=== PATIENT | female | born 1965 | race Caucasian/White ===

== ENCOUNTER 2018-04-25 05:03 | Emergency (ER) | payer OTHER, SELFPAY ==
[2018-04-25 05:06] VITALS: BP 136/75; PULSE 101; RESP 24; TEMP 36.8; O2SAT 97
--- NOTE | 2018-04-25 05:13 | ED.GENADUL_ITS ---
Discharge Plan Disposition Patient Disposition: HOME Condition: Stable Discharge Details Chief Complaint: SOB Clinical Impression: URI, acute, Cough, COPD exacerbation Primary Care Provider: LEONARDO,LOCAL ED Provider: Violet Ma Home Meds and New Rx's Prescriptions: New prednisone 50 mg tablet 50 mg PO DAILY Qty: 5 RF: 0 azithromycin [Zithromax] 500 mg tablet 500 mg PO DAILY 5 Days Qty: 5 RF: 0 Continue metformin 500 mg Tablet 500 mg PO BID RF: 0 pramipexole [Mirapex] 0.5 mg Tablet 0.5 mg PO BID RF: 0 nortriptyline 25 mg Capsule 25 mg PO HS RF: 0 lithium carbonate 300 mg Tablet 1,200 mg PO HS RF: 0 ginkgo biloba leaf extract 30 mg Capsule 30 mg PO BID RF: 0 levothyroxine [Synthroid] 25 mcg Tablet 25 mcg PO DAILY RF: 0 Discharge Instructions Instructions: Upper Respiratory Infection (ED), COPD (Chronic Obstructive Pulmonary Disease) (ED), Acute Cough (ED) Additional Instructions: Take the steroids and antibiotics until finished. Use the Symbicort inhaler twice daily as directed. Use the albuterol inhaler as needed and directed for shortness of breath or wheezing. Follow-up with the primary care doctor for reevaluation once your insurance is approved. Return immediately to the emergency department with any worsening or new concerning symptoms. Discharge Data Discharge Date/Time-TO BE ENTERED AT DEPARTURE: 04/25/18 05:49 Discharge Physician: Violet Ma Medical Decision Making MDM Narrative Medical decision making narrative: 52-year-old female with a history of COPD and current tobacco smoker who presents for sore throat since yesterday and dry cough and shortness of breath since last night. Pt denies chest pain or fever. Patient states recently moved from [place] 2 months ago and did not have her inhaler that she needed for her COPD. States she thinks she was taking Symbicort twice daily. Patient initially had stated to me that she did not have any of her medication and was only taking synthroid but after nurse completed med reconciliation, she is noted to be taking metformin, Synthroid, nortriptyline, lithium, Mirapex of which she stated she is taking. She also did not admit to any medical problems other than hypothyroidism on initial evaluation. She denies recent surgery, leg pain or swelling. Vitals within normal limits. Afebrile. Oxygen saturation 97%. Respiratory rate 20. Heart rate 101 per triage but normal on my cardiac exam. She appears nontoxic and in no acute distress. Airway intact and she is speaking in full sentences. Normal ENT exam. She has very minimal scattered wheezing and diminished breath sounds but no rhonchi, rales or crackles. Patient offered neb treatment and chest x-ray but declines. She is c/o more uri/ copd symptoms and in no acute distress so doubt acs. Patient states she mainly needs refill of her COPD medications. As patient is a smoker, will also start antibiotics. We will give a dose of prednisone and Zithromax here and send home with albuterol and Symbicort inhalers. Patient is currently in the process of obtaining insurance. She states she has completed the paperwork and will plan to follow-up with the primary care doctor once complete. She declines care management referral. Patient was instructed to return immediately with any concerns or worsening of symptoms HPI - General Adult General Mode of arrival: ambulatory . Date/Time Provider Initiated Documentation: 04/25/18 05:11 . Limitations to Documentation: no limitations . Information obtained by: patient . HPI Narrative: 52-year-old female with history of COPD and tobacco abuse who presents for sore throat and rhinorrhea since yesterday and shortness of breath and cough since last night. Denies known fever or chest pain. States she recently moved here from [place] 2 months ago and did not have her inhaler since she left. States she is in the process of receiving insurance and has completed the paperwork and is awaiting to make an appointment with her primary care doctor. She states she has been drinking normally and eating slightly less than usual. States her sore throat is now resolved. Past medical history: COPD, restless leg syndrome, diabetes, hypothyroidism Surgical history: Tonsillectomy, R knee pedro cyst removal, D&C Social history: Smokes tobacco, rare EtOH, denies drugs Meds: See list Allergies: Zoloft PCP: None yet Related Data Home Medications Medication Instructions Recorded Confirmed ginkgo biloba leaf extract 30 mg PO BID 04/25/18 04/25/18 levothyroxine [Synthroid] 25 mcg PO DAILY 04/25/18 lithium carbonate 1,200 mg PO HS 04/25/18 metformin 500 mg PO BID 04/25/18 04/25/18 nortriptyline 25 mg PO HS 04/25/18 pramipexole [Mirapex] 0.5 mg PO BID 04/25/18 04/25/18 Previous Rx's Medication Instructions Recorded azithromycin [Zithromax] 500 mg PO DAILY 5 Days #5 tab 04/25/18 prednisone 50 mg PO DAILY #5 tab 04/25/18 Allergies Allergy/AdvReac Type Severity Reaction Status Date / Time sertraline [From Zoloft] AdvReac Unverified 04/25/18 05:10 General Stated Complaint: SOB REBECA: 4 Review of Systems Review of Systems All systems reviewed & are unremarkable except as noted in HPI and below Constitutional Denies chills, Denies excessive sweating, Denies fatigue, Denies fever(s), Denies weakness and Denies weight loss Eyes Patient Reports system reviewed and no additional complaints, except as docu and Denies blurry vision ENT Denies vertigo, Denies dizziness, Denies otalgia, Denies nasal congestion, Denies sore throat and Denies throat swelling Cardiovascular Denies chest pain, Denies syncope, Denies rapid heart rate and Reports dyspnea Respiratory Reports cough and Reports dyspnea Gastrointestinal Denies abdominal pain, Denies diarrhea and Denies vomiting Genitourinary Denies hematuria, Denies dysuria and Denies flank pain Musculoskeletal Denies back pain and Denies joint swelling Integumentary/Breasts Denies lesions and Denies rash Neurologic Denies behavioral changes, Denies confusion, Denies vertigo, Denies dizziness, Denies syncope and Denies weakness Psychiatric Denies behavioral changes, Denies confusion and Denies depression Endocrine Denies excessive sweating and Denies fatigue Hematologic/Lymphatic Denies easy bruising and Denies lymphadenopathy Allergic/Immunologic Denies throat swelling [facility] Social History Smoking/Tobacco Use Status: Current every day Exam Const General: cooperative and healthy appearing Orientation: alert and awake HENMT Head: normal to inspection Ears: hearing grossly normal bilaterally, external ears normal and TM's normal bilaterally General nose exam: external nose normal Face and sinus: normal facial exam Mouth: oral mucosae normal Teeth and gingiva: dentition normal Throat: posterior oropharynx normal Eyes General: appearance normal, both eyes and all related structures Eyelids: eyelids normal Pupils: PERRL EOM: EOM intact bilaterally Neck Neck: normal visual inspection Lymphatic: no lymphadenopathy noted Chest Chest: normal inspection of the chest Resp Effort & Inspection: normal respiratory effort and able to speak in complete sentences Auscultation: no crackles, no rales, no rhonchi and wheezes (Minimal scattered wheezing and minimally diminished breath sounds) Cardio Rate: regular rate Rhythm: regular rhythm GI Inspection: normal to inspection Skin General skin exam: no rashes or lesions noted Neuro General: alert and awake Cognition: normal cognition Speech: speech normal Gait: normal gait Extrem General: normal to inspection, full ROM and normal capillary refill Psych Appearance: grossly normal Mental Status: mental status grossly normal Speech and Movement: speech and movement normal Affect: normal affect Thought Process: normal Course Vital Signs Temperature 98.2 F 04/25/18 05:06 Pulse 101 H 04/25/18 05:06 Respiratory Rate 24 04/25/18 05:06 Blood Pressure 136/75 04/25/18 05:06 Pulse Oximetry 97 04/25/18 05:06 Temperature 98.2 F 04/25/18 05:06 Pulse 101 H 04/25/18 05:06 Respiratory Rate 24 04/25/18 05:06 Blood Pressure 136/75 04/25/18 05:06 Pulse Oximetry 97 04/25/18 05:06
[2018-04-25 05:15] VITALS: RESP 20
[2018-04-25] MEDS: Azithromycin 250 MG TAB 500 MG PO (05:31)
[2018-04-25] MEDS: Albuterol HFA 8 GM 60 PUFF INH IH (05:31)
[2018-04-25] MEDS: predniSONE 20 MG TAB 60 MG PO (05:31)
[2018-04-25] MEDS: Budesonide/Formoterol 160/4.5 6 GM 60 PUFF INH IH (05:48)
== END 2018-04-25 05:49 | disposition home or self-care (01) ==
LOC: ER 05:55
PROVIDERS: Emergency Provider Physician Assistant
DX: J44.1 Chronic obstructive pulmonary disease with (acute) exacerbation (principal); J06.9 Acute upper respiratory infection, unspecified; E11.9 Type 2 diabetes mellitus without complications; Z79.84 Long term (current) use of oral hypoglycemic drugs
CPT/HCPCS: 99283; J7512

== ENCOUNTER 2018-06-13 08:09 | Outpatient (REF) | payer OTHER, SELFPAY ==
[2018-06-13 12:23] LABS: HCT 44.1 % (36.0-46.0); Mean Corp. HGB Concentration 29.5 g/dL (32.0-36.0); Mean Platelet Volume 11.2 fL (8.0-11.0); Platelet Count 322 x1000/uL (130-400); RBC 4.64 m/cumm (4.00-5.20); RBC Distribution Width 15.6 % (11.7-14.6); White Blood Cell Count 7.69 k/cumm (4.4-10.8)
[2018-06-13 12:40] LABS: Lithium < 0.20 mmol/L (0.60-1.20)
[2018-06-13 12:46] LABS: ALT 16 U/L (12-78); AST 10 U/L (15-37); Albumin 3.6 g/dL (3.4-5.0); Alkaline Phosphatase 74 U/L (46-116); BUN 7 mg/dL (7-18); Bilirubin, Total 0.2 mg/dL (0.2-1.0); Calcium 9.3 mg/dL (8.5-10.1); Chloride 106 mmol/L (98-107); Estimated GFR 58.22 (mL/min/1.73m2); Glucose 111 mg/dL (70-100); Potassium 4.8 mmol/L (3.5-5.1); Sodium 141 mmol/L (136-145); Total Protein 6.8 g/dL (6.4-8.2)
[2018-06-13 13:05] LABS: FREE T4 0.39 ng/dL (0.76-1.46)
[2018-06-13 13:09] LABS: Hemoglobin A1C 5.5 % (4.5-6.2)
== END 2018-06-13 08:29 ==
LOC: NCHCN 08:09
PROVIDERS: Visit Provider Nurse Practitioner
DX: F31.9 Bipolar disorder, unspecified (principal); E78.5 Hyperlipidemia, unspecified; E03.9 Hypothyroidism, unspecified; I10 Essential (primary) hypertension; J44.9 Chronic obstructive pulmonary disease, unspecified
CPT/HCPCS: 80053; 85027; 80178; 83036; 84439; 84443

== ENCOUNTER 2018-06-26 19:24 | Outpatient (REF) | payer OTHER, SELFPAY ==
[2018-06-26 20:56] LABS: COMMENT (LAB VIEW ONLY) 21.26 mg/dL
== END 2018-06-26 19:44 ==
LOC: NCHCN 19:24
PROVIDERS: PCP Nurse Practitioner; Visit Provider Nurse Practitioner
DX: E11.9 Type 2 diabetes mellitus without complications (principal)
CPT/HCPCS: 82043; 82570

== ENCOUNTER 2018-08-20 09:16 | Outpatient (REF) | payer OTHER, SELFPAY ==
[2018-08-20 13:29] LABS: TSH (W/Ref FT4) 1.35 uIU/mL (0.358-3.74)
== END 2018-08-20 09:36 ==
LOC: NCHCN 09:16
PROVIDERS: PCP Nurse Practitioner; Visit Provider Nurse Practitioner
DX: E03.9 Hypothyroidism, unspecified (principal)
CPT/HCPCS: 84443

== ENCOUNTER 2018-09-13 08:46 | Outpatient (REF) | payer OTHER, SELFPAY ==
[2018-09-13 13:38] LABS: Lithium 0.52 mmol/L (0.60-1.20)
[2018-09-13 13:46] LABS: ALT 19 U/L (12-78); AST 18 U/L (15-37); Albumin 3.1 g/dL (3.4-5.0); Alkaline Phosphatase 78 U/L (46-116); Anion Gap 7.2 mmol/L (3-11); BUN 9 mg/dL (7-18); Bilirubin, Total 0.3 mg/dL (0.2-1.0); CO2 27.8 mmol/L (21.0-32.0); CREATININE 1.12 mg/dL (0.55-1.02); Chloride 106 mmol/L (98-107); Estimated GFR 51.09 (mL/min/1.73m2); Glucose 98 mg/dL (70-100); Potassium 4.7 mmol/L (3.5-5.1); Sodium 141 mmol/L (136-145); TSH (W/Ref FT4) 2.27 uIU/mL (0.358-3.74); Total Protein 6.5 g/dL (6.4-8.2)
== END 2018-09-13 09:06 ==
LOC: NCHCN 08:46
PROVIDERS: PCP Nurse Practitioner; Visit Provider Nurse Practitioner
DX: R60.0 Localized edema (principal); F31.9 Bipolar disorder, unspecified; Z51.81 Encounter for therapeutic drug level monitoring; Z79.899 Other long term (current) drug therapy; E03.9 Hypothyroidism, unspecified
CPT/HCPCS: 80053; 80178; 84443

== ENCOUNTER 2018-11-12 08:35 | Outpatient (REF) | payer OTHER, SELFPAY ==
[2018-11-12 13:58] LABS: Iron 27 ug/dL (50-175); Total Iron Binding Capacity 409 ug/dL (250-450); Transferrin Sat 7 % (15-50)
[2018-11-12 14:11] LABS: Cholesterol 208 mg/dL (50-200); Ferritin 37 ng/mL (8-388); HDL Cholesterol 48 mg/dL (40-60); LDL CHOLESTEROL 143 mg/dL (<100); Triglyceride 101 mg/dL (30-150)
== END 2018-11-12 08:55 ==
LOC: NCHCN 08:35
PROVIDERS: PCP Nurse Practitioner; Visit Provider Nurse Practitioner
DX: E78.5 Hyperlipidemia, unspecified (principal); M25.50 Pain in unspecified joint
CPT/HCPCS: 80061; 83721; 82728; 83540; 83550

== ENCOUNTER 2019-02-20 08:26 | Outpatient (REF) | payer OTHER, SELFPAY ==
[2019-02-20 13:23] LABS: HCT 41.7 % (36.0-46.0); HGB 12.9 g/dL (12.0-15.5); Mean Corp. HGB Concentration 30.9 g/dL (32.0-36.0); Mean Corpuscular Hemoglobin 29.3 pg (27.0-33.0); Mean Corpuscular Volume 94.8 fL (80-95); Mean Platelet Volume 11.3 fL (8.0-11.0); Platelet Count 285 x1000/uL (130-400); White Blood Cell Count 10.38 k/cumm (4.4-10.8)
[2019-02-20 14:24] LABS: ALT 17 U/L (12-78); AST 11 U/L (15-37); Albumin 3.5 g/dL (3.4-5.0); Alkaline Phosphatase 85 U/L (46-116); Anion Gap 9.2 mmol/L (3-11); BUN 10 mg/dL (7-18); Bilirubin, Total 0.3 mg/dL (0.2-1.0); CO2 26.8 mmol/L (21.0-32.0); CREATININE 0.81 mg/dL (0.55-1.02); Calcium 9.3 mg/dL (8.5-10.1); Chloride 106 mmol/L (98-107); Glucose 94 mg/dL (70-100); Potassium 4.3 mmol/L (3.5-5.1); Sodium 142 mmol/L (136-145); TSH (W/Ref FT4) 1.47 uIU/mL (0.358-3.74); Total Protein 6.5 g/dL (6.4-8.2); Vitamin B12 191 pg/mL (193-986)
[2019-02-21 07:40] LABS: Vitamin D 25 Total 19.5 ng/ml (30-100)
== END 2019-02-20 08:46 ==
LOC: NCHCN 08:26
PROVIDERS: PCP Nurse Practitioner; Visit Provider Nurse Practitioner
DX: E03.9 Hypothyroidism, unspecified (principal); D50.9 Iron deficiency anemia, unspecified
CPT/HCPCS: 80053; 82306; 85027; 82607; 84443

== ENCOUNTER 2019-04-19 01:35 | Outpatient (CLI) | payer OTHER, SELFPAY ==
--- NOTE | 2019-04-19 08:30 | DI.MRI_ITS ---
SYMPTOM/DIAGNOSIS: TENOSYNOVITIS, ACHILLES TENDINITIS, RT FOOT PAIN RIGHT ANKLE MRI: Comparison is made with plain films from Dr. Sevilla's office. T 1 and fat suppressed T 2, sagittal and coronal and T 2 axial sequences were performed. The patient was unable to lie flat for the duration of the exam and the T 1 axial and thin slices through the Achilles were not able to be performed. The Achilles tendon shows thickening in the proximal and mid portions. There is asymmetric high signal on the medial aspect of the proximal Achilles Tendon consistent with a partial tear. There is a mild amount of edema in the fat beneath the Achilles tendon. There is a small amount of fluid seen posteriorly at the posterior talocalcaneal joint. The remaining tendons appear intact. The marrow signal is normal. The plantar fascia is unremarkable. IMPRESSION: Partial tear at the medial aspect of the proximal Achilles tendon.
== END 2019-04-19 01:55 ==
PROVIDERS: PCP Nurse Practitioner; Visit Provider Podiatrist
DX: M79.671 Pain in right foot (principal); S86.011A Strain of right Achilles tendon, initial encounter
CPT/HCPCS: 73721

== ENCOUNTER 2019-05-11 09:11 | Emergency (ER) | payer OTHER, SELFPAY ==
[2019-05-11] VITALS (25 sets, daily range): BP systolic 112–134; BP diastolic 56–80; PULSE 80–102; RESP 16–27; TEMP 36.6–36.7; O2SAT 91–100
[2019-05-11] MEDS: Normal Saline 1,000 ML 1000 ML IV (09:15)
--- NOTE | 2019-05-11 09:28 | DI.CT_ITS ---
EXAM: CT CHEST PE ABD PELVIS W CLINICAL HISTORY: shortness of breath, hypoxia. TECHNIQUE: CT examination of the chest, abdomen and pelvis was carried out with intravenous administ ration of 100 cc of Omnipaque 350. COMPARISON: No exams were available for comparison FINDINGS: There is no evidence of PE. There is no evidence of an aortic aneurysm or aortic dissection. Intersti tial prominence is noted in the lungs with a question regarding edema and could relate to congestive failure. Atelectasis is demonstrated. There are no focal areas of consolidation. There is no pneumo thorax or pleural effusion. The heart is enlarged and there is a small pericardial effusion. Bulky me diastinal lymphadenopathy as well as enlarged hilar nodes is seen bilaterally and in the AP window th ere is a node measuring up to 1.6 cm in short axis. Workup is necessary. No acute bony abnormality is seen. The soft tissues are unremarkable. There is an 8 mm, low-attenuation lesion left hepatic lobe likely representing a cyst. The patient is status post cholecystectomy. Pancreas is normal. The spleen is normal. The adrenals are normal. The kidneys are normal. Mild distension of the stomach, bowel wall thickening and multiple small bowel loops adjacent to the mesenteric ascites. The findings would be consistent with enteritis which may b e infectious or inflammatory. Correlation is recommended. No acute bony abnormality is seen. The so ft tissues are unremarkable. Retroperitoneal lymph nodes and aortocaval lymph node is noted measurin g up to 1.3 cm in short axis. Follow-up is recommended. IMPRESSION: No evidence of PE. No evidence of an aortic aneurysm or dissection. There is cardiomegaly and a small pericardial effusion. Interstitial prominence is noted in the lungs which may represent edema. Possi bility of congestive failure is raised. Marked distension with wall thickening involving multiple loops of small bowel and adjacent mesenteri c ascites. The findings are compatible with enteritis and could be infectious or inflammatory. Clinic al correlation is suggested. Retroperitoneal lymph nodes and aortocaval nodes are noted measuring up to 1.3 cm in short axis. Foll ow-up is recommended.
--- NOTE | 2019-05-11 09:29 | W.ED.GENAD ---
Discharge Plan Disposition Patient Disposition: HOME Discharge Details Chief Complaint: SOB Clinical Impression: Cardiomegaly, Pericardial effusion, Elevated brain natriuretic peptide (BNP) level, Enteritis Primary Care Provider: Zoila Gerard ED Provider: Oseas Seymour Home Meds and New Rx's Prescriptions: New ondansetron HCl [Zofran] 4 mg tablet 4 mg PO Q8H PRN (Reason: nausea and vomiting) Qty: 10 RF: 0 No Action ascorbic acid (vitamin C) 1,000 mg tablet 1 gm PO DAILY RF: 0 ferrous sulfate [Feosol] 325 mg (65 mg iron) tablet 325 mg PO DAILY RF: 0 levothyroxine 150 mcg capsule 150 mcg PO DAILY RF: 0 nortriptyline 50 mg capsule 50 mg PO QHS RF: 0 (DME) oxygen-air delivery systems device See Dose Instructions .ROUTE .MEDSUPPLY Qty: 1 RF: 0 atorvastatin [Lipitor] 20 mg tablet 20 mg PO DAILY RF: 0 Symbicort 80-4.5 mcg/actuation HFA aerosol inhaler 2 puff IH BID RF: 0 albuterol sulfate [Ventolin HFA] 90 mcg/actuation HFA aerosol inhaler 2 puff IH Q6H PRNRF: 0 Prilosec OTC 20 mg tablet,delayed release (DR/EC) 20 mg PO DAILY RF: 0 ranitidine HCl 150 mg capsule 150 mg PO DAILY RF: 0 pramipexole [Mirapex] 0.5 mg tablet 0.5 mg PO BID PRNRF: 0 pramipexole [Mirapex] 0.5 mg Tablet 0.5 mg PO BID RF: 0 Prilosec OTC 20 mg Tablet,Delayed Release (Dr/Ec) 20 mg PO BID RF: 0 gabapentin 300 mg Capsule 300 mg HS RF: 0 Triamcinolone Acetinide 0.1 % See Rx Instructions .ROUTE .COMPLEX RF: 0 pramipexole [Mirapex] 0.5 mg Tablet 0.5 mg PO BID RF: 0 ginkgo biloba leaf extract 30 mg Capsule 30 mg PO BID RF: 0 prednisone 50 mg tablet 50 mg PO DAILY Qty: 5 RF: 0 metformin 500 mg tablet 1,000 mg PO BID RF: 0 lithium carbonate 300 mg tablet 900 mg PO HS RF: 0 Discharge Instructions Instructions: Enteritis (ED) Additional Instructions: CT scan today demonstrated incidental findings of small pericardial effusion, cardiomegaly, and retroperitoneal enlarged lymph nodes. Please be sure to follow-up with your primary care physician and discuss results of diagnostic testing. Follow-up testing is recommended by radiology. Please contact your primary care physician to arrange follow-up. Given elevated BNP level and cardiomegaly, it is important that you follow-up with cardiology. Call for an appointment. Return to the ER for any worsening or new concerning symptoms. Stand Alone Forms: Work Release Referrals: Zoila Gerard [Primary Care Provider] - Jalen Forman MD [ CONSULTING PHYSICIAN] - Discharge Data Discharge Date/Time-TO BE ENTERED AT DEPARTURE: 05/11/19 13:36 Medical Decision Making 10:00 --53-year-old female with history of COPD, diabetes, GERD, presents with nausea, vomiting, diarrhea since 3:30 AM. Patient does have history of COPD but is typically not short of breath that she is currently. She has recent orthopedic injury of her right lower extremity. She was diaphoretic short of breath and hypoxic when EMS arrived. Lungs are now clear to auscultation and she remains mildly short of breath. Heart rate is elevated in the upper 90s. Consider acute pulmonary embolism.. Plan to obtain CT of the chest. Patient has tenderness in her left lower quadrant. Consider diverticulitis or other acute surgical process. Plan to obtain CT of the abdomen pelvis. Consider atypical presentation of ACS. ECG was reviewed and interpreted by me: Sinus rhythm 96 bpm, left axis deviation, frequent PVCs, no STEMI. Will check troponin. --Patient reassessed multiple times and significantly improved. Patient notes feels much better after IV fluid. --Labs reviewed and BNP is elevated at 3000. Troponin is negative. CTA of the chest was reviewed and interpreted by radiology:IMPRESSION: 1. Negative for acute pulmonary embolism. 2. Negative for aortic aneurysm, limited evaluation for aortic dissection. 3. Cardiomegaly. Small pericardial effusion. 4. Interstitial prominence, concerning for edema. May relate to congestive failure, clinical correlation recommended. 5. Bulky mediastinal lymphadenopathy as well as enlarged hilar lymph nodes bilaterally. AP window lymph node measures 1.6 cm in short axis. Additional workup necessary. CTA of the abdomen and pelvis was interpreted by radiology: IMPRESSION: 1. Mild distention with marked wall thickening of multiple small bowel loops. Adjacent mesenteric ascites. Compatible with enteritis, may be infectious or inflammatory process, clinical correlation recommended. 2. Retroperitoneal lymph nodes, aortocaval lymph node measuring 1.3 cm in short axis. Followup recommended. 13:15 --patient was observed in the emergency department and had a delta troponin at 3 hours that was negative and unchanged from prior. All results were discussed with the patient. Patient again reassessed and notes significantly improved, breathing easily room air with no respiratory distress. Plan will be for patient to follow-up with her primary care physician and with cardiology given concern for cardiomyopathy. I will place her on care management list to help arrange timely follow-up. HPI General Mode of arrival: ambulatory. Date/Time Provider Initiated Documentation: 05/11/19 09:28. Limitations to Documentation: no limitations. Information obtained by: patient. HPI Narrative: 53-year-old female with history of COPD, hypertension, hyperlipidemia, diabetes, bipolar disorder, presents with chief complaint of diarrhea. Patient notes that since 330 last night she has had significant loose brown stool. She also notes associated nausea and vomiting. She is vomited 7-8 times since onset. She has some epigastric abdominal discomfort. She went to work today and symptoms worsened. She had associated shortness of breath and diaphoresis. No associated chest pain. Of note, patient has recent right lower extremity injury and is in a walking boot. She denies right calf pain or swelling. Related Data Home Medications Medication Instructions Recorded Confirmed ginkgo biloba leaf extract 30 mg PO BID 04/25/18 01/25/19 pramipexole [Mirapex] 0.5 mg PO BID 04/25/18 01/25/19 prednisone 50 mg PO DAILY #5 tab 04/25/18 01/25/19 albuterol sulfate 90 mcg/actuation 2 puff IH Q6H PRN 12/20/18 05/11/19 aerosol inhaler atorvastatin 20 mg tablet 20 mg PO DAILY 12/20/18 05/11/19 budesonide-formoterol HFA 80 2 puff IH BID 12/20/18 05/11/19 mcg-4.5 mcg/actuation aerosol inhaler omeprazole magnesium 20 mg 20 mg PO DAILY 12/20/18 05/11/19 tablet,delayed release ranitidine HCl 150 mg capsule 150 mg PO DAILY 12/20/18 05/11/19 ascorbic acid (vitamin C) 1,000 mg 1 gm PO DAILY tab 01/25/19 05/11/19 tablet ferrous sulfate 325 mg (65 mg 325 mg PO DAILY tab 01/25/19 05/11/19 iron) tablet levothyroxine 150 mcg capsule 150 mcg PO DAILY 01/25/19 05/11/19 lithium carbonate 300 mg tablet 900 mg PO HS 01/25/19 05/11/19 metformin 500 mg tablet 1,000 mg PO BID tab 01/25/19 05/11/19 nortriptyline 50 mg capsule 50 mg PO QHS 01/25/19 05/11/19 oxygen-air delivery systems #1 01/25/19 01/25/19 pramipexole 0.5 mg tablet 0.5 mg PO BID PRN tab 01/25/19 01/25/19 Triamcinolone Acetinide See Rx Instructions .ROUTE .COMPLEX 05/11/19 gabapentin 300 mg HS 05/11/19 05/11/19 omeprazole magnesium [Prilosec OTC] 20 mg PO BID 05/11/19 05/11/19 ondansetron HCl [Zofran] 4 mg PO Q8H PRN #10 tab 05/11/19 pramipexole [Mirapex] 0.5 mg PO BID 05/11/19 05/11/19 Previous Rx's Medication Instructions Recorded prednisone 50 mg PO DAILY #5 tab 04/25/18 ondansetron HCl [Zofran] 4 mg PO Q8H PRN #10 tab 05/11/19 Allergies Allergy/AdvReac Type Severity Reaction Status Date / Time sertraline [From Zoloft] AdvReac Verified 01/25/19 10:47 General Stated Complaint: SOB REBECA: 2 Review of Systems Review of Systems ROS Unobtainable: All systems reviewed & are unremarkable except as noted in HPI and below Constitutional Constitutional: Reports fatigue and Denies fever(s) Cardiovascular Cardiovascular: Denies chest pain and Reports dyspnea Respiratory Respiratory: Denies cough and Reports dyspnea Gastrointestinal Gastrointestinal: Reports abdominal pain, Reports nausea and Reports vomiting Endocrine Endocrine: Reports fatigue [facility] Medical History Anxiety (Chronic) Bilateral lower extremity edema (Acute) Bipolar 1 disorder (Chronic) COPD (chronic obstructive pulmonary disease) (Chronic) Dental caries (Chronic) Depression (Chronic) Dysuria (Acute) Fibromyalgia (Chronic) GERD (gastroesophageal reflux disease) (Chronic) Gout (Chronic) Heart murmur (Chronic) HTN (hypertension) (Chronic) Hyperlipidemia (Chronic) Hypothyroidism (Chronic) Non-insulin dependent type 2 diabetes mellitus (Chronic) Oral lesion (Acute) JADON (obstructive sleep apnea) (Chronic) Restless leg syndrome (Chronic) Right lateral epicondylitis (Acute) SOB (shortness of breath) (Acute) Social History Smoking/Tobacco Use Status: Current every day Alcohol Intake: never Drug use: Never Do you feel safe in your relationship?: Yes Exam Const General: cooperative and no acute distress HENMT Head: normocephalic Mouth: mucous membranes dry Eyes Conjunctivae: normal conjunctivae Sclera: normal sclerae Neck Neck: trachea midline and supple Resp Auscultation: clear to auscultation bilaterally, no rales, no rhonchi and no wheezes Cardio Jugular venous pressure: no JVD Rate: regular rate and not tachycardic Rhythm: regular rhythm GI Palpation: soft, not firm, no guarding, no masses, not rigid and tender in the LLQ Skin General skin exam: no rashes or lesions noted Neuro General: alert, awake, oriented x3 and tone normal Extrem General: no calf tenderness and no edema Psych Appearance: grossly normal Mental Status: mental status grossly normal Course Vital Signs Vital signs: Vital Signs Temperature 36.6 C 05/11/19 09:15 Pulse 98 H 05/11/19 09:15 Respiratory Rate 18 05/11/19 09:15 Blood Pressure 112/72 05/11/19 09:15 Pulse Oximetry 96 05/11/19 09:15 Temperature 36.6 C 05/11/19 09:15 Temperature Source Skin 05/11/19 09:15 Pulse 98 H 05/11/19 09:15 Respiratory Rate 22 05/11/19 09:23 Respiratory Effort Non-Labored 05/11/19 09:23 Respiratory Depth Normal 05/11/19 09:23 Respiratory Pattern Normal 05/11/19 09:23 Blood Pressure 112/72 05/11/19 09:15 Pulse Oximetry 96 05/11/19 09:15 Oxygen Delivery Method Nasal Cannula 05/11/19 09:15 Oxygen Flow Rate 2 05/11/19 09:15 Pain Level 0 05/11/19 09:15
--- NOTE | 2019-05-11 09:53 | NUR.NOTE ---
Nursing Note: Normal saline bolus hung via EMS, bolus to be finished per MD Seymour
[2019-05-11 10:01] LABS: Abs Immature Grans 0.03 k/cumm (0.0-0.09); Absolute Basophil Count 0.01 k/cumm (0.0-0.2); Absolute Eosinophil Count 0.05 k/cumm (0.0-0.7); Absolute Lymphocyte Count 0.68 k/cumm (1.2-3.4); Absolute Monocyte Count 0.39 k/cumm (0.11-0.7); Basophils % 0.1; Eosinophils % 0.4; HCT 45.5 % (36.0-46.0); Immature Grans % 0.3; Lymphocytes % 5.8; Mean Corp. HGB Concentration 30.8 g/dL (32.0-36.0); Mean Corpuscular Hemoglobin 29.2 pg (27.0-33.0); Monocytes % 3.3; Neutrophils % 90.1; Platelet Count 292 x1000/uL (130-400); RBC 4.79 m/cumm (4.00-5.20); RBC Distribution Width 15.2 % (11.7-14.6); White Blood Cell Count 11.77 k/cumm (4.4-10.8)
[2019-05-11 10:12] LABS: ALT 12 U/L (14-59); AST 12 U/L (15-37); Albumin 3.7 g/dL (3.4-5.0); Alkaline Phosphatase 85 U/L (46-116); Anion Gap 9.1 mmol/L (3-11); BUN 15 mg/dL (7-18); Bilirubin, Total 0.9 mg/dL (0.2-1.0); CO2 28.9 mmol/L (21.0-32.0); CREATININE 0.96 mg/dL (0.55-1.02); Calcium 8.8 mg/dL (8.5-10.1); Chloride 105 mmol/L (98-107); Glucose 128 mg/dL (70-100); Lipase 84 U/L (73-393); Magnesium 1.6 mg/dL (1.8-2.4); Potassium 4.3 mmol/L (3.5-5.1); Sodium 143 mmol/L (136-145); Total Protein 7.1 g/dL (6.4-8.2)
[2019-05-11 10:13] LABS: Troponin I < 0.05 ng/mL (0.00-0.06)
[2019-05-11] MEDS: Omnipaque 350 MG/ML 100 ML BTL IJ (11:03)
--- NOTE | 2019-05-11 11:26 | DI.VRAD_ITS ---
PROCEDURE INFORMATION: Exam: CT Angiography Chest With Contrast Exam date and time: 05/11/2019 10:53 AM Clinical history: 53 years old, female; Shortness of breath and other: Hypoxia, abdominal pain; Additional info: Image count May be incorrect, due to thins not sending TECHNIQUE: Imaging protocol: Computed tomographic angiography of the chest with intravenous contrast. 3D rendering: MIP reconstructed images were created and reviewed. COMPARISON: No relevant prior studies available. FINDINGS: Pulmonary arteries: Negative for acute pulmonary embolism. Aorta: Negative for aortic aneurysm, limited evaluation for aortic dissection. Lungs: Interstitial prominence, concerning for edema. May relate to congestive failure, clinical correlation recommended. Mild dependent atelectasis bilaterally. No focal consolidation. Pleural space: Unremarkable. No pneumothorax. No pleural effusion. Heart: Cardiomegaly. Small pericardial effusion. Lymph nodes: Bulky mediastinal lymphadenopathy as well as enlarged hilar lymph nodes bilaterally. AP window lymph node measures 1.6 cm in short axis. Additional workup necessary. Bones/joints: Unremarkable. No acute fracture. Soft tissues: Unremarkable. IMPRESSION: 1. Negative for acute pulmonary embolism. 2. Negative for aortic aneurysm, limited evaluation for aortic dissection. 3. Cardiomegaly. Small pericardial effusion. 4. Interstitial prominence, concerning for edema. May relate to congestive failure, clinical correlation recommended. 5. Bulky mediastinal lymphadenopathy as well as enlarged hilar lymph nodes bilaterally. AP window lymph node measures 1.6 cm in short axis. Additional workup necessary. PROCEDURE INFORMATION: Exam: CT Angiography Abdomen With Contrast Exam date and time: 05/11/2019 10:53 AM Clinical history: 53 years old, female; Shortness of breath and other: Hypoxia, abdominal pain; Additional info: Image count May be incorrect, due to thins not sending TECHNIQUE: Imaging protocol: Computed tomographic angiography images of the abdomen with intravenous contrast material. 3D rendering: MIP reconstructed images were created and reviewed. COMPARISON: No relevant prior studies available. FINDINGS: Mediastinum: Small hiatal hernia. VASCULATURE: Aorta: No aortic aneurysm. Limited evaluation for aortic dissection. Celiac trunk and mesenteric arteries: No occlusion or significant stenosis. Renal arteries: No occlusion or significant stenosis. ABDOMEN: Liver: 8 mm low-attenuation lesion in the left hepatic lobe, likely hepatic cyst. Gallbladder and bile ducts: Previous cholecystectomy. Pancreas: Normal. No ductal dilation. Spleen: Normal. No splenomegaly. Adrenals: Normal. No mass. Kidneys and ureters: Normal. No hydronephrosis. Stomach and bowel: Mild distention with marked wall thickening of multiple small bowel loops. Adjacent mesenteric ascites. Compatible with enteritis, may be infectious or inflammatory process, clinical correlation recommended. Intraperitoneal space: See Stomach And Bowel Finding. Bones/joints: Unremarkable. No acute fracture. No dislocation. Soft tissues: Unremarkable. Lymph nodes: Retroperitoneal lymph nodes, aortocaval lymph node measuring 1.3 cm in short axis. Followup recommended. IMPRESSION: 1. Mild distention with marked wall thickening of multiple small bowel loops. Adjacent mesenteric ascites. Compatible with enteritis, may be infectious or inflammatory process, clinical correlation recommended. 2. Retroperitoneal lymph nodes, aortocaval lymph node measuring 1.3 cm in short axis. Followup recommended. Dictated and Authenticated by: Mary Davis MD. Ordering:DALJIT Farooq MD
[2019-05-11 12:12] LABS: NT-proBNP 3204 pg/mL
[2019-05-11 12:53] LABS: Troponin I < 0.05 ng/mL (0.00-0.06)
--- NOTE | 2019-05-12 07:13 | NUR.NOTE ---
Nursing Note: Referral faxed to [facility] Cardiology for follow up. Mary Jane Esteban.
== END 2019-05-11 13:36 | disposition home or self-care (01) ==
PROVIDERS: Emergency Provider Student in an Organized Health Care Education/Training Program; PCP Nurse Practitioner
DX: I51.7 Cardiomegaly (principal); I30.9 Acute pericarditis, unspecified; R79.89 Other specified abnormal findings of blood chemistry; K52.9 Noninfective gastroenteritis and colitis, unspecified; J44.9 Chronic obstructive pulmonary disease, unspecified; I10 Essential (primary) hypertension; E11.9 Type 2 diabetes mellitus without complications; Z79.84 Long term (current) use of oral hypoglycemic drugs; F17.210 Nicotine dependence, cigarettes, uncomplicated
CPT/HCPCS: 36415; 36416; 71275; 74177; 80053; 82962; 83690; 96360; 99285; 83735; 83880; 84484; 85025; 99284; J3490

== ENCOUNTER 2019-06-07 00:37 | Outpatient (CLI) | payer OTHER, SELFPAY ==
--- NOTE | 2019-06-07 09:30 | DI.US_ITS ---
APPROVED REPORT Conclusion Left Ventricle : The left ventricle is normal size. Left ventricular systolic function is mildly dec reased. There is diastolic septal flattening that suggests RV volume overload. Otherwise, wall motio n is normal LVEF is 45-49%. Diastolic function is indeterminate. Right Ventricle : The right ventricle is normal size. The right ventricular systolic function is norm al. Atria : Left atrium is moderately dilated. Right atrium is mildly dilated. Aortic Valve : The aortic valve is normal in structure. Aortic valve is trileaflet. There is no aorti c valvular stenosis. No aortic regurgitation is present. Mitral Valve : Mitral valve leaflets have restricted excursion. Mitral valve appears rheumatic. Moder ate mitral regurgitation which is posteriorly directed. Mild mitral stenosis. Tricuspid Valve : The tricuspid valve is normal in structure. Mild tricuspid regurgitation. Pulmonic Valve : Pulmonic valve is not well visualized. Great Vessels : The IVC is normal in size and collapses <50% with inspiration. Estimated RVSP is 38- 45 mmHg Pericardium : Trace pericardial effusion. There is no prior echocardiogram available for comparison. EXAM: Comprehensive 2D, Doppler, and color-flow Echocardiogram Patient Location: Out-Patient Toe Stripper: MELISSA Moss (AE) Indications: Pericardial Effusion Left Ventricle The left ventricle is normal size. Left ventricular systolic function is mildly decreased. There is n ormal left ventricular wall thickness. The posterior wall thickness is normal. The septum is normal. There is diastolic septal flattening that suggests RV volume overload. Otherwise, wall motion is norm al Diastolic function is indeterminate. LVEF is 45-49%. Right Ventricle The right ventricle is normal size. The right ventricular systolic function is normal. Atria Left atrium is moderately dilated. Right atrium is mildly dilated. The interatrial septum is intact w ith no evidence for an atrial septal defect. Aortic Valve The aortic valve is normal in structure. Aortic valve is trileaflet. There is no aortic valvular sten osis. No aortic regurgitation is present. Mitral Valve Mitral valve leaflets have restricted excursion. Mitral valve appears rheumatic. Mild mitral stenosis . Moderate mitral regurgitation which is posteriorly directed. Tricuspid Valve The tricuspid valve is normal in structure. Mild tricuspid regurgitation. Pulmonic Valve Pulmonic valve is not well visualized. Trace pulmonic regurgitation. Great Vessels The aortic root is normal in size. The ascending aorta is normal in size. The IVC is normal in size a nd collapses <50% with inspiration. Estimated RVSP is 38-45 mmHg Pericardium Trace pericardial effusion. 2D Dimensions IVSd 0.96 cm F: 0.6-1.0 LV EDV A2C 130.13 mL PWd 0.90 cm F: 0.6 - 1.0 LV EDV A4C 107.64 mL LVDd 4.62 cm F: 3.9 - 5.3 LA Volume Index A2C 33.44 mL/m2 LVDs 3.61 cm F: 2.2 - 3.5 LA Volume Index A4C 47.41 mL/m2 Aortic Root 2.63 cm F: 2.7 - 3.3 LA Volume Index Biplane 39.96 mL/m2 Left Atrium 4.86 cm F: 2.7 - 3.8 LA Area A4C 27.13 cm2 RA Area A4C 25.98 cm2 LA Area A2C 22.71 cm2 LVOT 1.80 cm (M/F) 1.5-2.5 LA/Aortic Root Ratio 0.54 Ascending Aorta 2.74 cm F: 2.3 - 3.1 EF AP4 50.46 % LVEF (Teich) 44.27 % EF AP2 46.80 % LVEF (Helm's) 48.53 % F: 54 - 74 EF BP 48.53 % FS 21.86 % LV Diastology E Decel Time 227.00 (160-240 msec) MED E' 0.06 (>0.07 m/s) LV E/e MED 34.13 (<14) Aortic Valve LVOT Area 2.55 cm2 LVOT Peak Leighton. 1.10 m/s LVOT Mean Leighton. 0.71 m/s LVOT Peak Gr. 4.85 mmHg LVOT Mean Gr. 2.38 mmHg LVOT VTI 0.19 m AoV Peak Leighton. 1.25 (0.5-1.3 m/s) AoV Mean Leighton. 0.86 m/s AO Peak GR. 6.25 mmHg AO Mean GR. 3.32 (<5 mmHg) AO VTI 0.21 (0.18-0.25 m) DAVE (VTI) 2.36 (2.5-4.5 cm2) DAVE (VTI) Index 1.14 cm/m2 Mitral Valve MV E Max Leighton. 1.92 (0.4-1.3 m/s) MVA VTI 1.39 (4.0-6.0 cm2) MV Decel. Time 226.97 (160-240 msec) MV Peak Gr. 89.65 mmHg MV PHT 65.82 msec MVA PHT 3.34 cm2 Tricuspid Valve TR P. Velocity 3.10 m/s TV Regurg Vmax 3.10 m/s TR P. Gradient 38.35 mmHg
== END 2019-06-07 00:57 ==
PROVIDERS: PCP Nurse Practitioner; Visit Provider Nurse Practitioner
DX: I31.3 Pericardial effusion (noninflammatory) (principal); I50.1 Left ventricular failure, unspecified; I05.2 Rheumatic mitral stenosis with insufficiency; I51.7 Cardiomegaly; R06.02 Shortness of breath
CPT/HCPCS: 93306

== ENCOUNTER 2019-08-21 14:15 | Outpatient (CLI) | payer OTHER, SELFPAY ==
--- NOTE | 2019-08-22 14:26 | DI.CT_ITS ---
EXAM: CT CHEST W CLINICAL HISTORY: RESTRICTIVE LUNG DISEASE, J98.4, MEDIASTINAL, HILAR ADENOPATHY, F/U PERIPHERAL INT ERSTITIAL INFILTRATE TECHNIQUE: Post IV contrast. COMPARISON: CT CHEST PE ABD PELVIS W from 05/11/2019 FINDINGS: The heart is enlarged, with four-chamber enlargement. No pleural or pericardial effusions are seen. There has been interval decrease in size of previously noted mediastinal and hilar adenopathy. Ther e is mild paraseptal emphysema near the lung apices. There is mild interstitial prominence near the apices. The interlobular septal thickening seen on the previous exam shows marked improvement. On t he previous exam, the findings likely represented mild CHF. There is no change in a 4 millimeter cir cumscribed nodule in the right. The visualized portions of the upper abdomen are unremarkable. Ther e are no suspicious bony abnormalities. Scoliosis and mild degenerative changes are seen. IMPRESSION: Cardiomegaly. Mild paraseptal emphysema near the lung apices. Mild interstitial disease greater at the lung apices.
[2019-08-22] MEDS: Omnipaque 350 MG/ML 100 ML BTL IV (14:48)
== END 2019-08-21 14:35 ==
PROVIDERS: PCP Nurse Practitioner; Visit Provider Internal Medicine
DX: J98.4 Other disorders of lung (principal); R59.0 Localized enlarged lymph nodes; I51.7 Cardiomegaly; I50.9 Heart failure, unspecified; R91.1 Solitary pulmonary nodule; J43.9 Emphysema, unspecified

== ENCOUNTER 2019-08-22 08:48 | Outpatient (CLI) | payer OTHER, SELFPAY | END 2019-08-22 09:08 | PROVIDERS: PCP Nurse Practitioner; Visit Provider Internal Medicine Cardiovascular Disease | DX: R07.9 Chest pain, unspecified (principal); I10 Essential (primary) hypertension; E78.5 Hyperlipidemia, unspecified; R01.1 Cardiac murmur, unspecified | CPT/HCPCS: 93005; 93010 ==

== ENCOUNTER 2019-08-22 13:38 | Outpatient (CLI) | payer OTHER, SELFPAY ==
[2019-08-22 14:10] LABS: CREATININE 0.85 mg/dL (0.55-1.02)
== END 2019-08-22 13:58 ==
LOC: LBO 13:38 → DI 13:41
PROVIDERS: PCP Nurse Practitioner; Visit Provider Internal Medicine
DX: J44.9 Chronic obstructive pulmonary disease, unspecified (principal); Z13.89 Encounter for screening for other disorder
CPT/HCPCS: 71260; 82565; J3490

== ENCOUNTER 2019-09-09 14:40 | Outpatient (REF) | payer OTHER, SELFPAY ==
[2019-09-09 18:52] LABS: ALT 15 U/L (14-59); AST 10 U/L (15-37); Albumin 3.5 g/dL (3.4-5.0); Alkaline Phosphatase 116 U/L (46-116); BUN 12 mg/dL (7-18); Bilirubin, Total 0.3 mg/dL (0.2-1.0); CREATININE 0.95 mg/dL (0.55-1.02); Calcium 8.8 mg/dL (8.5-10.1); Chloride 103 mmol/L (98-107); Glucose 112 mg/dL (74-106); Potassium 4.3 mmol/L (3.5-5.1); Sodium 143 mmol/L (136-145)
[2019-09-09 18:54] LABS: Hemoglobin A1C 6.1 % (3.8-5.6)
[2019-09-09 19:07] LABS: Calculated LDL 109 mg/dL (<100); Cholesterol 183 mg/dL (<200); HDL Cholesterol 61 mg/dL (40-60); Triglyceride 67 mg/dL (<150)
== END 2019-09-09 15:00 ==
LOC: NCHCN 14:40
PROVIDERS: PCP Nurse Practitioner; Visit Provider Nurse Practitioner
DX: E11.9 Type 2 diabetes mellitus without complications (principal); I10 Essential (primary) hypertension; E03.9 Hypothyroidism, unspecified
CPT/HCPCS: 80053; 80061; 83036; 84443

== ENCOUNTER 2019-09-10 12:33 | Outpatient (REF) | payer OTHER, SELFPAY ==
[2019-09-10 14:55] LABS: COMMENT (LAB VIEW ONLY) 24.12 mg/dL; Microalb ug/mg Crea 22.4 ug/mg Cr
== END 2019-09-10 12:53 ==
LOC: NCHCN 12:33
PROVIDERS: PCP Nurse Practitioner; Visit Provider Nurse Practitioner
DX: E11.9 Type 2 diabetes mellitus without complications (principal)
CPT/HCPCS: 82043; 82570

== ENCOUNTER 2019-09-24 01:13 | Outpatient (CLI) | payer OTHER, SELFPAY ==
--- NOTE | 2019-09-24 07:15 | DI.NM_ITS ---
APPROVED REPORT Exam: Pharmacologic Patient Location: Out-Patient Room/Bed: Stress Nurse: Winifred Aldridge RN BMI: 30.41 Baseline Rhythm: First Degree Heart Block Comment: T wave inversions in leads AVR, V1, V2 Indications: Patient testing today for further risk stratification. Patient reports she had in ER vis it back in May of 2019 for which she woke up at 3 AM with vomiting then by 8 AM she was having na usea, SOB, and diaphoresis. Medical History Medical History: Depression, Severe Sleep Apnea, Hypothyroidism, Prolapsed Mitral Valve, Fibromyalgia , Restrictive Lung Disorder, Cardiomyopathy, Pulmonary Hypertension. Cardiac Medications: Atorvastatin, Aspirin. Allergies: Sertraline Cardiac Risk Factors: FHX of CAD, Hyperlipidemia, , COPD Previous Cardiac Procedures: None Pretest Chest Pain Characteristics: No chest pain Exercise History: Physically active Physical Disabilities: Legs Lung Sounds: Clear to auscultation Heart Sounds: Regular, Murmur Stress Test Details Test: Pharmacologic stress testing performed using 0.4 mg of regadenoson per 5 mL given IV over 10 s econds. Reason for pharmacologic stress test: physical limitation. Nuclear Acquisition: Rest Tc-99m/Stress Tc-99m 1 day Rest Isotope: Tc-99m Sestamibi. Dose: 10.9 Date: 09/24/2019 Injection Time: 1015 Stress Isotope: Tc-99m Sestamibi. Dose: 28.6 Date: 09/24/2019 Injection Time: 1300 HR Resting HR Supine: 72 bpm Max Heart Rate (APMHR): 167 bpm Target HR (85% APMHR): 141 bpm Max HR Achieved: 99 bpm % of APMHR: 59 BP Resting BP Supine: 118/70 mmHg Max BP: 124/70 mmHg ECG Clinical Stress Symptoms: None Stress ECG Conclusion 1. The electrocardiogram showed an incomplete right bundle branch block. The patient had not exercis ed on the treadmill. She received pharmacologic stress. There were no electrocardiographic changes. Maximal heart rate was 99 which was 59% predicted for age 2. Electrocardiographically the test was nondiagnostic due to inadequate heart rate 3. There were no symptoms elicited suggestive of angina. There were no dysrhythmias Protocol Used: Regadenoson Stress Test Summary STAGE HR BP Symptoms NOTES Supine 72 118/70 1 min post Lexiscan injection 92 122/70 3 min post Lexiscan injection 82 118/68 6 min post Lexiscan injection 82 124/70 MPI Conclusion No evidence of significant myocardial ischemia or prior infarction
[2019-09-24] MEDS: Regadenoson 0.4 MG/5 ML SYR IVP (13:27)
== END 2019-09-24 01:33 ==
PROVIDERS: PCP Nurse Practitioner; Visit Provider Internal Medicine Cardiovascular Disease
DX: R07.9 Chest pain, unspecified (principal); R06.02 Shortness of breath; E03.9 Hypothyroidism, unspecified; R94.31 Abnormal electrocardiogram [ECG] [EKG]; E11.9 Type 2 diabetes mellitus without complications; I10 Essential (primary) hypertension; I42.9 Cardiomyopathy, unspecified; E78.5 Hyperlipidemia, unspecified; Z82.49 Family history of ischemic heart disease and other diseases of the circulatory system
CPT/HCPCS: 78452; 93017; J2785

== ENCOUNTER 2019-12-16 21:51 | Outpatient (REF) | payer OTHER, SELFPAY ==
[2019-12-16 21:47] LABS: Lithium 0.79 mmol/L (0.60-1.20)
[2019-12-16 22:18] LABS: Vitamin B12 620 pg/mL (193-986)
[2019-12-16 23:19] LABS: Vitamin D 25 Total 31.6 ng/ml (30-100)
== END 2019-12-16 22:11 ==
LOC: NCHCN 21:51
PROVIDERS: PCP Nurse Practitioner; Visit Provider Nurse Practitioner Psychiatric/Mental Health
DX: D50.9 Iron deficiency anemia, unspecified (principal); E55.9 Vitamin D deficiency, unspecified; Z51.81 Encounter for therapeutic drug level monitoring
CPT/HCPCS: 82306; 80178; 82607

== ENCOUNTER 2020-01-20 07:55 | Outpatient (REF) | payer SELFPAY ==
[2020-01-21 09:18] LABS: HBs Antibody, Quant <3.1 mIU/mL (See Note); Hepatitis B Surface Ab Negative (See Note)
[2020-01-21 10:01] LABS: Measles IgG Antibody Positive (See Note); Mumps Antibody IgG Positive (See Note); Rubella IgG Ab (UVM) Positive (See Note); Varicella IgG Antibody Positive (See Note)
[2020-01-22 13:11] LABS: TB Interpretation Negative (Negative); TB1 Ag minus Nil 0.01 IU/ml; TB2 Ag minus Nil 0.01 IU/mL
== END 2020-01-20 08:15 ==
LOC: LBO 07:55
PROVIDERS: PCP Nurse Practitioner; Visit Provider Nurse Practitioner Family
DX: Z02.1 Encounter for pre-employment examination (principal); Z11.59 Encounter for screening for other viral diseases; Z01.84 Encounter for antibody response examination; Z11.1 Encounter for screening for respiratory tuberculosis
CPT/HCPCS: 36415; 86706; 86787; 86480; 86735; 86762; 86765

== ENCOUNTER 2020-04-20 15:47 | Outpatient (CLI) | payer SELFPAY ==
[2020-04-21 12:31] LABS: COVID-19 RT-PCR Result NEGATIVE (Negative)
== END 2020-04-20 16:07 ==
PROVIDERS: PCP Nurse Practitioner; Visit Provider Nurse Practitioner Family
DX: Z11.59 Encounter for screening for other viral diseases (principal)
CPT/HCPCS: U0003

== ENCOUNTER 2020-05-26 14:39 | Outpatient (CLI) | payer OTHER, SELFPAY ==
--- NOTE | 2020-05-26 14:45 | DI.RAD_ITS ---
EXAM: XR WRIST RT COMPLETE CLINICAL HISTORY: R thumb pain. TECHNIQUE: 2D digital imaging was performed. COMPARISON: No exams were available for comparison FINDINGS: BONES: No acute fracture is present. No bony destructive lesion is seen. JOINTS: The carpal bones are normally aligned. There is no significant joint space narrowing or peria rticular spurring. SOFT TISSUE: Normal. IMPRESSION: Unremarkable radiographs of the right wrist. DATA REPOSITORY: RADIATION DOSE DELIVERED:
== END 2020-05-26 14:59 ==
PROVIDERS: PCP Nurse Practitioner; Referring Provider Nurse Practitioner; Visit Provider Physician Assistant
DX: M79.644 Pain in right finger(s) (principal)
CPT/HCPCS: 73110

== ENCOUNTER 2020-11-10 10:24 | Outpatient (REF) | payer OTHER, SELFPAY ==
[2020-11-10 15:05] LABS: HCT 45.3 % (36.0-46.0); HGB 14.3 g/dL (11.2-15.7); MCH 30.2 pg (27.0-33.0); MCHC 31.6 % (32.0-36.0); MCV 95.6 fL (80-95); MPV 10.9 fL (8.0-11.0); Platelet Count 331 10^3/uL (130-400); RBC 4.74 10^6/uL (3.93-5.22); RDW 12.8 % (11.7-14.6); RDW-SD 45.6 fL; WBC 11.71 10^3/uL (4.4-10.8)
[2020-11-10 15:25] LABS: ALT 26 U/L (14-59); AST 13 U/L (15-37); Albumin 3.9 g/dL (3.4-5.0); Anion Gap 9.1 mmol/L (3-11); BUN 8 mg/dL (7-18); CO2 30.9 mmol/L (21.0-32.0); CREATININE 0.9 mg/dL (0.55-1.02); Calcium 9.6 mg/dL (8.5-10.1); Calculated LDL 112 mg/dL (<100); Chloride 104 mmol/L (98-107); Cholesterol 202 mg/dL (<200); Glucose 89 mg/dL (74-106); HDL Cholesterol 45 mg/dL (40-60); Potassium 4.7 mmol/L (3.5-5.1); Sodium 144 mmol/L (136-145); Total Protein 7.6 g/dL (6.4-8.2); Triglyceride 225 mg/dL (<150)
[2020-11-10 15:47] LABS: Alkaline Phosphatase 137 U/L (46-116); Bilirubin, Total 0.2 mg/dL (0.2-1.0); TSH (W/Ref FT4) 0.99 uIU/mL (0.36-3.74)
[2020-11-10 16:04] LABS: COMMENT (LAB VIEW ONLY) 27.89 mg/dL; Microalb ug/mg Crea 5.4 ug/mg Cr
--- NOTE | 2020-12-01 08:08 | W.ANESCON ---
General Date of Service Date of Service: 12/01/20 Reason for Consult Requesting Provider: Andi Desai How Consult Conducted:: Chart Review Reason for Consult:: History of a difficult intubation. Consult Recommendation after Review:: Elise has a history of a difficult airway requiring multiple attempts at a [place] [place] [facility] in 2012. She was seen by ENT here who did not see anything that would lead to her being a difficult airway, however the anesthesia note used mutliple adjuncts to place the airway. Her airway history is all that I see that is concerning when reviewing her chart. I think we have two options for her. One is to have her come in before her surgery and we can give her some oral local anesthetic and perform a video laryngoscopy to confirm airway grade. The other is to bring her in day of surgery and do the same process, although this may result in the cancellation of her procedure that day if her airway is observed to be difficult. Height: 5 ft 9 in Weight: 101.6 kg Body Mass Index (BMI): 33.0 Meds Allergies and Home Medications Allergies Allergy/AdvReac Type Severity Reaction Status Date / Time sertraline [From Zoloft] AdvReac Verified 12/01/20 08:17 Home Medication Medication Instructions Recorded albuterol sulfate 90 mcg/actuation 2 puff IH Q6H PRN 12/20/18 aerosol inhaler atorvastatin 20 mg tablet 20 mg PO DAILY 12/20/18 levothyroxine 150 mcg capsule 150 mcg PO DAILY 01/25/19 metformin 500 mg tablet 1,000 mg PO BID tab 01/25/19 Triamcinolone Acetinide See Rx Instructions .ROUTE .COMPLEX 05/11/19 omeprazole magnesium [Prilosec OTC] 20 mg PO BID 05/11/19 pramipexole [Mirapex] 0.5 mg PO BID 05/11/19 fluticasone fur. 100 mcg-umeclid 1 inh IH DAILY 08/14/19 62.5 mcg-vilant 25 mcg inhalat.powder zolpidem 5 mg tablet 5 mg PO QHS PRN 08/14/19 CPAP MISCELLANEOUS 10/08/19 aspirin 81 mg tablet,delayed 81 mg PO DAILY 10/08/19 release gabapentin 100 mg capsule 100 mg PO DAILY 10/08/19 albuterol sulfate 2.5 mg INHALATION Q4H PRN 11/19/20 cholecalciferol (vitamin D3) 25 25 mcg PO DAILY 11/19/20 mcg (1,000 unit) capsule lamotrigine 25 mg tablet 25 mg PO BID tab 11/19/20 triamcinolone acetonide 0.1 % 1 applic TOPICAL BID 11/19/20 topical cream PFSH Active Problems Active Problems: Problem Status Onset Code Hearing loss H91.90 Difficult intubation T88.4XXA Vitamin D deficiency E55.9 Vitamin B 12 deficiency E53.8 Iron deficiency anemia D50.9 Screening for colon cancer Z12.11 Early satiety R68.81 Bloating R14.0 Hoarseness of voice R49.0 Post-nasal drip R09.82 Environmental allergies Z91.09 Abnormal auditory perception of both ears H93.293 Difficult airway for intubation T88.4XXA Encounter for screening for other viral diseases Z11.59 Carpal tunnel syndrome, right G56.01 Ganglion cyst of volar aspect of right wrist M67.431 Ganglion cyst of volar aspect of left wrist M67.432 De Quervain's tenosynovitis, right ~12/2019 M65.4 Diabetes E11.9 Chest pain R07.9 Hyperlipidemia E78.5 HTN (hypertension) I10 Heart murmur R01.1 Medical History (Updated 12/01/20 @ 08:56 by Kusum Ramirez MD) Anxiety Bilateral lower extremity edema Bipolar 1 disorder Carpal tunnel syndrome, right COPD (chronic obstructive pulmonary disease) De Quervain's tenosynovitis, right (~12/2019) Dental caries Depression Difficult intubation Dysuria Environmental allergies Fibromyalgia Ganglion cyst of volar aspect of left wrist Ganglion cyst of volar aspect of right wrist GERD (gastroesophageal reflux disease) Gout Hearing loss Heart murmur HTN (hypertension) Hyperlipidemia Hypothyroidism Iron deficiency anemia Non-insulin dependent type 2 diabetes mellitus Oral lesion JADON (obstructive sleep apnea) Post-nasal drip Restless leg syndrome Right lateral epicondylitis SOB (shortness of breath) Vitamin B 12 deficiency Vitamin D deficiency Surgical History (Updated 12/01/20 @ 08:56 by Kusum Ramirez MD) S/P cholecystectomy Social History Smoking/Tobacco Use Status: Current every day Tobacco Type: cigarettes Years smoked: 40 Smoking risk assessment performed?: Yes Alcohol Intake: never Drug use: Never Current gender identity: female What type of physical activity do you participate in: none Do you feel safe in your relationship?: Yes Vital Signs & Lab Results Point of Care Results Nursing Point of Care Results: No Data to Display Lab Results Result Diagrams: 11/10/20 09:40 11/10/20 09:40 Blood Type / Crossmatch: No Data to Display Complete Blood Count: White Blood Count 11.71 10^3/uL (4.4-10.8) H 11/10/20 09:40 11/10/20 Red Blood Count 4.74 10^6/uL (3.93-5.22) 11/10/20 09:40 11/10/20 Hemoglobin 14.3 g/dL (11.2-15.7) 11/10/20 09:40 11/10/20 Hematocrit 45.3 % (36.0-46.0) 11/10/20 09:40 11/10/20 Platelet Count 331 10^3/uL (130-400) 11/10/20 09:40 11/10/20 Complete Metabolic Panel: Sodium Level 144 mmol/L (136-145) 11/10/20 09:40 11/10/20 Potassium Level 4.7 mmol/L (3.5-5.1) 11/10/20 09:40 11/10/20 Chloride Level 104 mmol/L (98-107) 11/10/20 09:40 11/10/20 Carbon Dioxide Level 30.9 mmol/L (21.0-32.0) 11/10/20 09:40 11/10/20 Blood Urea Nitrogen 8 mg/dL (7-18) 11/10/20 09:40 11/10/20 Creatinine 0.9 mg/dL (0.55-1.02) 11/10/20 09:40 11/10/20 Magnesium Level 1.6 mg/dL (1.8-2.4) L 05/11/19 09:51 05/11/19 Calcium Level 9.6 mg/dL (8.5-10.1) 11/10/20 09:40 11/10/20 Albumin 3.9 g/dL (3.4-5.0) 11/10/20 09:40 11/10/20 Glucose Level 89 mg/dL (74-106) 11/10/20 09:40 11/10/20 Hemoglobin A1c 6.1 % (3.8-5.6) H 09/09/19 14:20 09/09/19 Liver Function Panel: Alanine Aminotransferase (ALT/SGPT) 26 U/L (14-59) 11/10/20 09:40 11/10/20 Aspartate Amino Transf (AST/SGOT) 13 U/L (15-37) L 11/10/20 09:40 11/10/20 Coagulation Panel: No Data to Display Cardiac Panel: Troponin I < 0.05 ng/mL (0.00-0.06) 05/11/19 12:30 05/11/19 GH-Ysr-R-Type Natriuretic Peptide 3204 pg/mL (-299) H 05/11/19 09:51 05/11/19 Arterial Blood Gas: No Data to Display Venous Blood Gas: No Data to Display Pancreas Panel: Lipase 84 U/L (73-393) 05/11/19 09:51 05/11/19 Thyroid Panel: Thyroid Stimulating Hormone (TSH) 0.99 uIU/mL (0.36-3.74) 11/10/20 09:40 11/10/20 Infectious Disease: Coronavirus (COVID-19)(PCR) Not Applicable 04/20/20 09:09 04/20/20 Blood Cultures: No Data to Display Toxicology Panel: No Data to Display Panel: No Data to Display Imaging and Studies Imaging and Studies EKG Image & Interpretation: No Data to Display Stress Test Interpretation: Myocardial Perfusion Scan Nuc Med 09/24/19 07:15 09/24/19 Stress Test Summary:: 09/24/2019: Stress ECG Conclusion 1. The electrocardiogram showed an incomplete right bundle branch block. The patient had not exercised on the treadmill. She received pharmacologic stress. There were no electrocardiographic changes. Maximal heart rate was 99 which was 59% predicted for age 2. Electrocardiographically the test was nondiagnostic due to inadequate heart rate 3. There were no symptoms elicited suggestive of angina. There were no dysrhythmias Echo Interpretation: Echocardiogram Ultrasound 06/07/19 09:30 06/07/19 Echocardiogram Summary:: Date of Exam: 06/07/19 Conclusion Left Ventricle : The left ventricle is normal size. Left ventricular systolic function is mildly decreased. There is diastolic septal flattening that suggests RV volume overload. Otherwise, wall motion is normal LVEF is 45-49%. Diastolic function is indeterminate. Right Ventricle : The right ventricle is normal size. The right ventricular systolic function is normal. Atria : Left atrium is moderately dilated. Right atrium is mildly dilated. Aortic Valve : The aortic valve is normal in structure. Aortic valve is trileaflet. There is no aortic valvular stenosis. No aortic regurgitation is present. Mitral Valve : Mitral valve leaflets have restricted excursion. Mitral valve appears rheumatic. Moderate mitral regurgitation which is posteriorly directed. Mild mitral stenosis. Tricuspid Valve : The tricuspid valve is normal in structure. Mild tricuspid regurgitation. Pulmonic Valve : Pulmonic valve is not well visualized. Great Vessels : The IVC is normal in size and collapses <50% with inspiration. Estimated RVSP is 38-45 mmHg Pericardium : Trace pericardial effusion. There is no prior echocardiogram available for comparison. Carotid Artery US: No Data to Display Pulmonary Function Test Interpretation: No Data to Display Anesthesia Assessment and Plan Anesthesia History Personal History: Other ([facility], [place]: 06/14/13:Open Lap Polina, Had Bronchospasm/hypoxia in PACU, Admit to ICU) Airway Exam Known Difficult Airway: Yes Previous Airway Comments:: 06/14/13: Multiple Attempts: Glidescope, DL Mac 4, Then used fiber optic with success. Pt. saw Elicia 07/20/20 and flexible scope used Flexible Laryngoscopy Transnasal flexible laryngoscopy was performed. This revealed a normal appearing nasopharynx, with normal selena. There are no masses or lesions. The oropharynx, vallecula, epiglottis, supraglottis, glottis, subglottis, pryriform sinuses and hypopharynx are within normal limits. Left arytenoid somewhat hypokinetic compared to right. Evidence of LPR with posterior commissure edema. True vocal cord motion is bilaterally symmetric, and preserved with excellent excursion and midline approximation. Nothing to indicate a difficult airway.
[2020-12-01 08:18] VITALS: BMI 33.0
== END 2020-11-10 10:25 | disposition home or self-care (01) ==
LOC: LBN 10:24
PROVIDERS: PCP Nurse Practitioner; Visit Provider Nurse Practitioner
DX: D50.9 Iron deficiency anemia, unspecified (principal); E11.9 Type 2 diabetes mellitus without complications; E78.5 Hyperlipidemia, unspecified; E03.9 Hypothyroidism, unspecified
CPT/HCPCS: 80053; 80061; 85027; 82043; 82570; 84443

== ENCOUNTER 2020-12-10 13:26 | Day surgery (SDC) | payer OTHER, SELFPAY ==
--- NOTE | 2020-12-04 14:39 | PDOC.ANES ---
Date of service: 12/04/20 Time of Service: 14:39 Anesthesia Note Report Anesthesia Note: Request to call patient due to her concern of inappropriate blood glucose levels on day of visit 12/10/2020. Attempted to call at this time and was unable to reach the patient. Appears she is just on oral antihyperglycemics. Will try again on Monday.
[2020-12-10 13:40] VITALS: BP 141/65; PULSE 81; RESP 16; TEMP 36.5; O2SAT 97
[2020-12-10 14:19] VITALS: BP 132/69; PULSE 84; RESP 16; TEMP 36.7; O2SAT 95
--- NOTE | 2020-12-10 14:48 | ANES.CON_ITS ---
General Date of Service Date of Service: 12/10/20 Reason for Consult Requesting Provider: Kusum Ramirez How Consult Conducted:: Seen in Office Reason for Consult:: Previous history of difficult airway Consult Recommendation after Review:: Ok to proceed with anesthesia at [facility]. Height: 5 ft 9 in Weight: 100.4 kg Body Mass Index (BMI): 32.6 Meds Allergies and Home Medications Allergies Allergy/AdvReac Type Severity Reaction Status Date / Time sertraline [From Zoloft] AdvReac Verified 12/10/20 13:35 Home Medication Medication Instructions Recorded albuterol sulfate 90 mcg/actuation 2 puff IH Q6H PRN 12/20/18 aerosol inhaler atorvastatin 20 mg tablet 20 mg PO DAILY 12/20/18 levothyroxine 150 mcg capsule 150 mcg PO DAILY 01/25/19 metformin 500 mg tablet 1,000 mg PO BID tab 01/25/19 Triamcinolone Acetinide See Rx Instructions .ROUTE .COMPLEX 05/11/19 omeprazole magnesium [Prilosec OTC] 20 mg PO BID 05/11/19 pramipexole [Mirapex] 0.5 mg PO BID 05/11/19 fluticasone fur. 100 mcg-umeclid 1 inh IH DAILY 08/14/19 62.5 mcg-vilant 25 mcg inhalat.powder zolpidem 5 mg tablet 5 mg PO QHS PRN 08/14/19 CPAP MISCELLANEOUS 10/08/19 aspirin 81 mg tablet,delayed 81 mg PO DAILY 10/08/19 release gabapentin 100 mg capsule 100 mg PO DAILY 10/08/19 albuterol sulfate 2.5 mg INHALATION Q4H PRN 11/19/20 lamotrigine 25 mg tablet 25 mg PO BID tab 11/19/20 polyethylene glycol 3350 [Miralax] 12/10/20 [facility] Active Problems Active Problems: Problem Status Onset Code Chest pain R07.9 Diabetes E11.9 Encounter for screening for other viral diseases Z11.59 Difficult airway for intubation T88.4XXA Abnormal auditory perception of both ears H93.293 Hoarseness of voice R49.0 Bloating R14.0 Early satiety R68.81 Screening for colon cancer Z12.11 Guillen cyst M71.20 Difficult intubation T88.4XXA Hyperlipidemia E78.5 HTN (hypertension) I10 Heart murmur R01.1 Medical History Medical History (Updated 12/10/20 @ 13:34 by Tommy Le) Anxiety Bilateral lower extremity edema Bipolar 1 disorder Carpal tunnel syndrome, right COPD (chronic obstructive pulmonary disease) De Quervain's tenosynovitis, right (~12/2019) Dental caries Depression Difficult intubation Dysuria Environmental allergies Fibromyalgia Ganglion cyst of volar aspect of left wrist Ganglion cyst of volar aspect of right wrist GERD (gastroesophageal reflux disease) Gout Hearing loss Heart murmur HTN (hypertension) Hyperlipidemia Hypothyroidism Iron deficiency anemia Non-insulin dependent type 2 diabetes mellitus Oral lesion JADON (obstructive sleep apnea) Post-nasal drip Restless leg syndrome Right lateral epicondylitis SOB (shortness of breath) Vitamin B 12 deficiency Vitamin D deficiency Surgical History Surgical History Guillen cyst removed from behind right knee X2. Hx of tonsillectomy S/P cholecystectomy Tobacco Smoking/Tobacco Use Status: Current every day Tobacco Type: cigarettes Smoking cigarettes per day: 8 Years smoked: 40 Smoking pack-years: 16.00 Alcohol Alcohol Intake: never Substance Use Substance use: Never Substance use type: does not use Vital Signs & Lab Results Vital Signs Most Recent Vital Signs: Most Recent Vital Signs Temp Pulse Resp BP Pulse Ox 36.7 C 84 16 132/69 95 12/10/20 14:19 12/10/20 14:19 12/10/20 14:19 12/10/20 14:19 12/10/20 14:19 Point of Care Results Nursing Point of Care Results: No Data to Display Lab Results Blood Type / Crossmatch: No Data to Display Complete Blood Count: White Blood Count 11.71 10^3/uL (4.4-10.8) H 11/10/20 09:40 11/10/20 Red Blood Count 4.74 10^6/uL (3.93-5.22) 11/10/20 09:40 11/10/20 Hemoglobin 14.3 g/dL (11.2-15.7) 11/10/20 09:40 11/10/20 Hematocrit 45.3 % (36.0-46.0) 11/10/20 09:40 11/10/20 Platelet Count 331 10^3/uL (130-400) 11/10/20 09:40 11/10/20 Complete Metabolic Panel: Sodium Level 144 mmol/L (136-145) 11/10/20 09:40 11/10/20 Potassium Level 4.7 mmol/L (3.5-5.1) 11/10/20 09:40 11/10/20 Chloride Level 104 mmol/L (98-107) 11/10/20 09:40 11/10/20 Carbon Dioxide Level 30.9 mmol/L (21.0-32.0) 11/10/20 09:40 11/10/20 Blood Urea Nitrogen 8 mg/dL (7-18) 11/10/20 09:40 11/10/20 Creatinine 0.9 mg/dL (0.55-1.02) 11/10/20 09:40 11/10/20 Magnesium Level 1.6 mg/dL (1.8-2.4) L 05/11/19 09:51 05/11/19 Calcium Level 9.6 mg/dL (8.5-10.1) 11/10/20 09:40 11/10/20 Albumin 3.9 g/dL (3.4-5.0) 11/10/20 09:40 11/10/20 Glucose Level 89 mg/dL (74-106) 11/10/20 09:40 11/10/20 Hemoglobin A1c 6.1 % (3.8-5.6) H 09/09/19 14:20 09/09/19 Liver Function Panel: Alanine Aminotransferase (ALT/SGPT) 26 U/L (14-59) 11/10/20 09:40 11/10/20 Aspartate Amino Transf (AST/SGOT) 13 U/L (15-37) L 11/10/20 09:40 11/10/20 Coagulation Panel: No Data to Display Cardiac Panel: Troponin I < 0.05 ng/mL (0.00-0.06) 05/11/19 12:30 05/11/19 RS-Blr-[id number]-Type Natriuretic Peptide 3204 pg/mL (-299) H 05/11/19 09:51 05/11/19 Arterial Blood Gas: No Data to Display Venous Blood Gas: No Data to Display Pancreas Panel: Lipase 84 U/L (73-393) 05/11/19 09:51 10/05/19 Thyroid Panel: Thyroid Stimulating Hormone (TSH) 0.99 uIU/mL (0.36-3.74) 11/10/20 09:40 11/10/20 Infectious Disease: Coronavirus (COVID-19)(PCR) Not Applicable 04/20/20 09:09 04/20/20 Blood Cultures: No Data to Display Toxicology Panel: No Data to Display Panel: No Data to Display Imaging and Studies Imaging and Studies EKG Image & Interpretation: No Data to Display Stress Test Interpretation: Myocardial Perfusion Scan Nuc Med 09/24/19 07:15 09/24/19 Stress Test Summary:: 09/26: no evidence of significant ischemia of prior infarction. Echo Interpretation: Echocardiogram Ultrasound 06/07/19 09:30 06/07/19 Echocardiogram Summary:: 06/2019: LVEF 45-49%, moderate mitral regurg, mild TR, RVSP 38-45 mmHg Carotid Artery US: No Data to Display Pulmonary Function Test Interpretation: No Data to Display Anesthesia Assessment and Plan Anesthesia History Family History: No Family History of Anesthesia Complications Exercise Tolerance Exercise Tolerance: Metabolic Equivalents>4 Airway Exam Known Difficult Airway: Yes Mallampati Class: 3 Mouth Opening: Normal (> 3cm) Thyromental Distance: Less than 3 cm Neck Range of Motion: Limited ROM Neck Circumference: Thick Teeth Condition: Other (Poor dentition, multiple loose, multiple brooken teeth. ) ASA Classification ASA Score: ASA 3 Preoperative Comments:: Elsie is a 55 yo here today for evaluation of her airway to determine if she is a candidate for anesthesia here at [facility]. 06/2013 she had a lap gracie (which went open) at [facility]. The anesthesia record from [facility] is difficulty to read, but seems to say attempted intubation -> glidescope ->mac 4 -> (?) araya -> fiberoptic bronchoscope. Her sagar sat was documented at 85- 88% (she was 93% on entering the room). Once the ETT was in she did receive albuterol. It appears that she was extubated at the end of the case and bought to the ICU for recovery for both her airway, bronchospasm, and the fact that the case went open. Recently she visited with Dr. Rubi who performed a nasal video scope to evaluate her airway where he did not note anything that would indicate a difficult airway. She denies chest pain, but endorses shortness of breath with exertion - which has been stable. She does have a CPAP and states that she has severe sleep apnea. She has been having what she called significant GERD symptoms which is why we are evaluating her today. She does sleep without risers on her bed, but does note occasional acid taste in her mouth. She was meet in [facility] where we discussed her history and why she was with us today. Risks, benefits, and alternatives of airway topicalization and awake VL were discussed. She would like to proceed with the local/VL exam. Incremental dosing of 4% lidocaine was applied to her oropharynx to a total of 5 mLs. A glidescope 3 was advanced while she was in a seated position. with the blade in decent position in her valecula, her epiglottis was obstructing much of her vie w, but her cuneiform and corniculate cartilages were easily appreciated and a 5- 10% view of the glottic opening was appreciated. The procedure was tolerated well. In discussion with other members of the department it is decided that she is a reasonable candidate for us to perform anesthesia on. She would require a slow methodical airway approach, and this was discussed with her. She was also told about our discussions. She was discharged to home with instructions to drink and eat cautiously until her numbness fully resolves.
[2020-12-10 15:13] VITALS: BMI 32.6
== END 2020-12-10 15:00 | disposition home or self-care (01) ==
PROVIDERS: PCP Nurse Practitioner; Visit Provider Nurse Anesthetist, Certified Registered
DX: Z01.811 Encounter for preprocedural respiratory examination (principal)

== ENCOUNTER 2020-12-18 18:09 | Emergency (ER) | payer OTHER, SELFPAY ==
--- NOTE | 2020-12-18 18:10 | ED.GENADUL_ITS ---
Discharge Plan Disposition Patient Disposition: HOME Condition: Stable Discharge Details Clinical Impression: Bloating, Abdominal pain Primary Care Provider: Zoila Gerard ED Provider: Honey Ferreira Home Meds and New Rx's Prescriptions: New sucralfate [Carafate] 1 gram tablet 1 g PO QACHS Qty: 30 RF: 0 Continued levothyroxine 150 mcg capsule 150 mcg PO DAILY RF: 0 atorvastatin [Lipitor] 20 mg tablet 20 mg PO DAILY RF: 0 albuterol sulfate [Ventolin HFA] 90 mcg/actuation HFA aerosol inhaler 2 puff IH Q6H PRNRF: 0 aspirin 81 mg tablet,delayed release (DR/EC) 81 mg PO DAILY RF: 0 gabapentin 100 mg capsule 100 mg PO DAILY RF: 0 CPAP miscellaneous RF: 0 zolpidem [Ambien] 5 mg tablet 5 mg PO QHS PRNRF: 0 Trelegy Ellipta 100-62.5-25 mcg blister with device 1 inh IH DAILY RF: 0 lamotrigine [Lamictal] 25 mg tablet 25 mg PO BID RF: 0 albuterol sulfate 2.5 mg /3 mL (0.083 %) solution for nebulization 2.5 mg inhalation Q4H PRNRF: 0 pramipexole [Mirapex] 0.5 mg Tablet 0.5 mg PO BID RF: 0 omeprazole magnesium [Prilosec OTC] 20 mg Tablet,Delayed Release (Dr/Ec) 20 mg PO BID RF: 0 Triamcinolone Acetinide 0.1 % See Rx Instructions .ROUTE .COMPLEX RF: 0 metformin 500 mg tablet 1,000 mg PO BID RF: 0 polyethylene glycol 3350 [Miralax] 17 gram Powder In Packet RF: 0 Discharge Instructions Instructions: Sucralfate (By mouth), Abdominal Pain (ED) Additional Instructions: Your labs and imaging are reassuring here today. It is also reassuring that you had such an improvement after the IV Protonix. Please take the Carafate as we discussed, you should take the prior to eating as well prior to bed. You are sent home with enough for tonight and tomorrow morning, the rest of been sent to your pharmacy of choice. Please keep upcoming appointment with general surgery. You may call them and see if you can move up the appointment or be on a waiting list. Please also follow-up with your primary care in 1 week for ree valuation. If you develop fever/chills, increased pain, inability stay hydrated or other new/worsening symptoms please seek care urgently once again. Referrals: Kusum Ramirez MD [ [facility] STAFF PHYSICIAN] - Zoila Gerard [Primary Care Provider] - Discharge Data Discharge Date/Time-TO BE ENTERED AT DEPARTURE: 12/18/20 21:00 Medical Decision Making Patient is a pleasant 55-year-old female presenting today with chief complaint of abdominal bloating and nausea x3 months. She denies being nauseated at this time obtain baseline labs as well as. Patient has been seen by general surgery for the same thing. Is supposed to have upcoming EGD and colonoscopy. Reviewed recent notes from Dr. Ramirez. Patient reports that a procedure scheduled for February. Symptoms have not worsened. Rather, she does not feel that she can continue to function with this discomfort. Patient had initially been treated with omeprazole which gave her brief relief of symptoms On exam, patient appears nontoxic. She does appear uncomfortable. Her lungs are clear. Normal cardiac exam. Abdomen is slightly distended and she has tenderness in the epigastric and right upper quadrant. No peritoneal findings noted on exam. Patient is primarily concerned for worsening of her known hiatal hernia. She feels that she does have a bloating sensation as well as increased pain after eating and when sitting or hunched over. I do agree with this concern as well. Patient is status post cholecystectomy. Also considered worsening of her.. She has no pain over McBurney's point to suggest appendicitis. Patient does not endorse alcohol, given the length of symptoms, Pancreatitis much lower on the differential. Will give Protonix, obtain baseline labs and obtain imaging. Discussed this plan with the patient who is in agreement. Also considered ACS although I find this less likely as there is no exertional component nitroglycerin to GI mediated. EKG was reviewed by Dr. Leigh. Patient is in normal sinus rhythm with a rate of 89. Patient does have a incomplete right bundle branch block as well as prolonged CT interval. Labs are reviewed. She does have a white count elevated at 12.66. Patient has been elevated the past 2 years 111.7. CMP without significant abnormality. Troponin within normal limits. Given the length of time that patient had no symptoms, do not feel that repeat troponin is warranted. Lipase within normal limits. CT reviewed by radiologist: FINDINGS: Liver: Normal. No mass. Gallbladder and bile ducts: Prior cholecystectomy. Mild extrahepatic biliary duct dilatation, commonly seen after cholecystectomy. Pancreas: Mild fatty atrophy of the pancreas. Spleen: Normal. No splenomegaly. Adrenal glands: Normal. No mass. Kidneys and ureters: Normal. No hydronephrosis. Stomach and bowel: Unremarkable. No obstruction. No mucosal thickening. Appendix: No evidence of appendicitis. Intraperitoneal space: Unremarkable. No free air. No significant fluid collection. Vasculature: Unremarkable. No abdominal aortic aneurysm. Lymph nodes: Unremarkable. No enlarged lymph nodes. Urinary bladder: Urinary bladder is nondistended. Reproductive: Unremarkable as visualized. Bones/joints: Unremarkable. No acute fracture. Soft tissues: Unremarkable. IMPRESSION: No acute abnormality. Patient received IV Protonix. States that symptoms are much improved. We discussed findings of the labs and imaging. Patient is reassured. We did discuss the leukocytosis but advised that this is likely associated with her discomfort. Encouraged that she follow-up closely with general surgery. I did advise that she should contact them to see if appointment could be moved up or she can get on a waiting list. Patient will be sent home with p.o. Carafate. Strict return precautions were discussed. She does appear much more comfortable and is in agreement with this plan. All of her questions and concerns were addressed. HPI General Mode of arrival: ambulatory . Date/Time Provider Initiated Documentation: 12/18/20 18:10 . Limitations to Documentation: no limitations . Information obtained by: patient and RN notes reviewed . History of Present Illness 55 year old F presents to the emergency department with the chief complaint of nausea and abdominal pain, described as severe, with intensity rated at 8. Quality is described as burning, and is localized to the abdomen. Patient reports no radiation. Patient started experiencing this month(s) and it has been constant. Medication improves symptom(s), (had initially improved with Omeprazole, this is no longer effective) No exacerbating factors reported . Patient notes nausea/vomiting (nausea, no vomiting); denies chest pain, diaphoresis, fever/chills, loss of appetite, rash and shortness of breath. Patient did receive the following treatments prior t o arrival, other (omeprazole) Related Data Home Medications Medication Instructions Recorded Confirmed albuterol sulfate 90 mcg/actuation 2 puff IH Q6H PRN 12/20/18 12/18/20 aerosol inhaler atorvastatin 20 mg tablet 20 mg PO DAILY 12/20/18 12/10/20 levothyroxine 150 mcg capsule 150 mcg PO DAILY 01/25/19 12/18/20 metformin 500 mg tablet 1,000 mg PO BID tab 01/25/19 12/18/20 Triamcinolone Acetinide See Rx Instructions .ROUTE .COMPLEX 05/11/19 12/01/20 omeprazole magnesium [Prilosec OTC] 20 mg PO BID 05/11/19 12/18/20 pramipexole [Mirapex] 0.5 mg PO BID 05/11/19 12/18/20 fluticasone fur. 100 mcg-umeclid 1 inh IH DAILY 08/14/19 12/08/20 62.5 mcg-vilant 25 mcg inhalat.powder zolpidem 5 mg tablet 5 mg PO QHS PRN 08/14/19 12/18/20 CPAP MISCELLANEOUS 10/08/19 12/01/20 aspirin 81 mg tablet,delayed 81 mg PO DAILY 10/08/19 12/08/20 release gabapentin 100 mg capsule 100 mg PO DAILY 10/08/19 12/18/20 albuterol sulfate 2.5 mg INHALATION Q4H PRN 11/19/20 12/18/20 lamotrigine 25 mg tablet 25 mg PO BID tab 11/19/20 12/18/20 polyethylene glycol 3350 [Miralax] 12/10/20 sucralfate [Carafate] 1 g PO QACHS #30 tab 12/18/20 Previous Rx's Medication Instructions Recorded sucralfate [Carafate] 1 g PO QACHS #30 tab 12/18/20 Allergies Allergy/AdvReac Type Severity Reaction Status Date / Time sertraline [From Zoloft] AdvReac Verified 12/18/20 18:17 General REBECA: 2 Review of Systems Constitutional Constitutional: Reports as per HPI, Denies chills, Denies fatigue, Denies fever(s) and Denies headache(s) ENT Ears, Nose, Mouth, and Throat: Denies headache(s) Cardiovascular Cardiovascular: Reports as per HPI, Denies chest pain and Denies dyspnea Respiratory Respiratory: Reports as per HPI, Denies cough and Denies dyspnea Gastrointestinal Gastrointestinal: Reports as per HPI Musculoskeletal Musculoskeletal: Reports as per HPI and Denies back pain Integumentary/Breasts Skin/Breast: Reports as per HPI and Denies rash Neurologic Neurologic: Reports as per HPI and Denies headache(s) Endocrine Endocrine: Denies fatigue [facility] Medical History (Updated 12/18/20 @ 20:59 by SERVANDO Ta) Anxiety Bilateral lower extremity edema Bipolar 1 disorder Carpal tunnel syndrome, right COPD (chronic obstructive pulmonary disease) De Quervain's tenosynovitis, right (~12/2019) Dental caries Depression Difficult intubation Dysuria Environmental allergies Fibromyalgia Ganglion cyst of volar aspect of left wrist Ganglion cyst of volar aspect of right wrist GERD (gastroesophageal reflux disease) Gout Hearing loss Heart murmur HTN (hypertension) Hyperlipidemia Hypothyroidism Iron deficiency anemia Non-insulin dependent type 2 diabetes mellitus Oral lesion JADON (obstructive sleep apnea) Post-nasal drip Restless leg syndrome Right lateral epicondylitis SOB (shortness of breath) Vitamin B 12 deficiency Vitamin D deficiency Surgical History Guillen cyst removed from behind right knee X2. Hx of tonsillectomy S/P cholecystectomy Family History Father Heart disease Maternal Grandmother Heart disease Social History Smoking/Tobacco Use Status: Current every day Tobacco Type: cigarettes Years smoked: 40 Smoking risk assessment performed?: Yes Alcohol Intake: never Drug use: Never Substance use type: does not use Current gender identity: female What type of physical activity do you participate in: none Do you feel safe at home: Yes Do you feel safe in your relationship?: Yes Exam Const General: cooperative, healthy appearing, uncomfortable, no acute distress and well developed Nutritional Appearance: well nourished and overweight Orientation: alert and awake [facility] Head: normal to inspection Mouth: moist mucous membranes Resp Effort & Inspection: normal respiratory effort, able to speak in complete sentences and no respiratory distress Auscultation: clear to auscultation bilaterally, no rales, no rhonchi and no wheezes Cardio Rate: regular rate Rhythm: regular rhythm Heart Sounds: S1 normal and S2 normal GI Inspection: no edema, distended, no visible herniation and no visible pulsation Palpation: soft, no hepatosplenomegaly, not firm, no guarding, no hernias, no masses, no pulsatile masses, not rigid and tender in the epigastrum and in the RUQ; Morrow's sign negative and with no rebound tenderness Percussion: normal to percussion Auscultation: normal bowel sounds Back/Spine/Pelvis Back: no CVA tenderness Skin General skin exam: no rashes or lesions noted Trauma: no lacerations or abrasions Neuro General: patient alert and patient awake Cognition: normal cognition Speech: speech normal Gait: normal gait Psych Appearance: grossly normal and well kempt Mental Status: mental status grossly normal Speech and Movement: speech and movement normal
[2020-12-18 18:13] VITALS: BP 138/62; PULSE 93; RESP 18; TEMP 36.4; O2SAT 99
--- NOTE | 2020-12-18 18:15 | DI.CT_ITS ---
Exam(s) CT ABDOMEN PELVIS W EXAM: CT ABDOMEN PELVIS W CLINICAL HISTORY: increased bloating, diarhea. TECHNIQUE: Imaging Protocol: Axial computed tomography images with coronal and sagittal reformatted images were created and reviewed CONTRAST MATERIAL: Intravenous: Omnipaque 100cc Oral: None COMPARISON: CT CT CHEST PE ABD PELVIS W from 05/11/2019 FINDINGS: VISUALIZED LUNG BASES: No nodules nor pleural effusions evident. ABDOMEN: There is no ascites. LIVER: There are no focal hepatic lesions evident. Liver appears slightly hypodense implying an [place] ent of steatosis. GALLBLADDER/BILIARY: Gallbladder is again noted be surgically absent. CBD is not dilated. PANCREAS: No evidence of pancreatic mass nor dilatation of the pancreatic duct. SPLEEN: Spleen is not enlarged. No obvious intrasplenic lesions. Splenic and portal veins are paten t. ADRENALS: There are no significant adrenal masses. KIDNEYS:No cysts evident. No solid renal masses. No calculi nor hydronephrosis.. ABDOMINAL AORTA: Moderate atherosclerosis. No aneurysm evident. Also no aneurysmal dilatation of th e iliac arteries. LYMPH NODES:There is a slightly prominent 10 x 8 millimeter lymph node anterior to the mid aspect of the pre aortic left renal vein but this is unchanged from 2019. there are multiple small spot slightl y enlarged lymph nodes in the mesentery but exhibiting minimal change from 2019. ABDOMINAL WALL: No evidence of significant anterior abdominal wall hernia. GI: There is no evidence of bowel obstruction, free air, nor abscess. PELVIS: GI: No evidence of appendicitis.No evidence of sigmoid diverticulitis. LYMPH NODES: There is no intrapelvic nor inguinal adenopathy. REPRODUCTIVE: Uterus and adnexal regions appear unremarkable. URINARY BLADDER: No calculi nor obvious masses evident OSSEOUS: No significant osseous lesions. IMPRESSION: 1. Compared to the prior CT scan of May 2019 the gallbladder is again noted be surgically absent. There is no significant dilatation of the biliary tree. 2. There are multiple slightly enlarged lymph nodes in the mesentery although exhibiting minimal if a ny significant change when compared to 2019. Nevertheless, appropriate follow-up recommended here fo r this finding. 3. No ascites. No splenomegaly. 4. RADIATION DOSE DELIVERED: 1,266.09mGy.cm Total DLP DATA REPOSITORY: All CT scans at this facility are submitted to the National Radiology Data Registry (NRDR) Dose Index Registry (DIR) with the [employer] ([employer]). RADIATION OPTIMIZATION: All CT scans at this facility use at least one of these dose optimization te chniques: automated exposure control; mA and/or kV adjustment per patient size (includes targeted exa ms where dose is matched to clinical indication); or iterative reconstruction.
--- NOTE | 2020-12-18 18:15 | RT.EKG_ITS ---
APPROVED REPORT Exam: Resting ECG Reason for Exam: abdominal discomfort, SOB Patient Location: E HR:89 bpm ECG Measurements Heart Rate 89 AXIS CA 232 P 59 QRSd 118 QRS 67 QT 404 T 67 QTc 491 Conclusion Sinus rhythm...normal P axis, V-rate 60- 99 Prolonged CA interval...CA >210, V-rate 50- 90 Incomplete right bundle branch block...QRSd >112, terminal axis(90,270) I have reviewed and interpreted ECG and agree with software generated interpretation.
[2020-12-18 18:35] LABS: Abs Immature Grans 0.04 10^3/uL (0.0-0.06); Absolute Eosinophil Count 0.33 10^3/uL (0.0-0.7); Absolute Lymphocyte Count 3.25 10^3/uL (1.2-3.4); Basophils % 0.8; Eosinophils % 2.6; HCT 45.5 % (36.0-46.0); HGB 14.5 g/dL (11.2-15.7); Immature Grans % 0.3; Lymphocytes % 25.7; MCHC 31.9 % (32.0-36.0); MPV 10.2 fL (8.0-11.0); Monocytes % 5.8; Neutrophils % 64.8; Nucleated RBC 0 %; Platelet Count 352 10^3/uL (130-400); RBC 4.84 10^6/uL (3.93-5.22); RDW 12.8 % (11.7-14.6); RDW-SD 43.9 fL; WBC 12.66 10^3/uL (4.4-10.8)
[2020-12-18 18:36] LABS: Absolute Monocyte Count 0.73 10^3/uL (0.1-0.8)
[2020-12-18 18:52] LABS: ALT 26 U/L (14-59); AST 11 U/L (15-37); Albumin 3.8 g/dL (3.4-5.0); Alkaline Phosphatase 130 U/L (46-116); Anion Gap 8.1 mmol/L (3-11); BUN 11 mg/dL (7-18); Bilirubin, Total 0.3 mg/dL (0.2-1.0); CO2 31.9 mmol/L (21.0-32.0); Calcium 9.4 mg/dL (8.5-10.1); Chloride 103 mmol/L (98-107); Estimated GFR 57.78 (mL/min/1.73m2); Glucose 146 mg/dL (74-106); Lipase 97 U/L (73-393); Magnesium 1.9 mg/dL (1.8-2.4); Potassium 3.6 mmol/L (3.5-5.1); Sodium 143 mmol/L (136-145); Total Protein 8.1 g/dL (6.4-8.2); Troponin I < 0.05 ng/mL (<0.06)
[2020-12-18] MEDS: Pantoprazole 40 MG VIAL IVP (19:36)
[2020-12-18] MEDS: Omnipaque 350 MG/ML 100 ML BTL IJ (20:13)
[2020-12-18] MEDS: Normal Saline Flush 10 ML SYR IVP (20:14)
--- NOTE | 2020-12-18 20:31 | DI.VRAD_ITS ---
PROCEDURE INFORMATION: Exam: CT Abdomen And Pelvis With Contrast Exam date and time: 12/18/2020 6:26 PM Age: 55 years old Clinical indication: Pain; Other: Increased bloating diarhea TECHNIQUE: Imaging protocol: Computed tomography of the abdomen and pelvis with contrast. Radiation optimization: All CT scans at this facility use at least one of these dose optimization techniques: automated exposure control; mA and/or kV adjustment per patient size (includes targeted exams where dose is matched to clinical indication); or iterative reconstruction. Contrast material: OMNI 350; Contrast volume: 100 ml; Contrast route: INTRAVENOUS (IV); COMPARISON: CT CHEST PE ABD PELVIS W 05/11/2019 10:55 AM FINDINGS: Liver: Normal. No mass. Gallbladder and bile ducts: Prior cholecystectomy. Mild extrahepatic biliary duct dilatation, commonly seen after cholecystectomy. Pancreas: Mild fatty atrophy of the pancreas. Spleen: Normal. No splenomegaly. Adrenal glands: Normal. No mass. Kidneys and ureters: Normal. No hydronephrosis. Stomach and bowel: Unremarkable. No obstruction. No mucosal thickening. Appendix: No evidence of appendicitis. Intraperitoneal space: Unremarkable. No free air. No significant fluid collection. Vasculature: Unremarkable. No abdominal aortic aneurysm. Lymph nodes: Unremarkable. No enlarged lymph nodes. Urinary bladder: Urinary bladder is nondistended. Reproductive: Unremarkable as visualized. Bones/joints: Unremarkable. No acute fracture. Soft tissues: Unremarkable. IMPRESSION: No acute abnormality. Dictated and Authenticated by: Jalen Smith MD. Ordering:ILANA Méndez MD
[2020-12-18 20:39] VITALS: BP 132/58; PULSE 81; RESP 16; O2SAT 96
[2020-12-18] MEDS: Sucralfate 1 GM TAB 2 GM PO (20:59)
== END 2020-12-18 21:00 | disposition home or self-care (01) ==
PROVIDERS: Emergency Provider Physician Assistant; PCP Nurse Practitioner
DX: R14.0 Abdominal distension (gaseous) (principal); R10.13 Epigastric pain; R10.11 Right upper quadrant pain
CPT/HCPCS: 36415; 80053; 83690; 93005; 96374; 99285; 74177; 81003; 83735; 84484; 85025; 93010; 99284; J3490

== ENCOUNTER 2020-12-30 08:26 | Emergency (ER) | payer OTHER, SELFPAY ==
[2020-12-30] VITALS (29 sets, daily range): BP systolic 116–155; BP diastolic 52–74; PULSE 75–98; RESP 16–18; TEMP 36.6; O2SAT 94–99
--- NOTE | 2020-12-30 08:45 | DI.CT_ITS ---
Exam(s) CT ABDOMEN PELVIS W EXAM: CT ABDOMEN PELVIS W CLINICAL HISTORY: Abd bloating Worsening upper Abd pain. TECHNIQUE: Imaging Protocol: Axial computed tomography images with coronal and sagittal reformatted images were created and reviewed CONTRAST MATERIAL: Intravenous: Omnipaque 100cc Oral: None COMPARISON: CT CT ABDOMEN PELVIS W from 12/18/2020 FINDINGS: VISUALIZED LUNG BASES: No nodules nor pleural effusions evident. ABDOMEN: There is no ascites. LIVER: Mild steatosis. No discrete focal hepatic lesions. Liver size is slightly prominent GALLBLADDER/BILIARY: Gallbladder is again noted be surgically absent. No abnormal fluid collection i n the gallbladder fossa. CBD is not dilated. PANCREAS: No evidence of pancreatic mass nor dilatation of the pancreatic duct. SPLEEN: Spleen is not enlarged. No obvious intrasplenic lesions. Splenic and portal veins are paten t. ADRENALS: There are no significant adrenal masses. KIDNEYS:No cysts evident. No solid renal masses. No calculi nor hydronephrosis.. ABDOMINAL AORTA: Abdominal aorta is moderately atherosclerotic. Upper normal diameter. Also no aneu rysmal dilatation of the iliac arteries. LYMPH NODES:There is no retroperitineal nor paraaortic adenopathy. ABDOMINAL WALL: Small fat containing umbilical hernia. Does not contain bowel loops. GI: There is no evidence of bowel obstruction, free air, nor abscess. PELVIS: GI: No evidence of appendicitis.No evidence of sigmoid diverticulitis. LYMPH NODES: There is no intrapelvic nor inguinal adenopathy. REPRODUCTIVE: Uterus and adnexal regions appear unremarkable. No abnormal adnexal masses nor free fl uid. URINARY BLADDER: No calculi nor obvious masses evident OSSEOUS: Score increase density is noted on the sacral side of both sacroiliac joints. There is no a nkylosis of the SI joints. IMPRESSION: 1. Gallbladder is again noted be surgically absent. The biliary tree is not dilated. No abnormal fl uid in the gallbladder fossa. 2. Hepatic steatosis again noted. Liver size is slightly prominent. No splenomegaly. No ascites. 3. The previously described slightly prominent lymph nodes in the mesentery are again noted and exhib it no obvious change. 4. 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 There is no ankylosis of the SI joints. No lytic osseous lesions identified. RADIATION DOSE DELIVERED: 1,226.17mGy.cm Total DLP DATA REPOSITORY: All CT scans at this facility are submitted to the National Radiology Data Registry (NRDR) Dose Index Registry (DIR) with the [employer] (ACR). RADIATION OPTIMIZATION: All CT scans at this facility use at least one of these dose optimization te chniques: automated exposure control; mA and/or kV adjustment per patient size (includes targeted exa ms where dose is matched to clinical indication); or iterative reconstruction.
--- NOTE | 2020-12-30 08:47 | W.ED.GENAD ---
Discharge Plan Disposition Patient Disposition: HOME Condition: Stable Discharge Details Clinical Impression: Abdominal bloating with cramps Primary Care Provider: Zoila Gerard ED Provider: Siena Lopez Home Meds and New Rx's Prescriptions: New pantoprazole [Protonix] 20 mg tablet,delayed release (DR/EC) 20 mg PO DAILY 30 Days Qty: 30 RF: 0 ondansetron HCl [Zofran] 4 mg tablet 4 mg PO Q8H PRN (Reason: nausea and vomiting) 5 Days Qty: 15 RF: 0 No Action levothyroxine 150 mcg capsule 150 mcg PO DAILY RF: 0 atorvastatin [Lipitor] 20 mg tablet 20 mg PO DAILY RF: 0 albuterol sulfate [Ventolin HFA] 90 mcg/actuation HFA aerosol inhaler 2 puff IH Q6H PRNRF: 0 aspirin 81 mg tablet,delayed release (DR/EC) 81 mg PO DAILY RF: 0 gabapentin 100 mg capsule 100 mg PO DAILY RF: 0 CPAP miscellaneous RF: 0 zolpidem [Ambien] 5 mg tablet 5 mg PO QHS PRNRF: 0 Trelegy Ellipta 100-62.5-25 mcg blister with device 1 inh IH DAILY RF: 0 lamotrigine [Lamictal] 25 mg tablet 25 mg PO DAILY RF: 0 albuterol sulfate 2.5 mg /3 mL (0.083 %) solution for nebulization 2.5 mg inhalation Q4H PRNRF: 0 pramipexole [Mirapex] 0.5 mg Tablet 0.5 mg PO BID RF: 0 omeprazole magnesium [Prilosec OTC] 20 mg Tablet,Delayed Release (Dr/Ec) 40 mg PO HS RF: 0 Triamcinolone Acetinide 0.1 % See Rx Instructions .ROUTE .COMPLEX RF: 0 sucralfate [Carafate] 1 gram tablet 1 g PO QACHS Qty: 30 RF: 0 acetaminophen [Tylenol Extra Strength] 500 mg Capsule 1,000 mg PO DAILY RF: 0 metformin 500 mg tablet 1,000 mg PO BID RF: 0 polyethylene glycol 3350 [Miralax] 17 gram Powder In Packet 17 g PO DAILY RF: 0 Discharge Instructions Instructions: Gas and Bloating (ED), Abdominal Pain (ED) Additional Instructions: Follow up with primary care provider in 3-5 days. Return to ED sooner if any worsening or concerns. Increase oral fluids. Take the Zofran and Protonix as directed. Do not take any other antacids with the Protonix unless this improves her symptoms. Small frequent meals try crystal and lemon. You are placed on a care management list for sooner PCP referral. Discussed GI follow-up with them. Keep your previously scheduled appointment with general surgery. If still unsuccessful you may try to call [facility] for an appointment with GI. Stand Alone Forms: Work Release Referrals: Zoila Gerard [Primary Care Provider] - 1 week Discharge Data Discharge Date/Time-TO BE ENTERED AT DEPARTURE: 12/30/20 11:42 Medical Decision Making 55-year-old female with a history of hypertension, hyperlipidemia, diabetes hiatal hernia presents to the ER with chief complaint of upper left and right quadrant abdominal pain, nausea, bloating, decreased appetite and diarrhea which has gotten worse over the last couple weeks. Patient was seen here on December 18 with similar complaints and had a negative work-up at that time. Patient reports that she has been unable to get in with her primary care provider she does have a referral and an appointment on January 26 with general surgery and she reports that her ENT doctor is working on getting her referral for GI specialist. She reports nausea, early satiety, increased abdominal bloating and tenderness to the right upper quadrant left upper quadrant. She denies any fever chills no vomiting positive nausea. She also reports loose large light-colored stools. Surgical history includes cholecystectomy. She is postmenopausal. She denies any alcohol use, is a smoker. At this time work-up ordered including CBC, CMP, lipase, CT abdomen pelvis with oral and IV contrast. Patient did have a work-up 2 weeks ago with a somewhat negative CT. She did have a white blood cell count which is slightly elevated at 12,000. She reports she does have upcoming follow-up for these symptoms general surgery appointment on January 26 and referral to GI is being processed at this time. The radiology report from December 18 was reviewed and showed possible fatty liver disease and some possible extra hepatic biliary duct dilatation, and prominent lymph node anterior to the mid aspect of the preaortic left renal vein but appeared unchanged from [address] Differential diagnosis includes but not limited to chronic diverticulitis diverticulosis, small bowel obstruction, viral gastroenteritis, bacterial gastroenteritis, Liver disease Labs today show white blood cell count 11.05, absolute neutrophils 8.11, CMP is largely within normal limits glucose 118 alk phos 126, all other labs are within normal limits. Urinalysis shows trace blood 3-5 RBCs. No leukocytes no nitrites. Discussed home care prescription given for Protonix and Zofran for nausea instructed to follow-up with GI and keep follow-up appointments as previously scheduled. Patient verbalized understanding. This text was generated using [employer] system, please disregard any oddities of phrase or misspellings. Medical Records Medical records reviewed: Yes I reviewed the patient's medical records. HPI General Mode of arrival: ambulatory. Date/Time Provider Initiated Documentation: 12/30/20 08:27. Limitations to Documentation: no limitations. Information obtained by: patient. HPI Narrative: 55-year-old female with a history of hypertension, hyperlipidemia, diabetes hiatal hernia presents to the ER with chief complaint of upper left and right quadrant abdominal pain, nausea, bloating, decreased appetite and diarrhea which has gotten worse over the last couple weeks. Patient was seen here on December 18 with similar complaints and had a negative work-up at that time. Patient reports that she has been unable to get in with her primary care provider she does have a referral and an appointment on January 26 with general surgery and she reports that her ENT doctor is working on getting her referral for GI specialist. She reports nausea, early satiety, increased abdominal bloating and tenderness to the right upper quadrant left upper quadrant. She denies any fever chills no vomiting positive nausea. She also reports loose large light-colored stools. Surgical history includes cholecystectomy. She is postmenopausal. She denies any alcohol use, is a smoker. Related Data Home Medications Medication Instructions Recorded Confirmed albuterol sulfate 90 mcg/actuation 2 puff IH Q6H PRN 12/20/18 12/30/20 aerosol inhaler atorvastatin 20 mg tablet 20 mg PO DAILY 12/20/18 12/30/20 levothyroxine 150 mcg capsule 150 mcg PO DAILY 01/25/19 12/30/20 metformin 500 mg tablet 1,000 mg PO BID tab 01/25/19 12/30/20 Triamcinolone Acetinide See Rx Instructions .ROUTE .COMPLEX 05/11/19 12/30/20 omeprazole magnesium [Prilosec OTC] 40 mg PO HS 05/11/19 12/30/20 pramipexole [Mirapex] 0.5 mg PO BID 05/11/19 12/30/20 fluticasone fur. 100 mcg-umeclid 1 inh IH DAILY 08/14/19 12/30/20 62.5 mcg-vilant 25 mcg inhalat.powder zolpidem 5 mg tablet 5 mg PO QHS PRN 08/14/19 12/30/20 CPAP MISCELLANEOUS 10/08/19 12/01/20 aspirin 81 mg tablet,delayed 81 mg PO DAILY 10/08/19 12/30/20 release gabapentin 100 mg capsule 100 mg PO DAILY 10/08/19 12/30/20 albuterol sulfate 2.5 mg INHALATION Q4H PRN 11/19/20 12/30/20 lamotrigine 25 mg tablet 25 mg PO DAILY tab 11/19/20 12/30/20 polyethylene glycol 3350 [Miralax] 17 g PO DAILY 12/10/20 12/30/20 sucralfate [Carafate] 1 g PO QACHS #30 tab 12/18/20 acetaminophen [Tylenol Extra 1,000 mg PO DAILY 12/30/20 12/30/20 Strength] ondansetron HCl [Zofran] 4 mg PO Q8H PRN 5 Days #15 tab 12/30/20 pantoprazole [Protonix] 20 mg PO DAILY 30 Days #30 tab 12/30/20 Previous Rx's Medication Instructions Recorded sucralfate [Carafate] 1 g PO QACHS #30 tab 12/18/20 ondansetron HCl [Zofran] 4 mg PO Q8H PRN 5 Days #15 tab 12/30/20 pantoprazole [Protonix] 20 mg PO DAILY 30 Days #30 tab 12/30/20 Allergies Allergy/AdvReac Type Severity Reaction Status Date / Time sertraline [From Zoloft] AdvReac Verified 12/30/20 09:18 General Stated Complaint: Abd Prob REBECA: 3 Review of Systems Narrative: Constitutional: Negative for weight loss, alert and oriented, well groomed, well-nourished body habitus, appears uncomfortable. HEENT: Denies trauma, headaches, blurry vision, nasal discharge, sore throat, trouble swallowing. Chest: Denies chest pain, palpitations, irregular rhythm, hypertension. Respiratory: Denies Shortness of breath, cough, hemoptysis. GI: Denies vomiting, constipation. Positive abdominal pain, nausea, feeling full early, large amounts of loose light-colored stools. : Denies dysuria, hematuria, flank pain, rectal bleeding. Neuro: Denies dizziness, blurry vision, weakness, syncope, headache or facial numbness. Hematologic: Denies easy bruising, intolerance to heat or cold, hair loss. [facility] Medical History Anxiety Bilateral lower extremity edema Bipolar 1 disorder Carpal tunnel syndrome, right COPD (chronic obstructive pulmonary disease) De Quervain's tenosynovitis, right (~12/2019) Dental caries Depression Difficult intubation Dysuria Environmental allergies Fibromyalgia Ganglion cyst of volar aspect of left wrist Ganglion cyst of volar aspect of right wrist GERD (gastroesophageal reflux disease) Gout Hearing loss Heart murmur HTN (hypertension) Hyperlipidemia Hypothyroidism Iron deficiency anemia Non-insulin dependent type 2 diabetes mellitus Oral lesion JADON (obstructive sleep apnea) Post-nasal drip Restless leg syndrome Right lateral epicondylitis SOB (shortness of breath) Vitamin B 12 deficiency Vitamin D deficiency Surgical History Guillen cyst removed from behind right knee X2. Hx of tonsillectomy S/P cholecystectomy Family History Father Heart disease Maternal Grandmother Heart disease Social History Smoking/Tobacco Use Status: Current every day Tobacco Type: cigarettes Years smoked: 40 Smoking risk assessment performed?: Yes Alcohol Intake: never Drug use: Never Substance use type: does not use Current gender identity: female What type of physical activity do you participate in: none Do you feel safe at home: Yes Do you feel safe in your relationship?: Yes Exam Narrative Exam Narrative: Constitutional: Alert and oriented x3. Appears stated age. Well-nourished body habitus. Head: Normocephalic, no trauma. Eyes: Pupils PERRLA, Red reflex noted, EOM's intact. Eyelids symmetrical without lesions, discharge, or swelling. ENT: Bilateral TM's WNL, External ear normal to inspection, no mastoid TTP, swelling, or erythema, Nasal turbinates WNL, no nasal discharge. Normal dentition, Posterior pharynx WNL, no exudate. Chest: RRR, Normal S1, S2, distal pulses intact. Resp: Lungs clear to auscultation bilaterally, no wheezes, rales, or rhonchi. Abdomen: Larger, abdomen appears bloated, nondistended, tender to palpation right upper quadrant left upper quadrant. Hypoactive bowel sounds all 4 quadrants. Musculoskeletal: Normal gait, 5/5 strength to all four extremities. Skin: No suspicious rashes or lesions. Capillary refill less than 2 sec. Neurologic: Cranial nerves II-XII intact. Alert and oriented x 3. DTR's intact. Hematologic/Lymphatic: No ecchymosis, no lymphadenopathy. Course Vital Signs Vital signs: Vital Signs Temperature 36.6 C 12/30/20 08:32 Pulse 98 H 12/30/20 08:32 Respiratory Rate 18 12/30/20 08:32 Blood Pressure 155/74 H 12/30/20 08:32 Pulse Oximetry 98 12/30/20 08:32 Temperature 36.6 C 12/30/20 08:32 Temperature Source Skin 12/30/20 08:32 Pulse 98 H 12/30/20 08:32 Respiratory Rate 18 12/30/20 08:32 Blood Pressure 155/74 H 12/30/20 08:32 Blood Pressure Position Sitting 12/30/20 08:32 Pulse Oximetry 98 12/30/20 08:32 Oxygen Delivery Method Room Air 12/30/20 08:32 Oxygen Flow Rate 0 12/30/20 08:32
[2020-12-30] MEDS: Omnipaque 350 MG/ML 50 ML BTL IJ (09:00)
[2020-12-30 09:06] LABS: Bilirubin Negative (Negative); Blood Trace-intact (Negative); Clarity Clear (Clear); Glucose Negative (Negative); Ketones Negative (Negative); Leukocyte Esterase Negative (Negative); Nitrite Negative (Negative); Specific Gravity 1.015 (1.005-1.025); Urobilinogen 0.2 EU/dL (Up TO 0.2); pH 5.5 (5-8)
[2020-12-30] MEDS: Normal Saline 1,000 ML 125 ML IV (09:11)
[2020-12-30] MEDS: Ondansetron 4 MG/2 ML VIAL IVP (09:11)
[2020-12-30 09:23] LABS: Abs Immature Grans 0.04 10^3/uL (0.0-0.06); Absolute Lymphocyte Count 2.07 10^3/uL (1.2-3.4); Absolute Monocyte Count 0.46 10^3/uL (0.1-0.8); Basophils % 0.9; Eosinophils % 2.4; HCT 44.8 % (36.0-46.0); HGB 14.3 g/dL (11.2-15.7); Immature Grans % 0.4; Lymphocytes % 18.7; MCH 29.5 pg (27.0-33.0); MCHC 31.9 % (32.0-36.0); MCV 92.6 fL (80-95); MPV 10.3 fL (8.0-11.0); Monocytes % 4.2; Neutrophils % 73.4; Nucleated RBC 0 %; Platelet Count 312 10^3/uL (130-400); RBC 4.84 10^6/uL (3.93-5.22); RDW 13.1 % (11.7-14.6); RDW-SD 44.9 fL; WBC 11.05 10^3/uL (4.4-10.8)
[2020-12-30 09:24] LABS: Bacteria Rare HPF (Negative); C & S Indicated? No; Casts Negative LPF (Negative); Crystals Negative HPF (Negative); Epithelial Cells Few HPF (Negative); Mucus Trace (Negative); WBC 0-2 HPF (0-5)
[2020-12-30 09:25] LABS: Absolute Eosinophil Count 0.27 10^3/uL (0.0-0.7); Absolute Neutrophil Count 8.11 10^3/uL (1.2-6.7)
[2020-12-30 09:35] LABS: ALT 27 U/L (14-59); AST 15 U/L (15-37); Albumin 3.6 g/dL (3.4-5.0); Alkaline Phosphatase 126 U/L (46-116); BUN 11 mg/dL (7-18); Bilirubin, Total 0.3 mg/dL (0.2-1.0); CREATININE 0.9 mg/dL (0.55-1.02); Calcium 9.1 mg/dL (8.5-10.1); Chloride 105 mmol/L (98-107); Glucose 118 mg/dL (74-106); Lipase 95 U/L (73-393); Magnesium 1.8 mg/dL (1.8-2.4); Potassium 4.7 mmol/L (3.5-5.1); Sodium 141 mmol/L (136-145); Total Protein 7.8 g/dL (6.4-8.2)
[2020-12-30] MEDS: Omnipaque 350 MG/ML 100 ML BTL IJ (10:32)
[2020-12-30] MEDS: Normal Saline - Diluent 50 ML VIAL IV (10:33)
[2020-12-30] MEDS: Ondansetron O.D.T. 4 MG TABEF, 3 TABS/BTL PO (11:34)
--- NOTE | 2020-12-30 12:20 | NUR.NOTE ---
Nursing Note: referral to Cm for follow up with PCP
== END 2020-12-30 11:42 | disposition home or self-care (01) ==
PROVIDERS: Emergency Provider Registered Nurse Emergency; PCP Nurse Practitioner
DX: R14.0 Abdominal distension (gaseous) (principal); R10.10 Upper abdominal pain, unspecified; R19.7 Diarrhea, unspecified
CPT/HCPCS: 36415; 80053; 83690; 96361; 96374; 99285; 74177; 81003; 81015; 83735; 85025; 99284; J2405; J3490; Q9967

== ENCOUNTER 2021-01-13 01:29 | Outpatient (CLI) | payer OTHER, SELFPAY ==
--- NOTE | 2021-01-13 07:30 | DI.RAD_ITS ---
Exam(s) RF BARIUM SWALLOW EXAM: RF BARIUM SWALLOW CLINICAL HISTORY: bloating/dysphagia, hiatal hernia, K44.9 TECHNIQUE: 2D and realtime digital imaging was performed. CONTRAST MATERIAL: Oral barium contrast was administered. COMPARISON: CT CT CHEST W from 08/22/2019 FINDINGS: CHEST X-RAY: The heart and pulmonary vasculature are within normal limits. The lungs are clear. No pl eural effusion or pneumothorax is present. The bones are within normal limits fo the patient's age. ESOPHAGRAM: The esophagus is patent with no evidence for erosions, fold thickening, strictures, or ma sses. With regards to the motility, there is a normal primary stripping wave. No tertiary contraction s were noted. There is no gastroesophageal reflux during the examination. Note was made of a small h iatal hernia. There was an episode of aspiration during the examination. The patient did exhibit a cough reflex. IMPRESSION: 1. Small hiatal hernia. 2. An episode of aspiration occurred during the examination. RADIATION DOSE DELIVERED: gurwinder Tello=19.5 mGy
[2021-01-13] MEDS: Barium Sulfate 60% W/V 355 ML BTL PO (10:57)
== END 2021-01-13 01:49 ==
PROVIDERS: PCP Nurse Practitioner; Visit Provider Surgery
DX: R14.0 Abdominal distension (gaseous) (principal); R13.10 Dysphagia, unspecified; K44.9 Diaphragmatic hernia without obstruction or gangrene
CPT/HCPCS: 74221; J3490

== ENCOUNTER 2021-01-29 02:37 | Outpatient (CLI) | payer OTHER, SELFPAY ==
[2021-01-29 11:18] LABS: Source Nasal/Nares
[2021-01-29 15:14] LABS: COVID-19 PCR Negative (Negative)
== END 2021-01-29 02:38 | disposition home or self-care (01) ==
LOC: LBO 02:37
PROVIDERS: PCP Nurse Practitioner; Visit Provider Surgery
DX: Z20.822 Contact with and (suspected) exposure to COVID-19 (principal); Z01.818 Encounter for other preprocedural examination
CPT/HCPCS: 87635

== ENCOUNTER 2021-02-01 07:56 | Day surgery (SDC) | payer OTHER, SELFPAY ==
--- NOTE | 2021-02-01 06:46 | ENDO_ITS ---
Date of service: 02/01/21 Time of Service: 10:41 Endoscopy Report DATE OF PROCEDURE: 02/01/21 PRE-OP DIAGNOSIS: Colon Cancer Screening, N/V POST-OP DIAGNOSIS: other (colon polyps, gastritis and esophagitis) PROCEDURE: 1. EGD with biopsies 2. Colonoscopy with polypectomy SURGEON: Kusum Ramirez ANESTHESIA TYPE: General:No Airway (ASA 3/Kami Ya, COLIN) ESTIMATED BLOOD LOSS: 3 PATHOLOGY: other (Antrum bx, GE junstion bx, duodenum bx, transverse polyp, descending polyp) COMPLICATIONS: None DISPOSITION: same day INDICATIONS: Ms Dean is a pleasant 55-year-old female with multiple medical issues who is due for her first screening colonoscopy. She is also been having bloating after eating, nausea, feeling of fullness all the time and abdominal discomfort after eating for a while. She also complained of hoarseness and was seen by ENT who increased her omeprazole to twice daily. This helped for a little while but now her symptoms are back. Risks, benefits and complications have been reviewed. Complications include but are not limited to bleeding, pain, perforation, missed small lesion/polyp, sore throat, aspiration and adverse reaction to the medications. Questions were entertained and answered to their satisfaction and they wished to proceed. No guarantees were given or implied. PREP: Miralax/Dulcolax PROCEDURE START TIME: 09:49 PROCEDURE END TIME: 10:23 COLONOSCOPY RETRACTION TIME: 17 minutes FINDINGS: inflammation of the stomach and esophagus colorectal polyps PROCEDURE DESCRIPTION: After informed consent was obtained the patient was take to the procedure room and placed in a supine position. Monitors were applied and a time out was done. The patients name, date of , procedure type, allergies to medications and metal in their body was reviewed. A bite block was placed and the patient was sedated. Once sedated and comfortable the gastroscope was advanced through the oropharynx which was grossly normal into the esophagus. The proximal and mid- esophagus were normal. In the distal esophagus there was mild inflammation noted. The scope was advanced into the stomach and through the pylorus into the 3rd portion of the duodenum. The duodenum was noted to be normal. Biopsies were done to rule out celiac. The scope was retracted back into the stomach. There was mild inflammation noted in the antrum. Biopsies were done to rule out H. pylori. There were no ulcers. The scope was retro-flexed. The cardia and fundus were noted to be normal. There was a hiatal hernia noted. The scope was retracted back into the esophagus and biopsies were done of the GE junction to rule out Napier's. The Z line was regular. The GE junction was at 36 cm. While the patient was still sedated they were placed in a left decubitous position. A rectal exam was done. External exam was normal. Internal exam revealed a normal sphincter tone and no palpable masses. The prostate []. The scope was then introduced and retro-flexed. No internal hemorrhoids, masses or polyps were identified on retroflexion. The scope was then advanced to the cecum without difficulty. The ileocecal valve and appendiceal orifice were identified. The prep was adequate. The scope was then slowly retracted over 17 minutes back into the rectum. Polyps were removed with cold forceps in the Transverse colon and descending colon. There was no diverticulosis noted. The scope was removed and the patient was woken up and taken back to Same day surgery in stable condition. The patient tolerated the procedure well and there were no immediate complications. Follow up: 2 weeks
--- NOTE | 2021-02-01 06:48 | W.PM.DSUDISC ---
Discharge Plan Disposition Patient Disposition: HOME Condition: Good Discharge Details Reason For Visit: colonoscopy/EGD Attending Provider: Kusum Ramirez Primary Care Provider: Zoila Gerard Home Meds and New Rx's Prescriptions: New sucralfate [Carafate] 1 gram tablet 1 g PO TID 14 Days Qty: 42 RF: 0 Continued levothyroxine 150 mcg capsule 150 mcg PO DAILY RF: 0 atorvastatin [Lipitor] 20 mg tablet 20 mg PO DAILY RF: 0 pantoprazole 20 mg tablet,delayed release (DR/EC) 20 mg PO BID Qty: 60 RF: 0 gabapentin 100 mg capsule 100 mg PO DAILY RF: 0 CPAP miscellaneous RF: 0 zolpidem [Ambien] 5 mg tablet 5 mg PO QHS PRNRF: 0 Trelegy Ellipta 100-62.5-25 mcg blister with device 1 inh IH DAILY RF: 0 lamotrigine [Lamictal] 25 mg tablet 25 mg PO DAILY RF: 0 albuterol sulfate 2.5 mg /3 mL (0.083 %) solution for nebulization 2.5 mg inhalation Q4H PRNRF: 0 pramipexole [Mirapex] 0.5 mg Tablet 0.5 mg PO BID PRNRF: 0 acetaminophen 500 mg Capsule 1,000 mg PO DAILY RF: 0 metformin 500 mg tablet 1,000 mg PO BID RF: 0 polyethylene glycol 3350 [Miralax] 17 gram Powder In Packet 17 g PO DAILY RF: 0 Discharge Instructions Instructions: Gastritis (DC), Diet for Stomach Ulcers and Gastritis (ED), GERD (Gastroesophageal Reflux Disease) (DC), Colorectal Polyps (DC) Additional Instructions: Findings: inflammation of the stomach and esophagus polyps Follow up: 2 weeks in the office Please call if you develop: fevers >101.5 Nausea or Vomiting Abdominal pain that is not transient Rectal bleeding that is more then a tbsp A hard abdomen and inability to pass gas DAY SURGERY UNIT POST ENDOSCOPY INSTRUCTIONS Instructions for everyone who is given Anesthesia: For your safety, please do the following for the next 24 Hours: a. Do not drive or operate dangerous equipment b. Do not drink alcohol beverages or use any recreational drugs for the first 24 hours or while taking pain medications. The medications in your body may have a reaction that can be dangerous. c. Do not make any important decisions or sign any important papers 1. Generally there are no restrictions on your activity after a day or so has gone by, but you may feel a bit fatigued for a few days. 2. After you arrive home you may have a light meal and return to a normal diet as you can tolerate it without feeling sick to your stomach. 3. After surgery, you may feel pain or discomfort. This should be only transient, but if it persists please contact your doctor. 4. If there are any questions regarding the findings of your procedure, please feel free to contact your doctor. 6. If you are unable to contact your doctor with a problem, contact the hospital at [phone]. 7. Continue all your regular medications unless directed otherwise. I understand the above instructions and have no questions. Signature of Patient or Responsible Adult Escort Date/Time Name of Responsible Adult Escort Signature of Nurse Date/Time Activity:: Activity as Tolerated Diet:: low acid Discharge Orders Discharge Orders: Discharge Order (Routine); Ordered 02/01/21 Ordered By: Kusum Ramirez
[2021-02-01 08:15] VITALS: BP 146/78; PULSE 93; RESP 18; TEMP 36.6; O2SAT 96
[2021-02-01] MEDS: Lactated Ringers 1,000 ML 80 ML IV (08:32)
--- NOTE | 2021-02-01 08:57 | ANES.PREOP_ITS ---
General Info Date of Service Date Performed: 02/01/21 Height: 5 ft 9 in Weight: 96.5 kg Body Mass Index (BMI): 31.4 Surgical Procedure: Operation Date: 02/01/21 09:20 Proposed Procedures Side Surgeon p Colonoscopy/Gastroscopy Kusum Ramirez MD Meds Allergies and Home Medications Allergies Allergy/AdvReac Type Severity Reaction Status Date / Time sertraline [From Zoloft] AdvReac Verified 01/29/21 10:47 Home Medication Medication Instructions Recorded atorvastatin 20 mg tablet 20 mg PO DAILY 12/20/18 levothyroxine 150 mcg capsule 150 mcg PO DAILY 01/25/19 metformin 500 mg tablet 1,000 mg PO BID tab 01/25/19 pramipexole [Mirapex] 0.5 mg PO BID PRN 05/11/19 fluticasone fur. 100 mcg-umeclid 1 inh IH DAILY 08/14/19 62.5 mcg-vilant 25 mcg inhalat.powder zolpidem 5 mg tablet 5 mg PO QHS PRN 08/14/19 CPAP MISCELLANEOUS 10/08/19 gabapentin 100 mg capsule 100 mg PO DAILY 10/08/19 albuterol sulfate 2.5 mg INHALATION Q4H PRN 11/19/20 lamotrigine 25 mg tablet 25 mg PO DAILY tab 11/19/20 polyethylene glycol 3350 [Miralax] 17 g PO DAILY 12/10/20 acetaminophen [Tylenol Extra 1,000 mg PO DAILY 12/30/20 Strength] pantoprazole 20 mg tablet,delayed 20 mg PO BID #60 tab 01/05/21 release Current Visit Medications: Current Medications Generic Name Dose Route Start Last Admin Trade Name Freq PRN Reason Stop Dose Admin Hyoscyamine Sulfate 0.125 mg 02/01/21 06:48 Hyoscyamine 0.125 Mg Sl/Oral/Chew SL DIRECTED PRN Ringer's Solution 1,000 mls @ 80 mls/hr 02/01/21 06:00 02/01/21 08:32 IV 02/28/21 23:59 80 mls/hr INFUSION DAMIAN Administration IV Miscellaneous Supplies 1 each 02/01/21 06:00 Iv Access IV 02/28/21 23:59 DIRECTED DAMIAN Ondansetron HCl 4 mg 02/01/21 06:48 Ondansetron 4 Mg/2 Ml Vial IVP Q4H PRN PRN Nausea / Vomiting Sodium Chloride 0 ml 02/01/21 06:00 Normal Saline Flush 10 Ml Syr IV 02/28/21 23:59 PRN PRN Sodium Chloride 0 ml 02/01/21 06:00 Normal Saline 10 Ml Vial IJ 02/28/21 23:59 DIRECTED PRN Sterile Water 0 ml 02/01/21 06:00 Water,Injection,Sterile 10 Ml Vial IJ 02/28/21 23:59 DIRECTED PRN PFSH Active Problems Active Problems: Problem Status Onset Code GERD (gastroesophageal reflux disease) K21.9 Hiatal hernia K44.9 Chest pain R07.9 Diabetes E11.9 Encounter for screening for other viral diseases Z11.59 Difficult airway for intubation T88.4XXA Abnormal auditory perception of both ears H93.293 Hoarseness of voice R49.0 Bloating R14.0 Early satiety R68.81 Screening for colon cancer Z12.11 Abdominal pain R10.9 Abdominal bloating with cramps R14.0, R10.9 Guillen cyst M71.20 Difficult intubation T88.4XXA Hyperlipidemia E78.5 HTN (hypertension) I10 Heart murmur R01.1 Medical History Medical History Anxiety Bilateral lower extremity edema Bipolar 1 disorder Carpal tunnel syndrome, right COPD (chronic obstructive pulmonary disease) De Quervain's tenosynovitis, right (~12/2019) Dental caries Depression Difficult intubation Dysuria Environmental allergies Fibromyalgia Ganglion cyst of volar aspect of left wrist Ganglion cyst of volar aspect of right wrist GERD (gastroesophageal reflux disease) Gout Hearing loss Heart murmur HTN (hypertension) Hyperlipidemia Hypothyroidism Iron deficiency anemia Non-insulin dependent type 2 diabetes mellitus Oral lesion JADON (obstructive sleep apnea) Post-nasal drip Restless leg syndrome Right lateral epicondylitis SOB (shortness of breath) Vitamin B 12 deficiency Vitamin D deficiency Surgical History Surgical History Guillen cyst removed from behind right knee X2. Hx of tonsillectomy S/P cholecystectomy Tobacco Smoking/Tobacco Use Status: Current every day Tobacco Type: cigarettes Smoking cigarettes per day: 8 Years smoked: 40 Smoking pack-years: 16.00 Alcohol Alcohol Intake: never Substance Use Substance use: Never Substance use type: does not use Vital Signs and Lab Results Vital Signs Most Recent Vital Signs in EMR: Most Recent Vital Signs Temp Pulse Resp BP Pulse Ox 36.6 C 93 H 18 146/78 H 96 02/01/21 08:15 02/01/21 08:15 02/01/21 08:15 02/01/21 08:15 02/01/21 08:15 Point of Care Results Point of Care Results: Finger Stick Blood Glucose 135 02/01/21 08:27 Lab Results Blood Type / Crossmatch: No Data to Display Complete Blood Count: No Data to Display Complete Metabolic Panel: No Data to Display Liver Function Panel: No Data to Display Coagulation Panel: No Data to Display Cardiac Panel: No Data to Display Arterial Blood Gas: No Data to Display Venous Blood Gas: No Data to Display Pancreas Panel: No Data to Display Thyroid Panel: No Data to Display Infectious Disease: Coronavirus (COVID-19)(PCR) Negative (Negative) 01/29/21 09:54 01/29/21 Coronavirus 2019 Source Nasal/Nares 01/29/21 09:54 01/29/21 Blood Cultures: No Data to Display Toxicology Panel: 2 No Data to Display Panel: No Data to Display Anesthesia Assessment and Plan Anesthesia History Personal History: Other ([facility]: 06/14/13:Open Lap Polina, Had Bronchospasm/hypoxia in PACU, Admit to ICU) Family History: No Family History of Anesthesia Complications Exercise Tolerance Exercise Tolerance: Metabolic Equivalents<4 Pertinent Negatives Pertinent Negatives: No Major Cardiovascular Symptoms or Complaints and No Major Pulmonary Symptoms or Complaints Cardiac & Pulmonary Exam Cardiac Exam: Normal S1/S2 Heart Sounds Pulmonary Exam: Clear Bilateral Breath Sounds Airway Exam Known Difficult Airway: Yes Previous Airway Comments:: See anesthesia consult note gabrielle stein Mallampati Class: 3 Mouth Opening: Narrow (< 3cm) Thyromental Distance: Less than 3 cm Neck Range of Motion: Full ROM and Limited ROM Neck Circumference: Thick Teeth Condition: Loose or Chipped, Dental Caries, Advised tooth loss possible given current condition (indicate tooth) and Other (Poor dentition, multiple loose, multiple brooken teeth. ) Airway Comments: See consult notes. Also loose teeth. Pt understands high degree chance loosing teeth. ASA Classification ASA Score: ASA 3 Emergency Case?: No NPO Status NPO Status: NPO Clears >2 hours, Solids >8 hours Status Status: Not Per Patient Anesthesia Plan Resuscitation Status: Full Code Anesthesia Technique: General Anesthesia (Will avoid apnea ) Airway Planned: Natural Airway Monitors Used: Standard Monitors Preoperative Comments:: Discussed plans to spray oropharynx, careful airway maintenance,emergency airway devices ready.
[2021-02-01 09:26] VITALS: BMI 31.4
--- NOTE | 2021-02-01 09:50 | BOWEL_PTH ---
PATIENT: Jagruti Dean LOC: [facility] U#:[id number] AGE/SX: 55/F ROOM: RE02/01/[address]: Kusum Ramirez MD : [id number] BED: DIS: 02/01/2021 SPEC #: [id number] RECD: 02/01/21 12:58 STATUS: STEVEN RE #: [id number] TAIWO: 02/01/21 09:[address]: Kusum Ramirez DEPT: Surgical Specimen RECD BY: Lana Lucero ENTERED: 02/01/21 13:00 SP TYPE: Bowel OTHR DR: Zoila Gerard Tissues: 1 - BIOPSY BOWEL 2 - STOMACH BIOPSY 3 - ESOPHAGUS BIOPSY 4 - BIOPSY BOWEL 5 - BIOPSY BOWEL Procedures: GROSS AND MICRO LEVEL 4 Comments: [id number]
[2021-02-01 10:32] VITALS: BP 116/72; PULSE 92; RESP 16; TEMP 36.1; O2SAT 98
--- NOTE | 2021-02-01 10:47 | W.ANESPOSTOP ---
Postoperative Evaluation Date, Time and Location Date Performed: 02/01/21 Time Performed: 10:48 Patient Location: Day Surgery Unit Vital Signs Most Recent Imported Vital Signs: Most Recent Vital Signs Temp Pulse Resp BP Pulse Ox 36.1 C L 92 H 16 116/72 98 02/01/21 10:32 02/01/21 10:32 02/01/21 10:32 02/01/21 10:32 02/01/21 10:32 Pain Score Most Recent Pain Score: Most Recent Pain Score Pain Level 0 02/01/21 10:32 Assessment Mental Status: Awake (Alert & Oriented to Patient Baseline) Airway and Respiratory Function: Patent airway with normal (patient baseline) respiratory exam Cardiovascular Function: Hemodynamically Stable Hydration Status: Adequately Hydrated Nausea & Vomiting: No Nausea or Vomiting Pain: Pt. Denies Any Pain Peripheral Nerve Block: Patient did not receive a nerve block
[2021-02-01 11:02] VITALS: BP 138/77; PULSE 71; RESP 15; TEMP 36; O2SAT 100
== END 2021-02-01 11:28 | disposition home or self-care (01) ==
LOC: SUR 07:56
PROVIDERS: PCP Nurse Practitioner; Visit Provider Surgery
PROC: (CPT 45380; principal; 2021-02-01 09:15)
DX: Z12.11 Encounter for screening for malignant neoplasm of colon (principal); D12.3 Benign neoplasm of transverse colon; D12.4 Benign neoplasm of descending colon; K44.9 Diaphragmatic hernia without obstruction or gangrene; K21.9 Gastro-esophageal reflux disease without esophagitis; J44.9 Chronic obstructive pulmonary disease, unspecified; K29.70 Gastritis, unspecified, without bleeding; K20.90 Esophagitis, unspecified without bleeding
CPT/HCPCS: 45380; 43239; 88305

== ENCOUNTER 2021-02-16 07:05 | Emergency (ER) | payer OTHER, SELFPAY ==
[2021-02-16] VITALS (36 sets, daily range): BP systolic 101–163; BP diastolic 53–78; PULSE 72–90; RESP 12–23; TEMP 36.5; O2SAT 92–99
--- NOTE | 2021-02-16 07:00 | RT.EKG_ITS ---
APPROVED REPORT Exam: Resting ECG Reason for Exam: syncope/dizziness Patient Location: E HR:84 bpm ECG Measurements Heart Rate 84 AXIS NM 243 P 56 QRSd 109 QRS 78 QT 418 T 62 QTc 494 Conclusion Sinus rhythm...normal P axis, V-rate 60- 99 Prolonged NM interval...NM >210, V-rate 50- 90 ST elev, probable normal early repol pattern...ST elevation, age<55
[2021-02-16] MEDS: Ondansetron O.D.T. 4 MG TABEF (07:32)
[2021-02-16 08:13] LABS: Abs Immature Grans 0.05 10^3/uL (0.0-0.06); Absolute Basophil Count 0.08 10^3/uL (0.0-0.2); Absolute Lymphocyte Count 1.84 10^3/uL (1.2-3.4); Absolute Monocyte Count 0.54 10^3/uL (0.1-0.8); Absolute Neutrophil Count 8.42 10^3/uL (1.2-6.7); Basophils % 0.7; Eosinophils % 2.7; HGB 14.6 g/dL (11.2-15.7); Immature Grans % 0.4; Lymphocytes % 16.4; MCH 29.6 pg (27.0-33.0); MCHC 31.7 % (32.0-36.0); MCV 93.3 fL (80-95); MPV 10.7 fL (8.0-11.0); Monocytes % 4.8; Nucleated RBC 0 %; Platelet Count 316 10^3/uL (130-400); RBC 4.93 10^6/uL (3.93-5.22); RDW 13.6 % (11.7-14.6); RDW-SD 46.8 fL; WBC 11.23 10^3/uL (4.4-10.8)
[2021-02-16 08:24] LABS: Bilirubin Negative (Negative); Blood Trace-intact (Negative); Clarity Clear (Clear); Glucose Negative (Negative); Ketones Negative (Negative); Leukocyte Esterase Negative (Negative); Nitrite Negative (Negative); Specific Gravity 1.015 (1.005-1.025); Urobilinogen 0.2 EU/dL (Up TO 0.2)
[2021-02-16 08:29] LABS: ALT 28 U/L (14-59); AST 16 U/L (15-37); Albumin 3.6 g/dL (3.4-5.0); Alkaline Phosphatase 120 U/L (46-116); Anion Gap 8.4 mmol/L (3-11); BUN 9 mg/dL (7-18); Bilirubin, Total 0.3 mg/dL (0.2-1.0); CO2 27.6 mmol/L (21.0-32.0); CREATININE 0.9 mg/dL (0.55-1.02); Calcium 9.4 mg/dL (8.5-10.1); Chloride 105 mmol/L (98-107); Glucose 133 mg/dL (74-106); Magnesium 2.1 mg/dL (1.8-2.4); Potassium 4.6 mmol/L (3.5-5.1); Sodium 141 mmol/L (136-145); Total Protein 7.9 g/dL (6.4-8.2)
[2021-02-16 08:30] LABS: Troponin I < 0.05 ng/mL (<0.06)
--- NOTE | 2021-02-16 08:30 | DI.MRI_ITS ---
Exam(s) MR BRAIN WO EXAM: MR BRAIN WO CLINICAL HISTORY: new vertigo, ESCAMILLA, assess for posterior cva TECHNIQUE: Multiplanar multisequence MRI of the brain was performed. COMPARISON: No exams were available for comparison FINDINGS: VENTRICLES AND EXTRA AXIAL SPACES: Normal in size and morphology for the patient's age. MIDLINE SHIFT: None. CEREBRAL PARENCHYMA: No focus of restricted diffusion to suggest acute infarct. No space-occupying le nelia identified. There are few scattered tiny high signal lesions in the white matter both cerebral h emispheres, consistent with minimal small vessel disease. HEMORRHAGE: None. BRAINSTEM/CEREBELLUM: Normal. VISUALIZED PARANASAL SINUSES/MASTOIDS:Clear. JAMUL OF GUEVARA: Normal flow void. PITUITARY GLAND: Unremarkable. IMPRESSION: Unremarkable MRI of the brain. DATA REPOSITORY:
[2021-02-16 08:31] LABS: Bacteria Rare HPF (Negative); C & S Indicated? No; Casts Negative LPF (Negative); Crystals Negative HPF (Negative); Epithelial Cells Few HPF (Negative); Mucus Negative (Negative); Other Cells Rare Renal (Negative); RBC 0-2 HPF (0-2); WBC 0-2 HPF (0-5)
[2021-02-16] MEDS: Meclizine 25 MG TAB PO (08:49)
[2021-02-16] MEDS: Normal Saline Flush 10 ML SYR IVP (08:50)
--- NOTE | 2021-02-16 09:35 | ED.GENADUL_ITS ---
Discharge Plan Disposition Patient Disposition: HOME Condition: Stable Discharge Details Clinical Impression: Vertigo, Prolonged P-R interval Primary Care Provider: Zoila Gerard ED Provider: Oseas Seymour Home Meds and New Rx's Prescriptions: New meclizine 25 mg tablet 25 mg PO BID PRN (Reason: dizziness) Qty: 30 RF: 0 Continued levothyroxine 150 mcg capsule 150 mcg PO DAILY RF: 0 atorvastatin [Lipitor] 20 mg tablet 20 mg PO DAILY RF: 0 gabapentin 100 mg capsule 100 mg PO DAILY RF: 0 CPAP miscellaneous RF: 0 zolpidem [Ambien] 5 mg tablet 5 mg PO QHS PRNRF: 0 Trelegy Ellipta 100-62.5-25 mcg blister with device 1 inh IH DAILY RF: 0 lamotrigine [Lamictal] 25 mg tablet 25 mg PO DAILY RF: 0 albuterol sulfate 2.5 mg /3 mL (0.083 %) solution for nebulization 2.5 mg inhalation Q4H PRNRF: 0 pantoprazole 20 mg tablet,delayed release (DR/EC) 20 mg PO BID Qty: 60 RF: 5 pramipexole [Mirapex] 0.5 mg Tablet 0.5 mg PO BID PRNRF: 0 acetaminophen 500 mg Capsule 1,000 mg PO DAILY RF: 0 metformin 500 mg tablet 1,000 mg PO BID RF: 0 polyethylene glycol 3350 [Miralax] 17 gram Powder In Packet 17 g PO DAILY RF: 0 Discharge Instructions Instructions: Vertigo (ED) Additional Instructions: Please contact your primary care physician to arrange follow-up. Return to the ER for any worsening or new concerning symptoms. Stand Alone Forms: Physical Therapy Referral Referrals: Zoila Gerard [Primary Care Provider] - Discharge Data Discharge Date/Time-TO BE ENTERED AT DEPARTURE: 02/16/21 12:57 Medical Decision Making 940??55-year-old female with history of prior hypertension, hyperlipidemia, COPD, here with vertigo, associated nausea and headache that started this morning. Patient is hemodynamically stable. Considered arrhythmia. EKG was reviewed and interpreted by me: Please see report, sinus rhythm 84 bpm with prolonged SD of 243. Otherwise nondiagnostic. Labs reviewed and nondiagnostic. Plan to obtain MRI of the brain to rule out central etiology including CVA. Will also give Antivert for vertigo. 1228 --labs reviewed and nondiagnostic. Initial troponin and second delta troponin negative. MRI of the brain was reviewed and interpreted by radiology: Unremarkable MRI of the brain. Patient was reassessed and notes significant improvement in symptoms. I will prescribe Antivert and have her follow-up with EP for vestibular rehab and also with her primary care physician. Disposition decision was made weighing the risks and benefits of hospitalization versus outpatient treatment, the risk for further decompensation, and the patient's wishes. The patient was stable and requested discharge. Prior to discharge, my usual and customary return precautions were reviewed with the patient - this included follow-up instructions and reason to return to the emergency department if condition worsens, does not improve as expected, or other new concerns arise. HPI General Mode of arrival: ambulatory . Date/Time Provider Initiated Documentation: 02/16/21 07:57 . Limitations to Documentation: no limitations . Information obtained by: patient . HPI Narrative: 55-year-old female with history of GERD, diabetes, COPD, prior hypertension, hyperlipidemia, mitral prolapse, presents with chief complaint of dizziness. 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 When she got to work she notes that she felt dizzy like she is swimming. Around 630 she was seated and performing work duties and developed recurrent nausea, moderate frontal headache headache, and recurrent nausea. Headache lasted about an hour and is resolved. She continues to have dizziness which is moderate and worse with movement. She notes when she got up out of the stretcher and went to the bathroom she was very unsteady on her feet. She notes no other modifiers. She does note some recent associated sinus congestion and ear fullness bilaterally yesterday. She states her eyes were tearing earlier today. Patient has no history of headaches or dizziness. No associated visual changes. No numbness or tingling. No focal weakness. Related Data Home Medications Medication Instructions Recorded Confirmed atorvastatin 20 mg tablet 20 mg PO DAILY 12/20/18 02/16/21 levothyroxine 150 mcg capsule 150 mcg PO DAILY 01/25/19 02/16/21 metformin 500 mg tablet 1,000 mg PO BID tab 01/25/19 02/16/21 pramipexole [Mirapex] 0.5 mg PO BID PRN 05/11/19 02/16/21 fluticasone fur. 100 mcg-umeclid 1 inh IH DAILY 08/14/19 02/16/21 62.5 mcg-vilant 25 mcg inhalat.powder zolpidem 5 mg tablet 5 mg PO QHS PRN 08/14/19 02/16/21 CPAP MISCELLANEOUS 10/08/19 01/05/21 gabapentin 100 mg capsule 100 mg PO DAILY 10/08/19 02/16/21 albuterol sulfate 2.5 mg INHALATION Q4H PRN 11/19/20 02/16/21 lamotrigine 25 mg tablet 25 mg PO DAILY tab 11/19/20 02/16/21 polyethylene glycol 3350 [Miralax] 17 g PO DAILY 12/10/20 02/16/21 acetaminophen 1,000 mg PO DAILY 12/30/20 02/16/21 pantoprazole 20 mg tablet,delayed 20 mg PO BID #60 tab 02/15/21 02/16/21 release meclizine 25 mg PO BID PRN #30 tab 02/16/21 Previous Rx's Medication Instructions Recorded pantoprazole 20 mg tablet,delayed 20 mg PO BID #60 tab 02/15/21 release meclizine 25 mg PO BID PRN #30 tab 02/16/21 Allergies Allergy/AdvReac Type Severity Reaction Status Date / Time sertraline [From Zoloft] AdvReac Verified 02/16/21 07:20 General Stated Complaint: Dizzy/Sync REBECA: 2 Review of Systems All systems reviewed & are unremarkable except as noted in HPI and below Constitutional Constitutional: Denies fever(s) Cardiovascular Cardiovascular: Reports as per HPI, Denies chest pain, Denies rapid heart rate, Denies lightheadedness and Denies dyspnea Respiratory Respiratory: Denies dyspnea Genitourinary Genitourinary: Reports as per HPI Neurologic Neurologic: Reports as per HPI [facility] Medical History Anxiety Bilateral lower extremity edema Bipolar 1 disorder Carpal tunnel syndrome, right COPD (chronic obstructive pulmonary disease) De Quervain's tenosynovitis, right (~12/2019) Dental caries Depression Difficult intubation Dysuria Environmental allergies Fibromyalgia Ganglion cyst of volar aspect of left wrist Ganglion cyst of volar aspect of right wrist GERD (gastroesophageal reflux disease) Gout Hearing loss Heart murmur HTN (hypertension) Hyperlipidemia Hypothyroidism Iron deficiency anemia Non-insulin dependent type 2 diabetes mellitus Oral lesion JADON (obstructive sleep apnea) Post-nasal drip Restless leg syndrome Right lateral epicondylitis SOB (shortness of breath) Vitamin B 12 deficiency Vitamin D deficiency Surgical History Guillen cyst removed from behind right knee X2. Hx of tonsillectomy S/P cholecystectomy Family History Father Heart disease Maternal Grandmother Heart disease Social History Smoking/Tobacco Use Status: Current every day Tobacco Type: cigarettes Years smoked: 40 Smoking risk assessment performed?: Yes Alcohol Intake: never Drug use: Never Substance use type: does not use Current gender identity: female What type of physical activity do you participate in: none Do you feel safe at home: Yes Do you feel safe in your relationship?: Yes Exam Const General: cooperative and no acute distress HENMT Mouth: moist mucous membranes Eyes EOM: EOM intact bilaterally Neck Neck: trachea midline and supple Resp Auscultation: clear to auscultation bilaterally, no rales, no rhonchi and no wheezes Cardio Rate: regular rate and not tachycardic Rhythm: regular rhythm GI Palpation: soft, not firm, no guarding, no masses, not rigid and nontender Skin General skin exam: no rashes or lesions noted Neuro General: patient alert, patient awake, patient oriented x3 and tone normal Cranial Nerves: CN's II-XI intact bilaterally Cognition: normal cognition Speech: speech normal Gait: ataxic Motor: strength 5/5 throughout Sensory Exam: no sensory deficits noted Coordination: [id number] test normal and [id number] test normal Other: Hints exam nondiagnostic Extrem General: no edema Psych Appearance: grossly normal Mental Status: mental status grossly normal Speech and Movement: speech and movement normal Course Vital Signs Vital signs: Vital Signs Temperature 36.5 C 02/16/21 07:11 Pulse 90 02/16/21 07:11 Blood Pressure 163/70 H 02/16/21 07:11 Pulse Oximetry 97 02/16/21 07:11 Temperature 36.5 C 02/16/21 07:11 Temperature Source Temporal Artery Scan 02/16/21 07:11 Pulse 90 02/16/21 07:11 Respiratory Rate 14 02/16/21 07:17 Respiratory Effort Non-Labored 02/16/21 07:17 Respiratory Depth Normal 02/16/21 07:17 Respiratory Pattern Normal 02/16/21 07:17 Blood Pressure 163/70 H 02/16/21 07:11 Blood Pressure Position Sitting 02/16/21 07:11 Pulse Oximetry 97 02/16/21 07:11 Oxygen Delivery Method Room Air 02/16/21 07:11 Oxygen Flow Rate 0 02/16/21 07:11 Pain Level 7 02/16/21 07:11 Lab/Test Results Lab/Test Results: Laboratory Tests Range/Units 02/16/21 02/16/21 02/16/21 07:15 07:15 08:02 WBC (4.4-10.8) 10^3/uL 11.23 H RBC (3.93-5.22) 10^6/uL 4.93 Hgb (11.2-15.7) g/dL 14.6 Hct (36.0-46.0) % 46.0 MCV (80-95) fL 93.3 MCH (27.0-33.0) pg 29.6 MCHC (32.0-36.0) % 31.7 L RDW (11.7-14.6) % 13.6 Plt Count (130-400) 10^3/uL 316 MPV (8.0-11.0) fL 10.7 Immature Gran % 0.4 Neutrophils % 75.0 Lymphocytes % 16.4 Monocytes % 4.8 Eosinophils % 2.7 Basophils % 0.7 Nucleated RBC % % 0 Absolute Neutrophils (1.2-6.7) 10^3/uL 8.42 H Absolute Lymphocytes (1.2-3.4) 10^3/uL 1.84 Absolute Monocytes (0.1-0.8) 10^3/uL 0.54 Absolute Eosinophils (0.0-0.7) 10^3/uL 0.30 Absolute Basophils (0.0-0.2) 10^3/uL 0.08 Sodium (136-145) mmol/L 141 Potassium (3.5-5.1) mmol/L 4.6 Chloride (98-107) mmol/L 105 Carbon Dioxide (21.0-32.0) mmol/L 27.6 Anion Gap (3-11) mmol/L 8.4 BUN (7-18) mg/dL 9 Creatinine (0.55-1.02) mg/dL 0.9 Estimated GFR/1.73 m2 (mL/min/1.73m2) >= 60.00 Glucose (74-106) mg/dL 133 H Calcium (8.5-10.1) mg/dL 9.4 Magnesium (1.8-2.4) mg/dL 2.1 Total Bilirubin (0.2-1.0) mg/dL 0.3 AST (15-37) U/L 16 ALT (14-59) U/L 28 Alkaline Phosphatase (46-116) U/L 120 H Troponin I (<0.06) ng/mL < 0.05 Total Protein (6.4-8.2) g/dL 7.9 Albumin (3.4-5.0) g/dL 3.6 Urine Color (Yellow) Yellow Urine Clarity (Clear) Clear Urine pH (5-8) 6.0 Ur Specific [place] (1.005-1.025) 1.015 Urine Protein (Negative) mg/dL Negative Urine Ketones (Negative) mg/dL Negative Urine Blood (Negative) Trace-intact H Urine Nitrite (Negative) Negative Urine Bilirubin (Negative) Negative Urine Urobilinogen (Up TO 0.2) EU/dL 0.2 Ur Leukocyte Esterase (Negative) Negative Urine RBC (0-2) HPF 0-2 Urine WBC (0-5) HPF 0-2 Ur Epithelial Cells (Negative) HPF Few Urine Crystals (Negative) HPF Negative Urine Bacteria (Negative) HPF Rare Urine Casts (Negative) LPF Negative Urine Mucus (Negative) Negative Urine Other (Negative) Rare Renal Ur Culture Indicated? No Urine Glucose (Negative) mg/dL Negative
[2021-02-16 10:52] LABS: Troponin I < 0.05 ng/mL (<0.06)
== END 2021-02-16 12:57 | disposition home or self-care (01) ==
PROVIDERS: Registered Nurse Emergency; Emergency Provider Student in an Organized Health Care Education/Training Program; PCP Nurse Practitioner
DX: R42 Dizziness and giddiness (principal); R11.2 Nausea with vomiting, unspecified; R51.9 Headache, unspecified; R94.31 Abnormal electrocardiogram [ECG] [EKG]; I10 Essential (primary) hypertension
CPT/HCPCS: 36415; 36416; 80053; 82962; 93005; 99285; 70551; 81003; 81015; 83735; 84484; 85025; 93010; 99284

== ENCOUNTER 2021-04-28 07:25 | Emergency (ER) | payer OTHER, SELFPAY ==
[2021-04-28] VITALS (39 sets, daily range): BP systolic 117–135; BP diastolic 47–123; PULSE 72–96; RESP 1–45; TEMP 36.6; O2SAT 93–100
--- NOTE | 2021-04-28 07:30 | RT.EKG_ITS ---
APPROVED REPORT Exam: Resting ECG Reason for Exam: shortness of breath Patient Location: E HR:78 bpm ECG Measurements Heart Rate 78 AXIS MA 224 P 43 QRSd 109 QRS 66 QT 442 T 67 QTc 506 Conclusion Sinus rhythm...normal P axis, V-rate 60- 99 Prolonged MA interval...MA >210, V-rate 50- 90 Nonspecific T abnrm, anterolateral leads...T <-0.10mV, I aVL V2-V6 ST elev, probable normal early repol pattern...ST elevation, age<55. Sinus. No STEMI. No change from previous EKG. I have reviewed and interpreted ECG and agree with software generated interpretation.
--- NOTE | 2021-04-28 07:45 | ED.GENADUL_ITS ---
Discharge Plan Disposition Patient Disposition: HOME Condition: Improving Discharge Details Clinical Impression: Acute exacerbation of chronic obstructive pulmonary disease, Dehydration Primary Care Provider: Zoila Gerard ED Provider: Violet Ma Home Meds and New Rx's Prescriptions: New prednisone 20 mg tablet See Rx Instructions .ROUTE .COMPLEX Qty: 18 RF: 0 doxycycline hyclate 100 mg tablet 100 mg PO BID 7 Days Qty: 14 RF: 0 Continued levothyroxine 150 mcg capsule 150 mcg PO DAILY RF: 0 atorvastatin [Lipitor] 20 mg tablet 20 mg PO DAILY RF: 0 gabapentin 100 mg capsule 100 mg PO DAILY RF: 0 CPAP miscellaneous RF: 0 zolpidem [Ambien] 5 mg tablet 5 mg PO QHS PRNRF: 0 Trelegy Ellipta 100-62.5-25 mcg blister with device 1 inh IH DAILY RF: 0 lamotrigine [Lamictal] 25 mg tablet 25 mg PO DAILY RF: 0 albuterol sulfate 2.5 mg /3 mL (0.083 %) solution for nebulization 2.5 mg inhalation Q4H PRNRF: 0 pantoprazole 20 mg tablet,delayed release (DR/EC) 20 mg PO BID Qty: 60 RF: 5 fluticasone propionate 50 mcg/actuation spray,suspension See Rx Instructions intranasal DIRECTED RF: 0 pramipexole [Mirapex] 0.5 mg Tablet 0.5 mg PO BID PRNRF: 0 acetaminophen 500 mg Capsule 1,000 mg PO DAILY RF: 0 meclizine 25 mg tablet 25 mg PO BID PRN (Reason: dizziness) Qty: 30 RF: 0 metformin 500 mg tablet 1,000 mg PO BID RF: 0 polyethylene glycol 3350 [Miralax] 17 gram Powder In Packet 17 g PO DAILY RF: 0 Discharge Instructions Instructions: Dehydration (ED), COPD (Chronic Obstructive Pulmonary Disease) (ED) Additional Instructions: Your lab work noted findings consistent with dehydration which may be contributing to your fatigue. Your blood work improved after you were given IV fluids here. Your urine sample was negative for infection. Your Covid test was negative. Your chest x-ray did not note any evidence of pneumonia. Drink plenty of fluids and get plenty of rest. Prescriptions for steroids and antibiotics have been sent electronically to your pharmacy. Take the steroids as directed until finished. You do not need to start the antibiotic prescription right away. If you have no relief or worsening of symptoms in the next 2 days, you can start the antibiotics. Continue to use your inhaler and nebulizer as needed and directed. Follow-up with your primary care doctor in 1 week. Return to the emergency department with any worsening or new concerning symptoms. Stand Alone Forms: Work Release Discharge Data Discharge Physician: Violet Ma Medical Decision Making 55-year-old female with a history of COPD, anxiety, depression, fibromyalgia, hy pertension, hyperlipidemia, diabetes, hypothyroidism, sleep apnea on CPAP at night presents with fatigue since yesterday and increased cough and shortness of breath from her baseline starting today. EKG notes a rate of 78, sinus, no STEMI and nondiagnostic. Her vitals are within normal limits. She appears in no acute respiratory distress. While complaining she feels short of breath, oxygen saturation 99 to 100% on room air. She has slightly diminished breath sounds throughout but no obvious wheezing, rhonchi or crackles. Differential diagnosis includes COPD exacerbation, acute CHF, ACS, bronchitis, pneumonia, anemia, electrolyte abnormality, dehydration, COVID-19. [address] an IV, bolus IV fluids, DuoNeb, Solu-Medrol, screening labs, chest x-ray and reassess. Labs and imaging reviewed. White blood cell count normal at 10. D-dimer negative. Potassium 5.2. Creatinine 1.4, which is increased from normal baseline since 2019. Troponin negative. BNP within normal limits. Urinalysis negative. Covid negative. Chest x-ray negative for acute findings. Patient reassessed and she feels much better. Oxygen saturation 97% on room air. Improved air movement throughout. Discussed with patient that her symptoms could be due to bronchitis or an acute COPD exacerbation. Suspect her hyperkalemia and altered renal function may be due to dehydration in the setting of acute COPD exacerbation or viral illness. Will give additional IV fluids, repeat BMP and reassess. Potassium normalized and creatinine improved after IV fluids. Patient continues to feel better and demonstrates no signs of respiratory distress. She is requesting to go home. Prescriptions for steroids and antibiotics sent electronically to pharmacy. She was advised that she can hold on antibiotics unless symptoms do not improve or worsen. She has plenty of her inhaler and nebulizer solution at home. Advised to follow up with the primary care doctor for re-evaluation. Usual and customary return precautions given prior to discharge. Medical Records Medical records reviewed: Yes I reviewed the patient's medical records. Imaging Data Radiologic Study: Radiologist's impression: XR PORTABLE CHEST AP CLINICAL HISTORY: cough, sob, r/o acute disease. TECHNIQUE: 2D digital imaging was performed. COMPARISON: CR,RF RF BARIUM SWALLOW from 01/13/2021 FINDINGS: Heart size is slightly prominent The mediastinum is not widened. Lungs are clear. No infiltrates nor obvious pleural effusions. IMPRESSION: No acute pulmonary findings on this single AP portable view of the chest. Mild cardiomegaly. No pulmonary edema. Lab Data Lab results reviewed: Yes I reviewed the patient's lab results. Labs: Laboratory Tests Range/Units 04/28/21 04/28/21 04/28/21 08:30 08:30 08:30 WBC (4.4-10.8) 10^3/uL 10.30 RBC (3.93-5.22) 10^6/uL 4.85 Hgb (11.2-15.7) g/dL 14.2 Hct (36.0-46.0) % 45.5 MCV (80-95) fL 93.8 MCH (27.0-33.0) pg 29.3 MCHC (32.0-36.0) % 31.2 L RDW (11.7-14.6) % 13.5 Plt Count (130-400) 10^3/uL 303 MPV (8.0-11.0) fL 10.1 Immature Gran % 0.5 Neutrophils % 69.6 Lymphocytes % 20.4 Monocytes % 4.7 Eosinophils % 3.9 Basophils % 0.9 Nucleated RBC % % 0 Absolute Neutrophils (1.2-6.7) 10^3/uL 7.18 H Absolute Lymphocytes (1.2-3.4) 10^3/uL 2.10 Absolute Monocytes (0.1-0.8) 10^3/uL 0.48 Absolute Eosinophils (0.0-0.7) 10^3/uL 0.40 Absolute Basophils (0.0-0.2) 10^3/uL 0.09 D-Dimer (<500) ng/mlFEU 317 Sodium (136-145) mmol/L 140 Potassium (3.5-5.1) mmol/L 5.2 H Chloride (98-107) mmol/L 104 Carbon Dioxide (21.0-32.0) mmol/L 31.1 Anion Gap (3-11) mmol/L 4.9 BUN (7-18) mg/dL 12 Creatinine (0.55-1.02) mg/dL 1.3 H Estimated GFR/1.73 m2 (mL/min/1.73m2) 42.68 Glucose (74-106) mg/dL 131 H Calcium (8.5-10.1) mg/dL 9.6 Magnesium (1.8-2.4) mg/dL 2.2 Total Bilirubin (0.2-1.0) mg/dL 0.3 AST (15-37) U/L 14 L ALT (14-59) U/L 33 Alkaline Phosphatase (46-116) U/L 129 H Troponin I (<0.06) ng/mL < 0.05 NT-Pro-B Natriuret Pep (<300) pg/mL Total Protein (6.4-8.2) g/dL 7.9 Albumin (3.4-5.0) g/dL 3.5 COVID-19 Source Range/Units 04/28/21 04/28/21 08:30 08:45 WBC (4.4-10.8) 10^3/uL RBC (3.93-5.22) 10^6/uL Hgb (11.2-15.7) g/dL Hct (36.0-46.0) % MCV (80-95) fL MCH (27.0-33.0) pg MCHC (32.0-36.0) % RDW (11.7-14.6) % Plt Count (130-400) 10^3/uL MPV (8.0-11.0) fL Immature Gran % Neutrophils % Lymphocytes % Monocytes % Eosinophils % Basophils % Nucleated RBC % % Absolute Neutrophils (1.2-6.7) 10^3/uL Absolute Lymphocytes (1.2-3.4) 10^3/uL Absolute Monocytes (0.1-0.8) 10^3/uL Absolute Eosinophils (0.0-0.7) 10^3/uL Absolute Basophils (0.0-0.2) 10^3/uL D-Dimer (<500) ng/mlFEU Sodium (136-145) mmol/L Potassium (3.5-5.1) mmol/L Chloride (98-107) mmol/L Carbon Dioxide (21.0-32.0) mmol/L Anion Gap (3-11) mmol/L BUN (7-18) mg/dL Creatinine (0.55-1.02) mg/dL Estimated GFR/1.73 m2 (mL/min/1.73m2) Glucose (74-106) mg/dL Calcium (8.5-10.1) mg/dL Magnesium (1.8-2.4) mg/dL Total Bilirubin (0.2-1.0) mg/dL AST (15-37) U/L ALT (14-59) U/L Alkaline Phosphatase (46-116) U/L Troponin I (<0.06) ng/mL NT-Pro-B Natriuret Pep (<300) pg/mL 111 Total Protein (6.4-8.2) g/dL Albumin (3.4-5.0) g/dL COVID-19 Source Nasal/Nares ECG Data Attestation: I personally reviewed and interpreted this ECG (s) as follows: Interpretation: Rate of 78, sinus, no STEMI, no significant change from previous EKG. Prolonged SD 224. QTc 506. HPI General Mode of arrival: ambulatory . Date/Time Provider Initiated Documentation: 04/28/21 07:42 . Limitations to Documentation: no limitations . Information obtained by: patient . HPI Narrative: Patient is a 55-year-old female with a history of COPD, anxiety, depression, GERD, hyperlipidemia, hypertension, diabetes, fibromyalgia, sleep apnea on CPAP at night presents for fatigue since yesterday and increased cough and shortness of breath this morning. Patient states she has intermittent shortness of breath at times with exertion with her COPD but not at rest. 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 She states she does have a chronic cough with her COPD but states it has been worse than usual. She states it does feel junky in her chest but she has been unable to bring up any sputum. She does admit to significant fatigue since yesterday. She denies any known fever, headache, neck pain, chest pain, abdominal pain, vomiting, diarrhea, urinary symptoms, or leg pain or swelling. She is fully vaccinated for Covid and denies any known exposure to COVID-19. She is not on home oxygen. Related Data Home Medications Medication Instructions Recorded Confirmed atorvastatin 20 mg tablet 20 mg PO DAILY 12/20/18 04/28/21 levothyroxine 150 mcg capsule 150 mcg PO DAILY 01/25/19 04/28/21 metformin 500 mg tablet 1,000 mg PO BID tab 01/25/19 04/28/21 pramipexole [Mirapex] 0.5 mg PO BID PRN 05/11/19 04/28/21 fluticasone fur. 100 mcg-umeclid 1 inh IH DAILY 08/14/19 04/28/21 62.5 mcg-vilant 25 mcg inhalat.powder zolpidem 5 mg tablet 5 mg PO QHS PRN 08/14/19 04/28/21 CPAP MISCELLANEOUS 10/08/19 02/23/21 gabapentin 100 mg capsule 100 mg PO DAILY 10/08/19 04/28/21 albuterol sulfate 2.5 mg INHALATION Q4H PRN 11/19/20 04/28/21 lamotrigine 25 mg tablet 25 mg PO DAILY tab 11/19/20 04/28/21 polyethylene glycol 3350 [Miralax] 17 g PO DAILY 12/10/20 04/28/21 acetaminophen 1,000 mg PO DAILY 12/30/20 04/28/21 pantoprazole 20 mg tablet,delayed 20 mg PO BID #60 tab 02/15/21 04/28/21 release meclizine 25 mg PO BID PRN #30 tab 02/16/21 04/28/21 fluticasone propionate 50 See Rx Instructions INTRANASAL 03/12/21 04/28/21 mcg/actuation nasal DIRECTED g spray,suspension doxycycline hyclate 100 mg PO BID 7 Days #14 tab 04/28/21 prednisone See Rx Instructions .ROUTE 04/28/21 .COMPLEX #18 tab Previous Rx's Medication Instructions Recorded pantoprazole 20 mg tablet,delayed 20 mg PO BID #60 tab 02/15/21 release meclizine 25 mg PO BID PRN #30 tab 02/16/21 doxycycline hyclate 100 mg PO BID 7 Days #14 tab 04/28/21 prednisone See Rx Instructions .ROUTE 04/28/21 .COMPLEX #18 tab Allergies Allergy/AdvReac Type Severity Reaction Status Date / Time sertraline [From Zoloft] AdvReac Verified 04/28/21 07:39 General Stated Complaint: SOB REBECA: 3 Review of Systems All systems reviewed & are unremarkable except as noted in HPI and below Constitutional Constitutional: Reports as per HPI, Denies chills, Reports fatigue, Denies fe abbey(s) and Reports weakness Eyes Eyes: Denies blurry vision ENT Ears, Nose, Mouth, and Throat: Denies dizziness, Denies sore throat and Denies throat swelling Cardiovascular Cardiovascular: Denies chest pain and Reports dyspnea Respiratory Respiratory: Reports cough and Reports dyspnea Gastrointestinal Gastrointestinal: Denies abdominal pain, Denies diarrhea and Denies vomiting Genitourinary Genitourinary: Denies hematuria and Denies dysuria Musculoskeletal Musculoskeletal: Denies back pain and Denies numbness Integumentary/Breasts Skin/Breast: Denies lesions and Denies rash Neurologic Neurologic: Denies dizziness, Denies localized weakness, Denies numbness and Reports weakness Endocrine Endocrine: Reports fatigue Allergic/Immunologic Allergic/Immunologic: Denies throat swelling [facility] Medical History (Updated 04/28/21 @ 11:31 by Violet Ma DO) Anxiety Bilateral lower extremity edema Bipolar 1 disorder Carpal tunnel syndrome, right COPD (chronic obstructive pulmonary disease) De Quervain's tenosynovitis, right (~12/2019) Dental caries Depression Difficult intubation Dysuria Environmental allergies Fibromyalgia Ganglion cyst of volar aspect of left wrist Ganglion cyst of volar aspect of right wrist GERD (gastroesophageal reflux disease) Gout Hearing loss Heart murmur HTN (hypertension) Hyperlipidemia Hypothyroidism Iron deficiency anemia Non-insulin dependent type 2 diabetes mellitus Oral lesion JADON (obstructive sleep apnea) Post-nasal drip Restless leg syndrome Right lateral epicondylitis SOB (shortness of breath) Vitamin B 12 deficiency Vitamin D deficiency Surgical History (Updated 02/26/21 @ 15:33 by Jammie Parmar) Guillen cyst removed from behind right knee X2. History of colonoscopy (~01/2021) History of esophagogastroduodenoscopy (EGD) (~01/2021) Hx of tonsillectomy S/P cholecystectomy Family History Father Heart disease Maternal Grandmother Heart disease Social History Smoking/Tobacco Use Status: Current every day Tobacco Type: cigarettes Years smoked: 40 Smoking risk assessment performed?: Yes Alcohol Intake: never Drug use: Never Substance use type: does not use Current gender identity: female What type of physical activity do you participate in: none Do you feel safe at home: Yes Do you feel safe in your relationship?: Yes Exam Const General: cooperative and no acute distress HENMT Head: normal to inspection Face and sinus: normal facial exam Eyes General: appearance normal, both eyes and all related structures EOM: EOM intact bilaterally Neck Neck: normal visual inspection and No submandibular swelling Lymphatic: no lymphadenopathy noted Chest Chest: normal inspection of the chest and no tenderness Resp Effort & Inspection: normal respiratory effort and able to speak in complete sentences Auscultation: diminished lung sounds bilaterally throughout Cardio Rate: regular rate Rhythm: regular rhythm GI Inspection: normal to inspection Palpation: soft, not firm, not rigid and nontender Auscultation: normal bowel sounds Skin General skin exam: no rashes or lesions noted Neuro General: patient alert, patient awake and patient oriented x3 Cognition: normal cognition Speech: speech normal Motor: muscle tone normal throughout Sensory Exam: no sensory deficits noted Extrem General: normal to inspection, full ROM, capillary refill normal, no calf tenderness bilaterally and no edema Psych Appearance: grossly normal Mental Status: mental status grossly normal Speech and Movement: speech and movement normal Affect: normal affect Course Vital Signs Vital signs: Vital Signs Temperature 97.9 F 04/28/21 07:33 Pulse 84 04/28/21 07:33 Respiratory Rate 20 04/28/21 07:33 Blood Pressure 123/61 04/28/21 07:33 Pulse Oximetry 98 04/28/21 07:33 Temperature 97.9 F 04/28/21 07:33 Temperature Source Skin 04/28/21 07:33 Pulse 84 04/28/21 07:33 Respiratory Rate 20 04/28/21 07:33 Respiratory Effort 04/28/21 07:33 Blood Pressure 123/61 04/28/21 07:33 Pulse Oximetry 98 04/28/21 07:33 Oxygen Delivery Method Room Air 04/28/21 07:33 Oxygen Flow Rate 0 04/28/21 07:33 Pain Level 0 04/28/21 07:33
--- NOTE | 2021-04-28 08:15 | DI.RAD_ITS ---
Exam(s) XR PORTABLE CHEST AP EXAM: XR PORTABLE CHEST AP CLINICAL HISTORY: cough, sob, r/o acute disease. TECHNIQUE: 2D digital imaging was performed. COMPARISON: CR,RF RF BARIUM SWALLOW from 01/13/2021 FINDINGS: Heart size is slightly prominent The mediastinum is not widened. Lungs are clear. No infiltrates nor obvious pleural effusions. IMPRESSION: No acute pulmonary findings on this single AP portable view of the chest. Mild cardiomegaly. No pulmonary edema. DATA REPOSITORY: RADIATION DOSE DELIVERED: All CT scans at this facility use at least one of these dose optimization techniques: automated exposure control; mA and/or kV adjustment per patient size (includes targeted e xams where dose is matched to clinical indication); or iterative reconstruction.
[2021-04-28 08:37] LABS: Abs Immature Grans 0.05 10^3/uL (0.0-0.06); Absolute Basophil Count 0.09 10^3/uL (0.0-0.2); Absolute Monocyte Count 0.48 10^3/uL (0.1-0.8); Absolute Neutrophil Count 7.18 10^3/uL (1.2-6.7); Basophils % 0.9; Eosinophils % 3.9; HCT 45.5 % (36.0-46.0); HGB 14.2 g/dL (11.2-15.7); Immature Grans % 0.5; Lymphocytes % 20.4; MCH 29.3 pg (27.0-33.0); MCHC 31.2 % (32.0-36.0); MCV 93.8 fL (80-95); MPV 10.1 fL (8.0-11.0); Monocytes % 4.7; Neutrophils % 69.6; Nucleated RBC 0 %; Platelet Count 303 10^3/uL (130-400); RBC 4.85 10^6/uL (3.93-5.22); RDW 13.5 % (11.7-14.6); RDW-SD 46.9 fL
[2021-04-28 08:54] LABS: ALT 33 U/L (14-59); AST 14 U/L (15-37); Albumin 3.5 g/dL (3.4-5.0); Alkaline Phosphatase 129 U/L (46-116); Anion Gap 4.9 mmol/L (3-11); BUN 12 mg/dL (7-18); Bilirubin, Total 0.3 mg/dL (0.2-1.0); CO2 31.1 mmol/L (21.0-32.0); CREATININE 1.3 mg/dL (0.55-1.02); Calcium 9.6 mg/dL (8.5-10.1); Chloride 104 mmol/L (98-107); Estimated GFR 42.68 (mL/min/1.73m2); Glucose 131 mg/dL (74-106); Magnesium 2.2 mg/dL (1.8-2.4); Potassium 5.2 mmol/L (3.5-5.1); Sodium 140 mmol/L (136-145); Total Protein 7.9 g/dL (6.4-8.2)
[2021-04-28 08:57] LABS: Troponin I < 0.05 ng/mL (<0.06)
[2021-04-28] MEDS: methylPREDNISolone SUCC 125 MG VIAL IVP (08:57)
[2021-04-28 09:00] LABS: NT-proBNP 111 pg/mL (<300)
[2021-04-28 09:02] LABS: Source Nasal/Nares
[2021-04-28] MEDS: Albuterol/Ipratropium 3 ML UPD VIAL UPD (09:12)
[2021-04-28] MEDS: Normal Saline 500 ML IV ×2 (09:12→10:20)
[2021-04-28 09:30] LABS: D-Dimer 317 ng/mlFEU (<500)
[2021-04-28 09:56] LABS: COVID-19 PCR Negative (Negative)
[2021-04-28 10:51] LABS: Anion Gap 6.9 mmol/L (3-11); BUN 12 mg/dL (7-18); CO2 29.1 mmol/L (21.0-32.0); CREATININE 1.2 mg/dL (0.55-1.02); Calcium 9.2 mg/dL (8.5-10.1); Chloride 106 mmol/L (98-107); Estimated GFR 46.82 (mL/min/1.73m2); Glucose 148 mg/dL (74-106); Potassium 4.3 mmol/L (3.5-5.1); Sodium 142 mmol/L (136-145)
[2021-04-28 10:53] LABS: Bilirubin Negative (Negative); Blood Negative (Negative); Clarity Clear (Clear); Glucose Negative (Negative); Ketones Negative (Negative); Leukocyte Esterase Negative (Negative); Nitrite Negative (Negative); Urobilinogen 0.2 EU/dL (Up TO 0.2)
[2021-04-28 12:16] LABS: Troponin I < 0.05 ng/mL (<0.06)
== END 2021-04-28 12:23 | disposition home or self-care (01) ==
PROVIDERS: Emergency Provider Physician Assistant; PCP Nurse Practitioner
DX: J44.1 Chronic obstructive pulmonary disease with (acute) exacerbation (principal); E86.0 Dehydration; F17.210 Nicotine dependence, cigarettes, uncomplicated; Z20.822 Contact with and (suspected) exposure to COVID-19; Z03.818 Encounter for observation for suspected exposure to other biological agents ruled out
CPT/HCPCS: 36415; 80048; 80053; 87635; 93005; 94640; 96361; 96374; 99285; 71045; 81003; 83735; 83880; 84484; 85025; 85379; 93010; 99284; J2930; J7620

== ENCOUNTER 2021-05-10 16:49 | Outpatient (REF) | payer OTHER, SELFPAY ==
[2021-05-10 22:14] LABS: Rheumatoid Factor <8.6 IU/mL (<12.0)
[2021-05-11 10:41] LABS: dsDNA Ab, IgG <12.3 IU/mL (<30.0)
[2021-05-11 11:39] LABS: Cyclic Citrullinated Peptide <2.5 U/mL (<5.0)
[2021-05-11 14:34] LABS: ANA Interpretation Negative (Negative)
== END 2021-05-10 16:50 | disposition home or self-care (01) ==
LOC: LBN 16:49
PROVIDERS: PCP Nurse Practitioner; Visit Provider Student in an Organized Health Care Education/Training Program
DX: J98.4 Other disorders of lung (principal)
CPT/HCPCS: 86200; 86038; 86225; 86431

== ENCOUNTER 2021-05-14 01:41 | Outpatient (CLI) | payer OTHER, SELFPAY ==
[2021-05-14] MEDS: Albuterol HFA 18 GM 200 PUFF INH IH (16:00)
[2021-05-14] MEDS: Inhaler, Assist Device 1 EACH MC (16:00)
--- NOTE | 2021-05-14 16:47 | W.PFT ---
Date of service: 05/14/21 Time of Service: 14:53 Pulmonary Function Test Result Requesting Provider Duchene Indications: Restrictive lung disease Interpretation Spirometry: There is no airflow limitation. Spirometry is in a restrictive pattern. There is no significant bronchodilator effect. Muscle pressures are reduced. Lung Volumes: There is mild restriction Diffusion Capacity: The diffusion is normal Airway Pressure: Airways resistance is normal. Impression Mild restrictive lung disease with reduced muscle pressures. Clinical Correlation therefore is recommended.
== END 2021-05-14 01:42 | disposition home or self-care (01) ==
LOC: RT 01:41
PROVIDERS: PCP Nurse Practitioner; Visit Provider Student in an Organized Health Care Education/Training Program
DX: J98.4 Other disorders of lung (principal)
CPT/HCPCS: 94060; 94726; 94729

== ENCOUNTER 2021-05-20 01:49 | Outpatient (CLI) | payer OTHER, SELFPAY ==
--- NOTE | 2021-05-20 08:45 | DI.MAMMO_ITS ---
Exam(s) MAMMO SCREENING EXAM: MAMMO SCREENING CLINICAL HISTORY: SCREENING, Z12.39. TECHNIQUE: Bilateral full field digital CC and MLO mammographic images were obtained with 3D tomosyn thesis and utilizing computer aided detection (CAD). COMPARISON: Prior outside mammograms dating back to 2011, the most recent being August 2017. FINDINGS: The fibroglandular tissue pattern is again noted be moderately dense, this decreasing the sensitivity of the mammogram for finding hidden underlying lesions. No new significant radiograph findings in the right breast. Left breast a laterally located asymmetric density, approximately 7 cm lateral to the nipple. This i s somewhat less concerning on 3D imaging through this region but does appear more evident on prior ma mmograms. Recommend spot compression view. No malignant-appearing microcalcification groups is macrina on or elsewhere in either breast There is no significant architectural distortion nor skin thickening-retraction. IMPRESSION: Moderately dense fibroglandular tissue. Asymmetric density lateral left breast. Spot compression vi ew and ultrasound BI-RADS Category 0 - Assessment Incomplete: Need additional imaging evaluation Breast Density - Category C - Heterogeneously dense Breast density Category C or D implies that the patient has dense breast tissue. Dense breast tissue can make it harder to find cancer on a mammogram. Dense breast tissue is also associated with an incr eased risk of breast cancer. This information about the result of the mammogram report was provided to the patient to raise their awareness. Use this report when you speak with the patient about their risks for breast cancer, which includes their family history. At that time, you may recommend additional screening tests (Ultrasoun d or MRI) as these tests may add significant information. A negative radiographic report should not delay biopsy if a dominant or clinically suspicious mass is present. Up to ten percent of cancers are not identified on mammography. A negative report may reinforce clinical impression. Adenosis and dense breasts may obscure an underlying neoplasm. False positive reports average 6 to 10%. Patient will receive a letter notifying them of these results.
== END 2021-05-20 02:09 ==
PROVIDERS: PCP Nurse Practitioner; Visit Provider Nurse Practitioner
DX: Z12.31 Encounter for screening mammogram for malignant neoplasm of breast; R92.8 Other abnormal and inconclusive findings on diagnostic imaging of breast
CPT/HCPCS: 77063; 77067

== ENCOUNTER 2021-06-09 01:11 | Outpatient (CLI) | payer OTHER, SELFPAY ==
--- NOTE | 2021-06-09 | DI.US_ITS ---
Exam(s) MG MAMMO SCREEN CALL BACK UNI US BREAST LT COMPLETE EXAM: MG MAMMO SCREEN CALL BACK UNI-LEFT AND COMPLETE LEFT BREAST ULTRASOUND CLINICAL HISTORY: F/U MAMMO, LT BREAST ASYMMETRIC DENSITY. TECHNIQUE: Unilateral spot mammographic images obtained with 3D tomosynthesisand utilizing computer aided detection (CAD). . Complete LEFT breast Ultrasound was also performed, including all 4 quadrants, the retroareolar regio n, and the ipsilateral axilla. COMPARISON: Prior mammograms were reviewed. This additional imaging was performed due to findings described on the recent screening mammogram of . FINDINGS: Additional mammographic views performed todayrender this area somewhat less concerning. Ultrasound performed today reveals a somewhat difficult pattern with numerous Coopers ligaments causi ng shadowing. At the 4 o'clock position there are findings which upon real-time multiplanar imaging have benign tanvi earance. The 5 o'clock position there is a 4 x 4 millimeter benign microcyst. No other significant focal findings in all 4 quadrants. There is no significant ipsilateral left axillary adenopathy. IMPRESSION: 1. No obvious radiographic evidence of malignancy in left breast. 2. Benign-appearing ultrasound findings. Appropriate follow-up , as discussed by myself with the patient today, is repeat left breast mammogra m in 6 months, with earlier imaging if a self detected breast change is noted. The patient was informed of these findings and recommendations prior to leaving the department today. BI-RADS Category 3 - 6 month - Probably Benign Finding: Recommend follow-up mammography in 6 months Breast Density - Category C - Heterogeneously dense Breast density Category C or D implies that the patient has dense breast tissue. Dense breast tissue can make it harder to find cancer on a mammogram. Dense breast tissue is also associated with an incr eased risk of breast cancer. This information about the result of the mammogram report was provided to the patient to raise their awareness. Use this report when you speak with the patient about their risks for breast cancer, which includes their family history. At that time, you may recommend additional screening tests (Ultrasoun d or MRI) as these tests may add significant information. A negative radiographic report should not delay biopsy if a dominant or clinically suspicious mass is present. Up to ten percent of cancers are not identified on mammography. A negative report may reinforce clinical impression. Adenosis and dense breasts may obscure an underlying neoplasm. False positive reports average 6 to 10%. Patient will receive a letter notifying them of these results.
== END 2021-06-09 01:31 ==
PROVIDERS: PCP Nurse Practitioner; Visit Provider Nurse Practitioner
DX: R92.8 Other abnormal and inconclusive findings on diagnostic imaging of breast (principal)
CPT/HCPCS: 76642; 77063; 77067

== ENCOUNTER 2021-06-25 15:05 | Outpatient (REF) | payer OTHER, SELFPAY ==
[2021-06-25 15:38] LABS: BUN 10 mg/dL (7-18); Calcium 9.3 mg/dL (8.5-10.1); Chloride 105 mmol/L (98-107); Estimated GFR 57.56 (mL/min/1.73m2); Glucose 129 mg/dL (74-106); Potassium 4.6 mmol/L (3.5-5.1); Sodium 143 mmol/L (136-145)
[2021-06-26 12:49] LABS: COVID-19 RT-PCR UVMMC Result Negative (Negative)
== END 2021-06-25 15:06 | disposition home or self-care (01) ==
LOC: NCHCN 15:05
PROVIDERS: PCP Nurse Practitioner; Visit Provider Physician Assistant Medical
DX: R19.7 Diarrhea, unspecified (principal); Z20.822 Contact with and (suspected) exposure to COVID-19
CPT/HCPCS: 80048; U0003

== ENCOUNTER 2021-06-26 06:05 | Outpatient (REF) | payer OTHER, SELFPAY ==
[2021-06-26 07:06] LABS: C Diff PCR Negative (Negative)
[2021-06-27 22:29] LABS: Campylobacter PCR Negative (Negative); Salmonella PCR Negative (Negative); Shiga Toxin PCR Negative (Negative); Shigella/Enteroinvasive Ecoli Negative (Negative)
== END 2021-06-26 06:06 | disposition home or self-care (01) ==
LOC: LBN 06:05
PROVIDERS: PCP Nurse Practitioner; Visit Provider Physician Assistant Medical
DX: R19.7 Diarrhea, unspecified (principal)
CPT/HCPCS: 87329; 87493; 87505

== ENCOUNTER 2021-08-31 15:07 | Outpatient (REF) | payer OTHER, SELFPAY ==
[2021-08-31 20:43] LABS: Anion Gap 9.1 mmol/L (3-11); BUN 10 mg/dL (7-18); CO2 27.9 mmol/L (21.0-32.0); CREATININE 0.9 mg/dL (0.55-1.02); Calcium 9.2 mg/dL (8.5-10.1); Chloride 102 mmol/L (98-107); Glucose 218 mg/dL (74-106); Potassium 4.3 mmol/L (3.5-5.1); Sodium 139 mmol/L (136-145); TSH 0.71 uIU/mL (0.36-3.74)
== END 2021-08-31 15:08 | disposition home or self-care (01) ==
LOC: NCHCN 15:07
PROVIDERS: PCP Nurse Practitioner; Visit Provider Nurse Practitioner Family
DX: E03.9 Hypothyroidism, unspecified (principal); E11.9 Type 2 diabetes mellitus without complications
CPT/HCPCS: 80048; 84443

== ENCOUNTER 2021-10-24 04:26 | Emergency (ER) | payer OTHER, SELFPAY ==
[2021-10-24 04:29] VITALS: BP 145/74; PULSE 85; RESP 18; TEMP 35.9; O2SAT 96
--- NOTE | 2021-10-24 04:44 | ED.GENADUL_ITS ---
Discharge Plan Disposition Patient Disposition: HOME Condition: Good Discharge Details Clinical Impression: Pain, dental Primary Care Provider: Zoila Gerard ED Provider: Arcadio Leigh Home Meds and New Rx's Prescriptions: New amoxicillin-pot clavulanate 875-125 mg tablet 1 tab PO BID Qty: 14 0RF Continued levothyroxine 150 mcg capsule 150 mcg PO DAILY 0RF atorvastatin [Lipitor] 20 mg tablet 20 mg PO DAILY 0RF pantoprazole [Protonix] 40 mg tablet,delayed release (DR/EC) 40 mg PO BID Qty: 60 7RF gabapentin 100 mg capsule 100 mg PO DAILY 0RF CPAP miscellaneous 0RF Stiolto Respimat 2.5-2.5 mcg/actuation mist 2 puff inhalation DAILY Qty: 4 12RF Trelegy Ellipta 100-62.5-25 mcg blister with device 1 inh IH DAILY 0RF lamotrigine [Lamictal] 25 mg tablet 25 mg PO DAILY 0RF pramipexole [Mirapex] 0.5 mg Tablet 0.5 mg PO BID PRN0RF metformin 500 mg tablet 1,000 mg PO BID 0RF polyethylene glycol 3350 [Miralax] 17 gram Powder In Packet 17 g PO DAILY 0RF Discharge Instructions Instructions: Amoxicillin/Clavulanate Potassium (By mouth), Toothache (ED) Additional Instructions: The block we administered should help improve your pain. Please take 800 mg of ibuprofen every 6 hours and 1000 mg of Tylenol every 6 hours to help with the inflammation and pain. These are the maximum doses. Please take the antibiotic as directed to help with the infection in your tooth. Please use the dental list that we have provided to contact the dentist for prompt follow-up and evaluation for tooth removal. If you notice any worsening of your symptoms, or any new symptoms such as difficulty swallowing, difficulty breathing, vomiting, diarrhea, fever, chills, shortness of breath, chest pain, numbness, weakness, or fainting , please return immediately to the emergency department for reevaluation. Please follow up with your primary care provider as soon as possible for reassessment and reevaluation. As always, it was a pleasure participating in your medical care today. Referrals: Zoila Gerard [Primary Care Provider] - Medical Decision Making This is a pleasant 56-year-old female who presents for dental pain. Patient states that for the last day or so she has had pain in her right lower anterior teeth. She has a history of notable dental caries, and has seen a dentist but has not yet been able to get a cost estimate for having the teeth pulled. She denies fever or chills. She denies any difficulty swallowing. No other complaints at this time. She has taken Motrin which is slightly improved the pain. Pain is made worse with palpation of the teeth. No other modifying factors. Physical exam demonstrates no evidence of periapical abscess. No evidence of Ludewig's angina.Notable disease teeth throughout. Suspect dental infection. Will give antibiotics here, dental block was offered and patient consented. Dental block performed with no complications. Patient had near complete resolution of her pain. Will give dental sheet for home use. Discussed red flags for which to return. I have extensively reviewed the treatment plan and discharge instructions with the patient. I have addressed all patient concerns at this time. The patient was made aware of what symptoms to monitor for that would warrant a return to the emergency department. Discussed the plan with the patient, they demonstrate verbal understanding and agreement with our assessment and plan at this time. The documentation in this chart was dictated using [employer] dictation software. Please excuse any dictation errors. HPI General Date/Time Provider Initiated Documentation: 10/24/21 04:32 . HPI Narrative: This is a pleasant 56-year-old female who presents for dental pain. Patient states that for the last day or so she has had pain in her right lower anterior teeth. She has a history of notable dental caries, and has seen a dentist but has not yet been able to get a cost estimate for having the teeth pulled. She denies fever or chills. She denies any difficulty swallowing. No other complaints at this time. She has taken Motrin which is slightly improved the pain. Pain is made worse with palpation of the teeth. No other modifying factors. Related Data Home Medications Medication Instructions Recorded Confirmed atorvastatin 20 mg tablet (Lipitor) 20 mg PO DAILY 12/20/18 07/14/21 levothyroxine 150 mcg capsule 150 mcg PO DAILY 01/25/19 07/14/21 metformin 500 mg tablet 1,000 mg PO BID tab 01/25/19 07/14/21 pramipexole 0.5 mg tablet (Mirapex) 0.5 mg PO BID PRN 05/11/19 07/14/21 fluticasone fur. 100 mcg-umeclid 1 inh IH DAILY 08/14/19 07/14/21 62.5 mcg-vilant 25 mcg inhalat.powder (Trelegy Ellipta) CPAP MISCELLANEOUS 10/08/19 07/14/21 gabapentin 100 mg capsule 100 mg PO DAILY 10/08/19 07/14/21 lamotrigine 25 mg tablet (Lamictal) 25 mg PO DAILY tab 11/19/20 07/14/21 polyethylene glycol 3350 17 gram 17 g PO DAILY 12/10/20 07/14/21 oral powder packet (Miralax) pantoprazole 40 mg tablet,delayed 40 mg PO BID #60 tab 05/10/21 07/14/21 release (Protonix) tiotropium 2.5 mcg-olodaterol 2.5 2 puff INHALATION DAILY #4 g 07/14/21 07/14/21 mcg/actuation mist for inhalation (Stiolto Respimat) amoxicillin 875 mg-potassium 1 tab PO BID #14 tab 10/24/21 clavulanate 125 mg tablet Previous Rx's Medication Instructions Recorded pantoprazole 40 mg tablet,delayed 40 mg PO BID #60 tab 05/10/21 release (Protonix) tiotropium 2.5 mcg-olodaterol 2.5 2 puff INHALATION DAILY #4 g 07/14/21 mcg/actuation mist for inhalation (Stiolto Respimat) amoxicillin 875 mg-potassium 1 tab PO BID #14 tab 10/24/21 clavulanate 125 mg tablet Allergies Allergy/AdvReac Type Severity Reaction Status Date / Time sertraline [From Zoloft] AdvReac Verified 10/24/21 04:33 General Stated Complaint: DentalOral REBECA: 4 Review of Systems All systems reviewed & are unremarkable except as noted in HPI and below PFSH All Active Problems Pain, dental (Acute) Pulmonary nodules (Acute) Nicotine dependence, cigarettes, uncomplicated (Acute) Aspiration into airway (Acute) Restrictive lung disease (Acute) Dehydration (Acute) Colon polyp, hyperplastic (Acute ~01/2021) Tubular adenoma (Acute ~01/2021) Hx of adenomatous colonic polyps (Acute) Vertigo (Acute) Prolonged P-R interval (Acute) GERD (gastroesophageal reflux disease) (Chronic) Hiatal hernia (Chronic) Chest pain (Acute) Diabetes (Chronic) Encounter for screening for other viral diseases (Acute) Difficult airway for intubation (Acute) [place] difficult airway 7 yrs ago in [place] requiring fiberoptic intubation with difficulty. No other history available. Abnormal auditory perception of both ears (Acute) Hoarseness of voice (Acute) Bloating (Acute) Early satiety (Acute) Screening for colon cancer (Acute) Abdominal pain (Acute) Abdominal bloating with cramps (Acute) Guillen cyst (Acute) removed from behind right knee X2. Difficult intubation (Acute) Hyperlipidemia (Chronic) HTN (hypertension) (Chronic) Heart murmur (Chronic) Medical History Anxiety Bilateral lower extremity edema Bipolar 1 disorder Carpal tunnel syndrome, right COPD (chronic obstructive pulmonary disease) De Quervain's tenosynovitis, right (~12/2019) Dental caries Depression Dysuria Environmental allergies Fibromyalgia Ganglion cyst of volar aspect of left wrist Ganglion cyst of volar aspect of right wrist Gout Hearing loss Hypothyroidism Iron deficiency anemia Non-insulin dependent type 2 diabetes mellitus Oral lesion JADON (obstructive sleep apnea) Post-nasal drip Restless leg syndrome Right lateral epicondylitis SOB (shortness of breath) Vitamin B 12 deficiency Vitamin D deficiency Surgical History History of colonoscopy (~01/2021) History of esophagogastroduodenoscopy (EGD) (~01/2021) Hx of tonsillectomy S/P cholecystectomy Family History Father Heart disease Maternal Grandmother Heart disease Social History Smoking/Tobacco Use Status: Current every day Tobacco Type: cigarettes Years smoked: 40 Smoking risk assessment performed?: Yes Alcohol Intake: never Drug use: Never Substance use type: does not use Current gender identity: female What type of physical activity do you participate in: none Do you feel safe at home: Yes Do you feel safe in your relationship?: Yes Exam Narrative Exam Narrative: 1.Const: Well-nourished, Well-developed, appearing stated age 2.Eyes: PERRL, no conjunctival injection, and symmetrical lids. 3.ENT: Atraumatic external nose and ears. Moist MM. Neck: Symmetric, trachea midline, No thyromegaly. Notably poor dentition throughout. Palpation of the periapical space reveals no evidence of periapical abscess. No evidence of Ludewig's angina. 4.CVS: +S1/S2, No murmurs or gallops. Peripheral pulses 2+ and equal in all extremities. Brisk capillary refill in all extremities. 5.RESP: Unlabored respiratory effort. Clear to auscultation bilaterally. No wheezes rales or rhonchi 6.GI: Soft, Nontender/Nondistended, No hepatosplenomegaly. No guarding or rebound. 7.MSK: Normocephalic/Atraumatic, Extremities w/o deformity or ttp No cyanosis or clubbing, Normal movement of all extremities 8.Skin: Warm, Dry. No rashes or lesions. 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 Sensation grossly intact, no focal neurologic deficits. 10.Psych: (AAO) x3. Appropriate mood and affect Course Vital Signs Vital signs: Vital Signs Temperature 35.9 C L 10/24/21 04:29 Pulse 85 10/24/21 04:29 Respiratory Rate 18 10/24/21 04:29 Blood Pressure 145/74 H 10/24/21 04:29 Pulse Oximetry 96 10/24/21 04:29 Temperature 35.9 C L 10/24/21 04:29 Temperature Source Skin 10/24/21 04:29 Pulse 85 10/24/21 04:29 Respiratory Rate 18 10/24/21 04:29 Respiratory Effort 10/24/21 04:32 Blood Pressure 145/74 H 10/24/21 04:29 Blood Pressure Position Sitting 10/24/21 04:29 Pulse Oximetry 96 10/24/21 04:29 Oxygen Delivery Method Room Air 10/24/21 04:29 Oxygen Flow Rate 0 10/24/21 04:29 Pain Level 9 10/24/21 04:29 Procedures Nerve Block Nerve Block 1: Time out performed: Yes Local Anesthetic: Lidocaine 1% and Bupivicaine 0.25% Amount of anesthesia used (mL): 5 Side: right Intraoral Nerve Block: inferior alveolar Procedure Successful: Yes Patient Tolerated Procedure: well and no complications Complications: none
[2021-10-24] MEDS: Amox. 875/Clav. 125, 2 TABS/BTL 1 TAB PO (05:04)
== END 2021-10-24 04:51 | disposition home or self-care (01) ==
LOC: ER 04:53
PROVIDERS: Emergency Provider Student in an Organized Health Care Education/Training Program; PCP Nurse Practitioner
DX: K08.89 Other specified disorders of teeth and supporting structures (principal)
CPT/HCPCS: 64400

== ENCOUNTER 2021-12-07 01:03 | Outpatient (CLI) | payer OTHER, SELFPAY ==
--- NOTE | 2021-12-07 | DI.US_ITS ---
Exam(s) US BREAST LT COMPLETE MG MAMMO DIAGNOSTIC UNI EXAM: MG MAMMO DIAGNOSTIC UNI -LEFT AND COMPLETE LEFT BREAST ULTRASOUND CLINICAL HISTORY: 6-MO F/U ABNL LT MAMMO, R92.8. TECHNIQUE: Unilateral LEFT CC AND MLO views were performed as well as additional spot mammographic i mage were obtained with 3D tomosynthesis technique and utilizing computer aided detection (CAD). Also performed complete left breast ultrasound, including all 4 quadrants, the retroareolar region, a nd the left axilla. COMPARISON: Prior mammograms were reviewed, the most recent being June 2021. Ultrasound of June 2021 was also reviewed FINDINGS: On the mammogram the findings in the lateral aspect of the left breast appear unchanged. COMPLETE LEFT BREAST ULTRASOUND: Previously present 4 millimeter microcyst at the 5 o'clock position is not seen on today's study. However, there is a 2 millimeter microcyst evident at 2 o'clock positi on. Also another small microcyst at the 7 o'clock position, this measuring 2-3 millimeters. Most importantly, there are no solid lesions seen in all 4 quadrants of the left breast. Retroareola r region appears unremarkable. Scanning of the left axilla reveals normal benign-appearing lymph nodes. No significant axillary silverio nopathy IMPRESSION: Stable benign-appearing left breast findings. Appropriate follow-up, as discussed by myself with the patient today, is to keep her on a yearly mamm ogram schedule, this implying the next bilateral mammogram would be in 6 months from now. The patient was informed of the findings and follow-up recommendations prior to leaving the [facility] t today. BI-RADS Category 3 - 6 month - Probably Benign Finding: Recommend follow-up mammography in 6 months Breast Density - Category C - Heterogeneously dense Breast density Category C or D implies that the patient has dense breast tissue. Dense breast tissue can make it harder to find cancer on a mammogram. Dense breast tissue is also associated with an incr eased risk of breast cancer. This information about the result of the mammogram report was provided to the patient to raise their awareness. Use this report when you speak with the patient about their risks for breast cancer, which includes their family history. At that time, you may recommend additional screening tests (Ultrasoun d or MRI) as these tests may add significant information. A negative radiographic report should not delay biopsy if a dominant or clinically suspicious mass is present. Up to ten percent of cancers are not identified on mammography. A negative report may reinforce clinical impression. Adenosis and dense breasts may obscure an underlying neoplasm. False positive reports average 6 to 10%. Patient will receive a letter notifying them of these results.
== END 2021-12-07 01:23 ==
PROVIDERS: PCP Nurse Practitioner; Visit Provider Nurse Practitioner
DX: R92.8 Other abnormal and inconclusive findings on diagnostic imaging of breast (principal); N60.12 Diffuse cystic mastopathy of left breast
CPT/HCPCS: 76642; 77061; 77065; G0279

== ENCOUNTER 2021-12-28 18:55 | Outpatient (REF) | payer OTHER, SELFPAY ==
[2021-12-28 19:23] LABS: Iron 38 ug/dL (50-170)
[2021-12-28 19:25] LABS: HCT 44.3 % (36.0-46.0); HGB 13.6 g/dL (11.2-15.7); MCH 28.6 pg (27.0-33.0); MCHC 30.7 % (32.0-36.0); MCV 93 fL (80-95); MPV 10.8 fL (8.0-11.0); Platelet Count 345 10^3/uL (130-400); RBC 4.76 10^6/uL (3.93-5.22); RDW 13.3 % (11.7-14.6); RDW-SD 45.9 fL; WBC 10.51 10^3/uL (4.4-10.8)
[2021-12-28 19:50] LABS: ALT 23 U/L (14-59); AST 14 U/L (15-37); Albumin 3.5 g/dL (3.4-5.0); Alkaline Phosphatase 113 U/L (46-116); Anion Gap 8.8 mmol/L (3-11); BUN 11 mg/dL (7-18); Bilirubin, Total 0.2 mg/dL (0.2-1.0); CO2 29.2 mmol/L (21.0-32.0); Calcium 8.9 mg/dL (8.5-10.1); Chloride 105 mmol/L (98-107); Estimated GFR 57.56 (mL/min/1.73m2); Glucose 141 mg/dL (74-106); Potassium 4.3 mmol/L (3.5-5.1); Sodium 143 mmol/L (136-145); TSH (W/Ref FT4) 0.07 uIU/mL (0.36-3.74); Total Protein 6.8 g/dL (6.4-8.2); Vitamin B12 216 pg/mL (193-986)
[2021-12-28 20:08] LABS: FREE T4 1.36 ng/dL (0.76-1.46)
[2021-12-30 15:14] LABS: Vitamin D 25 Total 19.4 ng/mL (30-100)
== END 2021-12-28 18:56 | disposition home or self-care (01) ==
LOC: NCHCN 18:55
PROVIDERS: PCP Nurse Practitioner; Visit Provider Nurse Practitioner Family
DX: E11.9 Type 2 diabetes mellitus without complications (principal); F31.9 Bipolar disorder, unspecified; E53.8 Deficiency of other specified B group vitamins; D50.9 Iron deficiency anemia, unspecified; E55.9 Vitamin D deficiency, unspecified; E03.9 Hypothyroidism, unspecified
CPT/HCPCS: 80053; 82306; 85027; 82043; 82570; 82607; 83540; 84439; 84443

== ENCOUNTER → 2022-07-07 02:43 | Outpatient (CLI) | payer BC, SELFPAY ==
--- NOTE | 2022-07-07 13:40 | DI.MAMMO_ITS ---
Exam(s) MG MAMMO DIAGNOSTIC BI EXAM: MG MAMMO DIAGNOSTIC BI CLINICAL HISTORY: LT BREAST ABNL MAMMO, 6-MO F/U TECHNIQUE: Mammograms were interpreted according to the usual protocol including computer analysis w ith CAD system, tomosynthesis and C-view imaging. COMPARISON: FINDINGS: The breasts are heterogeneously dense. No dominant mass or clumped microcalcification is identified in either breast. Current examination is compared with multiple previous examinations including [facility] 2020 and there has been no gross interval change in appearance in comparison with the prior studi es. IMPRESSION: No specific evidence of malignancy at this time. Routine screening examinations are suggested at yea rly intervals in this age group according to the ACS ACR guidelines. BI-RADS Category 1 - Negative Breast Density - Category C - Heterogeneously dense
== END ==
PROVIDERS: PCP Nurse Practitioner Family; Visit Provider Nurse Practitioner Family
DX: R92.8 Other abnormal and inconclusive findings on diagnostic imaging of breast (principal)
CPT/HCPCS: 77062; 77066; G0279

== ENCOUNTER 2022-08-24 01:39 | Outpatient (CLI) | payer BC, SELFPAY ==
[2022-08-24 08:03] LABS: BUN 14 mg/dL (7-18); CREATININE 1.1 mg/dL (0.55-1.02); Estimated GFR 58.97 (mL/min/1.73m2)
[2022-08-24] MEDS: Normal Saline Flush 10 ML SYR IVP (08:32)
[2022-08-24] MEDS: Gadoterate meglumine 20 ML VIAL IVP (08:32)
--- NOTE | 2022-08-24 09:00 | DI.MRI_ITS ---
Exam(s) MR ORBIT FACIAL NECK WO/W EXAM: MR ORBIT FACIAL NECK WO/W INDICATION: MASS OF RT PAROTID GLAND, K11.8. COMPARISON: MR MR BRAIN WO from 02/16/2021 TECHNIQUE: Multisequence MRI scan was performed with pre and post contrast infused sequences. Contrast injected was IV Dotarem 20 mL FINDINGS: NASOPHARYNX: Unremarkable OROPHARYNX: Unremarkable. No masses evident. HYPOPHARYNX: Unremarkable. Valleculae and epiglottis and aryepiglottic folds appear normal. VOCAL CORDS: Unremarkable. No masses evident. Subglottic airway appears unremarkable. SALIVARY GLANDS: There is a well-defined nonenhanced cystic mass in the posterior aspect of the right parotid gland measuring 2 cm AP by 1.6 cm wide by 1.9 cm craniocaudal. This is partially exophytic along the posterior aspect of the right parotid gland. Above this level in the ipsilateral posterior right parotid gland there is an 11 x 9 millimeter finding which probably represents an intraglandula r lymph node. There are no focal findings in the opposite-left parotid gland nor in the submandibular glands. LYMPH NODES: There are no abnormally enlarged lymph nodes on either side of the neck. OTHER: Fluid level noted in the right maxillary sinus consistent with sinusitis. There is also some f luid in left mastoid air cells. IMPRESSION: 1. There is a 2.0 x 1.6 x 1.9 cm well-defined nonenhancing cystic lesion in the posterior aspect of the right parotid gland. Main consideration is for cystic neoplasm. 2. There is a smaller 1.1 x 0.9 cm nodule also evident in the ipsilateral parotid gland which is pro bably a lymph node. 3. No adenopathy elsewhere in the neck. 4. There is fluid in the right maxillary sinus consistent with sinusitis. There is also some fluid in the left-sided mastoid air cells. RADIATION DOSE DELIVERED: Total DLP DATA REPOSITORY: All CT scans at this facility are submitted to the National Radiology Data Registry (NRDR) Dose Index Registry (DIR) with the [employer] (ACR). RADIATION OPTIMIZATION: All CT scans at this facility use at least one of these dose optimization te chniques: automated exposure control; mA and/or kV adjustment per patient size (includes targeted exa ms where dose is matched to clinical indication); or iterative reconstruction.
--- NOTE | 2022-08-24 20:02 | DI.VRAD_ITS ---
PROCEDURE INFORMATION: Exam: MR Face Without and With Contrast Exam date and time: 08/24/2022 8:02 AM Age: 57 years old Clinical indication: Mass, lump, or swelling and other: Mass of RT parotid gland TECHNIQUE: Imaging protocol: Magnetic resonance imaging of the face including orbits without and with contrast. COMPARISON: CT SINUS WO 07/13/2022 3:00 PM FINDINGS: Paranasal sinuses: Minimal fluid levels and mucosal thickening. Orbital cavities: Orbits are normal. Globes are unremarkable. Nasopharynx: Unremarkable Pharynx: Unremarkable. Larynx: Visualized larynx is unremarkable. Salivary glands: Uniformly T2 hyperintense ovoid lesion right parotid gland measuring 2.4 x 1.8 cm axial image 20 without abnormal enhancement. Additional uniformly enhancing nodule in the posterior superficial lobe of the right parotid gland measuring up to 1 cm may represent a lymph node Lymph nodes: No lymphadenopathy. Soft tissues: Unremarkable. Bones/joints: Unremarkable. Small left mastoid fluid IMPRESSION: Cystic lesion in the superficial right parotid lobe as described without abnormal enhancement. Findings are stable since the prior neck CT. Findings are increased from the previous neck ultrasound/brain MRI. Cystic neoplasm can not be completely excluded. Consider continued MRI follow-up Uniformly enhancing 1 cm nodule in the posterior aspect of the right parotid gland presumably representing a lymph node No adenopathy detected Dictated and Authenticated by: Darius Goode MD. Ordering:KANDY Leon MD
== END 2022-08-24 01:59 ==
LOC: DI 01:39
PROVIDERS: PCP Nurse Practitioner Family; Visit Provider Otolaryngology Otolaryngology/Facial Plastic Surgery
DX: Z01.812 Encounter for preprocedural laboratory examination (principal); K11.8 Other diseases of salivary glands; J32.0 Chronic maxillary sinusitis; D37.030 Neoplasm of uncertain behavior of the parotid salivary glands
CPT/HCPCS: 84520; 70543; 82565

== ENCOUNTER 2022-09-07 16:31 | Outpatient (REF) | payer BC, SELFPAY ==
[2022-09-07 19:50] LABS: Abs Immature Grans 0.04 10^3/uL (0.0-0.06); Absolute Basophil Count 0.11 10^3/uL (0.0-0.2); Absolute Eosinophil Count 0.47 10^3/uL (0.0-0.7); Absolute Monocyte Count 0.69 10^3/uL (0.1-0.8); Basophils % 0.9; Eosinophils % 3.9; HCT 43.1 % (36.0-46.0); HGB 13.9 g/dL (11.2-15.7); Immature Grans % 0.3; Lymphocytes % 27.8; MCH 29.4 pg (27.0-33.0); MCHC 32.3 % (32.0-36.0); MCV 91 fL (80-95); MPV 10.8 fL (8.0-11.0); Monocytes % 5.8; Neutrophils % 61.3; Platelet Count 313 10^3/uL (130-400); RBC 4.72 10^6/uL (3.93-5.22); RDW 13.2 % (11.7-14.6); RDW-SD 44.8 fL; WBC 11.96 10^3/uL (4.4-10.8)
[2022-09-07 19:54] LABS: Absolute Lymphocyte Count 3.32 10^3/uL (1.2-3.4); Absolute Neutrophil Count 7.33 10^3/uL (1.2-6.7)
[2022-09-07 20:26] LABS: ALT 15 U/L (14-59); AST 17 U/L (15-37); Albumin 3.4 g/dL (3.4-5.0); Alkaline Phosphatase 124 U/L (46-116); Anion Gap 4.4 mmol/L (3-11); BUN 12 mg/dL (7-18); Bilirubin, Total 0.2 mg/dL (0.2-1.0); CO2 30.6 mmol/L (21.0-32.0); Calcium 9.6 mg/dL (8.5-10.1); Calculated LDL 125 mg/dL (<100); Chloride 104 mmol/L (98-107); Cholesterol 209 mg/dL (<200); Estimated GFR 66.12 (mL/min/1.73m2); Glucose 144 mg/dL (74-106); HDL Cholesterol 51 mg/dL (40-60); Potassium 4.4 mmol/L (3.5-5.1); Sodium 139 mmol/L (136-145); TSH (W/Ref FT4) 1.88 uIU/mL (0.36-3.74); Total Protein 7.5 g/dL (6.4-8.2); Triglyceride 167 mg/dL (<150)
== END 2022-09-07 16:32 | disposition home or self-care (01) ==
LOC: NCHCN 16:31
PROVIDERS: PCP Nurse Practitioner Family; Visit Provider Nurse Practitioner Family
DX: E11.9 Type 2 diabetes mellitus without complications (principal); E03.9 Hypothyroidism, unspecified; D50.9 Iron deficiency anemia, unspecified
CPT/HCPCS: 80053; 80061; 84443; 85025

== ENCOUNTER 2022-09-28 11:09 | Outpatient (REF) | payer BC, SELFPAY ==
--- NOTE | 2022-09-28 10:45 | PAPFT_PTH ---
PATIENT: Jagruti Dean LOC: [facility] U#:[id number] AGE/SX: 57/F ROOM: RE09/28/[address]: AUGUSTINA VALDEZ : 1965 BED: DIS: 09/28/2022 SPEC #: [id number] RECD: 09/29/22 12:57 STATUS: STEVEN REQ #: [id number] TAIWO: 09/28/22 10:[address]: Augustina Valdez DEPT: [facility] Cytology RECD BY: Lana Lucero ENTERED: 09/29/22 12:58 SP TYPE: PAPFT OTHR DR: JONNY HUNTER NP Tissues: 1 - CX/ENDOCX FOR PAP SMEARS Procedures: PAP THIN PREP/UVM Screening HPV DNA PROBE Comments: [id number]
== END 2022-09-28 11:10 | disposition home or self-care (01) ==
LOC: NCHCN 11:09
PROVIDERS: PCP Nurse Practitioner Family; Visit Provider Nurse Practitioner Family
DX: Z12.4 Encounter for screening for malignant neoplasm of cervix (principal); Z11.51 Encounter for screening for human papillomavirus (HPV); Z00.00 Encounter for general adult medical examination without abnormal findings
CPT/HCPCS: 88142; 87624

== ENCOUNTER 2023-02-19 01:05 | Emergency (ER) | payer BC, SELFPAY ==
[2023-02-19 01:09] VITALS: BP 151/71; PULSE 92; RESP 20; TEMP 36.7; O2SAT 97
--- NOTE | 2023-02-19 01:11 | W.ED.GENAD ---
Discharge Plan Disposition Patient Disposition: Home Condition: Stable Discharge Details Clinical Impression: Odontalgia Primary Care Provider: JONNY HUNTER ED Provider: Roseline Hoskins Home Meds and New Rx's Prescriptions: New penicillin V potassium 500 mg tablet 500 mg PO QID 10 Days Qty: 40 0RF Continued levothyroxine 150 mcg capsule 150 mcg PO DAILY atorvastatin [Lipitor] 20 mg tablet 20 mg PO DAILY gabapentin 100 mg capsule 100 mg PO DAILY CPAP miscellaneous Stiolto Respimat 2.5-2.5 mcg/actuation mist 2 puff inhalation DAILY Qty: 4 12RF Ozempic 1 mg/dose (2 mg/1.5 mL) pen injector 1 mg subcut QWEEK lamotrigine [Lamictal] 25 mg tablet 25 mg PO DAILY pantoprazole [Protonix] 40 mg tablet,delayed release (DR/EC) 40 mg PO BID Qty: 60 7RF pramipexole [Mirapex] 0.5 mg Tablet 0.5 mg PO BID PRN metformin 500 mg tablet 1,000 mg PO BID polyethylene glycol 3350 [Miralax] 17 gram Powder In Packet 17 g PO DAILY Discharge Instructions Instructions: Toothache (ED) Additional Instructions: Warm salt water rinses 6 times per day. Tylenol 650 mg every 4 hours and/or ibuprofen 600 mg every 6 hours as needed for pain. Take the Percocet when you get home. Do not take additional Tylenol with this. Call your dentist first thing Monday morning for follow-up appointment. Return to ED for fever or swollen face. Take the penicillin as prescribed. Medical Decision Making Patient was advised that she needs to make an appointment with a dentist. They can call her chief 1 at a time under local anesthesia she will be able to afford to do this. I did give her 2 Percocet to take home with her that she will take when she gets home. She uses BiPAP and has not been able to sleep at all. I explained to her that I could not give her more pain medication as she has not been following up with a dentist or taking proper care of herself. She will return for facial swelling or fever. Medical Records Medical records reviewed: Yes I reviewed the patient's medical records. HPI General Date/Time Provider Initiated Documentation: 02/19/23 01:11. HPI Narrative: This 57-year-old female patient presents with a chief complaint of dental pain. Patient has extensive dental caries and says this can cause her $10,000 to have all her teeth removed. She has been seen previously in the ED for dental pain. She does have dental insurance although she says its not good. Her tooth started hurting her 24 hours ago upper left side. The pain extends into her jaw and sinus although there is no edema. Tylenol and ibuprofen are not helping. She has had no fever. She is swallowing without difficulty. The pain is severe and constant. It is sharp in nature. Related Data Home Medications Medication Instructions Recorded Confirmed atorvastatin 20 mg tablet (Lipitor) 20 mg PO DAILY 12/20/18 01/07/22 levothyroxine 150 mcg capsule 150 mcg PO DAILY 01/25/19 01/07/22 metformin 500 mg tablet 1,000 mg PO BID 01/25/19 01/07/22 pramipexole 0.5 mg tablet (Mirapex) 0.5 mg PO BID PRN 05/11/19 01/07/22 CPAP miscellaneous 10/08/19 01/07/22 gabapentin 100 mg capsule 100 mg PO DAILY 10/08/19 01/07/22 lamotrigine 25 mg tablet (Lamictal) 25 mg PO DAILY 11/19/20 01/07/22 polyethylene glycol 3350 17 gram 17 g PO DAILY 12/10/20 01/07/22 oral powder packet (Miralax) tiotropium 2.5 mcg-olodaterol 2.5 2 puff inhalation DAILY #4 grams 07/14/21 01/07/22 mcg/actuation mist for inhalation (Stiolto Respimat) semaglutide 1 mg/dose (2 mg/1.5 1 mg subcut QWEEK 01/07/22 01/07/22 mL) subcutaneous pen injector (Ozempic) pantoprazole 40 mg tablet,delayed 40 mg PO BID #60 tabs 01/17/22 release (Protonix) penicillin V potassium 500 mg 500 mg PO QID 10 days #40 tabs 02/19/23 tablet Previous Rx's Medication Instructions Recorded tiotropium 2.5 mcg-olodaterol 2.5 2 puff inhalation DAILY #4 grams 07/14/21 mcg/actuation mist for inhalation (Stiolto Respimat) pantoprazole 40 mg tablet,delayed 40 mg PO BID #60 tabs 01/17/22 release (Protonix) penicillin V potassium 500 mg 500 mg PO QID 10 days #40 tabs 02/19/23 tablet Allergies Allergy/AdvReac Type Severity Reaction Status Date / Time sertraline [From Zoloft] AdvReac Verified 01/07/22 12:57 General REBECA: 4 Review of Systems Constitutional Constitutional: Denies fever(s) ENT Ears, Nose, Mouth, and Throat: Denies change in voice, Reports dental pain, Denies dysphagia, Denies otalgia, Denies neck pain, Denies sore throat and Denies throat swelling Comments: Has maxillary sinus and jaw pain on right Cardiovascular Cardiovascular: Denies dyspnea Respiratory Respiratory: Denies dyspnea Gastrointestinal Gastrointestinal: Denies dysphagia, Denies nausea and Denies vomiting Musculoskeletal Musculoskeletal: Denies neck pain Allergic/Immunologic Allergic/Immunologic: Denies throat swelling PFSH All Active Problems (Updated 02/19/23 @ 01:22 by Roseline Hoskins MD) Odontalgia (Acute) Mass of right parotid gland (Acute) Chronic maxillary sinusitis (Acute) Pulmonary nodules (Acute) Nicotine dependence, cigarettes, uncomplicated (Acute) Aspiration into airway (Acute) Restrictive lung disease (Acute) Dehydration (Acute) Colon polyp, hyperplastic (Acute ~01/2021) Tubular adenoma (Acute ~01/2021) Hx of adenomatous colonic polyps (Acute) Vertigo (Acute) Prolonged P-R interval (Acute) GERD (gastroesophageal reflux disease) (Chronic) Hiatal hernia (Chronic) Chest pain (Acute) Diabetes (Chronic) Encounter for screening for other viral diseases (Acute) Difficult airway for intubation (Acute) [place] difficult airway 7 yrs ago in [place] requiring fiberoptic intubation with difficulty. No other history available. Abnormal auditory perception of both ears (Acute) Hoarseness of voice (Acute) Bloating (Acute) Early satiety (Acute) Screening for colon cancer (Acute) Abdominal pain (Acute) Abdominal bloating with cramps (Acute) Guillen cyst (Acute) removed from behind right knee X2. Difficult intubation (Acute) Hyperlipidemia (Chronic) HTN (hypertension) (Chronic) Heart murmur (Chronic) Medical History Anxiety Bilateral lower extremity edema Bipolar 1 disorder Carpal tunnel syndrome, right COPD (chronic obstructive pulmonary disease) De Quervain's tenosynovitis, right (~12/2019) Dental caries Depression Dysuria Environmental allergies Fibromyalgia Ganglion cyst of volar aspect of left wrist Ganglion cyst of volar aspect of right wrist Gout Hearing loss Hypothyroidism Iron deficiency anemia Non-insulin dependent type 2 diabetes mellitus Oral lesion JADON (obstructive sleep apnea) Post-nasal drip Restless leg syndrome Right lateral epicondylitis SOB (shortness of breath) Vitamin B 12 deficiency Vitamin D deficiency Surgical History History of colonoscopy (~01/2021) History of esophagogastroduodenoscopy (EGD) (~01/2021) Hx of tonsillectomy S/P cholecystectomy Family History Father Heart disease Maternal Grandmother Heart disease Social History Smoking/Tobacco Use Status: Current every day Tobacco Type: cigarettes Years smoked: 40 Smoking risk assessment performed?: Yes Alcohol Intake: never Drug use: Never Substance use type: does not use Housing: house Current gender identity: female What type of physical activity do you participate in: none Do you feel safe at home: Yes Do you feel safe in your relationship?: Yes Additional Social history: Lives with sister. Exam Const General: well developed and well groomed Nutritional Appearance: well nourished Orientation: alert, awake and oriented x3 HENMT Head: normocephalic and atraumatic Ears: external ears normal Face and sinus: normal facial exam and other (No edema no maxillary sinus tender on the right) Teeth and gingiva: abnormal tooth or associated gingiva (Patient w/extensive caries & teeth rotted to gumline incl. upper R molars) Throat: posterior oropharynx normal Eyes Conjunctivae: conjunctivae normal Neck Neck: no lymphadenopathy noted (though tender on R) Resp Effort & Inspection: normal respiratory effort and able to speak in complete sentences Skin General skin exam: other ([place] warm dry, no facial erythema) Neuro General: other (Cranial nerve VII and III intact) Gait: normal gait Motor: muscle tone normal throughout Extrem General: full ROM
[2023-02-19] MEDS: Ketorolac 30 MG/ML VIAL IM (01:27)
[2023-02-19] MEDS: Penicillin V POTASSIUM 500 MG TAB PO (01:28)
[2023-02-19] MEDS: oxyCODONE 5 mg/Acetaminophen 325 mg TAB 2 TAB PO (01:28)
--- NOTE | 2023-02-19 01:34 | ED.GENADUL_ITS ---
Discharge Plan Disposition Patient Disposition: Home Condition: Stable Discharge Details Clinical Impression: Odontalgia, Dental caries Primary Care Provider: JONNY HUNTER ED Provider: Roseline Hoskins Home Meds and New Rx's Prescriptions: New penicillin V potassium 500 mg tablet 500 mg PO QID 10 Days Qty: 40 0RF Continued levothyroxine 150 mcg capsule 150 mcg PO DAILY atorvastatin [Lipitor] 20 mg tablet 20 mg PO DAILY gabapentin 100 mg capsule 100 mg PO DAILY CPAP miscellaneous Stiolto Respimat 2.5-2.5 mcg/actuation mist 2 puff inhalation DAILY Qty: 4 12RF Ozempic 1 mg/dose (2 mg/1.5 mL) pen injector 1 mg subcut QWEEK lamotrigine [Lamictal] 25 mg tablet 25 mg PO DAILY pantoprazole [Protonix] 40 mg tablet,delayed release (DR/EC) 40 mg PO BID Qty: 60 7RF pramipexole [Mirapex] 0.5 mg Tablet 0.5 mg PO BID PRN metformin 500 mg tablet 1,000 mg PO BID polyethylene glycol 3350 [Miralax] 17 gram Powder In Packet 17 g PO DAILY Discharge Instructions Instructions: Toothache (ED) Additional Instructions: Warm salt water rinses 6 times per day. Tylenol 650 mg every 4 hours and/or ibu profen 600 mg every 6 hours as needed for pain. Take the Percocet when you get home. Do not take additional Tylenol with this. Call your dentist first thing Monday morning for follow-up appointment. Return to ED for fever or swollen face. Take the penicillin as prescribed. HPI General Date/Time Provider Initiated Documentation: 02/19/23 01:11 . Related Data Home Medications Medication Instructions Recorded Confirmed atorvastatin 20 mg tablet (Lipitor) 20 mg PO DAILY 12/20/18 01/07/22 levothyroxine 150 mcg capsule 150 mcg PO DAILY 01/25/19 01/07/22 metformin 500 mg tablet 1,000 mg PO BID 01/25/19 01/07/22 pramipexole 0.5 mg tablet (Mirapex) 0.5 mg PO BID PRN 05/11/19 01/07/22 CPAP miscellaneous 10/08/19 01/07/22 gabapentin 100 mg capsule 100 mg PO DAILY 10/08/19 01/07/22 lamotrigine 25 mg tablet (Lamictal) 25 mg PO DAILY 11/19/20 01/07/22 polyethylene glycol 3350 17 gram 17 g PO DAILY 12/10/20 01/07/22 oral powder packet (Miralax) tiotropium 2.5 mcg-olodaterol 2.5 2 puff inhalation DAILY #4 grams 07/14/21 01/07/22 mcg/actuation mist for inhalation (Stiolto Respimat) semaglutide 1 mg/dose (2 mg/1.5 1 mg subcut QWEEK 01/07/22 01/07/22 mL) subcutaneous pen injector (Ozempic) pantoprazole 40 mg tablet,delayed 40 mg PO BID #60 tabs 01/17/22 release (Protonix) penicillin V potassium 500 mg 500 mg PO QID 10 days #40 tabs 02/19/23 tablet Previous Rx's Medication Instructions Recorded tiotropium 2.5 mcg-olodaterol 2.5 2 puff inhalation DAILY #4 grams 07/14/21 mcg/actuation mist for inhalation (Stiolto Respimat) pantoprazole 40 mg tablet,delayed 40 mg PO BID #60 tabs 01/17/22 release (Protonix) penicillin V potassium 500 mg 500 mg PO QID 10 days #40 tabs 02/19/23 tablet Allergies Allergy/AdvReac Type Severity Reaction Status Date / Time sertraline [From Zoloft] AdvReac Verified 01/07/22 12:57 General Stated Complaint: DentalOral REBECA: 4 PFSH All Active Problems (Updated 02/19/23 @ 01:34 by Roseline Hoskins MD) Odontalgia (Acute) Dental caries (Acute) Mass of right parotid gland (Acute) Chronic maxillary sinusitis (Acute) Pulmonary nodules (Acute) Nicotine dependence, cigarettes, uncomplicated (Acute) Aspiration into airway (Acute) Restrictive lung disease (Acute) Dehydration (Acute) Colon polyp, hyperplastic (Acute ~01/2021) Tubular adenoma (Acute ~01/2021) Hx of adenomatous colonic polyps (Acute) Vertigo (Acute) Prolonged P-R interval (Acute) GERD (gastroesophageal reflux disease) (Chronic) Hiatal hernia (Chronic) Chest pain (Acute) Diabetes (Chronic) Encounter for screening for other viral diseases (Acute) Difficult airway for intubation (Acute) [place] difficult airway 7 yrs ago in [place] requiring fiberoptic intubation with difficulty. No other history available. Abnormal auditory perception of both ears (Acute) Hoarseness of voice (Acute) Bloating (Acute) Early satiety (Acute) Screening for colon cancer (Acute) Abdominal pain (Acute) Abdominal bloating with cramps (Acute) Guillen cyst (Acute) removed from behind right knee X2. Difficult intubation (Acute) Hyperlipidemia (Chronic) HTN (hypertension) (Chronic) Heart murmur (Chronic) Medical History Anxiety Bilateral lower extremity edema Bipolar 1 disorder Carpal tunnel syndrome, right COPD (chronic obstructive pulmonary disease) De Quervain's tenosynovitis, right (~12/2019) Dental caries Depression Dysuria Environmental allergies Fibromyalgia Ganglion cyst of volar aspect of left wrist Ganglion cyst of volar aspect of right wrist Gout Hearing loss Hypothyroidism Iron deficiency anemia Non-insulin dependent type 2 diabetes mellitus Oral lesion JADON (obstructive sleep apnea) Post-nasal drip Restless leg syndrome Right lateral epicondylitis SOB (shortness of breath) Vitamin B 12 deficiency Vitamin D deficiency Surgical History History of colonoscopy (~01/2021) History of esophagogastroduodenoscopy (EGD) (~01/2021) Hx of tonsillectomy S/P cholecystectomy Family History Father Heart disease Maternal Grandmother Heart disease Social History Smoking/Tobacco Use Status: Current every day Tobacco Type: cigarettes Years smoked: 40 Smoking risk assessment performed?: Yes Alcohol Intake: never Drug use: Never Substance use type: does not use Housing: house Current gender identity: female What type of physical activity do you participate in: none Do you feel safe at home: Yes Do you feel safe in your relationship?: Yes Additional Social history: Lives with sister. Course Vital Signs Vital signs: Vital Signs Temperature 36.7 C 02/19/23 01:09 Pulse 92 H 02/19/23 01:09 Respiratory Rate 20 02/19/23 01:09 Blood Pressure 151/71 H 02/19/23 01:09 Pulse Oximetry 97 07/16/23 01:09 Temperature 36.7 C 02/19/23 01:09 Temperature Source Temporal Artery Scan 02/19/23 01:09 Pulse 92 H 02/19/23 01:09 Respiratory Rate 20 02/19/23 01:09 Respiratory Effort Normal, Non-Labored 02/19/23 01:12 Blood Pressure 151/71 H 02/19/23 01:09 Blood Pressure Position Sitting 02/19/23 01:09 Pulse Oximetry 97 02/19/23 01:09 Oxygen Delivery Method Room Air 02/19/23 01:09 Oxygen Flow Rate 0 02/19/23 01:09 Pain Level 10 02/19/23 01:27
== END 2023-02-19 01:39 | disposition home or self-care (01) ==
PROVIDERS: Emergency Provider Emergency Medicine; PCP Nurse Practitioner Family
DX: K08.89 Other specified disorders of teeth and supporting structures (principal)
CPT/HCPCS: 96372; 99284; J1885

== ENCOUNTER 2023-03-21 15:44 | Outpatient (REF) | payer BC, SELFPAY ==
[2023-03-21 17:58] LABS: TSH (W/Ref FT4) 1.12 uIU/mL (0.36-3.74)
== END 2023-03-21 15:45 | disposition home or self-care (01) ==
LOC: NCHCN 15:44
PROVIDERS: PCP Nurse Practitioner Family; Visit Provider Nurse Practitioner Family
DX: E03.9 Hypothyroidism, unspecified (principal); F41.8 Other specified anxiety disorders; F31.89 Other bipolar disorder
CPT/HCPCS: 84443

== ENCOUNTER 2023-09-25 09:37 | Emergency (ER) | payer BC, SELFPAY ==
[2023-09-25 09:55] VITALS: BP 170/109; PULSE 102; RESP 16; TEMP 36.6; O2SAT 100
--- OUTSIDE RECORDS SUMMARY | 2023-09-25 10:05 | XMS_ITS | Continuity of Care Document ---
Author Name Unknown Organization [facility] Address [address] [place] [id number] Care Team Providers Care Map Compiler Name Role Phone JONNY HUNTER Primary Care Physician [phone] Encounter LTTL_ID FIN [id number] Date(s): 10/27/22 - 10/27/[address] [id number] Discharge Disposition: Home or Self Care Attending Physician: SERVANDO Atr Admitting Physician: SERVANDO Art Referring Physician: SERVANDO Art Assessment and Plan Diagnostic Tests Pending * Cytology Request 10/27/22 Patient Care team information Care Team Personnel Name: JONNY HUNTER Position: No Access Member Role: Primary Care Physician Address: Address: [address] [place] [address] [place], [place] [address] Care Team Related Persons Name: SATISH NAIR
--- NOTE | 2023-09-25 10:06 | W.ED.GENAD ---
HPI General Date/Time Provider Initiated Documentation: 09/25/23 10:06. HPI Narrative: MDM This is a mildly tachycardic and hypertensive but normothermic myopic 58-year-old diabetic female with bedside ultrasound concerning for possibility retinal detachment for which patient will be seen emergently by ophthalmology in clinic at [facility]. I spoke with Dr. Jules Contreras at [facility] who advised patient be driven to the ophthalmology clinic: [address] [facility] [address] come to main entrance floor 4B I met with the patient and explained her abnormal exam. I asked that she call a friend to be driven. Her tachycardia resolved in the emergency department. She had no focal neurological deficits to suggest CVA. No pain or proportion to suggest necrotizing soft tissue infection. No eye pain to suggest acute closed angle glaucoma. No trauma to the eye so I did not complete a slit-lamp exam as my suspicion was exceedingly low for globe rupture and corneal abrasion. Patient understood that she was going to drive directly to [facility]. Chronic conditions affecting the care of the patient: Diabetes History obtained from an outside historian: N/A External record review: N/A Medications: N/A Social determinants of health affecting disposition: N/A Management discussed with: Ophthalmology at [facility] Treatment/interventions considered: N/A Response to therapies provided: N/A HPI This is a 58-year-old myopic female who wears corrective lenses arriving to the emergency department in the setting of a black spot in her right eye for the past 3 days. Patient reports that she noticed a black spot 3 days ago that moves with her eye movements. She also sees it when her eyes are closed. She has a history of diabetes. She denies any trauma to her eye. She has not had any surgeries to her eye. She has had no headache. She has had no dysuria nor frequency. Exam General: Well-appearing in no acute distress speaking in complete sentences. Head: Normocephalic, atraumatic. Eye:[Pupils equal, round reactive to light.] Extraocular eye movements intact. No conjunctival injection. No scleral icterus. Ear, nose, mouth, throat: Grossly normal inspection. Normal voice, handling secretions normally. Neck: Trachea midline. Cardiovascular: Well-perfused distal extremities. Respiratory: Nonlabored respiration. Gastrointestinal: Nondistended abdomen. Musculoskeletal: No edema. Moving all 4 extremities spontaneously. Skin: Normal for age and race, grossly normal temperature and turgor. No acute rash. Neurologic: Alert and appropriate, no apparent acute deficits. Psychiatric: Mood and manner are appropriate. Grooming and personal hygiene are appropriate. Related Data Home Medications Medication Instructions Recorded Confirmed levothyroxine 150 mcg capsule 150 mcg PO DAILY 01/25/19 09/25/23 metformin 500 mg tablet 1,000 mg PO BID 01/25/19 09/25/23 pramipexole 0.5 mg tablet (Mirapex) 0.5 mg PO BID PRN 05/11/19 09/25/23 CPAP miscellaneous 10/08/19 01/07/22 lamotrigine 25 mg tablet (Lamictal) 25 mg PO DAILY 11/19/20 09/25/23 polyethylene glycol 3350 17 gram 17 g PO DAILY 12/10/20 09/25/23 oral powder packet (Miralax) tiotropium 2.5 mcg-olodaterol 2.5 2 puff inhalation DAILY #4 grams 07/14/21 09/25/23 mcg/actuation mist for inhalation (Stiolto Respimat) pantoprazole 40 mg tablet,delayed 40 mg PO BID #60 tabs 01/17/22 09/25/23 release (Protonix) dulaglutide 3 mg/0.5 mL 3 mg subcut QWEEK 09/25/23 09/25/23 subcutaneous pen injector ([facility]) Previous Rx's Medication Instructions Recorded tiotropium 2.5 mcg-olodaterol 2.5 2 puff inhalation DAILY #4 grams 07/14/21 mcg/actuation mist for inhalation (Stiolto Respimat) pantoprazole 40 mg tablet,delayed 40 mg PO BID #60 tabs 01/17/22 release (Protonix) Allergies Allergy/AdvReac Type Severity Reaction Status Date / Time sertraline [From Zoloft] AdvReac Psychosis Verified 09/25/23 09:51 General Stated Complaint: EyeProblem REBECA: 3 Course Vital Signs Vital signs: Vital Signs Temperature 36.6 C 09/25/23 09:55 Pulse 102 H 09/25/23 09:55 Respiratory Rate 16 09/25/23 09:55 Blood Pressure 170/109 H 09/25/23 09:55 Pulse Oximetry 100 09/25/23 09:55 Temperature 36.6 C 09/25/23 09:55 Temperature Source Temporal Artery Scan 09/25/23 09:55 Pulse 102 H 09/25/23 09:55 Respiratory Rate 16 09/25/23 09:55 Respiratory Effort Normal, Non-Labored 09/25/23 09:57 Blood Pressure 170/109 H 09/25/23 09:55 Blood Pressure Position Sitting 09/25/23 09:55 Pulse Oximetry 100 09/25/23 09:55 Oxygen Delivery Method Room Air 09/25/23 09:55 Oxygen Flow Rate 0 09/25/23 09:55 Pain Level 0 09/25/23 10:04 Medical Decision Making Quality:SDOH Health Related Social Needs: No Data to Display PFSH All Active Problems (Updated 09/25/23 @ 20:04 by Michael Hill MD) Posterior vitreous detachment of right eye (Acute) Photopsia of right eye (Acute) Mass of right parotid gland (Acute) Chronic maxillary sinusitis (Acute) Pulmonary nodules (Acute) Nicotine dependence, cigarettes, uncomplicated (Acute) Aspiration into airway (Acute) Restrictive lung disease (Acute) Dehydration (Acute) Colon polyp, hyperplastic (Acute ~01/2021) Tubular adenoma (Acute ~01/2021) Hx of adenomatous colonic polyps (Acute) Vertigo (Acute) Prolonged P-R interval (Acute) GERD (gastroesophageal reflux disease) (Chronic) Hiatal hernia (Chronic) Chest pain (Acute) Diabetes (Chronic) Encounter for screening for other viral diseases (Acute) Difficult airway for intubation (Acute) [place] difficult airway [address] [place] requiring fiberoptic intubation with difficulty. No other history available. Abnormal auditory perception of both ears (Acute) Hoarseness of voice (Acute) Bloating (Acute) Early satiety (Acute) Screening for colon cancer (Acute) Abdominal pain (Acute) Abdominal bloating with cramps (Acute) Guillen cyst (Acute) removed from behind right knee X2. Difficult intubation (Acute) Hyperlipidemia (Chronic) HTN (hypertension) (Chronic) Heart murmur (Chronic) Medical History Anxiety Bilateral lower extremity edema Bipolar 1 disorder Carpal tunnel syndrome, right COPD (chronic obstructive pulmonary disease) De Quervain's tenosynovitis, right (~12/2019) Dental caries Depression Dysuria Environmental allergies Fibromyalgia Ganglion cyst of volar aspect of left wrist Ganglion cyst of volar aspect of right wrist Gout Hearing loss Hypothyroidism Iron deficiency anemia Non-insulin dependent type 2 diabetes mellitus Oral lesion JADON (obstructive sleep apnea) Post-nasal drip Restless leg syndrome Right lateral epicondylitis SOB (shortness of breath) Vitamin B 12 deficiency Vitamin D deficiency Surgical History History of colonoscopy (~01/2021) History of esophagogastroduodenoscopy (EGD) (~01/2021) Hx of tonsillectomy S/P cholecystectomy Family History Father Heart disease Maternal Grandmother Heart disease Social History Smoking/Tobacco Use Status: Current every day Tobacco Type: cigarettes Years smoked: 40 Smoking risk assessment performed?: Yes Alcohol Intake: never Drug use: Never Substance use type: does not use Housing: house Current gender identity: female What type of physical activity do you participate in: none Do you feel safe at home: Yes Do you feel safe in your relationship?: Yes Additional Social history: Lives with sister. Discharge Plan Disposition Patient Disposition: Home Discharge Details Clinical Impression: Photopsia of right eye, Posterior vitreous detachment of right eye Primary Care Provider: JONNY HUNTER ED Provider: Michael Hill [place] Meds and New Rx's Prescriptions: Continued levothyroxine 150 mcg capsule 150 mcg PO DAILY CPAP miscellaneous Stiolto Respimat 2.5-2.5 mcg/actuation mist 2 puff inhalation DAILY Qty: 4 12RF lamotrigine [Lamictal] 25 mg tablet 25 mg PO DAILY pantoprazole [Protonix] 40 mg tablet,delayed release (DR/EC) 40 mg PO BID Qty: 60 7RF pramipexole [Mirapex] 0.5 mg Tablet 0.5 mg PO BID PRN Trulicity 3 mg/0.5 mL pen injector 3 mg subcut QWEEK metformin 500 mg tablet 1,000 mg PO BID Hold Instructions: Changed by Provider polyethylene glycol 3350 [Miralax] 17 gram Powder In Packet 17 g PO DAILY Discharge Instructions Additional Instructions: You are seen in the emergency department. You are found to have a right retinal detachment. As we discussed please have someone drive you down to [facility] at the following address: [address] [facility], [address] Please go to the main entrance. From there go up to floor 4B. You will see the mixer operator raw salt. Discharge Data Discharge Date/Time-TO BE ENTERED AT DEPARTURE: 09/25/23 10:57 POCUS Exam (ED) Limited Ocular Exam DATE OF EXAM: 09/25/23 TIME OF EXAM: 10:00 PROVIDER THAT PERFORMED THE STUDY: Michael Hill IS THIS A REPEAT EXAM DURING THIS ENCOUNTER: No OCULAR EXAM: Right eye INDICATION FOR RIGHT EYE EXAM: Vision loss VISUALIZED STRUCTURES: Right optic nerve, Right lens and Other structure: vitreous . PERTINENT FINDINGS/IMPRESSION OF THE RIGHT EYE: Abnormal vitreous: DIFFERENTIAL DIAGNOSES: Hyperechoic linear structure floating in the vitreous chamber which appears anchored to the optic disc. Exam complete
[2023-09-25 10:56] VITALS: PULSE 82; RESP 18; O2SAT 98
== END 2023-09-25 10:57 | disposition home or self-care (01) ==
PROVIDERS: Emergency Provider Emergency Medicine; PCP Nurse Practitioner Family
DX: H53.19 Other subjective visual disturbances (principal); H43.811 Vitreous degeneration, right eye; E11.9 Type 2 diabetes mellitus without complications; I10 Essential (primary) hypertension; E78.5 Hyperlipidemia, unspecified; J44.9 Chronic obstructive pulmonary disease, unspecified; F17.210 Nicotine dependence, cigarettes, uncomplicated; Z87.891 Personal history of nicotine dependence
CPT/HCPCS: 76512; 99284

== ENCOUNTER 2023-12-04 08:09 | Outpatient (CLI) | payer BC, SELFPAY ==
--- NOTE | 2023-12-05 12:34 | W.NOCTURNAL ---
Date of service: 12/04/23 Time of Service: 19:32 Nocturnal Oximetry Note: Overnight Oximetry Amount of time analyzed: 5 hours 30 minutes CPAP at 8 Number of minutes under 88%: 88.2 LO: 4.9 Appearance of oxygen saturation pattern: Gradual increases and decreases that may indicate cardiopulmonary disease. Recommendation: Consider adding supplemental O2 at night Lynn Lim MD Pulmonary & Critical Care Medicine
== END 2023-12-04 08:10 | disposition home or self-care (01) ==
LOC: RT 08:09
PROVIDERS: PCP Nurse Practitioner Family; Visit Provider Student in an Organized Health Care Education/Training Program
DX: G47.33 Obstructive sleep apnea (adult) (pediatric) (principal)
CPT/HCPCS: 94762

== ENCOUNTER 2023-12-04 16:05 | Outpatient (REF) | payer BC, SELFPAY ==
[2023-12-04 15:42] LABS: HCT 44.6 % (36.0-46.0); HGB 14.2 g/dL (11.2-15.7); MCH 29.8 pg (27.0-33.0); MCHC 31.8 % (32.0-36.0); MCV 94 fL (80-95); MPV 10.9 fL (8.0-11.0); Platelet Count 320 10^3/uL (130-400); RBC 4.77 10^6/uL (3.93-5.22); RDW 13.8 % (11.7-14.6); RDW-SD 47.7 fL; WBC 10.82 10^3/uL (4.4-10.8)
[2023-12-04 16:31] LABS: Iron 49 ug/dL (50-170); Total Iron Binding Capacity 278 ug/dL (250-450); Transferrin Sat 18 % (15-50)
[2023-12-04 16:46] LABS: ALT 21 U/L (14-59); AST 9 U/L (15-37); Albumin 3.7 g/dL (3.4-5.0); Alkaline Phosphatase 116 U/L (46-116); Anion Gap 7.2 mmol/L (3-11); BUN 9 mg/dL (7-18); Bilirubin, Total 0.2 mg/dL (0.2-1.0); CO2 28.8 mmol/L (21.0-32.0); Calcium 9.3 mg/dL (8.5-10.1); Chloride 103 mmol/L (98-107); Estimated GFR 65.71 (mL/min/1.73m2); Ferritin 95 ng/mL (8-252); Glucose 131 mg/dL (74-106); Potassium 4.2 mmol/L (3.5-5.1); Sodium 139 mmol/L (136-145); TSH (W/Ref FT4) 0.69 uIU/mL (0.36-3.74); Total Protein 7.2 g/dL (6.4-8.2); Vitamin B12 398 pg/mL (193-986)
[2023-12-04 17:17] LABS: Hemoglobin A1C 6.4 % (<5.7)
[2023-12-04 17:47] LABS: Vitamin D 25 Total 29.5 ng/mL (30-100)
== END 2023-12-04 16:06 | disposition home or self-care (01) ==
LOC: NCHCN 16:05
PROVIDERS: PCP Nurse Practitioner Family; Visit Provider Family Medicine
DX: E11.9 Type 2 diabetes mellitus without complications (principal); E03.9 Hypothyroidism, unspecified; D50.9 Iron deficiency anemia, unspecified
CPT/HCPCS: 80053; 82306; 85027; 82607; 82728; 83036; 83540; 83550; 84443

== ENCOUNTER 2024-04-18 09:45 | Emergency (ER) | payer BC, SELFPAY ==
[2024-04-18] VITALS (17 sets, daily range): BP systolic 118–157; BP diastolic 62–82; PULSE 48–97; RESP 14–21; TEMP 36.5; O2SAT 93–99
--- NOTE | 2024-04-18 09:45 | RT.EKG_ITS ---
APPROVED REPORT Exam: Resting ECG Reason for Exam: palpitations Patient Location: E HR:87 bpm ECG Measurements Heart Rate 87 AXIS NC 226 P 58 QRSd 114 QRS 75 QT 416 T 62 QTc 500 Conclusion Sinus rhythm 87 normal axis no stemi
[2024-04-18] MEDS: Aspirin 325 MG TAB PO (10:52)
[2024-04-18 11:00] LABS: Abs Immature Grans 0.05 10^3/uL (0.0-0.06); Absolute Basophil Count 0.11 10^3/uL (0.0-0.2); Absolute Neutrophil Count 7.67 10^3/uL (1.2-6.7); Eosinophils % 3.5 %; HCT 46.5 % (36.0-46.0); HGB 14.8 g/dL (11.2-15.7); Immature Grans % 0.4 %; Lymphocytes % 21.2 %; MCH 29.5 pg (27.0-33.0); MCHC 31.8 % (32.0-36.0); MCV 93 fL (80-95); MPV 10.8 fL (8.0-11.0); Monocytes % 6.2 %; Neutrophils % 67.7 %; Platelet Count 302 10^3/uL (130-400); RBC 5.01 10^6/uL (3.93-5.22); RDW 13.6 % (11.7-14.6); RDW-SD 46.2 fL; WBC 11.33 10^3/uL (4.4-10.8)
--- NOTE | 2024-04-18 11:11 | ED.GENADUL_ITS ---
Discharge Plan Disposition Patient Disposition: Home Discharge Details Clinical Impression: Asymptomatic PVCs Primary Care Provider: JONNY HUNTER ED Provider: Harman Harris Home Meds and New Rx's Prescriptions: No Action levothyroxine 150 mcg capsule 150 mcg PO DAILY CPAP 1 device miscellaneous HS Stiolto Respimat 2.5-2.5 mcg/actuation mist 2 puff inhalation DAILY Qty: 4 12RF pantoprazole [Protonix] 40 mg tablet,delayed release (DR/EC) 40 mg PO BID Qty: 60 7RF pramipexole [Mirapex] 0.5 mg Tablet 0.5 mg PO BID PRN polyethylene glycol 3350 [Miralax] 17 gram Powder In Packet 17 g PO DAILY lurasidone 40 mg tablet 40 mg PO DAILY Ozempic 1 mg/dose (4 mg/3 mL) pen injector 1 mg SUBCUT .weekly Discharge Instructions Instructions: Ventricular premature beats Additional Instructions: Lab work looks great today. Electrolytes, thyroid function and blood counts are normal. You are having occasional PVCs. This is typically not abnormal but you may benefit from medication if are feeling symptomatic from this. You can follow back up with your primary care provider to discuss this. HPI General Date/Time Provider Initiated Documentation: 04/18/24 10:38 . Limitations to Documentation: no limitations . Information obtained by: patient . HPI Narrative: 58-year-old female with past medical history of RLD, diabetes, hypertension presents for evaluation of palpitations. She reports that she had a doctor's appointment last week and that briefly her pulse was noted to be in the 50s, but almost immediately came back up to the 90s. She did not have any symptoms at that time, but she did report that she has been checking her pulse on her wrist and noted that she feels like it is irregular. She has not been measuring her heart rate, just feeling the beats. She denies any shortness of breath or feeling of palpitations. She states that this morning she had some very mild nonradiating substernal chest pain that was brief and resolved spontaneously. Related Data Home Medications ?Medication ?Instructions ?Recorded ?Confirmed levothyroxine 150 mcg capsule 150 mcg PO DAILY 01/25/19 04/18/24 pramipexole 0.5 mg tablet (Mirapex) 0.5 mg PO BID PRN 05/11/19 04/18/24 CPAP 1 device miscellaneous HS 10/08/19 04/18/24 polyethylene glycol 3350 17 gram 17 g PO DAILY 12/10/20 04/18/24 oral powder packet (Miralax) tiotropium 2.5 mcg-olodaterol 2.5 2 puff inhalation DAILY #4 grams 07/14/21 04/18/24 mcg/actuation mist for inhalation (Stiolto Respimat) pantoprazole 40 mg tablet,delayed 40 mg PO BID #60 tabs 01/17/22 04/18/24 release (Protonix) lurasidone 40 mg tablet 40 mg PO DAILY 04/18/24 04/18/24 semaglutide 1 mg/dose (4 mg/3 mL) 1 mg subcut .weekly 04/18/24 04/18/24 subcutaneous pen injector (Ozempic) Previous Rx's ?Medication ?Instructions ?Recorded tiotropium 2.5 mcg-olodaterol 2.5 2 puff inhalation DAILY #4 grams 07/14/21 mcg/actuation mist for inhalation (Stiolto Respimat) pantoprazole 40 mg tablet,delayed 40 mg PO BID #60 tabs 01/17/22 release (Protonix) Allergies Allergy/AdvReac Type Severity Reaction Status Date / Time propranolol Allergy Mild Topical Verified 04/18/24 10:00 Irritation sertraline (From Zoloft) AdvReac Psychosis Verified 04/18/24 10:00 General Stated Complaint: Palpitatns REBECA: 3 Exam Narrative Exam Narrative: Review of Systems: All systems reviewed & are unremarkable except as noted in HPI and below Well-developed, no acute distress NCAT No thyromegaly RRR, PVC noted on monitor Unlabored respiratory effort, clear bilaterally Nondistended abdomen soft nontender Extremities w/o edema Course Vital Signs Vital signs: Vital Signs Temperature 36.5 C 04/18/24 09:55 Pulse 87 04/18/24 09:55 Respiratory Rate 18 04/18/24 09:55 Blood Pressure 157/72 H 04/18/24 09:55 Pulse Oximetry 99 04/18/24 09:55 Temperature 36.5 C 04/18/24 09:55 Temperature Source Oral 04/18/24 09:55 Pulse 48 L 04/18/24 10:31 Pulse 97 H 04/18/24 10:31 Respiratory Rate 21 09/12/24 10:31 Respiratory Effort Short of Breath 04/18/24 10:11 Blood Pressure 138/76 04/18/24 10:31 Blood Pressure Mean 99 04/18/24 10:31 Blood Pressure Position Sitting 04/18/24 09:55 Pulse Oximetry 93 04/18/24 10:31 Oxygen Delivery Method Room Air 04/18/24 09:55 Oxygen Flow Rate 0 04/18/24 09:55 Pain Level 0 04/18/24 09:55 Lab/Test Results Lab/Test Results: Laboratory Tests Range/Units 04/18/24 10:06 WBC (4.4-10.8) 10^3/uL 11.33 H RBC (3.93-5.22) 10^6/uL 5.01 Hgb (11.2-15.7) g/dL 14.8 Hct (36.0-46.0) % 46.5 H MCV (80-95) fL 93 MCH (27.0-33.0) pg 29.5 MCHC (32.0-36.0) % 31.8 L RDW (11.7-14.6) % 13.6 Plt Count (130-400) 10^3/uL 302 MPV (8.0-11.0) fL 10.8 Immature Gran % % 0.4 Neutrophils % % 67.7 Lymphocytes % % 21.2 Monocytes % % 6.2 Eosinophils % % 3.5 Basophils % % 1.0 Nucleated RBC % (0.0-0.3) % 0.0 Absolute Neutrophils (1.2-6.7) 10^3/uL 7.67 H Absolute Lymphocytes (1.2-3.4) 10^3/uL 2.40 Absolute Monocytes (0.1-0.8) 10^3/uL 0.70 Absolute Eosinophils (0.0-0.7) 10^3/uL 0.40 Absolute Basophils (0.0-0.2) 10^3/uL 0.11 Medical Decision Making Emergent evaluation of palpitations. Patient is hemodynamically stable and in sinus rhythm. Her EKG was reviewed and independently interpreted by me, sinus 87, mild first-degree block at 226. No STEMI. On the teletypesetter monitor, she is noted to have frequent PVCs without any acute dysrhythmia. She will be monitored for changes in rhythm. Will check for electrolyte derangement, thyroid dysfunction or anemia that might be leading to her palpitations. Unlikely to be ACS. 1120 Lab work reviewed. Insignificant leukocytosis at 11. No anemia noted. Troponin negative given the symptoms have been greater than 3 hours, remaining troponins have been canceled. Creatinine at baseline, otherwise no electrolyte derangement. TSH within normal limits. At this time the patient was advised that she does have PVCs and that if she remains symptomatic from these, she can follow-up with her PCP for reevaluation and possible medical management. Quality:SDOH Health Related Social Needs: No Data to Display PFSH All Active Problems (Updated 04/18/24 @ 11:40 by Harman Harris MD) Asymptomatic PVCs (Acute) Mass of right parotid gland (Acute) Chronic maxillary sinusitis (Acute) Pulmonary nodules (Acute) Nicotine dependence, cigarettes, uncomplicated (Acute) Aspiration into airway (Acute) Restrictive lung disease (Acute) Dehydration (Acute) Colon polyp, hyperplastic (Acute ~01/2021) Tubular adenoma (Acute ~01/2021) Hx of adenomatous colonic polyps (Acute) Vertigo (Acute) Prolonged P-R interval (Acute) GERD (gastroesophageal reflux disease) (Chronic) Hiatal hernia (Chronic) Chest pain (Acute) Diabetes (Chronic) Encounter for screening for other viral diseases (Acute) Difficult airway for intubation (Acute) [place] difficult airway 7 yrs ago in [place] requiring fiberoptic intubation with difficulty. No other history available. Abnormal auditory perception of both ears (Acute) Hoarseness of voice (Acute) Bloating (Acute) Early satiety (Acute) Screening for colon cancer (Acute) Abdominal pain (Acute) Abdominal bloating with cramps (Acute) Guillen cyst (Acute) removed from behind right knee X2. Difficult intubation (Acute) Hyperlipidemia (Chronic) HTN (hypertension) (Chronic) Heart murmur (Chronic) Medical History Hearing loss Vitamin D deficiency Vitamin B 12 deficiency Iron deficiency anemia Post-nasal drip Environmental allergies Carpal tunnel syndrome, right Ganglion cyst of volar aspect of right wrist Ganglion cyst of volar aspect of left wrist De Quervain's tenosynovitis, right (~12/2019) Restless leg syndrome Gout Hypothyroidism Non-insulin dependent type 2 diabetes mellitus Depression Anxiety Bipolar 1 disorder COPD (chronic obstructive pulmonary disease) Dysuria Fibromyalgia SOB (shortness of breath) Bilateral lower extremity edema JADON (obstructive sleep apnea) Oral lesion Dental caries Right lateral epicondylitis Surgical History History of esophagogastroduodenoscopy (EGD) (~01/2021) History of colonoscopy (~01/2021) Hx of tonsillectomy S/P cholecystectomy Family History Father Heart disease Maternal Grandmother Heart disease Social History Smoking/Tobacco Use Status: Current every day Tobacco Type: cigarettes Years smoked: 40 Smoking risk assessment performed?: Yes Alcohol Intake: never Drug use: Never Substance use type: does not use Housing: house Current gender identity: female What type of physical activity do you participate in: none Do you feel safe at home: Yes Do you feel safe in your relationship?: Yes Additional Social history: Lives with sister. PAWSS Have you Been Recently Intoxicated or Drunk Within the Last 30 days?: No Have you Ever Experienced Previous Episodes of Alcohol Withdrawal?: No Have you ever Experienced Withdrawal Seizures?: No Have you ever Experienced Delirium Tremens(DT)s?: No Have you ever undergone Alcohol Rehabilitation Treatment (i.e, inpt ot outpatient treatment programs)?: No Have you ever Experienced Blackouts?: No Have you ever Combined Alcohol with other Downers within the last 90 days?: No Have you ever Combined Alcohol with any other Substance of Abuse during the last 90 days?: No Positive Blood Alcohol level on Presentation? [PCS.BAL]: No Evidence of Increased Autonomic Activity (i.e. HR>120, tremor, sweating, agitation, nausea)?: No Result: 0
[2024-04-18 11:20] LABS: ALT 17 U/L (14-59); AST 11 U/L (15-37); Albumin 3.5 g/dL (3.4-5.0); Alkaline Phosphatase 120 U/L (46-116); BUN 11 mg/dL (7-18); Bilirubin, Total 0.27 mg/dL (0.2-1.0); CREATININE 1.1 mg/dL (0.55-1.02); Calcium 9.9 mg/dL (8.5-10.1); Chloride 101 mmol/L (98-107); Estimated GFR 58.61 (mL/min/1.73m2); Glucose 175 mg/dL (74-106); Potassium 3.9 mmol/L (3.5-5.1); Sodium 137 mmol/L (136-145); TSH (W/Ref FT4) 0.75 uIU/mL (0.36-3.74); Total Protein 8.2 g/dL (6.4-8.2); Troponin I 4 ng/L (<or=51)
--- OUTSIDE RECORDS SUMMARY | 2024-04-18 11:21 | XMS_ITS | Encounter Summary ---
Author Organization [facility] Address [address] [place] [address] Care Team Providers Care Kiln Stoker Name Role Phone UzielrajatZoila spring BLANCA Primary Care Provider [phone] Encounter Details Date Type Department Care Team (Late st Contact Info) Description 01/21/2020 Lab Requisition [facility] Pathology & Laboratory Medicine - [address] [address] Outr Resulting Lab, Provider Social History Tobacco Use Types Packs/Day Years Used Date Smoking Tobacco: Never Assessed Sex and Gender Information Value Date Recorded Sex Assigned at Not on file Gender Identity Not on file Sexual Orientation Not on file documented as of this encounter Plan of Treatment Not on file documented as of this encounter Procedures Procedure Name Priority Date/Time Associated Diagnosis Comments QUANTIFERON TB GOLD PLUS Routine 01/20/2020 9:46 EDT documented in this encounter Results * QUANTIFERON TB GOLD PLUS (01/20/2020 9:46 EDT) Quantiferon Interpretation Negative Negative 01/22/2020 13:02 EDT [facility] Comment: No interferon-gamma response to M. tuberculosis antigens was detected. ??Infection with M. tuberculosis is unlikely. A single negative result does not exclude infection with M. tuberculosis. ??In patients at high risk for M. tuberculosis infection, a second test should be considered in accordance with the 2017 ATS/IDSA/CDC Clinical Practice Guidelines for Diagnosis of Tuberculosis in Adults and Children. [Andre RENDON et. al. Clin. Infect. Dis. 2017:64 (2) ??: 111-115]. Results were obtained with the Qiagen QuantiFERON TB Gold Plus KENNETH. TB1 Ag minus Nil 0.01 IU/ml 01/22/20 13:02 EDT [facility] TB2 Ag minus Nil 0.01 IU/mL 01/22/20 13:02 EDT [facility] Blood VENOUS BLOOD / Unknown 01/20/2020 9:46 EDT 01/21/2020 17:47 EDT Narrative [facility] - 01/22/2020 13:02 EDT Results were obtained with the Qiagen QuantiFERON-TB Gold Plus KENNETH. Provider Outr Resulting Lab CHEMISTRY & BLOOD GAS ORDERABLES [facility] [address] [place] [address] documented in this encounter Visit Diagnoses Not on filedocumented in this encounter Care Teams Kiln Stoker Relationship Specialty Start Date End Date Zoila Gerard [place] [address] PCP - General 01/05/21 documented as of this encounter
--- OUTSIDE RECORDS SUMMARY | 2024-04-18 11:21 | XMS_ITS | Encounter Summary ---
Author Organization [facility] Address [address] [place] [address] Care Team Providers Care Observation Nurse Name Role Phone Zoila Gerard NP Primary Care Provider [phone] Encounter Details Date Type Department Care Team (Latest Contact Info) Description 09/30/2022 Lab Requisition [facility] Pathology & Laboratory Medicine - [facility] [address] [place] [address] Augustina Valdez FNP [address] [facility] [address] [place] [address] Encounter for general adult medical examination without abnormal findings; Encounter for screening for malignant neoplasm of cervix; Encounter for screening for human papillomavirus (HPV) Social History Tobacco Use Types Packs/Day Years Used Date Smoking Tobacco: Never Assessed Interpersonal Safety Answer Date Record ed Physically Hurt Never 06/30/2020 Verbally Threaten Not on file 06/30/2020 Sex and Gender Information Value Date Recorded Sex Assigned at Not on file Gender Identity Not on file Sexual Orientation Not on file documented as of this encounter Plan of Treatment Not on file documented as of this encounter Procedures Procedure Name Priority Date/Time Associated Diagnosis Comments PAP TEST Today 09/28/2022 10:45 EST Encounter for general adult medical examination without abnormal findings Encounter for screening for malignant neoplasm of cervix Encounter for screening for human papillomavirus (HPV) HPV DNA DETECTION WITH GENOTYPING, PCR Today 09/28/2022 10:45 EST Encounter for general adult medical examination without abnormal findings Encounter for screening for malignant neoplasm of cervix Encounter for screening for human papillomavirus (HPV) documented in this encounter Results * HUMAN PAPILLOMAVIRUS (HPV) DETECTION-HIGH RISK TYPES (09/28/2022 10:45 EST) HPV other High Risk types, PCR Negative Negative 10/14/2022 13:33 [facility] Comment:No E6 or E7 mRNA is detected from HPV types 16,18,31,33,35,39,45,51,52,56,58,59,66, and 68 by superintendent service mediated amplification. Papanicolaou smear specimen (specimen) CERVIX UTERI STRUCTURE / Unknown 09/28/2022 10:45 EST 10/12/2022 14:08 EST Augustina Valdez CHILD NEUROLOGIST MICROBIOLOGY - GENER AL ORDERABLES [facility] [address] [place] [address] * PAP TEST (09/28/2022 10:45 EST) Specimens A. Cervix and/or Endocervix , ThinPrep Imaging System with Manual Evaluation 10/14/2022 13:33 [facility] Specimen Adequacy Satisfactory for Evaluation - transformation zone component absent 10/14/2022 13:33 [facility] General Categorization Negative for intraepithelial lesion or malignancy 10/14/2022 13:33 [facility] Attestation . 10/14/2022 13:33 [facility] at 1333 Clinical History SEE BELOW 10/15/19 23 13:33 [facility] HPV The result for the Human Papillomavirus (HPV) Detection-High Risk Types is Negative. No E6 or E7 mRNA is detected from HPV types 16,18,31,33,35,39 ,45,51,52,56,58,5 9,66, and 68 by superintendent service mediated amplification.Luz ting was performed on specimen [id number] and was resulted on 10/14/2022 1333 EST by DEBBIE, LAB INSTRUMENT RESULTS IN 10/14/2022 13:33 [facility] Performing Lab [facility] 10/14/2022 13:33 [facility] Scanned Images 10/14/2022 13:33 EST [facility] Papanicolaou smear specimen (specimen) CERVIX UTERI STRUCTURE / Unknown 09/28/2022 10:45 EST 09/30/2022 13:32 EST Augustina Valdez CHILD NEUROLOGIST PATHOLOGY ORDERABLES [facility] [address] [place] [address] documented in this encounter Visit Diagnoses Diagnosis Encounter for general adult medical examination without abnormal findings Unspecified general medical examination Encounter for screening for malignant neoplasm of cervix Screening for malignant neoplasm of the cervix Encounter for screening for human papillomavirus (HPV) Special screening examination for human papillomavirus (HPV) documented in this encounter Care Teams Observation Nurse Relationship Specialty Start Date End Date Zoila Gerard NP [address] [place] [place] [address] PCP - General 01/05/21 documented as of this encounter
--- OUTSIDE RECORDS SUMMARY | 2024-04-18 11:21 | XMS_ITS | Encounter Summary ---
Author Organization [facility] [place] [address] Care Team Providers Care Frog Shaker Name Role Phone Zoila Gerard APRN Primary Care Provider Encounter Details Date Type Department Care Team (Latest Contact Info) Description 09/25/2023 Travel Social History Tobacco Use Types Packs/Day Years Used Date Smoking Tobacco: Every Day Cigarettes Smokeless Tobacco: Never Alcohol Use Standard Drinks/Week Comments Never 0 (1 standard drink = 0.6 oz pur e alcohol) Sex and Gender Information Value Date Recorded Sex Assigned at Not on file Gender Identity Not on file Sexual Orientation Not on file documented as of this encounter Plan of Treatment Not on file documented as of this encounter Visit Diagnoses Not on filedocumented in this encounter Care Teams Frog Shaker Relationship Specialty Start Date End Date Zoila Gerard APRN [address] [place] [address] PCP - General Family Medicine 12/05/18 documented as of this encounter
--- OUTSIDE RECORDS SUMMARY | 2024-04-18 11:21 | XMS_ITS | Encounter Summary ---
Author Organization [facility] Address [address] [place] [address] Care Team Providers Care Health Education Aide Name Role Phone UzielrajatZoila spring BLANCA Primary Care Provider [phone] Encounter Details Date Type Department Care Team (Late st Contact Info) Description 08/16/2021 Lab Requisition [facility] Pathology & Laboratory Medicine - [address] [address] Outr Resulting Lab, Provider Social History Tobacco [...] Procedure Name Priority Date/Time Associated Diagnosis Comments ZZCOVID-19 TEST UVC LAB PCR Today 08/16/2021 9:13 EST COVID-19 TESTING Routine 08/16/2021 9:13 EST documented in this encounter Results * COVID-19 TEST UVC LAB PCR (08/16/2021 9:13 EST) Swab 08/16/2021 9:13 EST 08/16/2021 17:30 EST Provider Outr Resulting Lab MICROBIOLOGY - GENERAL ORDERABLES [facility] [address] [place] [address] * COVID-19 TESTING (08/16/2021 9:13 EST) COVID-19 rt-PCR Result Negative Negative 08/16/2021 20:42 EST [facility] Comment: This test has not been FDA cleared or approved. This test has been authorized by FDA under an EUA for use by authorized laboratories. This test has been authorized only for detection of nucleic acid from 2019-nCoV, not for any other viruses or pathogens. This test is only authorized for the duration of the declaration that circumstances exist justifying the authorization of emergency use of in vitro diagnostic tests for detection and/or diagnosis of 2019-nCoV under section 564(b)(1) of Act, 21 U.S.C ?? 360bbb-3(b) (1), unless the authorization is terminated or revoked sooner. Negative results do not preclude 2019-nCoV infection and should not be used as the sole basis for treatment or other patient management decisions. Negative results must be combined with clinical observations, patient history, and epidemiological information. Performed on the Mimubher Fusion instrument Performing Lab [place] [facility] 08/16/2021 20:42 EST [facility] Swab 08/16/2021 9:13 EST 08/16/2021 17:30 EST Provider Outr Resulting Lab MICROBIOLOGY - GENERAL ORDERABLES [facility] [address] [place] [address] documented in this encounter Visit Diagnoses Not on filedocumented in this encounter Care Teams Health Education Aide Relationship Specialty Start Date End Date Zoila Gerard [place] [address] [address] [place] [address] PCP - General 01/05/21 documented as of this encounter
--- OUTSIDE RECORDS SUMMARY | 2024-04-18 11:21 | XMS_ITS | Encounter Summary ---
Author Organization [facility] Address [address] [place] [address] Care Team Providers Care Specialty Trimmer Name Role Phone TaylorZoila spring BLANCA Primary Care Provider [phone] Encounter Details Date Type Department Care Team (Late st Contact Info) Description 01/20/2020 Lab Requisition [facility] Pathology & Laboratory Medicine - [facility] [address] [place] [address] Outr Resulting Lab, Provider Social History Tobacco [...] Procedure Name Priority Date/Time Associated Diagnosis Comments MEASLES IGG AB Routine 01/20/2020 9:46 EDT RUBELLA IGG ANTIBODY Routine 01/20/2020 9:46 EDT HEPATITIS B SURFACE ANTIBODY Routine 01/20/2020 9:46 EDT VARICELLA IGG ANTIBODY Routine 01/20/2020 9:46 EDT MUMPS ANTIBODY IGG Routine 01/20/2020 9:46 EDT documented in this encounter Results * HEPATITIS B SURFACE ANTIBODY (01/20/2020 9:46 EDT) Hep B Surface Ab, Quantitative <3.1 See Note mIU/mL 01/21/2020 9:13 EDT [facility] Comment: Reference Range for Hep B Surface Ab, Quant: Positive: >= 10.0 mIU/mL Negative: ??< 10.0 mIU/mL Patient is presumed to not be immune to infection with Hepatitis B Virus. Hep B Surface Ab, Qualitative Negative See Note 01/21/2020 9:13 EDT [facility] Comment: Reference Range for Hep B Surface Ab, Qual: Unvaccinated: ??Negative Vaccinated: ??Positive Blood VENOUS BLOOD / Unknown 01/20/2020 9:46 EDT 01/20/2020 16:28 EDT Provider Outr Resulting Lab CHEMISTRY & BLOOD GAS ORDERABLES Performing Organization Address City/[facility] Co de Phone Number [facility] [address] [place] [address] * MEASLES IGG AB (01/20/2020 9:46 EDT) Measles IgG Ab Positive See Note 01/21/2020 9:56 EDT [facility] Comment:Presence of detectab le measles virus IgG antibodies. Blood VENOUS BLOOD / Unknown 01/20/2020 9:46 EDT 01/20/2020 16:28 EDT Provider Outr Resulting Lab IMMUNOLOGY A ND SEROLOGY ORDERABLES Performing Organization Address City/[facility] Co de Phone Number [facility] [address] [place] [address] * VARICELLA IGG ANTIBODY (01/20/2020 9:46 EDT) Varicella IgG Ab Positive See Note 01/21/2020 9:55 EDT [facility] Comment:Presence of detectab le Varicella Zoster virus IgG antibodies. Blood VENOUS BLOOD / Unknown 01/20/2020 9:46 EDT 01/20/2020 16:28 EDT Provider Outr Resulting Lab IMMUNOLOGY A ND SEROLOGY ORDERABLES Performing Organization Address City/[facility] Co de Phone Number [facility] [address] [place] [address] * MUMPS ANTIBODY IGG (01/20/2020 9:46 EDT) Mumps Antibody IgG Positive See Note 01/21/2020 9:56 EDT [facility] Comment:Presence of detectab le mumps virus IgG antibodies. Blood VENOUS BLOOD / Unknown 01/20/2020 9:46 EDT 01/20/2020 16:28 EDT Provider Outr Resulting Lab IMMUNOLOGY A ND SEROLOGY ORDERABLES Performing Organization Address [facility] Co de Phone Number [facility] [address] [place] [address] * RUBELLA IGG ANTIBODY (01/20/2020 9:46 EDT) Rubella IgG Ab Positive See Note 01/21/2020 9:55 EDT [facility] Comment:Positive for IgG ant ibodies to Rubella virus. Blood VENOUS BLOOD / Unknown 01/20/2020 9:46 EDT 01/20/2020 16:28 EDT Provider Outr Resulting Lab CHEMISTRY & BLOOD GAS ORDERABLES Performing Organization Address [facility] Phone Number [facility] [address] [place] [address] documented in this encounter Visit Diagnoses Not on filedocumented in this encounter Care Teams Specialty Trimmer Relationship Specialty Start Date End Date Zoila Gerard NP [address] [place] [address] PCP - General 01/05/21 documented as of this encounter
--- OUTSIDE RECORDS SUMMARY | 2024-04-18 11:21 | XMS_ITS | Encounter Summary ---
Author Organization [facility] Address [facility] [place] [address] Care Team Providers Care Buffing Wheel Operator Name Role Phone Zoila Gerard APRN Primary Care Provider [phone] Reason for Visit * Reason Comments Blurred Vision Encounter Details Date Type Department Care Team (Late st Contact Info) Description 09/25/2023 11:30 AM EST Office [place] [address] Pranav Baires MD [facility] [place] [address] Posterior vitreous detachment of right eye Social History Tobacco Use Types Packs/Day Years Used Date Smoking Tobacco: Every Day Cigarettes Smokeless Tobacco: Never Tobacco Cessation:Ready to Q uit: Not Asked; Counseling Given: Not Answered Alcohol Use Standard Drinks/Week Comments Never 0 (1 standard drink = 0.6 oz pur e alcohol) Sex and Gender Information Value Date Recorded Sex Assigned at Not on file Gender Identity Not on file Sexual Orientation Not on file documented as of this encounter Progress Notes * Jules Tejeda MD - 09/25/2023 11:30 AM EST Ophthalmology Exam Assessment Jagruti Dean is a 58 y.o. female presenting for a same day visit with: Posterior Vitreous Separation Right Eye Neg Nelsy Mod myopia No Fhx of RD Today: pt presenting with +floater. + flashes. Vision showed 20/25 to pinhole consistent with previous. Exam showed new PVD without heme, no tears and no detachment. It was explained that the contralateral eye has a higher risk of posterior separation. The etiology, complications and managements of the conditions above were discussed with patient andthey expressed understanding. Problem List 1. Posterior vitreous detachment of right eye Plan: - No acute intervention - Literature provided Return to Clinic: 4-6 weeks with wgs/retina for DFE Return Precautions: worsening vision (blurriness or loss or double), worsening pain, concerning appearance to the eye (swelling or redness), high ocular discharge, many flashes or floaters or curtainover vision -- Melodie Tejeda PGY-2, Ophthalmology Resident #[id number] 09/28/2023 12:55 PM I saw the patient with the following level of supervision from the attending: Direct from Dr. Baires. * Pranav Baires MD - 09/25/2023 11:30 AM EST I have seen the patient in person and reviewed the history and I agree with the details as written.The assessment and plan were formulated in discussion with me and I agree with them as documented. Pranav Baires MD documented in this encounter Miscellaneous Notes * Addendum Note - Pranav Baires MD - 09/25/2023 11:30 AM ESTAddended by: PRANAV BAIRES on: 09/28/2023 12:55 PM Modules accepted: Orders documented in this encounter Plan of Treatment Not on file documented as of this encounter Procedures Procedure Name Priority Date/Time Associated Diagnosis Comments OCT RETINA - OU - BOTH EYES Routine 09/28/2023 12:54 PM EST Posterior vitreous detachment of right eye documented in this encounter Results * OCT Retina - OU - Both Eyes (09/28/2023 12:54 PM EST) Anatomical Region Laterality Modality Other Narrative 09/28/2023 12:54 PM EST Right Eye Quality was good. Scan locations included subfoveal. Findings include normal foveal contour. Left Eye Quality was good. Scan locations included subfoveal. Findings include normal foveal contour. Pranav Baires MD OPHTHALMOLOGY SERV ICES ORDERABLES documented in this encounter Visit Diagnoses Diagnosis Posterior vitreous detachment of right eye Vitreous degeneration documented in this encounter Care Teams Buffing Wheel Operator Relationship Specialty Start Date End Date Zoila Gerard, SENIOR INSIGHT MANAGER [address] [place] [address] PCP - General Family Medicine 12/05/18 documented as of this encounter
--- OUTSIDE RECORDS SUMMARY | 2024-04-18 11:21 | XMS_ITS | Encounter Summary ---
Author Organization [facility] Address [address] [place] [address] Care Team Providers Care Sanipractic Physician Name Role Phone Zoila Gerard NP Primary Care Provider [phone] Encounter Details Date Type Department Care Team (Late st Contact Info) Description 10/28/2022 Lab Requisition [facility] - [address] [place] [address] Len Escobedo [address] [place] [address] Other diseases of salivary glands Social History Tobacco Use Types Packs/Day Years [...] Procedure Name Priority Date/Time Associated Diagnosis Comments NON COOKIE MIXER HELPER/FNA CYTOLOGY Today 10/27/2022 9:40 EDT Other diseases of salivary glands documented in this encounter Results * NON COOKIE MIXER HELPER/FNA CYTOLOGY (10/27/2022 9:40 EDT) Note to Patient The following pathology results have been interpreted by your pathologist and may be available to you before your health provider has had the opportunity to review them. Please allow time for your provider to receive these results and explore management options, if applicable. 10/28/2022 14:26 EDT [facility] Final Diagnosis A. PAROTID MASS (CYST), RIGHT, ULTRASOUND-GUIDED FINE NEEDLE ASPIRATION: - Features suggestive of lymphoepithelial cyst. See comment. 10/28/2022 14:26 [facility] Diagnosis Comment The aspirate is overall hypocellular, predominantly consisting of watery cyst contents with relatively few cells. Polymorphous appearing lymphocytes are found on the smear slides. The ThinPrep slide further demonstrates a scant component of benign mature squamous cells and anucleate squames. 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 No malignant features observed. Correlation with clinical and radiologic impressions is recommended. 10/28/2022 14:26 [facility] Attestation By the signature below, the attending physician certifies that they have personally conducted a gross and/or microscopic examination of the described specimens and rendered or confirmed the above diagnosis. 10/28/2022 14:26 [facility] at 1426 Rapid Diagnosis PAROTID MASS (CYST), RIGHT, ULTRASOUND-GUIDED FINE NEEDLE ASPIRATION: Evaluation episode #1: Passes 1-4: Pass 1: 4-cc clear watery fluid; essentially acellular. Passes 2-4: Scant specimen; lymphocytes present in a degenerative background of proteinaceous debris. The rapid on-site evaluation was performed by Dr. Jeimy Restrepo at [facility] assisting SERVANDO Art, on 10/27/22 at 9:40 AM. 10/28/2022 14:26 [facility] Clinical History Right Parotid Mass 10/28/2022 14:26 [facility] Gross Description A. 1 fixed prepared slide, 4 air dried prepared slides, and 1 tube of CytoLyt were received and processed by selective cellular enhancement technique. 10/28/2022 14:26 [facility] Performing Lab [facility] 14:26 [facility] Scanned Images 10/28/2022 14:26 [facility] Fine Needle Aspirate ENTIRE PAROTID GLAND / Unknown 10/27/2022 9:40 EDT 10/28/2022 10:24 EDT [place] PATHOLOGY ORDERABL ES [facility] [address] [place] [address] documented in this encounter Visit Diagnoses Diagnosis Other diseases of salivary glands documented in this encounter Care Teams Sanipractic Physician Relationship Specialty Start Date End Date Zoila Gerard NP [address] [place] [address] PCP - General 01/05/21 documented as of this encounter
--- OUTSIDE RECORDS SUMMARY | 2024-04-18 11:21 | XMS_ITS | Encounter Summary ---
Author Organization [facility] Address [address] [place] [address] Care Team Providers Care Seat Maker Name Role Phone Zoila Gerard NP Primary Care Provider [phone] Encounter Details Date Type Department Care Team (Late st Contact Info) Description 05/10/2021 Lab Requisition [facility] Pathology & Laboratory Medicine - [facility] [address] [place] [address] Outr Resulting Lab, Provider Social History Tobacco [...] Procedure Name Priority Date/Time Associated Diagnosis Comments HOLD SST Today 05/10/2021 13:53 EDT HOLD SST Today 05/10/2021 13:53 EDT CCP ANTIBODIES Today 05/10/2021 13:53 EDT DOUBLE STRANDED DNA ANTIBODY, IGG Today 05/10/2021 13:53 EDT RHEUMATOID FACTOR Today 05/10/2021 13: 53 EDT ANTI NUCLEAR AB (RD), IFA Today 05/10/2021 13:53 EDT documented in this encounter Results * HOLD SST (05/10/2021 13:53 EDT) Hold Hold 05/10/2021 22:46 EDT [facility] Blood VENOUS BLOOD / Unknown 05/10/2021 13:53 EDT 05/10/2021 21:40 EDT Provider Outr Resulting Lab LAB INFO SER VICE AND SUPPORT & PHONE RESULT Performing Organization Address [facility] Co de Phone Number [facility] [address] [place] [address] * HOLD SST (05/10/2021 13:53 EDT) Hold Hold 05/10/2021 22:46 EDT [facility] Blood VENOUS BLOOD / Unknown 05/10/2021 13:53 EDT 05/10/2021 21:40 EDT Provider Outr Resulting Lab LAB INFO SER VICE AND SUPPORT & PHONE RESULT Performing Organization Address [facility] Co de Phone Number [facility] [address] [place] [address] * RHEUMATOID FACTOR (05/10/2021 13:53 EDT) [facility] Rheumatoid Factor <8.6 <12.0 IU/mL 05/10/2021 22:10 EDT [facility] Blood VENOUS BLOOD / Unknown 05/10/2021 13:53 EDT 05/10/2021 21:25 EDT Provider Outr Resulting Lab CHEMISTRY & BLOOD GAS ORDERABLES Performing Organization Address [facility] Co de Phone Number [facility] [address] [place] [address] * ANTI DNA (DOUBLE STRANDED) (05/10/2021 13:53 EDT) [facility] Anti-DNA (Double Stranded) <12.3 <30.0 IU/mL 05/11/2021 10:36 EDT [facility] Comment: ? Negative: ??<30.0 IU/mL ? Borderline Positive: ??30.0 - 75.0 IU/mL ? Positive: ??>75.0 IU/mL Results were obtained with the INOVA QUANTA Lite dsDNA SC KENNETH assay on the [employer] DSX. Blood VENOUS BLOOD / Unknown 05/10/2021 13:53 EDT 05/10/2021 21:25 EDT Provider Outr Resulting Lab IMMUNOLOGY A ND SEROLOGY ORDERABLES Performing Organization Address [facility] de Phone Number [facility] [address] [place] [address] * ANTI NUCLEAR AB (RD), IFA (05/10/2021 13:53 EDT) RD Interpretation Negative Negative 2020 14:28 EDT [facility] Comment:No titer performed, RD Screen is negative. Blood VENOUS BLOOD / Unknown 05/10/2021 13:53 EDT 05/10/2021 21:25 EDT Narrative [facility] - 05/11/2021 14:28 EDT Results were obtained with the INOVA NOVA Lite HEp-2 RD Kit by indirect immunofluorescence. Provider Outr Resulting Lab IMMUNOLOGY A ND SEROLOGY ORDERABLES Performing Organization Address [facility] de Phone Number [facility] [address] [place] [address] * CCP ANTIBODIES (05/10/2021 13:53 EDT) CCP Antibodies <2.5 <5.0 U/mL 05/11/2021 11:35 EDT [facility] Blood VENOUS BLOOD / Unknown 05/10/2021 13:53 EDT 05/10/2021 21:25 EDT Provider Outr Resulting Lab IMMUNOLOGY A ND SEROLOGY ORDERABLES Performing Organization Address [facility] de Phone Number [facility] [address] [place] [address] documented in this encounter Visit Diagnoses Not on filedocumented in this encounter Care Teams Seat Maker Relationship Specialty Start Date End Date Zoila Gerard NP [address] [place] [address] PCP - General 01/05/21 documented as of this encounter
--- OUTSIDE RECORDS SUMMARY | 2024-04-18 11:21 | XMS_ITS | Encounter Summary ---
Author Organization [facility] Address [facility] [place] [address] Care Team Providers Care Speech Therapy Assistant Name Role Phone Moustapha Zoila PAUL Primary Care Provider Encounter Details Date Type Department Care Team (Late st Contact Info) Description 09/25/2023 [place] [address] Jules Tejeda MD [facility] [place] [address] Social History Tobacco Use Types Packs/Day Years Used Date Smoking Tobacco: Every Day Cigarettes Smokeless Tobacco: Never Alcohol Use Standard Drinks/Week Comments Never 0 (1 standard drink = 0.6 oz pur e alcohol) Sex and Gender Information Value Date Recorded Sex Assigned at Not on file Gender Identity Not on file Sexual Orientation Not on file documented as of this encounter Miscellaneous Notes * Telephone Encounter - Jules Tejeda MD - 09/25/2023 10:30 AM EST Outside ED c/f RD Myopia, DM Right Eye, [facility] documented in this encounter Plan of Treatment Not on file documented as of this encounter Visit Diagnoses Not on filedocumented in this encounter Care Teams Speech Therapy Assistant Relationship Specialty Start Date End Date Zoila Gerard APRN [address] [place] [address] PCP - General Family Medicine 12/05/18 documented as of this encounter
--- OUTSIDE RECORDS SUMMARY | 2024-04-18 11:21 | XMS_ITS | Referral Summary ---
Author Organization [facility] Address [address] [place] [address] Care Team Providers Care Paramedic Instructor Name Role Phone Zoila Gerard NP Primary Care Provider [phone] Social History Tobacco Use Types Packs/Day Years Used Date Smoking Tobacco: Never Assessed Interpersonal Safety Answer Date Record ed Physically Hurt Never 06/30/2020 Verbally Threaten Not on file 06/30/2020 Sex and Gender Information Value Date Recorded Sex Assigned at Not on file Gender Identity Not on file Sexual Orientation Not on file Plan of Treatment Not on file Care Teams Paramedic Instructor Relationship Specialty Start Date End Date Zoila [place] [place] [address] PCP - General 01/05/21
--- OUTSIDE RECORDS SUMMARY | 2024-04-18 11:21 | XMS_ITS | Encounter Summary ---
Author Organization Health system Address [address] [place] [address] Care Team Providers Care Dynamometer Tester Name Role Phone Zoila Gerard NP Primary Care Provider [phone] Encounter Details Date Type Department Care Team (Late st Contact Info) Description 02/01/2021 Lab Requisition [facility] Pathology & Laboratory Medicine - [facility] [address] [place] [address] Leanne Ramirez MD [address] [place] [address] Encounter for screening for malignant neoplasm of colon Social History Tobacco Use Types Packs/Day Years [...] Procedure Name Priority Date/Time Associated Diagnosis Comments SURGICAL PATHOLOGY Today 02/01/2021 9:50 EDT Encounter for screening for malignant neoplasm of colon documented in this encounter Results * SURGICAL PATHOLOGY (02/01/2021 9:50 EDT) Final Diagnosis A. DUODENUM, BIOPSY: - Small intestinal mucosa with no significant diagnostic abnormalities. B. STOMACH, ANTRUM, BIOPSY: - Antral and fundic mucosa with reactive (chemical) gastropathy. - Negative for Helicobacter pylori on H&E stained sections. C. GASTROESOPHAGEAL JUNCTION, BIOPSY: - Mild chronic inflammation and mild reactive changes of squamocolumnar mucosa. - Negative for intestinal metaplasia and dysplasia. D. COLON, TRANSVERSE, POLYP, BIOPSY: - Tubular adenoma. E. COLON, DESCENDING, POLYPS X3, BIOPSY: - Tubular adenoma. - Suggestive of hyperplastic polyps. - Deeper sections x3 examined. 02/03/2021 8:15 [facility] Attestation By the signature below, the attending physician certifies that they have 1) personally conducted a gross and/or microscopic examination of the described specimen(s), and/or personally interpreted the results of laboratory testing of the described specimen(s), and 2) personally rendered or confirmed the above diagnosis. 02/03/2021 8:15 [facility] at 0815 Clinical History GERD & hiatal hernia, screening colonoscopy 02/03/2021 8:15 [facility] Gross Description A. Received in formalin labelled with proper patient identification (initials M, P) and 1. Duodenum Bx's are 3 moulton-brown tissues (0.2 x 0.1 x 0.1 cm to 0.5 x 0.4 x 0.2 cm). Entirely submitted in A1. B. Received in formalin labelled with proper patient identification (initials M, P) and 2. Antrum Bx's are 3 moulton-pink tissues (0.3 x 0.2 x 0.1 cm to 0.5 x 0.3 x 0.2 cm). Entirely submitted in B1. C. Received in formalin labelled with proper patient identification (initials M, P) and 3. GE junction Bx's are 3 moulton-white tissues (0.4 x 0.2 x 0.1 cm to 0.7 x 0.3 x 0.2 cm). Entirely submitted in C1. D. Received in formalin labelled with proper patient identification (initials M, P) and 4. Transverse colon polyp is an aggregate of moulton-brown tissue fragments (0.7 x 0.6 x 0.1 cm). Entirely submitted in D1. E. Received in formalin labelled with proper patient identification (initials M, P) and 5. Descending colon polyps x3 are 4 moulton-brown tissue fragments (0.3 x 0.2 x 0.1 cm to 0.6 x 0.3 x 0.1 cm). Entirely submitted in E1. MUMTAZ DENZER, PA(ASCP) 02/01/2021 17:14 02/03/2021 8:15 EDT [facility] Performing Lab [facility] 8:15 EDT [facility] Scanned Images 02/03/2021 8:15 EDT [facility] Tissue DESCENDING COLON STRUCTURE / Unknown 02/01/2021 9:50 EDT 02/01/2021 16:56 EDT Tissue specimen (specimen) STOMACH STRUCTURE / Unknown 02/01/2021 9:50 EDT 02/01/2021 16:56 EDT Tissue specimen (specimen) ESOPHAGEAL STRUCTURE / Unknown 02/01/2021 9:50 EDT 02/01/2021 16:56 EDT Tissue specimen (specimen) TRANSVERSE COLON STRUCTURE / Unknown 02/01/2021 9:50 EDT 02/01/2021 16:56 EDT Tissue specimen (specimen) DESCENDING COLON STRUCTURE / Unknown 02/01/2021 9:50 EDT 02/01/2021 16:56 EDT Leanne Ramirez MD PATHOLOGY ORDERA BLES [facility] [address] [place] [address] documented in this encounter Visit Diagnoses Diagnosis Encounter for screening for malignant neoplasm of colon Special screening for malignant neoplasms, colon documented in this encounter Care Teams Dynamometer Tester Relationship Specialty Start Date End Date Zoila Gerard [place] [address] [place] [address] PCP - General 01/05/21 documented as of this encounter
--- OUTSIDE RECORDS SUMMARY | 2024-04-18 11:21 | XMS_ITS | Encounter Summary ---
Author Organization [facility] Address [address] [place] [address] Care Team Providers Care Weapons System Instrument Mechanic Name Role Phone UzielrajatZoila spring BLANCA Primary Care Provider [phone] Encounter Details Date Type Department Care Team (Late st Contact Info) Description 06/25/2021 Lab Requisition [facility] Pathology & [place] [address] Outr Resulting Lab, Provider Social History Tobacco [...] Priority Date/Time Associated Diagnosis Comments ZZCOVID-19 TEST [facility] PCR Today 06/25/2021 9:30 EST COVID-19 TESTING Routine 06/25/2021 9:30 EST documented in this encounter Results * COVID-19 TEST [facility] PCR (06/25/2021 9:30 EST) Swab 06/25/2021 9:30 EST 06/25/2021 21:12 EST Provider Outr Resulting Lab MICROBIOLOGY - GENERAL ORDERABLES [facility] [address] [place] [address] * COVID-19 TESTING (06/25/2021 9:30 EST) COVID-19 rt-PCR Result Negative Negative 06/26/2021 12:43 EST [facility] Comment: This test has not [...] clinical observations, patient history, and epidemiological information. Testing was performed using the cecilia SARS-CoV-2 assay ([employer] on the Cecilia 6800 System Performing Lab Cecilia [address] [facility] 06/26/2021 12:43 EST [facility] Swab 06/25/2021 9:30 EST 06/25/2021 21:12 EST Provider Outr Resulting Lab MICROBIOLOGY - GENERAL ORDERABLES [facility] [address] [place] [address] documented in this encounter Visit Diagnoses Not on filedocumented in this encounter Care Teams Weapons System Instrument Mechanic Relationship Specialty Start Date End Date Zoila Gerard NP [address] [place] [address] PCP - General 01/05/21 documented as of this encounter
--- OUTSIDE RECORDS SUMMARY | 2024-04-18 11:21 | XMS_ITS | Encounter Summary ---
Author Organization [facility] Address [address] [place] [address] Care Team Providers Care Insole Lip Turner Name Role Phone Zoila Gerard NP Primary Care Provider [phone] Encounter Details Date Type Department Care Team (Late st Contact Info) Description 06/26/2021 Lab Requisition [facility] Pathology & Laboratory Medicine - [address] [address] Outr Resulting Lab, Provider Social History Tobacco [...] Procedure Name Priority Date/Time Associated Diagnosis Comments FECAL BACTERIAL PATHOGENS BY PCR Routine 06/26/2021 5:30 EST documented in this encounter Results * FECAL BACTERIAL PATHOGENS BY PCR (06/26/2021 5:30 EST) Salmonella PCR Negative Negative 06/27/2021 22:24 EST [facility] Shigella/Enteroin vasive E. coli Negative Negative 06/27/2021 22:24 EST [facility] HN LAB CAMPYLOBACTER PCR Negative Negative 06/27/2021 22:24 EST [facility] Shiga Toxin PCR Negative Negative 22:24 EST [facility] Feces SPECIMEN FROM RECTUM / Unknown Stool Collect / Unknown 06/26/2021 5:30 EST 06/27/2021 16:44 EST Provider Outr Resulting Lab MICROBIOLOGY - GENERAL ORDERABLES [facility] [address] [place] [address] documented in this encounter Visit Diagnoses Not on filedocumented in this encounter Care Teams Insole Lip Turner Relationship Specialty Start Date End Date Zoila Gerard NP [address] [place], [place] [id number] PCP - General 01/05/21 documented as of this encounter
--- OUTSIDE RECORDS SUMMARY | 2024-04-18 11:21 | XMS_ITS | Encounter Summary ---
Author Organization [facility] Address [address] [place] [address] Care Team Providers Care Hog Driver Name Role Phone Zoila Gerard NP Primary Care Provider [phone] Encounter Details Date Type Department Care Team (Late st Contact Info) Description 06/26/2021 Lab Requisition [facility] Pathology & Laboratory Medicine - [address] [address] Outr Resulting Lab, Provider Social [...] Procedure Name Priority Date/Time Associated Diagnosis Comments GIARDIA AND CRYPTOSPORIDIUM ANTIGENS Routine 06/26/2021 5:30 EST documented in this encounter Results * GIARDIA AND CRYPTOSPORIDIUM ANTIGENS (06/26/2021 5:30 EST) Giardia and Cryptosporidium Cryptosporidium Antigen Neg and Giardia Antigen Neg Cryptosporidium Antigen Neg and Giardia Antigen Neg 12:08 EST [facility] Feces SPECIMEN FROM RECTUM / Unknown Stool Collect / Unknown 06/26/2021 5:30 EST 06/27/2021 16:44 EST Provider Outr Resulting Lab MICROBIOLOGY - GENERAL ORDERABLES [facility] [address] [place] [address] documented in this encounter Visit Diagnoses Not on filedocumented in this encounter Care Teams Hog Driver Relationship Specialty Start Date End Date Zoila Gerard NP [address] [place] [address] PCP - General 01/05/21 documented as of this encounter
--- OUTSIDE RECORDS SUMMARY | 2024-04-18 11:21 | XMS_ITS | Clinical Summary ---
Author Organization [facility] Address [address] [place] [address] Care Team Providers Care Business Management Manager Name Role Phone Zoila Gerard NP Primary Care Provider Social History Tobacco Use Types Packs/Day Years Used Date Smoking Tobacco: Never Assessed Interpersonal Safety Answer Date Record ed Physically Hurt Never 06/30/2020 Verbally Threaten Not on file 06/30/2020 Sex and Gender Information Value Date Recorded Sex Assigned at Not on file Gender Identity Not on file Sexual Orientation Not on file Plan of Treatment Health Maintenance Due Date Last Done Comments Hepatitis C Screen 1965 Hepatitis B Vaccine (1 of 3 - 19+ 3-dose series) 05/27 COVID-19 Vaccine ( season) 2024 Care Teams Business Management Manager Relationship Specialty Start Date End Date Zoila Gerard NP [address] [place] [address] PCP - General 01/05/21
--- OUTSIDE RECORDS SUMMARY | 2024-04-18 11:21 | XMS_ITS | Encounter Summary ---
Author Organization [facility] Address [address] [place] [address] Care Team Providers Care Sign Maker Name Role Phone UzielrajatZoila spring BLANCA Primary Care Provider Encounter Details Date Type Department Care Team (Late st Contact Info) Description 04/20/2020 Lab Requisition [facility] Pathology & Laboratory Medicine - [facility] [address] [place] [address] Outr Resulting Lab, Provider Social History Tobacco [...] Procedure Name Priority Date/Time Associated Diagnosis Comments DO NOT ORDER STANDALONE - BROAD COVID TEST Today 04/20/2020 9:09 EDT COVID-19 TESTING Routine 04/20/2020 9:09 EDT documented in this encounter Results * DO NOT ORDER STANDALONE - BROAD COVID TEST (04/20/2020 9:09 EDT) COVID-19 rt-PCR Result NEGATIVE Negative 04/21/2020 11:27 EDT [facility] Comment: 2019-novel Coronavirus (2019-nCoV) not detected by the qRT-PCR assay. Consider testing for other respiratory viruses or re-collecting for 2019-nCoV testing. Note: Optimum timing for peak viral levels during infections caused by 2019-nCoV have not been determined. Collection of multiple specimens from the same patient may be necessary to detect the virus. Limitations Positive results are indicative of active infection with SARS-CoV-2 but do not rule out bacterial infection or co-infection with other viruses. The agent detected may not be the definite cause of disease. In addition, detection of viral RNA may not indicate the presence of infectious virus or that SARS-CoV-2 is the causative agent for clinical symptoms. Negative results do not preclude SARS-CoV-2 infection and should not be used as the sole basis for patient management decisions. Negative results must be combined with clinical observations, patient history, and epidemiological information. False negative results may also occur if amplification inhibitors are present in the specimen or if inadequate numbers of organisms are present in the specimen. Optimum specimen types and timing for peak viral levels during infections caused by SARS-CoV-2 have not been fully determined. Collection of multiple specimens (types and time points) from the same patient may be necessary to detect the virus. The test was validated for use with upper respiratory specimens obtained via nasopharyngeal or oropharyngeal swabs in VTM, UTM, M4, M5, M6, saline, and MTM media. The performance of this test has not been established for other specimens. Specimens collected using other FDA recommended Specimen Collection Materials listed in the FDA COVID-19 Diagnostic Technologies communication (October 31, 2019) are processed with the caveat that they were not all validated for use with this test and the result must be interpreted in this context. Furthermore, a false negative results may occur if a specimen is improperly collected, transported or handled. If the virus mutates in the RT-PCR target region, SARS-CoV-2 may not be detected or may be detected less predictably. Inhibitors or other types of interference may produce a false negative result. An interference study evaluating the effect of common cold medications was not performed. This test is not FDA-cleared but its performance characteristics were established by our CLIA-certified, CAP-accredited, high complexity laboratory in accordance with CLIA regulations, [employer] of [place] [employer] (CAP) guidelines (Oct 24, 2019), and FDA guidance (Oct 05, 2019). This test is only for use under the Food and Drug Administration's Emergency Use Authorization. Swab ENTIRE NASOPHARYNX / Unknown 04/20/2020 9:09 EDT 04/20/2020 15:25 EDT Provider Outr Resulting Lab MICROBIOLOGY - GENERAL ORDERABLES MARY ALICE, MA * COVID-19 TESTING (04/20/2020 9:09 EDT) COVID-19 rt-PCR Result NEGATIVE Negative 04/21/2020 12:19 EDT [facility] Comment: 2019-novel Coronavirus (2019-nCoV) not detected by the qRT-PCR assay. Consider testing for other respiratory viruses or re-collecting for 2019-nCoV testing. Note: Optimum timing for peak viral levels during infections caused by 2019-nCoV have not been determined. Collection of multiple specimens from the same patient may be necessary to detect the virus. Limitations Positive results are indicative of active infection with SARS-CoV-2 but do not rule out bacterial infection or co-infection with other viruses. The agent detected may not be the definite cause of disease. In addition, detection of viral RNA may not indicate the presence of infectious virus or that SARS-CoV-2 is the causative agent for clinical symptoms. Negative results do not preclude SARS-CoV-2 infection and should not be used as the sole basis for patient management decisions. Negative results must be combined with clinical observations, patient history, and epidemiological information. False negative results may also occur if amplification inhibitors are present in the specimen or if inadequate numbers of organisms are present in the specimen. Optimum specimen types and timing for peak viral levels during infections caused by SARS-CoV-2 have not been fully determined. Collection of multiple specimens (types and time points) from the same patient may be necessary to detect the virus. The test was validated for use with upper respiratory specimens obtained via nasopharyngeal or oropharyngeal swabs in VTM, UTM, M4, M5, M6, saline, and MTM media. The performance of this test has not been established for other specimens. Specimens collected using other FDA recommended Specimen Collection Materials listed in the FDA COVID-19 [employer] communication (October 31, 2019) are processed with the caveat that they were not all validated for use with this test and the result must be interpreted in this context. Furthermore, a false negative results may occur if a specimen is improperly collected, transported or handled. If the virus mutates in the RT-PCR target region, SARS-CoV-2 may not be detected or may be detected less predictably. Inhibitors or other types of interference may produce a false negative result. An interference study evaluating the effect of common cold medications was not performed. This test is not FDA-cleared but its performance characteristics were established by our CLIA-certified, CAP-accredited, high complexity laboratory in accordance with CLIA regulations, College of [place] [employer] (CAP) guidelines (Oct 24, 2019), and FDA guidance (Oct 05, 2019). This test is only for use under the Food and Drug Administration's Emergency Use Authorization. Performing Lab [facility] 04/21/2020 12:19 EDT [facility] Swab 04/20/2020 9:09 EDT 04/20/2020 15:25 EDT Provider Outr Resulting Lab MICROBIOLOGY - GENERAL ORDERABLES [facility] [address] [place] [address] [facility] [place], [place] documented in this encounter Visit Diagnoses Not on filedocumented in this encounter Care Teams Sign Maker Relationship Specialty Start Date End Date Zoila Gerard [place] [place] [address] PCP - General 01/05/21 documented as of this encounter
--- OUTSIDE RECORDS SUMMARY | 2024-04-18 11:21 | XMS_ITS | Clinical Summary ---
Author Organization [facility] [place] [address] [place] [address] Care Team Providers Care Philosophy And Religion Instructor Name Role Phone Zoila Gerard APRN Primary Care Provider Allergies Active Allergy Reactions Criticality Noted Date Comments Sertraline 09/25/2023 depressed Medications Medication Sig Dispensed Refills Start Date End Date Status Trulicity 3 mg/0.5 mL Pen Injector 09/13/2023 Active FLUoxetine (PROzac) 10 mg capsule 04/17/2023 Active levothyroxine (Synthroid) 137 mcg tablet 07/24/2023 Active montelukast (Singulair) 10 mg tablet 06/22/2023 Active pramipexole (Mirapex) 0.5 mg tablet 07/03/2023 Active Family History Medical History Relation Comments Cataracts Maternal Grandmother Glaucoma Maternal Grandmother Macular Degeneration Maternal Grandmother Cataracts Mother Retinal Detachment Neg Hx Relation Status Comments Maternal Grandmother Mother Social History Tobacco Use Types Packs/Day Years [...] Health Maintenance Due Date Last Done Comments CT Colonography 1966 Colonoscopy 1966 Colorectal Cancer Screening 1966 FIT DNA 1966 FIT 1966 Sigmoidoscopy (10 year) with FIT yearly 1966 Sigmoidoscopy 1966 Pneumococcal Vaccine: At-Risk 5-64yrs (1 of 2 - PCV) 1 HIV screen 1984 Hepatitis C Screening 1984 Lipid Screening 1984 Hepatitis B vaccine (0-59 yrs) (1) 1985 Tdap adult 1985 Tetanus vaccine 1985 HPV test 1996 PAP Smear 1996 Breast Cancer Share Decision Needed 2006 Breast Cancer screening 2006 Zoster vaccine (1 of 2) 2016 Advance Directive 2021 Covid-19 Vaccine (1 - 2022- season) 2024 Influenza (Flu) vaccine (1 o f 1 - Influenza standard series) 04/07/2024 Care Teams Philosophy And Religion Instructor Relationship Specialty Start Date End Date Zoila Gerard APRN [address] [place], [place] [id number] PCP - General Family Medicine 12/05/18
[2024-04-18 12:03] LABS: Troponin I 4 ng/L (<or=51)
== END 2024-04-18 11:49 | disposition home or self-care (01) ==
PROVIDERS: Emergency Provider Emergency Medicine; PCP Nurse Practitioner Family
DX: R00.2 Palpitations (principal); I49.3 Ventricular premature depolarization; Z86.79 Personal history of other diseases of the circulatory system; Z86.39 Personal history of other endocrine, nutritional and metabolic disease
CPT/HCPCS: 36415; 80053; 93005; 99283; 83735; 84443; 84484; 85025; 93010

== ENCOUNTER 2024-06-03 10:13 | Emergency (ER) | payer BC, SELFPAY ==
[2024-06-03] VITALS (27 sets, daily range): BP systolic 128–164; BP diastolic 57–79; PULSE 66–91; RESP 22–26; TEMP 36.5; O2SAT 93–100
--- NOTE | 2024-06-03 10:15 | RT.EKG_ITS ---
APPROVED REPORT Exam: Resting ECG Reason for Exam: Tachacardia Patient Location: E HR:88 bpm ECG Measurements Heart Rate 88 AXIS VT 237 P 72 QRSd 107 QRS 87 QT 418 T 72 QTc 507 Conclusion Sinus rhythm...normal P axis, V-rate 60- 99 Prolonged VT interval...VT >210, V-rate 50- 90 Anteroseptal infarct, age indeterminate...Q >35mS, T neg, V1-V2
--- OUTSIDE RECORDS SUMMARY | 2024-06-03 10:28 | XMS_ITS | Encounter Summary ---
Author Organization [facility] Address [address] [place] [address] Care Team Providers Care Java Manager Name Role Phone UzielrajatZoila spring BLANCA Primary Care Provider Encounter Details Date Type Department Care Team (Late st Contact Info) Description 06/25/2021 Lab Requisition [facility] Pathology & [place] [address] Outr Resulting Lab, Provider Social History Tobacco [...] Outr Resulting Lab MICROBIOLOGY - GENERAL ORDERABLES [facility] [address] [place] [address] * COVID-19 TESTING (06/25/2021 9:30 EST) COVID-19 rt-PCR Result Negative Negative 06/26/2021 12:43 EST [facility] Comment: This test [...] was performed using the cecilia SARS-CoV-2 assay ([employer] on the Cecilia 6800 System Performing Lab Cecilia [address] [facility] 06/26/2021 12:43 EST [facility] Swab 06/25/2021 9:30 EST 06/25/2021 21:12 EST Provider Outr Resulting Lab MICROBIOLOGY - GENERAL ORDERABLES [facility] [address] [place] [address] documented in this encounter Visit Diagnoses Not on filedocumented in this encounter Care Teams Java Manager Relationship Specialty Start Date End Date Zoila Gerard NP [address] [place] [address] PCP - General 01/05/21 documented as of this encounter
--- OUTSIDE RECORDS SUMMARY | 2024-06-03 10:28 | XMS_ITS | Encounter Summary ---
Author Organization [facility] Address [address] [place] [address] Care Team Providers Care Manufacturing Software Engineer Name Role Phone Zoila Gerard NP Primary Care Provider [phone] Encounter Details Date Type Department Care Team (Latest Contact Info) Description 09/30/2022 Lab Requisition [facility] Pathology & Laboratory Medicine - [facility] [address] [place] [address] Augustina Vladez FNP [address] [place] [address] Encounter for general adult medical [...] Risk types, PCR Negative Negative 10/14/2022 13:33 [facility] Comment:No E6 or E7 mRNA is detected from HPV types 16,18,31,33,35,39,45,51,52,56,58,59,66, and 68 by diesel engine engineer mediated amplification. Papanicolaou smear specimen (specimen) CERVIX UTERI STRUCTURE / Unknown 09/28/2022 10:45 EST 10/12/2022 14:08 EST Augustina Valdez CESSATION SYSTEMS OUTREACH SPECIALIST MICROBIOLOGY - GENER AL ORDERABLES [facility] [address] [place] [address] * PAP TEST (09/28/2022 10:45 EST) Specimens A. Cervix and/or Endocervix , ThinPrep Imaging System with Manual Evaluation 10/14/2022 13:33 [facility] Specimen Adequacy Satisfactory for Evaluation - transformation zone component absent 10/14/2022 13:33 [facility] General Categorization Negative for intraepithelial lesion or malignancy 10/14/2022 13:33 [facility] Attestation . 10/14/2022 13:33 [facility] at 1333 Clinical History SEE BELOW 10/15/19 23 13:33 [facility] HPV The result for the Human Papillomavirus (HPV) Detection-High Risk Types is Negative. No E6 or E7 mRNA is detected from HPV types 16,18,31,33,35,39 ,45,51,52,56,58,5 9,66, and 68 by diesel engine engineer mediated amplification.Luz ting was performed on specimen [id number] and was resulted on 10/14/2022 1333 EST by DEBBIE, LAB INSTRUMENT RESULTS IN 10/14/2022 13:33 [facility] Performing Lab [facility] 10/14/2022 13:33 [facility] Scanned Images 10/14/2022 13:33 EST [facility] Papanicolaou smear specimen (specimen) CERVIX UTERI STRUCTURE / Unknown 09/28/2022 10:45 EST 09/30/2022 13:32 EST Augustina Valdez CESSATION SYSTEMS OUTREACH SPECIALIST PATHOLOGY ORDERABLES [facility] [address] [place] [address] documented in this encounter Visit Diagnoses Diagnosis Encounter for general adult medical examination without abnormal findings Unspecified general medical examination Encounter for screening for malignant neoplasm of cervix Screening for malignant neoplasm of the cervix Encounter for screening for human papillomavirus (HPV) Special screening examination for human papillomavirus (HPV) documented in this encounter Care Teams Manufacturing Software Engineer Relationship Specialty Start Date End Date Zoila Gerard NP [address] [place] [address] PCP - General 01/05/21 documented as of this encounter
--- OUTSIDE RECORDS SUMMARY | 2024-06-03 10:28 | XMS_ITS | Encounter Summary ---
Author Organization [facility] Address [facility] [place] [address] Care Team Providers Care Circulation Representative Name Role Phone Moustapha Zoila PAUL Primary Care Provider Encounter Details Date Type Department Care Team (Late st Contact Info) Description 09/25/2023 Telephone [place] [address] Jules Tejeda MD [facility] [place] [address] Social History Tobacco Use Types Packs/Day Years [...] DM Right Eye, [facility] documented in this encounter Plan of Treatment Not on file documented as of this encounter Visit Diagnoses Not on filedocumented in this encounter Care Teams Circulation Representative Relationship Specialty Start Date End Date Zoila Gerard APRN [address] [place] [address] PCP - General Family Medicine 12/05/18 documented as of this encounter
--- OUTSIDE RECORDS SUMMARY | 2024-06-03 10:28 | XMS_ITS | Encounter Summary ---
Author Organization [facility] Address [facility] [place] [address] Care Team Providers Care Stave Planer Tender Name Role Phone Zoila Gerard APRN Primary Care Provider [phone] Reason for Visit * Reason Comments Blurred Vision Encounter Details Date Type Department Care Team (Late st Contact Info) Description 09/25/2023 11:30 AM EST Office [place] [address] Pranav Baires MD [facility] [place] [address] Posterior vitreous detachment of right eye Social [...] with: Posterior Vitreous Separation Right Eye Neg Ingalls Mod myopia No Fhx of RD Today: [...] degeneration documented in this encounter Care Teams Stave Planer Tender Relationship Specialty Start Date End Date Zoila Gerard, APPLICATION DEVELOPMENT SPECIALIST [address] [place] [address] PCP - General Family Medicine 12/05/18 documented as of this encounter
--- OUTSIDE RECORDS SUMMARY | 2024-06-03 10:28 | XMS_ITS | Encounter Summary ---
Author Organization [facility] Address [address] [place] [address] Care Team Providers Care Production Analyst Name Role Phone Zoila Gerard NP Primary Care Provider [phone] Encounter Details Date Type Department Care Team (Late st Contact Info) Description 05/10/2021 Lab Requisition [facility] Pathology & Laboratory Medicine - [facility] [address] [place] [address] Outr Resulting Lab, Provider Social History Tobacco [...] 13:53 EDT) Hold Hold 05/10/2021 22:46 EDT [facility] Blood VENOUS BLOOD / Unknown 05/10/2021 13:53 EDT 05/10/2021 21:40 EDT Provider Outr Resulting Lab LAB INFO SER VICE AND SUPPORT & PHONE RESULT Performing Organization Address [facility] Co de Phone Number [facility] [address] [place] [address] * HOLD SST (05/10/2021 13:53 EDT) Hold Hold 05/10/2021 22:46 EDT [facility] Blood VENOUS BLOOD / Unknown 05/10/2021 13:53 EDT 05/10/2021 21:40 EDT Provider Outr Resulting Lab LAB INFO SER VICE AND SUPPORT & PHONE RESULT Performing Organization Address [facility] Co de Phone Number [facility] [address] [place] [address] * RHEUMATOID FACTOR (05/10/2021 13:53 EDT) [facility] Rheumatoid Factor <8.6 <12.0 IU/mL 05/10/2021 22:10 EDT [facility] Blood VENOUS BLOOD / Unknown 05/10/2021 13:53 EDT 05/10/2021 21:25 EDT Provider Outr Resulting Lab CHEMISTRY & BLOOD GAS ORDERABLES Performing Organization Address [facility] Co de Phone Number [facility] [address] [place] [address] * ANTI DNA (DOUBLE STRANDED) (05/10/2021 13:53 EDT) [facility] Anti-DNA (Double Stranded) <12.3 <30.0 IU/mL 05/11/2021 10:36 EDT [facility] Comment: ? Negative: ??<30.0 IU/mL ? Borderline Positive: ??30.0 - 75.0 IU/mL ? Positive: ??>75.0 IU/mL Results were obtained with the INOVA QUANTA Lite dsDNA SC KENNETH assay on the Dobango DSX. Blood VENOUS BLOOD / Unknown 05/10/2021 13:53 EDT 05/10/2021 21:25 EDT Provider Outr Resulting Lab IMMUNOLOGY A ND SEROLOGY ORDERABLES Performing Organization Address [facility] de Phone Number [facility] [address] [place] [address] * ANTI NUCLEAR AB (RD), IFA (05/10/2021 13:53 EDT) RD Interpretation Negative Negative 2020 14:28 EDT [facility] Comment:No titer performed, RD Screen is negative. Blood VENOUS BLOOD / Unknown 05/10/2021 13:53 EDT 05/10/2021 21:25 EDT Narrative [facility] - 05/11/2021 14:28 EDT Results were obtained with the INOVA NOVA Lite HEp-2 RD Kit by indirect immunofluorescence. Provider Outr Resulting Lab IMMUNOLOGY A ND SEROLOGY ORDERABLES Performing Organization Address [facility] de Phone Number [facility] [address] [place] [address] * CCP ANTIBODIES (05/10/2021 13:53 EDT) CCP Antibodies <2.5 <5.0 U/mL 05/11/2021 11:35 EDT [facility] Blood VENOUS BLOOD / Unknown 05/10/2021 13:53 EDT 05/10/2021 21:25 EDT Provider Outr Resulting Lab IMMUNOLOGY A ND SEROLOGY ORDERABLES Performing Organization Address [facility] de Phone Number [facility] [address] [place] [address] documented in this encounter Visit Diagnoses Not on filedocumented in this encounter Care Teams Production Analyst Relationship Specialty Start Date End Date Zoila Gerard NP [address] [place] [address] PCP - General 01/05/21 documented as of this encounter
--- OUTSIDE RECORDS SUMMARY | 2024-06-03 10:28 | XMS_ITS | Referral Summary ---
Author Organization [facility] Address [address] [place] [address] Care Team Providers Care Abattoir Supervisor Name Role Phone Zoila Gerard NP Primary Care Provider [phone] Social History Tobacco Use Types Packs/Day Years Used Date Smoking Tobacco: Never Assessed Interpersonal Safety Answer Date Record ed Physically Hurt Never 06/30/2020 Verbally Threaten Not on file 06/30/2020 Sex and Gender Information Value Date Recorded Sex Assigned at Not on file Gender Identity Not on file Sexual Orientation Not on file Plan of Treatment Not on file Care Teams Abattoir Supervisor Relationship Specialty Start Date End Date Zoila Gerard NP [address] [address] PCP - General 01/05/21
--- OUTSIDE RECORDS SUMMARY | 2024-06-03 10:28 | XMS_ITS | Encounter Summary ---
Author Organization [facility] Address [address] [place] [address] Care Team Providers Care Reel Blade Bender Furnace Tender Name Role Phone UzielrajatZoila spring BLANCA Primary Care Provider [phone] Encounter Details Date Type Department Care Team (Late st Contact Info) Description 08/16/2021 Lab Requisition [facility] Pathology & Laboratory Medicine - [address] [address] Outr Resulting Lab, Provider Social History Tobacco [...] Outr Resulting Lab MICROBIOLOGY - GENERAL ORDERABLES [facility] [address] [place] [address] * COVID-19 TESTING (08/16/2021 9:13 EST) COVID-19 rt-PCR Result Negative Negative 08/16/2021 20:42 EST [facility] Comment: This test has not [...] history, and epidemiological information. Performed on the [employer]Prote[employer] Fusion instrument Performing Lab [facility] 08/16/2021 20:42 EST [facility] Swab 08/16/2021 9:13 EST 08/16/2021 17:30 EST Provider Outr Resulting Lab MICROBIOLOGY - GENERAL ORDERABLES [facility] [address] [place] [address] documented in this encounter Visit Diagnoses Not on filedocumented in this encounter Care Teams Reel Blade Bender Furnace Tender Relationship Specialty Start Date End Date Zoila Gerard NP [address] [place] [address] PCP - General 01/05/21 documented as of this encounter
--- OUTSIDE RECORDS SUMMARY | 2024-06-03 10:28 | XMS_ITS | Encounter Summary ---
Author Organization [facility] Address [address] [place] [address] Care Team Providers Care Ppa Teacher Name Role Phone Zoila Gerard NP Primary Care Provider [phone] Encounter Details Date Type Department Care Team (Late st Contact Info) Description 06/26/2021 Lab Requisition [facility] Pathology & Laboratory Medicine - [address] [address] Outr Resulting Lab, Provider Social [...] Neg and Giardia Antigen Neg 12:08 EST [facility] Feces SPECIMEN FROM RECTUM / Unknown Stool Collect / Unknown 06/26/2021 5:30 EST 06/27/2021 16:44 EST Provider Outr Resulting Lab MICROBIOLOGY - GENERAL ORDERABLES [facility] [address] [place] [address] documented in this encounter Visit Diagnoses Not on filedocumented in this encounter Care Teams Ppa Teacher Relationship Specialty Start Date End Date Zoila Gerard NP [address] [place] [address] PCP - General 01/05/21 documented as of this encounter
--- OUTSIDE RECORDS SUMMARY | 2024-06-03 10:28 | XMS_ITS | Encounter Summary ---
Author Organization [facility] Address [address] [place] [address] Care Team Providers Care Manager Pet Name Role Phone Zoila Gerard NP Primary Care Provider [phone] Encounter Details Date Type Department Care Team (Late st Contact Info) Description 10/28/2022 Lab Requisition [facility] - Main [place] [address] [place] [address] Len Escobedo [address] [place] [address] Other diseases of salivary glands [...] Name Priority Date/Time Associated Diagnosis Comments NON INSURANCE SERVICE REPRESENTATIVE/FNA CYTOLOGY Today 10/27/2022 9:40 EDT Other diseases of salivary glands documented in this encounter Results * NON INSURANCE SERVICE REPRESENTATIVE/FNA CYTOLOGY (10/27/2022 9:40 EDT) Note to Patient The following pathology results have been interpreted by your pathologist and may be available to you before your health provider has had the opportunity to review them. Please allow time for your provider to receive these results and explore management options, if applicable. 10/28/2022 14:[address] [facility] Final Diagnosis A. PAROTID MASS (CYST), RIGHT, ULTRASOUND-GUIDED FINE NEEDLE ASPIRATION: - Features suggestive of lymphoepithelial cyst. See comment. 10/28/2022 14:26 [facility] Diagnosis Comment The aspirate is [...] and radiologic impressions is recommended. 10/28/2022 14:26 [facility] Attestation By the signature below, the attending physician certifies that they have personally conducted a gross and/or microscopic examination of the described specimens and rendered or confirmed the above diagnosis. 10/28/2022 14:26 [facility] at 1426 Rapid Diagnosis PAROTID MASS (CYST), RIGHT, ULTRASOUND-GUIDED FINE NEEDLE ASPIRATION: Evaluation episode #1: Passes 1-4: Pass 1: 4-cc clear watery fluid; essentially acellular. Passes 2-4: Scant specimen; lymphocytes present in a degenerative background of proteinaceous debris. The rapid on-site evaluation was performed by Dr. Jeimy Restrepo at [facility] assisting SERVANDO Art, on 10/27/22 at 9:40 AM. 10/28/2022 14:26 [facility] Clinical History Right Parotid Mass 10/28/2022 14:26 [facility] Gross Description A. 1 fixed prepared slide, 4 air dried prepared slides, and 1 tube of CytoLyt were received and processed by selective cellular enhancement technique. 10/28/2022 14:26 [facility] Performing Lab [facility] 14:26 [facility] Scanned Images 10/28/2022 14:26 [facility] Fine Needle Aspirate ENTIRE PAROTID GLAND / Unknown 10/27/2022 9:40 EDT 10/28/2022 10:24 EDT Len AL PATHOLOGY ORDERABL ES [facility] [address] [place] [address] documented in this encounter Visit Diagnoses Diagnosis Other diseases of salivary glands documented in this encounter Care Teams Manager Pet Relationship Specialty Start Date End Date Zoila Gerard NP [address] [place] [address] PCP - General 01/05/21 documented as of this encounter
--- OUTSIDE RECORDS SUMMARY | 2024-06-03 10:28 | XMS_ITS | Clinical Summary ---
Author Organization [facility] [place] [address] Care Team Providers Care Beauty Counselor Name Role Phone Zoila Gerard APRN Primary [...] Hepatitis B vaccine (0-59 yrs) (1) 1985 Tetanus/Diphtheria/Pertussis Vaccines (1 - Tdap) 05/27 HPV test 1996 PAP Smear 1996 Breast Cancer Share Decision Needed 2006 Breast Cancer screening 2006 Zoster vaccine (1 of 2) 2016 Advance Directive 2021 Covid-19 Vaccine (1 - 2022- season) 2024 Influenza (Flu) vaccine (1 o f 1 - Influenza standard series) 04/07/2024 Care Teams Beauty Counselor Relationship Specialty Start Date End Date Zoila Gerard APRN [address] [place], [place] [id number] PCP - General Family Medicine 12/05/18
--- OUTSIDE RECORDS SUMMARY | 2024-06-03 10:28 | XMS_ITS | Clinical Summary ---
Author Organization [facility] Address [address] [place] [address] Care Team Providers Care Mud Car Worker Name Role Phone Zoila Gerard NP Primary [...] COVID-19 Vaccine ( season) 2024 Care Teams Mud Car Worker Relationship Specialty Start Date End Date Zoila Gerard NP [address] [place] [address] PCP - General 01/05/21
--- OUTSIDE RECORDS SUMMARY | 2024-06-03 10:28 | XMS_ITS | Encounter Summary ---
Author Organization [facility] [place] [address] Care Team Providers Care Cone Chocolate Dipper Name Role Phone Zolia Gerard APRN Primary Care Provider Encounter Details [...] on filedocumented in this encounter Care Teams Cone Chocolate Dipper Relationship Specialty Start Date End Date Zoila Gerard APRN [address] [place] [address] PCP - General Family Medicine 12/05/18 documented as of this encounter
--- OUTSIDE RECORDS SUMMARY | 2024-06-03 10:28 | XMS_ITS | Encounter Summary ---
Author Organization [facility] Address [address] [place] [address] Care Team Providers Care Product Tester Name Role Phone Zoila Gerard NP Primary Care Provider [phone] Encounter Details Date Type Department Care Team (Late st Contact Info) Description 06/26/2021 Lab Requisition [facility] Pathology & Laboratory Medicine - [address] [address] Outr Resulting Lab, Provider Social [...] Salmonella PCR Negative Negative 06/27/2021 22:24 EST [facility] Shigella/Enteroin vasive E. coli Negative Negative 06/27/2021 22:24 EST [facility] HN LAB CAMPYLOBACTER PCR Negative Negative 06/27/2021 22:24 EST [facility] Shiga Toxin PCR Negative Negative 22:24 EST [facility] Feces SPECIMEN FROM RECTUM / Unknown Stool Collect / Unknown 06/26/2021 5:30 EST 06/27/2021 16:44 EST Provider Outr Resulting Lab MICROBIOLOGY - GENERAL ORDERABLES [facility] [address] [place] [address] documented in this encounter Visit Diagnoses Not on filedocumented in this encounter Care Teams Product Tester Relationship Specialty Start Date End Date Zoila Gerard NP [address] [place], [place] [id number] PCP - General 01/05/21 documented as of this encounter
--- OUTSIDE RECORDS SUMMARY | 2024-06-03 10:29 | XMS_ITS | Encounter Summary ---
Author Organization [facility] Address [address] [place] [address] Care Team Providers Care Bottling Line Operator Name Role Phone UzielrajatZoila spring BLANCA Primary Care Provider [phone] Encounter Details Date Type Department Care Team (Late st Contact Info) Description 04/20/2020 Lab Requisition [facility] Pathology & Laboratory Medicine - [facility] [address] [place] [address] Outr Resulting Lab, Provider Social History Tobacco [...] in accordance with CLIA regulations, [employer] (CAP) guidelines (Oct 24, 2019), and FDA guidance (Oct 05, 2019). This test is only for use under the Food and Drug Administration's Emergency Use Authorization. Swab ENTIRE NASOPHARYNX / Unknown 04/20/2020 9:09 EDT 04/20/2020 15:25 EDT Provider Outr Resulting Lab MICROBIOLOGY - GENERAL ORDERABLES [place] * COVID-19 TESTING (04/20/2020 9:09 EDT) COVID-19 rt-PCR Result NEGATIVE Negative 04/21/2020 12:[address] [facility] Comment: 2019-novel Coronavirus (2019-nCoV) not [...] in accordance with CLIA regulations, [employer] (CAP) guidelines (Oct 24, 2019), and FDA guidance (Oct 05, 2019). This test is only for use under the Food and Drug Administration's Emergency Use Authorization. Performing Lab [facility] 04/21/2020 12:19 EDT [facility] Swab 04/20/2020 9:09 EDT 04/20/2020 15:25 EDT Provider Outr Resulting Lab MICROBIOLOGY - GENERAL ORDERABLES [facility] [address] [place] [address] [facility] [place] documented in this encounter Visit Diagnoses Not on filedocumented in this encounter Care Teams Bottling Line Operator Relationship Specialty Start Date End Date Zoila Gerard [place] [address] [place] [address] PCP - General 01/05/21 documented as of this encounter
--- OUTSIDE RECORDS SUMMARY | 2024-06-03 10:29 | XMS_ITS | Encounter Summary ---
Author Organization [facility] Address [address] [place] [address] Care Team Providers Care Adoption Coordinator Name Role Phone UzielrajatZoila spring BLANCA Primary Care Provider [phone] Encounter Details Date Type Department Care Team (Late st Contact Info) Description 01/21/2020 Lab Requisition [facility] Pathology & Laboratory Medicine - [address] [address] Outr Resulting Lab, Provider Social History Tobacco [...] Quantiferon Interpretation Negative Negative 01/22/2020 13:[address] [facility] Comment: No interferon-gamma response to [...] minus Nil 0.01 IU/ml 01/22/20 13:[address] [facility] TB2 Ag minus Nil 0.01 IU/mL 01/22/20 13:[address] [facility] Blood VENOUS BLOOD / Unknown 01/20/2020 9:46 EDT 01/21/2020 17:47 EDT Narrative [facility] - 01/22/2020 13:02 EDT Results were obtained with the Qiagen QuantiFERON-TB Gold Plus KENNETH. Provider Outr Resulting Lab CHEMISTRY & BLOOD GAS ORDERABLES [facility] [address] [place] [address] documented in this encounter Visit Diagnoses Not on filedocumented in this encounter Care Teams Adoption Coordinator Relationship Specialty Start Date End Date Zoila Gearrd [place] [address] PCP - General 01/05/21 documented as of this encounter
--- OUTSIDE RECORDS SUMMARY | 2024-06-03 10:29 | XMS_ITS | Encounter Summary ---
Author Organization [facility] Address [address] [place] [address] Care Team Providers Care Marketing Agent Name Role Phone Zoila Gerard NP Primary Care Provider [phone] Encounter Details Date Type Department Care Team (Late st Contact Info) Description 02/01/2021 Lab Requisition [facility] Pathology & Laboratory Medicine - [facility] [address] [place] [address] Leanne Ramirez MD [address] [place] [address] Encounter for screening for malignant neoplasm [...] - Deeper sections x3 examined. 02/03/2021 8:15 [facility] Attestation By the signature below, the attending physician certifies that they have 1) personally conducted a gross and/or microscopic examination of the described specimen(s), and/or personally interpreted the results of laboratory testing of the described specimen(s), and 2) personally rendered or confirmed the above diagnosis. 02/03/2021 8:15 [facility] at 0815 Clinical History GERD & hiatal hernia, screening colonoscopy 02/03/2021 8:15 [facility] Gross Description A. Received in [...] DENZER, PA(ASCP) 02/01/2021 17:14 02/03/2021 8:[address] [facility] Performing Lab [facility] 8:[address] [facility] Scanned Images 02/03/2021 8:[address] [facility] Tissue DESCENDING COLON STRUCTURE [...] EDT Leanne Ramirez MD PATHOLOGY ORDERA BLES [facility] [address] [place] [address] documented in this encounter Visit Diagnoses Diagnosis Encounter for screening for malignant neoplasm of colon Special screening for malignant neoplasms, colon documented in this encounter Care Teams Marketing Agent Relationship Specialty Start Date End Date Zoila Gerard NP [address] [address] PCP - General 01/05/21 documented as of this encounter
--- OUTSIDE RECORDS SUMMARY | 2024-06-03 10:29 | XMS_ITS | Encounter Summary ---
Author Organization [facility] Address [address] [place] [address] Care Team Providers Care Combat Engineer Name Role Phone TaylorZoila spring BLANCA Primary Care Provider [phone] Encounter Details Date Type Department Care Team (Late st Contact Info) Description 01/20/2020 Lab Requisition [facility] Pathology & Laboratory Medicine - [facility] [address] [place] [address] Outr Resulting Lab, Provider Social History Tobacco [...] <3.1 See Note mIU/mL 01/21/2020 9:[address] [facility] Comment: Reference Range for Hep B Surface Ab, Quant: Positive: >= 10.0 mIU/mL Negative: ??< 10.0 mIU/mL Patient is presumed to not be immune to infection with Hepatitis B Virus. Hep B Surface Ab, Qualitative Negative See Note 01/21/2020 9:[address] [facility] Comment: Reference Range for Hep B Surface Ab, Qual: Unvaccinated: ??Negative Vaccinated: ??Positive Blood VENOUS BLOOD / Unknown 01/20/2020 9:46 EDT 01/20/2020 16:28 EDT Provider Outr Resulting Lab CHEMISTRY & BLOOD GAS ORDERABLES Performing Organization Address [facility] Co de Phone Number [facility] [address] [place] [address] * MEASLES IGG AB (01/20/2020 9:46 EDT) Measles IgG Ab Positive See Note 01/21/2020 9:[address] [facility] Comment:Presence of detectab le measles virus IgG antibodies. Blood VENOUS BLOOD / Unknown 01/20/2020 9:46 EDT 01/20/2020 16:28 EDT Provider Outr Resulting Lab IMMUNOLOGY A ND SEROLOGY ORDERABLES Performing Organization Address [facility] Co de Phone Number [facility] [address] [place] [address] * VARICELLA IGG ANTIBODY (01/20/2020 9:46 EDT) Varicella IgG Ab Positive See Note 01/21/2020 9:[address] [facility] Comment:Presence of detectab le Varicella Zoster virus IgG antibodies. Blood VENOUS BLOOD / Unknown 01/20/2020 9:46 EDT 01/20/2020 16:28 EDT Provider Outr Resulting Lab IMMUNOLOGY A ND SEROLOGY ORDERABLES Performing Organization Address [facility] Co de Phone Number [facility] [address] [place] [address] * MUMPS ANTIBODY IGG (01/20/2020 9:46 EDT) Mumps Antibody IgG Positive See Note 01/21/2020 9:[address] [facility] Comment:Presence of detectab le mumps virus IgG antibodies. Blood VENOUS BLOOD / Unknown 01/20/2020 9:46 EDT 01/20/2020 16:28 EDT Provider Outr Resulting Lab IMMUNOLOGY A ND SEROLOGY ORDERABLES Performing Organization Address [facility] Co de Phone Number [facility] [address] [place] [address] * RUBELLA IGG ANTIBODY (01/20/2020 9:46 EDT) Rubella IgG Ab Positive See Note 01/21/2020 9:[address] [facility] Comment:Positive for IgG ant ibodies to Rubella virus. Blood VENOUS BLOOD / Unknown 01/20/2020 9:46 EDT 01/20/2020 16:28 EDT Provider Outr Resulting Lab CHEMISTRY & BLOOD GAS ORDERABLES Performing Organization Address [facility] de Phone Number [facility] [address] [place] [address] documented in this encounter Visit Diagnoses Not on filedocumented in this encounter Care Teams Combat Engineer Relationship Specialty Start Date End Date Zoila Gerard NP [address] [place] [address] PCP - General 01/05/21 documented as of this encounter
--- NOTE | 2024-06-03 10:45 | DI.RAD_ITS ---
Exam(s) XR CHEST 2V PA LATERAL EXAM: XR CHEST 2V PA LATERAL CLINICAL HISTORY: cough, sob TECHNIQUE: 2D digital imaging was performed. Two views. COMPARISON: CT CT CHEST HIGH RESOLUTION from 05/26/2021 FINDINGS: HEART: Normal size. Aorta: Not dilated. PULMONARY VASCULATURE: Normal. MEDIASTINUM: Unremarkable. LUNGS: Clear. PLEURAL SPACE: No pleural effusion or pneumothorax. Mild biapical pleural thickening. BONE:Unremarkable for age. SOFT TISSUES: Unremarkable. IMPRESSION: No acute abnormality. DATA REPOSITORY: RADIATION DOSE DELIVERED:
[2024-06-03] MEDS: Albuterol/Ipratropium 3 ML UPD VIAL UPD (11:12)
[2024-06-03] MEDS: methylPREDNISolone SUCC 125 MG VIAL 60 MG IVP (11:12)
--- NOTE | 2024-06-03 11:12 | W.ED.GENAD ---
Discharge Plan Disposition Patient Disposition: Home Condition: Stable Discharge Details Clinical Impression: COPD (chronic obstructive pulmonary disease) with acute bronchitis Primary Care Provider: JONNY HUNTER ED Provider: Oseas Seymour Home Meds and New Rx's Prescriptions: New amoxicillin-pot clavulanate 875-125 mg tablet 1 tab PO BID Qty: 10 0RF prednisone 20 mg tablet 40 mg PO BID Qty: 8 0RF Continued levothyroxine 150 mcg capsule 150 mcg PO DAILY buspirone 5 mg tablet 5 mg PO BID CPAP 1 device miscellaneous HS Stiolto Respimat 2.5-2.5 mcg/actuation mist 2 puff inhalation DAILY Qty: 4 12RF pantoprazole [Protonix] 40 mg tablet,delayed release (DR/EC) 40 mg PO BID Qty: 60 7RF pramipexole [Mirapex] 0.5 mg Tablet 0.5 mg PO BID PRN polyethylene glycol 3350 [Miralax] 17 gram Powder In Packet 17 g PO DAILY Ozempic 1 mg/dose (4 mg/3 mL) pen injector 1 mg SUBCUT .weekly Discharge Instructions Instructions: COPD Exacerbation, Adult ED Additional Instructions: You were given steroid dose here in the Emergency Department. Your next dose is tomorrow. You are given a dose of antibiotic here in the Emergency Department. Your next dose is tonight. Please be sure to take the full course of antibiotic as prescribed. Please use your albuterol nebulizer as prescribed. Please contact your primary care physician to arrange follow-up. Return to the ER immediately for any worsening or new concerning symptoms. Stand Alone Forms: Work Release Referrals: JONNY HUNTER, [employer] [Primary Care Provider] - Discharge Data Discharge Date/Time-TO BE ENTERED AT DEPARTURE: 06/03/24 14:25 HPI General Mode of arrival: ambulatory. Date/Time Provider Initiated Documentation: 06/03/24 10:27. Limitations to Documentation: no limitations. Information obtained by: patient. HPI Narrative: 59-year-old female with history of COPD presents with chief complaint of shortness of breath. Patient notes worsening shortness of breath over the past 6 days. She was seen by PCP on , diagnosed with influenza and prescribed neb treatments. She has been using neb treatments and continues to have symptoms. Symptoms are severe. Shortness of breath worse with any exertion. No associated swelling. No fever. She does have associated cough that is nonproductive. She also notes excessive fatigue. She has some pleuritic chest discomfort with coughing. Otherwise no chest pain. Related Data Home Medications ?Medication ?Instructions ?Recorded ?Confirmed levothyroxine 150 mcg capsule 150 mcg PO DAILY 01/25/19 06/03/24 pramipexole 0.5 mg tablet (Mirapex) 0.5 mg PO BID PRN 05/11/19 06/03/24 CPAP 1 device miscellaneous HS 10/08/19 06/03/24 polyethylene glycol 3350 17 gram 17 g PO DAILY 12/10/20 06/03/24 oral powder packet (Miralax) tiotropium 2.5 mcg-olodaterol 2.5 2 puff inhalation DAILY #4 grams 07/14/21 06/03/24 mcg/actuation mist for inhalation (Stiolto Respimat) pantoprazole 40 mg tablet,delayed 40 mg PO BID #60 tabs 01/17/22 06/03/24 release (Protonix) semaglutide 1 mg/dose (4 mg/3 mL) 1 mg subcut .weekly 04/18/24 06/03/24 subcutaneous pen injector (Ozempic) buspirone 5 mg tablet 5 mg PO BID 05/30/24 06/03/24 amoxicillin 875 mg-potassium 1 tab PO BID #10 tabs 06/03/24 clavulanate 125 mg tablet prednisone 20 mg tablet 40 mg (2 x 20 mg) PO BID #8 tabs 06/03/24 Previous Rx's ?Medication ?Instructions ?Recorded tiotropium 2.5 mcg-olodaterol 2.5 2 puff inhalation DAILY #4 grams 07/14/21 mcg/actuation mist for inhalation (Stiolto Respimat) pantoprazole 40 mg tablet,delayed 40 mg PO BID #60 tabs 01/17/22 release (Protonix) amoxicillin 875 mg-potassium 1 tab PO BID #10 tabs 06/03/24 clavulanate 125 mg tablet prednisone 20 mg tablet 40 mg (2 x 20 mg) PO BID #8 tabs 06/03/24 Allergies Allergy/AdvReac Type Severity Reaction Status Date / Time propranolol Allergy Mild Topical Verified 06/03/24 10:27 Irritation lurasidone (From Latuda) AdvReac Agitation Verified 06/03/24 10:27 sertraline (From Zoloft) AdvReac Psychosis Verified 06/03/24 10:27 General Stated Complaint: SOB REBECA: 3 Review of Systems All systems reviewed & are unremarkable except as noted in HPI and below Constitutional Constitutional: Denies fever(s) Respiratory Respiratory: Reports as per HPI Exam Const General: cooperative and no acute distress HENMT Mouth: moist mucous membranes Eyes Conjunctivae: normal conjunctivae Sclera: normal sclerae Neck Neck: trachea midline and supple Resp Effort & Inspection: able to speak in complete sentences, tachypneic and no use of accessory muscles Auscultation: rales bilaterally and wheezes expiratory wheezes Cardio Rate: regular rate and not tachycardic Rhythm: regular rhythm Heart Sounds: no gallops, no murmurs and no rubs GI Palpation: soft, not firm, no guarding, no masses, not rigid and nontender Skin General skin exam: no rashes or lesions noted Neuro General: patient alert, patient awake, patient oriented x3 and tone normal Extrem General: no calf tenderness and no edema Course Vital Signs Vital signs: Vital Signs Temperature 36.5 C 06/03/24 10:18 Pulse 86 06/03/24 10:18 Respiratory Rate 26 H 06/03/24 10:18 Blood Pressure 149/67 H 06/03/24 10:18 Pulse Oximetry 99 06/03/24 10:18 Temperature 36.5 C 06/03/24 10:25 Temperature Source Oral 06/03/24 10:25 Pulse 80 06/03/24 10:47 Respiratory Rate 22 06/03/24 10:38 Respiratory Effort Short of Breath, Incrsd Work of Breathing 06/03/24 10:38 Respiratory Depth Shallow 06/03/24 10:38 Respiratory Pattern Tachypnea 06/03/24 10:38 Blood Pressure 131/70 06/03/24 10:47 Blood Pressure Mean 88 06/03/24 10:47 Blood Pressure Position Sitting 06/03/24 10:25 Pulse Oximetry 100 06/03/24 11:10 Oxygen Delivery Method Room Air 06/03/24 10:25 Oxygen Flow Rate 0 06/03/24 10:25 Pain Level 0 06/03/24 10:25 Medical Decision Making 1119 --59-year-old female smoker with history of COPD, here with shortness of breath, nonproductive cough, fatigue over the past 6 days. Patient was diagnosed with influenza 4 days ago and started on nebulized albuterol. Patient continues to have progressive and worsening symptoms. She is saturating well on room air, tachypneic, hemodynamically stable and afebrile. Screening EKG was reviewed and interpreted by me: Please report, sinus rhythm 88 bpm, first-degree AV block with [place] interval of 237. Patient has wheezing bilaterally with rales. No concern for acute COPD exacerbation with viral pneumonia. Consider bacterial pneumonia. Plan to obtain chest x-ray. I will give DuoNeb treatment and Solu-Medrol IV. 1412 -- Chest x-ray was reviewed and interpreted by radiology: No acute abnormality. Patient reassessed and feeling much better after neb treatment and steroids. COVID, influenza and RSV negative. Concern for potential superimposed bacterial infection. Plan to treat with Augmentin. Plan to continue steroid burst. Plan for close outpatient follow-up with PCP for reassessment. Disposition decision was made weighing the risks and benefits of hospitalization versus outpatient treatment, the risk for further decompensation, and the patient's wishes. The patient was stable and requested discharge. Prior to discharge, my usual and customary return precautions were reviewed with the patient - this included follow-up instructions and reason to return to the emergency department if condition worsens, does not improve as expected, or other new concerns arise. Lab Data Lab results reviewed: Yes I reviewed the patient's lab results. Labs: Laboratory Tests Range/Units 06/03/24 06/03/24 10:48 11:06 WBC (4.4-10.8) 10^3/uL 10.72 RBC (3.93-5.22) 10^6/uL 4.99 Hgb (11.2-15.7) g/dL 14.8 Hct (36.0-46.0) % 46.1 H MCV (80-95) fL 92 MCH (27.0-33.0) pg 29.7 MCHC (32.0-36.0) % 32.1 RDW (11.7-14.6) % 14.1 Plt Count (130-400) 10^3/uL 302 MPV (8.0-11.0) fL 10.3 Immature Gran % % 0.4 Neutrophils % % 64.2 Lymphocytes % % 28.1 Monocytes % % 3.1 Eosinophils % % 3.5 Basophils % % 0.7 Nucleated RBC % (0.0-0.3) % 0.0 Absolute Neutrophils (1.2-6.7) 10^3/uL 6.90 H Absolute Lymphocytes (1.2-3.4) 10^3/uL 3.01 Absolute Monocytes (0.1-0.8) 10^3/uL 0.33 Absolute Eosinophils (0.0-0.7) 10^3/uL 0.37 Absolute Basophils (0.0-0.2) 10^3/uL 0.07 Sodium (136-145) mmol/L 142 Potassium (3.5-5.1) mmol/L 4.0 Chloride (98-107) mmol/L 106 Carbon Dioxide (21.0-32.0) mmol/L 27.5 Anion Gap (3-11) mmol/L 8.5 BUN (7-18) mg/dL 7 Creatinine (0.55-1.02) mg/dL 1.0 Est GFR (CKD-EPI 2020) (mL/min/1.73m2) 65.30 Glucose (74-106) mg/dL 150 H Calcium (8.5-10.1) mg/dL 9.7 Magnesium (1.8-2.4) mg/dL 2.1 Total Bilirubin (0.2-1.0) mg/dL 0.34 AST (15-37) U/L 16 ALT (14-59) U/L 22 Alkaline Phosphatase (46-116) U/L 104 Troponin I (<or=51) ng/L 4 Total Protein (6.4-8.2) g/dL 8.6 H Albumin (3.4-5.0) g/dL 3.8 TSH (0.36-3.74) uIU/mL 2.56 COVID-19 Source Nasopharynx SARS-CoV-2 (PCR) (Negative) Negative Influenza Type A (PCR) (Negative) Negative Influenza Type B (PCR) (Negative) Negative RSV (PCR) (Negative) Negative Quality:SDOH Health Related Social Needs: No Data to Display PFSH All Active Problems (Updated 06/03/24 @ 14:14 by Oseas Seymour MD) COPD (chronic obstructive pulmonary disease) with acute bronchitis (Acute) Ganglion cyst of volar aspect of right wrist (Acute) Mass of right parotid gland (Acute) Chronic maxillary sinusitis (Acute) Pulmonary nodules (Acute) Nicotine dependence, cigarettes, uncomplicated (Acute) Aspiration into airway (Acute) Restrictive lung disease (Acute) Dehydration (Acute) Colon polyp, hyperplastic (Acute ~01/2021) Tubular adenoma (Acute ~01/2021) Hx of adenomatous colonic polyps (Acute) Vertigo (Acute) Prolonged P-R interval (Acute) GERD (gastroesophageal reflux disease) (Chronic) Hiatal hernia (Chronic) Chest pain (Acute) Diabetes (Chronic) Encounter for screening for other viral diseases (Acute) Difficult airway for intubation (Acute) [place] difficult airway 7 yrs ago in [place] requiring fiberoptic intubation with difficulty. No other history available. Abnormal auditory perception of both ears (Acute) Hoarseness of voice (Acute) Bloating (Acute) Early satiety (Acute) Screening for colon cancer (Acute) Abdominal pain (Acute) Abdominal bloating with cramps (Acute) Guillen cyst (Acute) removed from behind right knee X2. Difficult intubation (Acute) Hyperlipidemia (Chronic) HTN (hypertension) (Chronic) Heart murmur (Chronic) Medical History Hearing loss Vitamin D deficiency Vitamin B 12 deficiency Iron deficiency anemia Post-nasal drip Environmental allergies Carpal tunnel syndrome, right Ganglion cyst of volar aspect of left wrist De Quervain's tenosynovitis, right (~12/2019) Restless leg syndrome Gout Hypothyroidism Non-insulin dependent type 2 diabetes mellitus Depression Anxiety Bipolar 1 disorder COPD (chronic obstructive pulmonary disease) Dysuria Fibromyalgia SOB (shortness of breath) Bilateral lower extremity edema JADON (obstructive sleep apnea) Oral lesion Dental caries Right lateral epicondylitis Surgical History History of esophagogastroduodenoscopy (EGD) (~01/2021) History of colonoscopy (~01/2021) Hx of tonsillectomy S/P cholecystectomy Family History Father Heart disease Maternal Grandmother Heart disease Social History Smoking/Tobacco Use Status: Current every day Tobacco Type: cigarettes Years smoked: 40 Smoking risk assessment performed?: Yes Alcohol Intake: never Drug use: Never Substance use type: does not use Housing: house Current gender identity: female What type of physical activity do you participate in: none Do you feel safe at home: Yes Do you feel safe in your relationship?: Yes Additional Social history: Lives with sister.
[2024-06-03 11:13] LABS: Abs Immature Grans 0.04 10^3/uL (0.0-0.06); Absolute Basophil Count 0.07 10^3/uL (0.0-0.2); Absolute Eosinophil Count 0.37 10^3/uL (0.0-0.7); Absolute Lymphocyte Count 3.01 10^3/uL (1.2-3.4); Absolute Monocyte Count 0.33 10^3/uL (0.1-0.8); Basophils % 0.7 %; Eosinophils % 3.5 %; HCT 46.1 % (36.0-46.0); HGB 14.8 g/dL (11.2-15.7); Immature Grans % 0.4 %; Lymphocytes % 28.1 %; MCH 29.7 pg (27.0-33.0); MCHC 32.1 % (32.0-36.0); MCV 92 fL (80-95); MPV 10.3 fL (8.0-11.0); Monocytes % 3.1 %; Neutrophils % 64.2 %; Platelet Count 302 10^3/uL (130-400); RBC 4.99 10^6/uL (3.93-5.22); RDW 14.1 % (11.7-14.6); RDW-SD 47.8 fL; WBC 10.72 10^3/uL (4.4-10.8)
[2024-06-03 11:36] LABS: ALT 22 U/L (14-59); AST 16 U/L (15-37); Albumin 3.8 g/dL (3.4-5.0); Alkaline Phosphatase 104 U/L (46-116); Anion Gap 8.5 mmol/L (3-11); BUN 7 mg/dL (7-18); Bilirubin, Total 0.34 mg/dL (0.2-1.0); CO2 27.5 mmol/L (21.0-32.0); Calcium 9.7 mg/dL (8.5-10.1); Chloride 106 mmol/L (98-107); Glucose 150 mg/dL (74-106); Magnesium 2.1 mg/dL (1.8-2.4); Sodium 142 mmol/L (136-145); Total Protein 8.6 g/dL (6.4-8.2); Troponin I 4 ng/L (<or=51)
[2024-06-03 11:42] LABS: COVID-19 PCR Negative (Negative); Influenza A PCR Negative (Negative); Influenza B PCR Negative (Negative); RSV PCR Negative (Negative)
[2024-06-03 11:43] LABS: Source Nasopharynx
[2024-06-03 11:45] LABS: TSH (W/Ref FT4) 2.56 uIU/mL (0.36-3.74)
[2024-06-03] MEDS: Amoxicillin 875/Clav. 125 TAB PO (14:17)
== END 2024-06-03 14:25 | disposition home or self-care (01) ==
PROVIDERS: Emergency Provider Student in an Organized Health Care Education/Training Program; PCP Nurse Practitioner Family
DX: J44.0 Chronic obstructive pulmonary disease with (acute) lower respiratory infection (principal); J20.9 Acute bronchitis, unspecified; E11.9 Type 2 diabetes mellitus without complications; I10 Essential (primary) hypertension; E78.5 Hyperlipidemia, unspecified; F17.210 Nicotine dependence, cigarettes, uncomplicated; Z79.85 Long-term (current) use of injectable non-insulin antidiabetic drugs
CPT/HCPCS: 80053; 87637; 93005; 94640; 96374; 99285; 71046; 83735; 84443; 84484; 85025; 93010; J2919; J7620

== ENCOUNTER 2024-07-16 01:16 | Outpatient (CLI) | payer BC, SELFPAY ==
--- NOTE | 2024-07-16 | DI.CT_ITS ---
Exam(s) CT ABDOMEN PELVIS W EXAM: CT ABDOMEN PELVIS W CLINICAL HISTORY: INDIGESTION, EPIGASTRIC PAIN, R10.13. TECHNIQUE: Imaging Protocol: Axial computed tomography images with coronal and sagittal reformatted images were created and reviewed CONTRAST MATERIAL: Intravenous: Omnipaque 350 Contrast volume:100 ml Oral: yes 900 mL Readi-Cat COMPARISON: CT CT ABDOMEN PELVIS W from 12/30/2020 FINDINGS: ABDOMEN and PELVIS: Lung Bases: No acute findings. Liver: Mildly enlarged. Mild hepatic steatosis. No suspicious mass. Gallbladder and biliary tract: Status post cholecystectomy. No biliary dilation. Pancreas: Normal density. No abnormal calcifications or inflammatory process. No evidence of mass. Spleen: Normal. Kidneys: Normal size, contour and axis. No radiodense stones. No obstructive uropathy. No suspicious masses seen. Adrenal glands: No masses seen. Vasculature: Abdominal aorta non-dilated. Mild atherosclerotic changes. Soft tissues: Unremarkable. Bladder: No gross wall thickening. No calculi.No focal mass. Bowel: No obstruction. No bowel wall thickening. Appendix not visualized. No pericecal inflammator y changes. Moderate to increased quantity of stool. Peritoneal cavity: No ascites. No focal collection. No mesenteric inflammatory response. No free air . Bones: Unremarkable for age. Reproductive organs: Unremarkable. Lymph nodes: No pathologically enlarged lymph nodes. IMPRESSION:: No acute abnormality in the abdomen or pelvis. RADIATION DOSE DELIVERED: Total DLP DATA REPOSITORY: All CT scans at this facility are submitted to the National Radiology Data Registry (NRDR) Dose Index Registry (DIR) with the [employer] (ACR). RADIATION OPTIMIZATION: All CT scans at this facility use at least one of these dose optimization te chniques: automated exposure control; mA and/or kV adjustment per patient size (includes targeted exa ms where dose is matched to clinical indication); or iterative reconstruction.
[2024-07-16] MEDS: Barium Sulfate 2% W/V-Berry Smoothie 450 ML BTL PO (12:19)
[2024-07-16] MEDS: Barium Sulfate 2% W/V-Creamy Vanilla Smoothie 450 ML BTL PO (12:19)
[2024-07-16 12:27] LABS: BUN 8 mg/dL (7-18); CREATININE 1.1 mg/dL (0.55-1.02); Estimated GFR 58.24 (mL/min/1.73m2)
[2024-07-16] MEDS: Omnipaque 350 MG/ML 100 ML BTL IJ (14:18)
[2024-07-16] MEDS: Normal Saline - Diluent 50 ML VIAL IJ (14:19)
== END 2024-07-16 01:36 ==
LOC: DI 01:16
PROVIDERS: PCP Nurse Practitioner Family; Visit Provider Nurse Practitioner Family
DX: R10.13 Epigastric pain (principal)
CPT/HCPCS: 84520; 74177; 82565; J3490

== ENCOUNTER 2024-07-18 15:29 | Outpatient (CLI) | payer BC, SELFPAY ==
[2024-07-18 15:33] LABS: Abs Immature Grans 0.05 10^3/uL (0.0-0.06); Absolute Basophil Count 0.11 10^3/uL (0.0-0.2); Absolute Eosinophil Count 0.49 10^3/uL (0.0-0.7); Absolute Lymphocyte Count 3.04 10^3/uL (1.2-3.4); Absolute Monocyte Count 0.56 10^3/uL (0.1-0.8); Absolute Neutrophil Count 7.52 10^3/uL (1.2-6.7); Basophils % 0.9 %; Eosinophils % 4.2 %; HCT 44.4 % (36.0-46.0); HGB 14.2 g/dL (11.2-15.7); Immature Grans % 0.4 %; Lymphocytes % 25.8 %; MCH 29.4 pg (27.0-33.0); MCV 92 fL (80-95); Monocytes % 4.8 %; Neutrophils % 63.9 %; Platelet Count 290 10^3/uL (130-400); RBC 4.83 10^6/uL (3.93-5.22); RDW 13.2 % (11.7-14.6); RDW-SD 45.1 fL; WBC 11.77 10^3/uL (4.4-10.8)
--- OUTSIDE RECORDS SUMMARY | 2024-07-18 15:33 | XMS_ITS | Encounter Summary ---
Author Organization [facility] [place] [address] Care Team Providers Care Quality Facilitator Name Role Phone Zoila Gerard APRN Primary Care Provider [phone] Encounter Details Date Type Department Care Team [...] on filedocumented in this encounter Care Teams Quality Facilitator Relationship Specialty Start Date End Date Zoila Gerard APRN [address] [place] [address] PCP - General Family Medicine 12/05/18 documented as of this encounter
--- OUTSIDE RECORDS SUMMARY | 2024-07-18 15:33 | XMS_ITS | Encounter Summary ---
Author Organization [facility] Address [address] [place] [address] Care Team Providers Care Ostomy Rn Name Role Phone UzielrajatZoila spring BLANCA Primary Care Provider [phone] Encounter Details Date Type Department Care Team (Late st Contact Info) Description 08/16/2021 Lab Requisition [facility] Pathology & Laboratory Medicine - [address] [id number] Outr Resulting Lab, Provider Social History Tobacco Use Types Packs/Day Years Used Date Smoking Tobacco: Never Assessed Interpersonal Safety Answer Date Record ed Physically Hurt Never 06/30/2020 Verbally Threaten Not on file 06/30/2020 Comments Unknown Sex and Gender Information Value Date Recorded Sex Assigned at Not on file Legal Sex Female 12:02 EDT Gender Identity Not on file Sexual Orientation Not on file documented as of this encounter Plan of Treatment Not on file documented as of this encounter Procedures Procedure Name Priority Date/Time Associated Diagnosis Comments ZZCOVID-19 TEST [facility] PCR Today 08/16/2021 9:13 EST COVID-19 TESTING Routine 08/16/2021 9:13 EST documented in this encounter Results * COVID-19 TEST [facility] PCR (08/16/2021 9:13 EST) Swab 08/16/2021 9:13 EST 08/16/2021 17:30 EST us Provider Outr Resulting Lab MICROBIOLOGY - GENER AL ORDERABLES Final Result [facility] [address] [place] [address] * COVID-19 TESTING (08/16/2021 9:13 EST) COVID-19 rt-PCR Result Negative Negative 08/16/2021 20:42 EST [facility] Comment: This test has [...] history, and epidemiological information. Performed on the [facility] instrument Performing Lab [place] [facility] 08/16/2021 20:42 EST [facility] Swab 08/16/2021 9:13 EST 08/16/2021 17:30 EST us Provider Outr Resulting Lab MICROBIOLOGY - GENER AL ORDERABLES Final Result Performing Organization Address City/State/[facility] Co de Phone Number [facility] [address] [place] [address] documented in this encounter Visit Diagnoses Not on filedocumented in this encounter Care Teams Ostomy Rn Relationship Specialty Start Date End Date Zoila [place] [address] PCP - General 01/05/21 documented as of this encounter
--- OUTSIDE RECORDS SUMMARY | 2024-07-18 15:33 | XMS_ITS | Encounter Summary ---
Author Organization [facility] Address [address] [place] [address] Care Team Providers Care Flag Signalman Name Role Phone Zoila Gerard NP Primary Care Provider [phone] Encounter Details Date Type Department Care Team (Late st Contact Info) Description 10/28/2022 Lab Requisition [facility] - Main [place] [address] [place], [place] [id number] Len Escobedo, [address] [place] [address] Other diseases of salivary glands [...] Name Priority Date/Time Associated Diagnosis Comments NON HYBRID TESTER/FNA CYTOLOGY Today 10/27/2022 9:40 EDT Other diseases of salivary glands documented in this encounter Results * NON HYBRID TESTER/FNA CYTOLOGY (10/27/2022 9:40 EDT) Note to Patient The following pathology results have been interpreted by your pathologist and may be available to you before your health provider has had the opportunity to review them. Please allow time for your provider to receive these results and explore management options, if applicable. 10/28/2022 14:26 EDT [facility] Final Diagnosis A. PAROTID MASS (CYST), RIGHT, ULTRASOUND-GUIDED FINE NEEDLE ASPIRATION: - Features suggestive of lymphoepithelial cyst. See comment. 10/28/2022 14:26 [facility] Diagnosis Comment The aspirate is [...] and radiologic impressions is recommended. 10/28/2022 14:26 [facility] Attestation By the signature below, the attending physician certifies that they have personally conducted a gross and/or microscopic examination of the described specimens and rendered or confirmed the above diagnosis. 10/28/2022 14:26 [facility] at 1426 Rapid Diagnosis PAROTID MASS (CYST), RIGHT, ULTRASOUND-GUIDED FINE NEEDLE ASPIRATION: Evaluation episode #1: Passes 1-4: Pass 1: 4-cc clear watery fluid; essentially acellular. Passes 2-4: Scant specimen; lymphocytes present in a degenerative background of proteinaceous debris. The rapid on-site evaluation was performed by Dr. Jeimy Restrepo at [facility] assisting SERVANDO Art, on 10/27/22 at 9:40 AM. 10/28/2022 14:26 [facility] Clinical History Right Parotid Mass 10/28/2022 14:26 [facility] Gross Description A. 1 fixed prepared slide, 4 air dried prepared slides, and 1 tube of CytoLyt were received and processed by selective cellular enhancement technique. 10/28/2022 14:26 [facility] Performing Lab [facility] 14:26 [facility] Scanned Images 10/28/2022 14:26 [facility] Fine Needle Aspirate ENTIRE PAROTID GLAND / Unknown 10/27/2022 9:40 EDT 10/28/2022 10:24 EDT us Len AL PATHOLOGY ORDERABLES Final Result Performing Organization Address City/State/[facility] Co de Phone Number [facility] [address] [place] [address] documented in this encounter Visit Diagnoses Diagnosis Other diseases of salivary glands documented in this encounter Care Teams Flag Signalman Relationship Specialty Start Date End Date Zoila Gerard NP [facility] [place] [address] PCP - General 01/05/21 documented as of this encounter
--- OUTSIDE RECORDS SUMMARY | 2024-07-18 15:33 | XMS_ITS | Encounter Summary ---
Author Organization [facility] Address [address] [place] [address] Care Team Providers Care Industrial Energy Engineer Name Role Phone Zoila Gerard NP Primary Care Provider [phone] Encounter Details Date Type Department Care Team (Late st Contact Info) Description 05/10/2021 Lab Requisition [facility] Pathology & Laboratory Medicine - [facility] [address] [place] [address] Outr Resulting Lab, Provider Social History Tobacco [...] 13:53 EDT) Hold Hold 05/10/2021 22:46 EDT [facility] Blood VENOUS BLOOD / Unknown 05/10/2021 13:53 EDT 05/10/2021 21:40 EDT us Provider Outr Resulting Lab LAB INFO SERVICE AND SUPPORT & PHONE RESULT Final Result [facility] [address] [place] [address] * HOLD SST (05/10/2021 13:53 EDT) Hold Hold 05/10/2021 22:46 EDT [facility] Blood VENOUS BLOOD / Unknown 05/10/2021 13:53 EDT 05/10/2021 21:40 EDT us Provider Outr Resulting Lab LAB INFO SERVICE AND SUPPORT & PHONE RESULT Final Result [facility] [address] [place] [address] * RHEUMATOID FACTOR (05/10/2021 13:53 EDT) [facility] Rheumatoid Factor <8.6 <12.0 IU/mL 05/10/2021 22:10 EDT [facility] Blood VENOUS BLOOD / Unknown 05/10/2021 13:53 EDT 05/10/2021 21:25 EDT us Provider Outr Resulting Lab CHEMISTRY & BLOOD GA S ORDERABLES Final Result [facility] [address] [place] [address] * ANTI DNA (DOUBLE STRANDED) (05/10/2021 13:53 EDT) Pathologist [facility] Anti-DNA (Double Stranded) <12.3 <30.0 IU/mL 05/11/2021 10:36 EDT [facility] Comment: ? Negative: ??<30.0 IU/mL ? Borderline Positive: ??30.0 - 75.0 IU/mL ? Positive: ??>75.0 IU/mL Results were obtained with the INOVA QUANTA Lite dsDNA SC KENNETH assay on the [employer]. Blood VENOUS BLOOD / Unknown 05/10/2021 13:53 EDT 05/10/2021 21:25 EDT Provider Outr Resulting Lab IMMUNOLOGY AND SEROL OGY ORDERABLES Final Result Performing Organization Address [facility] de Phone Number [facility] [address] [place] [address] * ANTI NUCLEAR AB (RD), IFA (05/10/2021 13:53 EDT) Pathologist [facility] RD Interpretation Negative Negative 2020 14:28 EDT [facility] Comment:No titer performed, RD Screen is negative. Blood VENOUS BLOOD / Unknown 05/10/2021 13:53 EDT 05/10/2021 21:25 EDT Narrative [facility] - 05/11/2021 14:28 EDT Results were obtained with the INOVA NOVA Lite HEp-2 RD Kit by indirect immunofluorescence. us Provider Outr Resulting Lab IMMUNOLOGY AND SEROL OGY ORDERABLES Final Result Performing Organization Address [facility] de Phone Number [facility] [address] [place] [address] * CCP ANTIBODIES (05/10/2021 13:53 EDT) Pathologist [facility] CCP Antibodies <2.5 <5.0 U/mL 05/11/2021 11:35 EDT [facility] Blood VENOUS BLOOD / Unknown 05/10/2021 13:53 EDT 05/10/2021 21:25 EDT us Provider Outr Resulting Lab IMMUNOLOGY AND SEROL OGY ORDERABLES Final Result [facility] [address] [place] [address] documented in this encounter Visit Diagnoses Not on filedocumented in this encounter Care Teams Industrial Energy Engineer Relationship Specialty Start Date End Date Zoila Gerard [place] [address] [place] [address] PCP - General 01/05/21 documented as of this encounter
--- OUTSIDE RECORDS SUMMARY | 2024-07-18 15:33 | XMS_ITS | Encounter Summary ---
Author Organization [facility] Address [address] [place] [address] Care Team Providers Care Security Operations Manager Name Role Phone TaylortamaraZoila sanchez NP Primary Care Provider [phone] Encounter Details Date Type Department Care Team (Late st Contact Info) Description 01/21/2020 Lab Requisition [facility] Pathology & Laboratory Medicine - [facility] [address] [place] [address] Outr Resulting Lab, Provider Social History Tobacco Use Types Packs/Day Years Used Date Smoking Tobacco: Never Assessed Comments Unknown Sex and Gender Information Value [...] Quantiferon Interpretation Negative Negative 01/22/2020 13:02 EDT [facility] Comment: No interferon-gamma response to [...] minus Nil 0.01 IU/ml 01/22/20 13:02 EDT [facility] TB2 Ag minus Nil 0.01 IU/mL 01/22/20 13:02 EDT [facility] Blood VENOUS BLOOD / Unknown 01/20/2020 9:46 EDT 01/21/2020 17:47 EDT Narrative [facility] - 01/22/2020 13:02 EDT Results were obtained with the Qiagen QuantiFERON-TB Gold Plus KENNETH. us Provider Outr Resulting Lab CHEMISTRY & BLOOD GA S ORDERABLES Final Result Performing Organization Address City/State/[facility] Co de Phone Number [facility] [address] [place] [address] documented in this encounter Visit Diagnoses Not on filedocumented in this encounter Care Teams Security Operations Manager Relationship Specialty Start Date End Date Zoila Gerard NP [address] [place] [address] PCP - General 01/05/21 documented as of this encounter
--- OUTSIDE RECORDS SUMMARY | 2024-07-18 15:33 | XMS_ITS | Encounter Summary ---
Author Organization [facility] Address [address] [place] [address] Care Team Providers Care Auto Club Safety Program Coordinator Name Role Phone Zoila Gerard NP Primary Care Provider [phone] Encounter Details Date Type Department Care Team (Late st Contact Info) Description 02/01/2021 Lab Requisition [facility] Pathology & Laboratory Medicine - [facility] [address] [place] [address] Leanne Ramirez MD [address] [place] [id number] Encounter for screening for malignant neoplasm [...] - Deeper sections x3 examined. 02/03/2021 8:15 [facility] Attestation By the signature below, the attending physician certifies that they have 1) personally conducted a gross and/or microscopic examination of the described specimen(s), and/or personally interpreted the results of laboratory testing of the described specimen(s), and 2) personally rendered or confirmed the above diagnosis. 02/03/2021 8:15 [facility] at 0815 Clinical History GERD & hiatal hernia, screening colonoscopy 02/03/2021 8:15 [facility] Gross Description A. Received in [...] x 0.1 cm). Entirely submitted in E1. SERVANDO MCPHERSON(ASCP) 02/01/2021 17:14 02/03/2021 8:15 EDT [facility] Performing Lab [facility] 8:15 EDT [facility] Scanned Images 02/03/2021 8:15 EDT [facility] Tissue DESCENDING COLON STRUCTURE [...] Unknown 02/01/2021 9:50 EDT 02/01/2021 16:56 EDT us Leanne Ramirez MD PATHOLOGY ORDERABLES Fin al Result [facility] [address] [place] [address] documented in this encounter Visit Diagnoses Diagnosis Encounter for screening for malignant neoplasm of colon Special screening for malignant neoplasms, colon documented in this encounter Care Teams Auto Club Safety Program Coordinator Relationship Specialty Start Date End Date Zoila Gerard [place] [place] [address] PCP - General 01/05/21 documented as of this encounter
--- OUTSIDE RECORDS SUMMARY | 2024-07-18 15:33 | XMS_ITS | Encounter Summary ---
Author Organization [facility] Address [facility] [place] [address] Care Team Providers Care Cephalometric Tracer Name Role Phone Moustapha Zoila PAUL Primary Care Provider [phone] Encounter Details Date Type Department Care Team (Late st Contact Info) Description 09/25/2023 [place] [address] Jules Tejeda MD [facility] [place] [address] Social History Tobacco Use Types Packs/Day Years [...] DM Right Eye, [facility] documented in this encounter Plan of Treatment Not on file documented as of this encounter Visit Diagnoses Not on filedocumented in this encounter Care Teams Cephalometric Tracer Relationship Specialty Start Date End Date Zoila Gerard APRN [address] [place] [address] PCP - General Family Medicine 12/05/18 documented as of this encounter
--- OUTSIDE RECORDS SUMMARY | 2024-07-18 15:33 | XMS_ITS | Encounter Summary ---
Author Organization [facility] Address [address] [place] [address] Care Team Providers Care Procurement Cost Coordinator Name Role Phone TaylortamaraZoila sanchez NP Primary Care Provider [phone] Encounter Details Date Type Department Care Team (Late st Contact Info) Description 01/20/2020 Lab Requisition [facility] Pathology & Laboratory Medicine - [facility] [address] [place] [address] Outr Resulting Lab, Provider Social History Tobacco [...] <3.1 See Note mIU/mL 01/21/2020 9:13 EDT [facility] Comment: Reference Range for Hep B Surface Ab, Quant: Positive: >= 10.0 mIU/mL Negative: ??< 10.0 mIU/mL Patient is presumed to not be immune to infection with Hepatitis B Virus. Hep B Surface Ab, Qualitative Negative See Note 01/21/2020 9:13 EDT [facility] Comment: Reference Range for Hep B Surface Ab, Qual: Unvaccinated: ??Negative Vaccinated: ??Positive Blood VENOUS BLOOD / Unknown 01/20/2020 9:46 EDT 01/20/2020 16:28 EDT us Provider Outr Resulting Lab CHEMISTRY & BLOOD GA S ORDERABLES Final Result Performing Organization Address [facility] Co de Phone Number [facility] [address] [place] [address] * MEASLES IGG AB (01/20/2020 9:46 EDT) Measles IgG Ab Positive See Note 01/21/2020 9:56 EDT [facility] Comment:Presence of detectab le measles virus IgG antibodies. Blood VENOUS BLOOD / Unknown 01/20/2020 9:46 EDT 01/20/2020 16:28 EDT us Provider Outr Resulting Lab IMMUNOLOGY AND SEROL OGY ORDERABLES Final Result Performing Organization Address [facility] Co de Phone Number [facility] [address] [place] [address] * VARICELLA IGG ANTIBODY (01/20/2020 9:46 EDT) Varicella IgG Ab Positive See Note 01/21/2020 9:55 EDT [facility] Comment:Presence of detectab le Varicella Zoster virus IgG antibodies. Blood VENOUS BLOOD / Unknown 01/20/2020 9:46 EDT 01/20/2020 16:28 EDT us Provider Outr Resulting Lab IMMUNOLOGY AND SEROL OGY ORDERABLES Final Result Performing Organization Address [facility] Co de Phone Number [facility] [address] [place] [address] * MUMPS ANTIBODY IGG (01/20/2020 9:46 EDT) Mumps Antibody IgG Positive See Note 01/21/2020 9:56 EDT [facility] Comment:Presence of detectab le mumps virus IgG antibodies. Blood VENOUS BLOOD / Unknown 01/20/2020 9:46 EDT 01/20/2020 16:28 EDT us Provider Outr Resulting Lab IMMUNOLOGY AND SEROL OGY ORDERABLES Final Result Performing Organization Address [facility]/ZIP Co de Phone Number [facility] [address] [place] [address] * RUBELLA IGG ANTIBODY (01/20/2020 9:46 EDT) Rubella IgG Ab Positive See Note 01/21/2020 9:55 EDT [facility] Comment:Positive for IgG ant ibodies to Rubella virus. Blood VENOUS BLOOD / Unknown 01/20/2020 9:46 EDT 01/20/2020 16:28 EDT us Provider Outr Resulting Lab CHEMISTRY & BLOOD GA S ORDERABLES Final Result Performing Organization Address [facility] Co de Phone Number [facility] [address] [place] [address] documented in this encounter Visit Diagnoses Not on filedocumented in this encounter Care Teams Procurement Cost Coordinator Relationship Specialty Start Date End Date Zoila [place] [address] PCP - General 01/05/21 documented as of this encounter
--- OUTSIDE RECORDS SUMMARY | 2024-07-18 15:33 | XMS_ITS | Encounter Summary ---
Author Organization [facility] Address [address] [place] [address] Care Team Providers Care Special Delivery Worker Name Role Phone Zoila Gerard NP Primary Care Provider [phone] Encounter Details Date Type Department Care Team (Latest Contact Info) Description 09/30/2022 Lab Requisition [facility] Pathology & Laboratory Medicine - [facility] [address] [place] [address] Augustina Valdez FNP [facility] [address] [facility] [address] [place] [address] Encounter for general adult medical [...] Risk types, PCR Negative Negative 10/14/2022 13:33 [facility] Comment:No E6 or E7 mRNA is detected from HPV types 16,18,31,33,35,39,45,51,52,56,58,59,66, and 68 by engine designer mediated amplification. Papanicolaou smear specimen (specimen) CERVIX UTERI STRUCTURE / Unknown 09/28/2022 10:45 EST 10/12/2022 14:08 EST Augustina Valdez SAS PROGRAMMER REMOTE MICROBIOLOGY - GENERAL ORDERA BLERadha Final Result [facility] [address] [place] [address] * PAP TEST (09/28/2022 10:45 EST) Specimens A. Cervix and/or Endocervix , ThinPrep Imaging System with Manual Evaluation 10/14/2022 13:33 [facility] Specimen Adequacy Satisfactory for Evaluation - transformation zone component absent 10/14/2022 13:33 [facility] General Categorization Negative for intraepithelial lesion or malignancy 10/14/2022 13:33 [facility] Attestation . 10/14/2022 13:33 [facility] at 1333 Clinical History SEE BELOW 10/15/19 23 13:33 [facility] HPV The result for the Human Papillomavirus (HPV) Detection-High Risk Types is Negative. No E6 or E7 mRNA is detected from HPV types 16,18,31,33,35,39 ,45,51,52,56,58,5 9,66, and 68 by engine designer mediated amplification.Luz ting was performed on specimen [id number] and was resulted on 10/14/2022 1333 EST by DEBBIE, LAB INSTRUMENT RESULTS IN 10/14/2022 13:33 [facility] Performing Lab [facility] 10/14/2022 13:33 EST [facility] Scanned Images 10/14/2022 13:33 EST [facility] Papanicolaou smear specimen (specimen) CERVIX UTERI STRUCTURE / Unknown 09/28/2022 10:45 EST 09/30/2022 13:32 EST Augustina Valdez SAS PROGRAMMER REMOTE PATHOLOGY ORDERABLES Final Re sult [facility] [address] [place] [address] documented in this encounter Visit Diagnoses Diagnosis Encounter for general adult medical examination without abnormal findings Unspecified general medical examination Encounter for screening for malignant neoplasm of cervix Screening for malignant neoplasm of the cervix Encounter for screening for human papillomavirus (HPV) Special screening examination for human papillomavirus (HPV) documented in this encounter Care Teams Special Delivery Worker Relationship Specialty Start Date End Date Zoila Gerard NP [place] [address] PCP - General 01/05/21 documented as of this encounter
--- OUTSIDE RECORDS SUMMARY | 2024-07-18 15:33 | XMS_ITS | Encounter Summary ---
Author Organization [facility] Address [address] [place] [address] Care Team Providers Care Gaming Director Name Role Phone TaylortamaraZoila sanchez NP Primary Care Provider [phone] Encounter Details Date Type Department Care Team (Late st Contact Info) Description 06/26/2021 Lab Requisition [facility] Pathology & Laboratory Medicine - [address] [address] Outr Resulting Lab, Provider Social [...] Salmonella PCR Negative Negative 06/27/2021 22:24 EST [facility] Shigella/Enteroin vasive E. coli Negative Negative 06/27/2021 22:24 EST [facility] HN LAB CAMPYLOBACTER PCR Negative Negative 06/27/2021 22:24 EST [facility] Shiga Toxin PCR Negative Negative 22:24 EST [facility] Feces SPECIMEN FROM RECTUM / Unknown Stool Collect / Unknown 06/26/2021 5:30 EST 06/27/2021 16:44 EST us Provider Outr Resulting Lab MICROBIOLOGY - GENER AL ORDERABLES Final Result Performing Organization Address City/State/[facility] Co de Phone Number [facility] [address] [place] [address] documented in this encounter Visit Diagnoses Not on filedocumented in this encounter Care Teams Gaming Director Relationship Specialty Start Date End Date Zoila Gerard NP [address] [place] [address] PCP - General 01/05/21 documented as of this encounter
--- OUTSIDE RECORDS SUMMARY | 2024-07-18 15:33 | XMS_ITS | Referral Summary ---
Author Organization [facility] Address [address] [place] [address] Care Team Providers Care Museum Technician Name Role Phone Zoila Gerard NP Primary Care Provider [phone] Social History Tobacco Use Types Packs/Day Years [...] of Treatment Not on file Care Teams Museum Technician Relationship Specialty Start Date End Date Zoila Gerard NP [address] [address] PCP - General 01/05/21
--- OUTSIDE RECORDS SUMMARY | 2024-07-18 15:33 | XMS_ITS | Encounter Summary ---
Author Organization [facility] Address [facility] [place] [address] Care Team Providers Care Turpentine Distiller Name Role Phone Zoila Gerard APRN Primary Care Provider [phone] Reason for Visit * Reason Comments Blurred Vision Encounter Details Date Type Department Care Team (Late st Contact Info) Description 09/25/2023 11:30 AM EST Office [place] [address] Pranav Baires MD [facility] [place] [address] Posterior vitreous detachment of right eye Social [...] degeneration documented in this encounter Care Teams Turpentine Distiller Relationship Specialty Start Date End Date Zoila Gerard, PRECISION FARMING COORDINATOR [address] [place] [address] PCP - General Family Medicine 12/05/18 documented as of this encounter
--- OUTSIDE RECORDS SUMMARY | 2024-07-18 15:33 | XMS_ITS | Clinical Summary ---
Author Organization [facility] [place] [address] [place] [address] Care Team Providers Care Slip Operator Name Role Phone Zoila Gerard APRN [...] Advance Directive 2021 Covid-19 Vaccine (1 - 2023- season) 2024 Influenza (Flu) vaccine (1 o f 1 - Influenza standard series) 04/07/2024 Care Teams Slip Operator Relationship Specialty Start Date End Date Zoila Gerard APRN [address] [place], [place] [id number] PCP - General Family Medicine 12/05/18
--- OUTSIDE RECORDS SUMMARY | 2024-07-18 15:33 | XMS_ITS | Clinical Summary ---
Author Organization [facility] Address [address] [place] [address] Care Team Providers Care Coater Associate Name Role Phone Zoila Gerard NP Primary [...] COVID-19 Vaccine ( season) 2024 Care Teams Coater Associate Relationship Specialty Start Date End Date Zoila Gerard NP [address] [place] [address] PCP - General 01/05/21
--- OUTSIDE RECORDS SUMMARY | 2024-07-18 15:33 | XMS_ITS | Encounter Summary ---
Author Organization [facility] Address [address] [place] [address] Care Team Providers Care Coating Mixer Supervisor Name Role Phone TaylorZoila spring BLANCA Primary Care Provider Encounter Details Date Type Department Care Team (Late st Contact Info) Description 04/20/2020 Lab Requisition [facility] Pathology & Laboratory Medicine - [facility] [address] [place] [address] Outr Resulting Lab, Provider Social History Tobacco [...] rt-PCR Result NEGATIVE Negative 04/21/2020 11:27 EDT [facility] Comment: 2019-novel Coronavirus (2019-nCoV) not [...] in accordance with CLIA regulations, College [employer] (CAP) guidelines (Oct 24, 2019), and FDA guidance (Oct 05, 2019). This test is only for use under the Food and Drug Administration's Emergency Use Authorization. Swab ENTIRE NASOPHARYNX / Unknown 04/20/2020 9:09 EDT 04/20/2020 15:25 EDT us Provider Outr Resulting Lab MICROBIOLOGY - GENER AL ORDERABLES Final Result [facility] [place] * COVID-19 TESTING (04/20/2020 9:09 EDT) COVID-19 rt-PCR Result NEGATIVE Negative 04/21/2020 12:19 EDT [facility] Comment: 2019-novel Coronavirus (2019-nCoV) not detected [...] in accordance with CLIA regulations, [employer] (CAP) guidelines (Oct 24, 2019), and FDA guidance (Oct 05, 2019). This test is only for use under the Food and Drug Administration's Emergency Use Authorization. Performing Lab [facility] 04/21/2020 12:19 EDT [facility] Swab 04/20/2020 9:09 EDT 04/20/2020 15:25 EDT us Provider Outr Resulting Lab MICROBIOLOGY - GENER AL ORDERABLES Final Result [facility] [address] [place] [address] [facility] [place] documented in this encounter Visit Diagnoses Not on filedocumented in this encounter Care Teams Coating Mixer Supervisor Relationship Specialty Start Date End Date Zoila Gerard NP [address] [place] [address] PCP - General 01/05/21 documented as of this encounter
--- OUTSIDE RECORDS SUMMARY | 2024-07-18 15:33 | XMS_ITS | Encounter Summary ---
Author Organization [facility] Address [address] [place] [address] Care Team Providers Care Flasher Adjuster Name Role Phone UzielrajatZoila spring BLANCA Primary Care Provider [phone] Encounter Details Date Type Department Care Team (Late st Contact Info) Description 06/25/2021 Lab Requisition [facility] Pathology & Laboratory Medicine - [address] [address] Outr Resulting Lab, Provider Social History Tobacco [...] Swab 06/25/2021 9:30 EST 06/25/2021 21:12 EST us Provider Outr Resulting Lab MICROBIOLOGY - GENER AL ORDERABLES Final Result [facility] [address] [place] [address] * COVID-19 TESTING (06/25/2021 9:30 EST) COVID-19 rt-PCR Result Negative Negative 06/26/2021 12:43 EST [facility] Comment: This test [...] was performed using the cecilia SARS-CoV-2 assay ([employer] on the Cecilia 6800 System Performing Lab Cecilia [address] [facility] 06/26/2021 12:43 EST [facility] Swab 06/25/2021 9:30 EST 06/25/2021 21:12 EST us Provider Outr Resulting Lab MICROBIOLOGY - GENER AL ORDERABLES Final Result Performing Organization Address City/State/[facility] Co de Phone Number [facility] [address] [place] [address] documented in this encounter Visit Diagnoses Not on filedocumented in this encounter Care Teams Flasher Adjuster Relationship Specialty Start Date End Date Zoila Gerard [place] [place] [address] PCP - General 01/05/21 documented as of this encounter
--- OUTSIDE RECORDS SUMMARY | 2024-07-18 15:33 | XMS_ITS | Encounter Summary ---
Author Organization [facility] Address [address] [place] [address] Care Team Providers Care Switcher Name Role Phone Taylorclementine Zoila RIOS Primary Care Provider [phone] Encounter Details Date Type Department Care Team (Late st Contact Info) Description 06/26/2021 Lab Requisition [facility] Pathology & Laboratory Medicine - [facility] [address] [place] [address] Outr Resulting Lab, Provider Social History [...] Neg and Giardia Antigen Neg 12:08 EST [facility] Feces SPECIMEN FROM RECTUM / Unknown Stool Collect / Unknown 06/26/2021 5:30 EST 06/27/2021 16:44 EST us Provider Outr Resulting Lab MICROBIOLOGY - GENER AL ORDERABLES Final Result [facility] [address] [place] [address] documented in this encounter Visit Diagnoses Not on filedocumented in this encounter Care Teams Switcher Relationship Specialty Start Date End Date Zoila Gerard NP [address] [place] [address] PCP - General 01/05/21 documented as of this encounter
[2024-07-18 16:25] LABS: Ferritin 107 ng/mL (8-252)
== END 2024-07-18 15:30 | disposition home or self-care (01) ==
LOC: LBO 15:29
PROVIDERS: PCP Nurse Practitioner Family; Visit Provider Surgery
DX: K92.0 Hematemesis (principal); K21.9 Gastro-esophageal reflux disease without esophagitis; K44.9 Diaphragmatic hernia without obstruction or gangrene
CPT/HCPCS: 36415; 82728; 85025

== ENCOUNTER 2024-08-07 08:54 | Emergency (ER) | payer BC, SELFPAY ==
--- NOTE | 2024-08-07 08:45 | DI.CT_ITS ---
Exam(s) CT ABDOMEN PELVIS W EXAM: CT ABDOMEN PELVIS W CLINICAL HISTORY: chronic constipation, eval for tumor or mass. TECHNIQUE: Imaging Protocol: Axial computed tomography images with coronal and sagittal reformatted images were created and reviewed CONTRAST MATERIAL: Intravenous: Omnipaque-350 100cc Oral: None COMPARISON: CT CT ABDOMEN PELVIS W from 07/16/2024 FINDINGS: VISUALIZED LUNG BASES: No nodules nor pleural effusions evident. Small hiatal hernia noted. ABDOMEN: There is no ascites. GI: There is some mural hyperdensity or enhancement in the the mid aspect of the stomach posterior wa ll. There is a possibility that this is related to ingested material or remnant oral contrast from p rior CT scan of 07/16/2024. However, there is no other remnant oral contrast in the entire alimentar y tract. There is interposition of right-sided large bowel between the right hepatic lobe and the ab dominal wall again noted, but without evidence of obstruction at this level. There is a moderate ana unt of fecal material in the colon. No gross distention. No fecal impaction in the rectum. Mild di verticulosis in the sigmoid. No evidence of acute diverticulitis. Appendix is difficult to identify but there is no evidence of acute appendicitis. LIVER: Liver is mildly hypodense implying steatosis. There no discrete focal hepatic lesions evident . There are no dilated intrahepatic ducts. GALLBLADDER/BILIARY: Is surgically absent. There is no significant dilatation of the biliary tree, b oth intra and extrahepatic. PANCREAS: No evidence of pancreatic mass nor dilatation of the pancreatic duct. SPLEEN: Spleen is not enlarged. No obvious intrasplenic lesions. Splenic and portal veins are paten t. ADRENALS: There are no significant adrenal masses. KIDNEYS:No cysts evident. No solid renal masses. No calculi nor hydronephrosis.. ABDOMINAL AORTA: Abdominal aorta is moderately atherosclerotic but not enlarged. The common iliac ar teries also exhibit calcified mural plaque but no aneurysms. LYMPH NODES:There is no retroperitoneal nor paraaortic adenopathy. ABDOMINAL WALL: No evidence of significant anterior abdominal wall nor inguinal hernia. GI: There is no evidence of bowel obstruction, free air, nor abscess. PELVIS: LYMPH NODES: There is no intrapelvic nor inguinal adenopathy. REPRODUCTIVE: Uterus size normal. There are no abnormal adnexal masses. Ovaries appear unremarkable . No extraovarian adnexal masses and no free fluid in the pelvis. URINARY BLADDER: No calculi nor obvious masses evident OSSEOUS: No fractures and no significant osseous lesions. IMPRESSION: 1. No acute findings in the abdomen and pelvis. 2. Some hyperdense material is noted along the greater curvature of the stomach which is possibly rel ated to ingested medication or less likely remnant oral contrast from the enteric contrast administer ed for CT scan of 07/16/2024. Another possibility is that this may represent abnormal mural enhancem ent at this level. There is no mass evident at this level on the CT scan of 07/16/2024. Small hiata l hernia is again noted. 3. Gallbladder is again noted to be surgically absent. The biliary tree is not dilated. 4. Moderate amount of fecal material noted throughout the colon. Also again noted is interposition o f the hepatic flexure of the colon and part of the ascending colon between the right hepatic lobe and the right abdominal wall, similar to the previous study. This is variant of normal and there is no evidence of obstruction at this level. Report called by myself to ER physician 08/07/2024 at 11:10 a.m. RADIATION DOSE DELIVERED: 976.54mGy.cm Total DLP DATA REPOSITORY: All CT scans at this facility are submitted to the National Radiology Data Registry (NRDR) Dose Index Registry (DIR) with the [employer] (ACR). RADIATION OPTIMIZATION: All CT scans at this facility use at least one of these dose optimization te chniques: automated exposure control; mA and/or kV adjustment per patient size (includes targeted exa ms where dose is matched to clinical indication); or iterative reconstruction.
[2024-08-07 08:56] VITALS: BP 151/59; PULSE 94; RESP 20; TEMP 36.6; O2SAT 99
--- OUTSIDE RECORDS SUMMARY | 2024-08-07 09:02 | XMS_ITS | Encounter Summary ---
Author Organization [facility] Address [address] [place] [address] Care Team Providers Care Grain Blender Name Role Phone Zoila Gerard NP Primary Care Provider [phone] Encounter Details Date Type Department Care Team (Late st Contact Info) Description 02/01/2021 Lab Requisition [facility] Pathology & Laboratory Medicine - [facility] [address] [place] [address] Leanne Ramirez MD [address] [place] [id number] Encounter for screening for malignant neoplasm [...] - Deeper sections x3 examined. 02/03/2021 8:15 [facility] Attestation By the signature below, the attending physician certifies that they have 1) personally conducted a gross and/or microscopic examination of the described specimen(s), and/or personally interpreted the results of laboratory testing of the described specimen(s), and 2) personally rendered or confirmed the above diagnosis. 02/03/2021 8:15 [facility] at 0815 Clinical History GERD & hiatal hernia, screening colonoscopy 02/03/2021 8:15 [facility] Gross Description A. [...] SERVANDO MCPHERSON(ASCP) 02/01/2021 17:14 02/03/2021 8:15 EDT [facility] Performing Lab [facility] 8:15 EDT [facility] Scanned Images 02/03/2021 8:15 EDT [facility] Tissue DESCENDING COLON STRUCTURE [...] Ramirez MD PATHOLOGY ORDERABLES Fin al Result [facility] [address] [place] [address] documented in this encounter Visit Diagnoses Diagnosis Encounter for screening for malignant neoplasm of colon Special screening for malignant neoplasms, colon documented in this encounter Care Teams Grain Blender Relationship Specialty Start Date End Date Zoila Gerard NP [address] [place] [address] PCP - General 01/05/21 documented as of this encounter
--- OUTSIDE RECORDS SUMMARY | 2024-08-07 09:02 | XMS_ITS | Encounter Summary ---
Author Organization [facility] Address [address] [place] [address] Care Team Providers Care Research Investigator Name Role Phone Zoila Gerard NP Primary Care Provider [phone] Encounter Details Date Type Department Care Team (Late st Contact Info) Description 05/10/2021 Lab Requisition [facility] Pathology & Laboratory Medicine - [facility] [address] [place] [address] Outr Resulting Lab, Provider Social History Tobacco [...] 13:53 EDT) Hold Hold 05/10/2021 22:46 EDT [facility] Blood VENOUS BLOOD / Unknown 05/10/2021 13:53 EDT 05/10/2021 21:40 EDT us Provider Outr Resulting Lab LAB INFO SERVICE AND SUPPORT & PHONE RESULT Final Result [facility] [address] [place] [address] * HOLD SST (05/10/2021 13:53 EDT) Hold Hold 05/10/2021 22:46 EDT [facility] Blood VENOUS BLOOD / Unknown 05/10/2021 13:53 EDT 05/10/2021 21:40 EDT us Provider Outr Resulting Lab LAB INFO SERVICE AND SUPPORT & PHONE RESULT Final Result [facility] [address] [place] [address] * RHEUMATOID FACTOR (05/10/2021 13:53 EDT) [facility] Rheumatoid Factor <8.6 <12.0 IU/mL 05/10/2021 22:10 EDT [facility] Blood VENOUS BLOOD / Unknown 05/10/2021 13:53 EDT 05/10/2021 21:25 EDT us Provider Outr Resulting Lab CHEMISTRY & BLOOD GA S ORDERABLES Final Result [facility] [address] [place] [address] * ANTI DNA (DOUBLE STRANDED) (05/10/2021 13:53 EDT) Pathologist [facility] Anti-DNA (Double Stranded) <12.3 <30.0 IU/mL 05/11/2021 10:36 EDT [facility] Comment: ? Negative: ??<30.0 IU/mL ? Borderline Positive: ??30.0 - 75.0 IU/mL ? Positive: ??>75.0 IU/mL Results were obtained with the INOVA QUANTA Lite dsDNA SC KENNETH assay on the [employer]. Blood VENOUS BLOOD / Unknown 05/10/2021 13:53 EDT 05/10/2021 21:25 EDT Provider Outr Resulting Lab IMMUNOLOGY AND SEROL OGY ORDERABLES Final Result Performing Organization Address [facility] de Phone Number [facility] [address] [place] [address] * ANTI NUCLEAR AB (RD), IFA (05/10/2021 13:53 EDT) Pathologist [facility] RD Interpretation Negative Negative 2020 14:28 EDT [facility] Comment:No titer performed, RD Screen is negative. Blood VENOUS BLOOD / Unknown 05/10/2021 13:53 EDT 05/10/2021 21:25 EDT Narrative [facility] - 05/11/2021 14:28 EDT Results were obtained with the INOVA NOVA Lite HEp-2 RD Kit by indirect immunofluorescence. us Provider Outr Resulting Lab IMMUNOLOGY AND SEROL OGY ORDERABLES Final Result Performing Organization Address [facility] de Phone Number [facility] [address] [place] [address] * CCP ANTIBODIES (05/10/2021 13:53 EDT) Pathologist [facility] CCP Antibodies <2.5 <5.0 U/mL 05/11/2021 11:35 EDT [facility] Blood VENOUS BLOOD / Unknown 05/10/2021 13:53 EDT 05/10/2021 21:25 EDT us Provider Outr Resulting Lab IMMUNOLOGY AND SEROL OGY ORDERABLES Final Result [facility] [address] [place] [address] documented in this encounter Visit Diagnoses Not on filedocumented in this encounter Care Teams Research Investigator Relationship Specialty Start Date End Date Zoila Gerard NP [place] [place] [address] PCP - General 01/05/21 documented as of this encounter
--- OUTSIDE RECORDS SUMMARY | 2024-08-07 09:02 | XMS_ITS | Encounter Summary ---
Author Organization [facility] Address [facility] [place] [address] Care Team Providers Care Labeling Strategist Name Role Phone Moustapha Zoila PAUL Primary Care Provider [phone] Encounter Details Date Type Department Care Team (Late st Contact Info) Description 09/25/2023 Telephone [place] [address] Jules Tejeda MD [facility] [place] [address] Social History Tobacco Use Types Packs/Day Years [...] DM Right Eye, intermittent photopsia [facility] documented in this encounter Plan of Treatment Not on file documented as of this encounter Visit Diagnoses Not on filedocumented in this encounter Care Teams Labeling Strategist Relationship Specialty Start Date End Date Zoila Gerard APRN [address] [place] [address] PCP - General Family Medicine 12/05/18 documented as of this encounter
--- OUTSIDE RECORDS SUMMARY | 2024-08-07 09:02 | XMS_ITS | Clinical Summary ---
Author Organization [facility] Address [address] [place] [address] Care Team Providers Care Transportation Security Officer Name Role Phone Zoila Gerard NP Primary Care Provider [phone] Social History Tobacco Use Types Packs/Day Years [...] COVID-19 Vaccine ( season) 2024 Care Teams Transportation Security Officer Relationship Specialty Start Date End Date Zoila Gerard NP [address] [place] [address] PCP - General 01/05/21
--- OUTSIDE RECORDS SUMMARY | 2024-08-07 09:02 | XMS_ITS | Encounter Summary ---
Author Organization [facility] Address [facility] [place] [address] Care Team Providers Care Fur Clipper Name Role Phone Zoila Gerard APRN Primary Care Provider [phone] Reason for Visit * Reason Comments Blurred Vision Encounter Details Date Type Department Care Team (Late st Contact Info) Description 09/25/2023 11:30 AM EST Office [place] [address] Pranav Baires MD [facility] [address] Posterior vitreous detachment of right eye Social [...] with: Posterior Vitreous Separation Right Eye Neg [place] Mod myopia No Fhx of RD Today: [...] degeneration documented in this encounter Care Teams Fur Clipper Relationship Specialty Start Date End Date Zoila Gerard, THEATRE DIRECTOR [address] [place] [address] PCP - General Family Medicine 12/05/18 documented as of this encounter
--- OUTSIDE RECORDS SUMMARY | 2024-08-07 09:02 | XMS_ITS | Encounter Summary ---
Author Organization [facility] Address [address] [place] [address] Care Team Providers Care Field Advisor Name Role Phone UzielrajatZoila spring BLANCA Primary Care Provider [phone] Encounter Details Date Type Department Care Team (Late st Contact Info) Description 06/25/2021 Lab Requisition [facility] Pathology & Laboratory Medicine - [address] [address] Outr Resulting Lab, Provider Social History Tobacco [...] - GENER AL ORDERABLES Final Result [facility] [address] [place] [address] * COVID-19 TESTING (06/25/2021 9:30 EST) COVID-19 rt-PCR Result Negative Negative 06/26/2021 12:43 EST [facility] Comment: This test has [...] was performed using the cecilia SARS-CoV-2 assay ([employer] on the Cecilia 6800 System Performing Lab Cecilia [address] [facility] 06/26/2021 12:43 EST [facility] Swab 06/25/2021 9:30 EST 06/25/2021 21:12 EST us Provider Outr Resulting Lab MICROBIOLOGY - GENER AL ORDERABLES Final Result Performing Organization Address City/State/[facility] Co de Phone Number [facility] [address] [place] [address] documented in this encounter Visit Diagnoses Not on filedocumented in this encounter Care Teams Field Advisor Relationship Specialty Start Date End Date Zoila Gerard NP [place] [address] PCP - General 01/05/21 documented as of this encounter
--- OUTSIDE RECORDS SUMMARY | 2024-08-07 09:02 | XMS_ITS | Encounter Summary ---
Author Organization [facility] Address [address] [place] [address] Care Team Providers Care Audiovisual Tech Name Role Phone TaylortamaraZoila sanchez NP Primary Care Provider [phone] Encounter Details Date Type Department Care Team (Late st Contact Info) Description 01/21/2020 Lab Requisition [facility] Pathology & Laboratory Medicine - [facility] [address] [place] [address] Outr Resulting Lab, Provider Social History Tobacco [...] Quantiferon Interpretation Negative Negative 01/22/2020 13:[address] [facility] Comment: No interferon-gamma response [...] minus Nil 0.01 IU/ml 01/22/20 13:[address] [facility] TB2 Ag minus Nil 0.01 IU/mL 01/22/20 13:[address] [facility] Blood VENOUS BLOOD / Unknown 01/20/2020 9:46 EDT 01/21/2020 17:[address] [facility] - 01/22/2020 13:02 EDT Results were obtained with the [employer] QuantiFERON-TB Gold Plus KENNETH. us Provider Outr Resulting Lab CHEMISTRY & BLOOD GA S ORDERABLES Final Result Performing Organization Address City/State/[facility] Co de Phone Number [facility] [address] [place] [address] documented in this encounter Visit Diagnoses Not on filedocumented in this encounter Care Teams Audiovisual Tech Relationship Specialty Start Date End Date Zoila Gerard NP [address] [place] [address] PCP - General 01/05/21 documented as of this encounter
--- OUTSIDE RECORDS SUMMARY | 2024-08-07 09:02 | XMS_ITS | Encounter Summary ---
Author Organization [facility] Address [address] [place] [address] Care Team Providers Care Osteology Teacher Name Role Phone TaylortamaraZoila sanchez NP Primary Care Provider [phone] Encounter Details Date Type Department Care Team (Late st Contact Info) Description 06/26/2021 Lab Requisition [facility] Pathology & Laboratory Medicine - [address] [address] Outr Resulting Lab, Provider Social [...] Salmonella PCR Negative Negative 06/27/2021 22:24 EST [facility] Shigella/Enteroin vasive E. coli Negative Negative 06/27/2021 22:24 EST [facility] HN LAB CAMPYLOBACTER PCR Negative Negative 06/27/2021 22:24 EST [facility] Shiga Toxin PCR Negative Negative 22:24 EST [facility] Feces SPECIMEN FROM RECTUM / Unknown Stool Collect / Unknown 06/26/2021 5:30 EST 06/27/2021 16:44 EST us Provider Outr Resulting Lab MICROBIOLOGY - GENER AL ORDERABLES Final Result Performing Organization Address City/State/[facility] Co de Phone Number [facility] [address] [place] [address] documented in this encounter Visit Diagnoses Not on filedocumented in this encounter Care Teams Osteology Teacher Relationship Specialty Start Date End Date Zoila Gerard NP [address] [place] [address] PCP - General 01/05/21 documented as of this encounter
--- OUTSIDE RECORDS SUMMARY | 2024-08-07 09:02 | XMS_ITS | Referral Summary ---
Author Organization [facility] Address [address] [place] [address] Care Team Providers Care Coverstitch Machine Operator Name Role Phone Zoila Gerard NP Primary Care Provider [phone] Social History Tobacco Use Types Packs/Day Years [...] of Treatment Not on file Care Teams Coverstitch Machine Operator Relationship Specialty Start Date End Date Zoila Gerard [place] [address] [place] [address] PCP - General 01/05/21
--- OUTSIDE RECORDS SUMMARY | 2024-08-07 09:02 | XMS_ITS | Encounter Summary ---
Author Organization [facility] Address [address] [place] [address] Care Team Providers Care Motel Clerk Name Role Phone Zoila Gerard NP Primary Care Provider [phone] Encounter Details Date Type Department Care Team (Latest Contact Info) Description 09/30/2022 Lab Requisition [facility] Pathology & Laboratory Medicine - [facility] [address] [place] [address] Augustina Valdez FNP [facility] [facility] [address] [place] [address] Encounter for general adult medical [...] Risk types, PCR Negative Negative 10/14/2022 13:33 [facility] Comment:No E6 or E7 mRNA is detected from HPV types 16,18,31,33,35,39,45,51,52,56,58,59,66, and 68 by commissary worker mediated amplification. Papanicolaou smear specimen (specimen) CERVIX UTERI STRUCTURE / Unknown 09/28/2022 10:45 EST 10/12/2022 14:08 EST Augustina Valdez VICE PRESIDENT TALENT MANAGEMENT MICROBIOLOGY - GENERAL ORDERA BLERadha Final Result [facility] [address] [place] [address] * PAP TEST (09/28/2022 10:45 EST) Specimens A. Cervix and/or Endocervix , ThinPrep Imaging System with Manual Evaluation 10/14/2022 13:33 [facility] Specimen Adequacy Satisfactory for Evaluation - transformation zone component absent 10/14/2022 13:33 [facility] General Categorization Negative for intraepithelial lesion or malignancy 10/14/2022 13:33 [facility] Attestation . 10/14/2022 13:33 [facility] at 1333 Clinical History SEE BELOW 10/15/19 23 13:33 [facility] HPV The result for the Human Papillomavirus (HPV) Detection-High Risk Types is Negative. No E6 or E7 mRNA is detected from HPV types 16,18,31,33,35,39 ,45,51,52,56,58,5 9,66, and 68 by commissary worker mediated amplification.Luz ting was performed on specimen [id number] and was resulted on 10/14/2022 1333 EST by DEBBIE, LAB INSTRUMENT RESULTS IN 10/14/2022 13:33 [facility] Performing Lab [facility] 10/14/2022 13:33 EST [facility] Scanned Images 10/14/2022 13:33 EST [facility] Papanicolaou smear specimen (specimen) CERVIX UTERI STRUCTURE / Unknown 09/28/2022 10:45 EST 09/30/2022 13:32 EST Augustina Valdez VICE PRESIDENT TALENT MANAGEMENT PATHOLOGY ORDERABLES Final Re sult [facility] [address] [place] [address] documented in this encounter Visit Diagnoses Diagnosis Encounter for general adult medical examination without abnormal findings Unspecified general medical examination Encounter for screening for malignant neoplasm of cervix Screening for malignant neoplasm of the cervix Encounter for screening for human papillomavirus (HPV) Special screening examination for human papillomavirus (HPV) documented in this encounter Care Teams Motel Clerk Relationship Specialty Start Date End Date Zoila Gerard [place] [address] [place] [address] PCP - General 01/05/21 documented as of this encounter
--- OUTSIDE RECORDS SUMMARY | 2024-08-07 09:02 | XMS_ITS | Encounter Summary ---
Author Organization [facility] Address [address] [place] [address] Care Team Providers Care Activities Attendant Name Role Phone Zoila Gerard NP Primary Care Provider [phone] Encounter Details Date Type Department Care Team (Late st Contact Info) Description 10/28/2022 Lab Requisition [facility] - [address] [place] [address] [place], [place] [id number] Len Escobedo, [address] [place] [address] Other diseases of salivary glands [...] Name Priority Date/Time Associated Diagnosis Comments NON ACUTE DIALYSIS NURSE/FNA CYTOLOGY Today 10/27/2022 9:40 EDT Other diseases of salivary glands documented in this encounter Results * NON ACUTE DIALYSIS NURSE/FNA CYTOLOGY (10/27/2022 9:40 EDT) Note to Patient The following pathology results have been interpreted by your pathologist and may be available to you before your health provider has had the opportunity to review them. Please allow time for your provider to receive these results and explore management options, if applicable. 10/28/2022 14:26 EDT [facility] Final Diagnosis A. PAROTID MASS (CYST), RIGHT, ULTRASOUND-GUIDED FINE NEEDLE ASPIRATION: - Features suggestive of lymphoepithelial cyst. See comment. 10/28/2022 14:26 [facility] Diagnosis Comment The aspirate is [...] and radiologic impressions is recommended. 10/28/2022 14:26 [facility] Attestation By the signature below, the attending physician certifies that they have personally conducted a gross and/or microscopic examination of the described specimens and rendered or confirmed the above diagnosis. 10/28/2022 14:26 [facility] at 1426 Rapid Diagnosis PAROTID MASS (CYST), RIGHT, ULTRASOUND-GUIDED FINE NEEDLE ASPIRATION: Evaluation episode #1: Passes 1-4: Pass 1: 4-cc clear watery fluid; essentially acellular. Passes 2-4: Scant specimen; lymphocytes present in a degenerative background of proteinaceous debris. The rapid on-site evaluation was performed by Dr. Jeimy Restrepo at [facility] assisting SERVANDO Art, on 10/27/22 at 9:40 AM. 10/28/2022 14:26 [facility] Clinical History Right Parotid Mass 10/28/2022 14:26 [facility] Gross Description A. 1 fixed prepared slide, 4 air dried prepared slides, and 1 tube of CytoLyt were received and processed by selective cellular enhancement technique. 10/28/2022 14:26 [facility] Performing Lab [facility] 14:26 [facility] Scanned Images 10/28/2022 14:26 [facility] Fine Needle Aspirate ENTIRE PAROTID GLAND / Unknown 10/27/2022 9:40 EDT 10/28/2022 10:24 EDT us Len AL PATHOLOGY ORDERABLES Final Result Performing Organization Address City/State/[facility] Co de Phone Number [facility] [address] [place] [address] documented in this encounter Visit Diagnoses Diagnosis Other diseases of salivary glands documented in this encounter Care Teams Activities Attendant Relationship Specialty Start Date End Date Zoila Gerard NP [facility] [place] [address] PCP - General 01/05/21 documented as of this encounter
--- OUTSIDE RECORDS SUMMARY | 2024-08-07 09:02 | XMS_ITS | Encounter Summary ---
Author Organization [facility] Address [address] [place] [address] Care Team Providers Care Grease Packer Name Role Phone TaylortamaraZoila sanchez NP Primary Care Provider [phone] Encounter Details Date Type Department Care Team (Late st Contact Info) Description 01/20/2020 Lab Requisition [facility] Pathology & Laboratory Medicine - [facility] [address] [place] [address] Outr Resulting Lab, Provider Social History Tobacco [...] <3.1 See Note mIU/mL 01/21/2020 9:13 EDT [facility] Comment: Reference Range for Hep B Surface Ab, Quant: Positive: >= 10.0 mIU/mL Negative: ??< 10.0 mIU/mL Patient is presumed to not be immune to infection with Hepatitis B Virus. Hep B Surface Ab, Qualitative Negative See Note 01/21/2020 9:13 EDT [facility] Comment: Reference Range for Hep B Surface Ab, Qual: Unvaccinated: ??Negative Vaccinated: ??Positive Blood VENOUS BLOOD / Unknown 01/20/2020 9:46 EDT 01/20/2020 16:28 EDT us Provider Outr Resulting Lab CHEMISTRY & BLOOD GA S ORDERABLES Final Result Performing Organization Address [facility] Co de Phone Number [facility] [address] [place] [address] * MEASLES IGG AB (01/20/2020 9:46 EDT) Measles IgG Ab Positive See Note 01/21/2020 9:56 EDT [facility] Comment:Presence of detectab le measles virus IgG antibodies. Blood VENOUS BLOOD / Unknown 01/20/2020 9:46 EDT 01/20/2020 16:28 EDT us Provider Outr Resulting Lab IMMUNOLOGY AND SEROL OGY ORDERABLES Final Result Performing Organization Address [facility] Co de Phone Number [facility] [address] [place] [id number] * VARICELLA IGG ANTIBODY (01/20/2020 9:46 EDT) Varicella IgG Ab Positive See Note 01/21/2020 9:55 EDT [facility] Comment:Presence of detectab le Varicella Zoster virus IgG antibodies. Blood VENOUS BLOOD / Unknown 01/20/2020 9:46 EDT 01/20/2020 16:28 EDT us Provider Outr Resulting Lab IMMUNOLOGY AND SEROL OGY ORDERABLES Final Result Performing Organization Address [facility] Co de Phone Number [facility] [address] [place] [address] * MUMPS ANTIBODY IGG (01/20/2020 9:46 EDT) Mumps Antibody IgG Positive See Note 01/21/2020 9:56 EDT [facility] Comment:Presence of detectab le mumps virus IgG antibodies. Blood VENOUS BLOOD / Unknown 01/20/2020 9:46 EDT 01/20/2020 16:28 EDT us Provider Outr Resulting Lab IMMUNOLOGY AND SEROL OGY ORDERABLES Final Result Performing Organization Address [facility]/ZIP Co de Phone Number [facility] [address] [place] [address] * RUBELLA IGG ANTIBODY (01/20/2020 9:46 EDT) Rubella IgG Ab Positive See Note 01/21/2020 9:55 EDT [facility] Comment:Positive for IgG ant ibodies to Rubella virus. Blood VENOUS BLOOD / Unknown 01/20/2020 9:46 EDT 01/20/2020 16:28 EDT us Provider Outr Resulting Lab CHEMISTRY & BLOOD GA S ORDERABLES Final Result Performing Organization Address [facility] Co de Phone Number [facility] [address] [place] [address] documented in this encounter Visit Diagnoses Not on filedocumented in this encounter Care Teams Grease Packer Relationship Specialty Start Date End Date Zoila Gerard [place] [address] PCP - General 01/05/21 documented as of this encounter
--- OUTSIDE RECORDS SUMMARY | 2024-08-07 09:02 | XMS_ITS | Encounter Summary ---
Author Organization [facility] Address [address] [place] [address] Care Team Providers Care Turbo Electric Operator Name Role Phone UzielrajatZoila spring BLANCA Primary Care Provider [phone] Encounter Details Date Type Department Care Team (Late st Contact Info) Description 08/16/2021 Lab Requisition [facility] Pathology & Laboratory Medicine - [address] [id number] Outr Resulting Lab, Provider Social History Tobacco [...] MICROBIOLOGY - GENER AL ORDERABLES Final Result [facility] [address] [place] [address] * COVID-19 TESTING (08/16/2021 9:13 EST) COVID-19 rt-PCR Result Negative Negative 08/16/2021 20:42 EST [facility] Comment: This test [...] history, and epidemiological information. Performed on the CorMatrix instrument Performing Lab [place] [facility] 08/16/2021 20:42 EST [facility] Swab 08/16/2021 9:13 EST 08/16/2021 17:30 EST us Provider Outr Resulting Lab MICROBIOLOGY - GENER AL ORDERABLES Final Result Performing Organization Address City/State/[facility] Co de Phone Number [facility] [address] [place] [address] documented in this encounter Visit Diagnoses Not on filedocumented in this encounter Care Teams Turbo Electric Operator Relationship Specialty Start Date End Date Zoila [place] [address] PCP - General 01/05/21 documented as of this encounter
--- OUTSIDE RECORDS SUMMARY | 2024-08-07 09:02 | XMS_ITS | Encounter Summary ---
Author Organization [facility] [place] [address] Care Team Providers Care Senior Sales Operations Manager Name Role Phone Zoila Gerard APRN Primary Care Provider [phone] Encounter Details Date Type Department Care Team [...] on filedocumented in this encounter Care Teams Senior Sales Operations Manager Relationship Specialty Start Date End Date Zoila Gerard APRN [address] [place] [address] PCP - General Family Medicine 12/05/18 documented as of this encounter
--- OUTSIDE RECORDS SUMMARY | 2024-08-07 09:02 | XMS_ITS | Continuity of Care Document ---
Author Organization [facility] Address [address] [place] [address] Care Team Providers Care Innovation Manager Name Role Phone Nikia Vincent Primary Care Physician [facility] Date[facility] 12/07/23 - 12/07/23 [facility] [address] [place] [address] Discharge Disposition: Home Allergies, Adverse Reactions, Alerts Substance Reaction Severity Status sertraline Unknown Active Assessment and Plan Future Appointments Medications FLUoxetine 40 mg oral capsule 40 mg = 1 cap, Oral, Daily, # 30 cap, 0 Refill(s) Start Date: 11/30/23 Status: Ordered levothyroxine 137 mcg (0.137 mg) oral capsule 137 mcg = 1 cap, Oral, Daily, # 30 cap, 0 Refill(s) Start Date: 11/30/23 Status: Ordered loratadine 10 mg oral capsule 10 mg = 1 cap, Oral, Daily, # 10 cap, 0 Refill(s) Start Date: 11/30/23 Status: Ordered melatonin 5 mg oral tablet 5 mg = 1 tab, Oral, every night at bedtime, PRN as needed for insomnia, # 60 tab, 0 Refill(s) Start Date: 11/30/23 Status: Ordered metFORMIN 500 mg oral tablet 500 mg = 1 tab, Oral, Daily, with meals, # 30 tab, 0 Refill(s) Start Date: 11/30/23 Status: Ordered montelukast 10 mg oral tablet 10 mg = 1 tab, Oral, Daily, 0 Refill(s) Start Date: 11/30/23 Status: Ordered pantoprazole 40 mg oral delayed release tablet 40 mg = 1 tab, Oral, Daily, # 30 tab, 0 Refill(s) Start Date: 11/30/23 Status: Ordered pramipexole 0.5 mg oral tablet 0.5 mg = 1 tab, Oral, TID, # 90 tab, 0 Refill(s) Start Date: 11/30/23 Status: Ordered Problem List Condition Confirmation Course Effective Dates Status H ealth Status Informant Bipolar I disorder, current or most recent episode depressed, in partial remission with catatonia Confirmed Active Chronic obstructive lung disease Confirmed Active Dental abscess Confirmed Active Dental caries Confirmed Active Dyspnea Confirmed Active Dysuria Confirmed Active Edema of lower extremity Confirmed Active Fibromyalgia Confirmed Active GERD (gastroesophageal reflux disease) Confirmed Active Gout Confirmed Active Heart murmur Confirmed Active HLD (hyperlipidemia) Confirmed Active Hypertensive disorder Confirmed Active Hypothyroidism Confirmed Active Insomnia Confirmed Active Joint pain Confirmed Active Medial epicondylitis Confirmed Active Mixed anxiety and depressive disorder Confirmed Active JADON (obstructive sleep apnea) Confirmed Active Oral lesion Confirmed Active Restless legs Confirmed Active 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 1 Sex Female 11ppd Patient Care team information Care Team Personnel Name: iNkia Vincent NP Position: No Access Member Role: Primary Care Physician Address: Address: [address] Care Team Related Persons Name: SATISH NAIR
--- OUTSIDE RECORDS SUMMARY | 2024-08-07 09:02 | XMS_ITS | Clinical Summary ---
Author Organization [facility] [place] [address] Care Team Providers Care Composing Room Machinist Name Role Phone Zoila Gerard APRN Primary [...] year) with FIT yearly 1966 Sigmoidoscopy 1966 HIV screen 1984 Hepatitis C Screening 1984 Lipid Screening 1984 Hepatitis B vaccine (0-59 yrs) (1) 1985 Pneumococcal Vaccine: At-Risk 5-64yrs (1 of 2 - PCV) 1 Tetanus/Diphtheria/Pertussis Vaccines (1 - Tdap) 05/27 HPV test 1996 PAP Smear 1996 Breast Cancer Share Decision Needed 2006 Breast Cancer screening 2006 Zoster vaccine (1 of 2) 2016 Advance Directive 2021 Covid-19 Vaccine (1 - 2023- season) 2024 Influenza (Flu) vaccine (1 o f 1 - Influenza standard series) 04/07/2024 Care Teams Composing Room Machinist Relationship Specialty Start Date End Date Zoila Gerard APRN [address] [place], [place] [id number] PCP - General Family Medicine 12/05/18
--- OUTSIDE RECORDS SUMMARY | 2024-08-07 09:02 | XMS_ITS | Encounter Summary ---
Author Organization [facility] Address [address] [place] [address] Care Team Providers Care Mold Polisher Name Role Phone TaylorZoila spring BLANCA Primary Care Provider [phone] Encounter Details Date Type Department Care Team (Late st Contact Info) Description 04/20/2020 Lab Requisition [facility] Pathology & Laboratory Medicine - [facility] [address] [place] [address] Outr Resulting Lab, Provider Social History Tobacco [...] rt-PCR Result NEGATIVE Negative 04/21/2020 11:27 EDT [facility] Comment: 2019-novel Coronavirus (2019-nCoV) [...] in accordance with CLIA regulations, [employer] (CAP) guidelines (Oct 24, 2019), and FDA guidance (Oct 05, 2019). This test is only for use under the Food and Drug Administration's Emergency Use Authorization. Swab ENTIRE NASOPHARYNX / Unknown 04/20/2020 9:09 EDT 04/20/2020 15:25 EDT us Provider Outr Resulting Lab MICROBIOLOGY - GENER AL ORDERABLES Final Result [facility] [place], [place] * COVID-19 TESTING (04/20/2020 9:09 EDT) COVID-19 rt-PCR Result NEGATIVE Negative 04/21/2020 12:19 EDT [facility] Comment: 2019-novel Coronavirus (2019-nCoV) not detected [...] in accordance with CLIA regulations, [employer] (CAP) guidelines (Oct 24, 2019), and FDA guidance (Oct 05, 2019). This test is only for use under the Food and Drug Administration's Emergency Use Authorization. Performing Lab [facility] 04/21/2020 12:19 EDT [facility] Swab 04/20/2020 9:09 EDT 04/20/2020 15:25 EDT us Provider Outr Resulting Lab MICROBIOLOGY - GENER AL ORDERABLES Final Result [facility] [address] [place] [address] [facility] [place], [place] documented in this encounter Visit Diagnoses Not on filedocumented in this encounter Care Teams Mold Polisher Relationship Specialty Start Date End Date Zoila Gerard NP [address] [place] [address] PCP - General 01/05/21 documented as of this encounter
--- OUTSIDE RECORDS SUMMARY | 2024-08-07 09:02 | XMS_ITS | Encounter Summary ---
Author Organization [facility] Address [address] [place] [address] Care Team Providers Care Activities Director Scouting Name Role Phone Taylorclementine Zoila RIOS Primary Care Provider [phone] Encounter Details Date Type Department Care Team (Late st Contact Info) Description 06/26/2021 Lab Requisition [facility] Pathology & Laboratory Medicine - [facility] [address] [place] [address] Outr Resulting Lab, Provider Social [...] Neg and Giardia Antigen Neg 12:[address] [facility] Feces SPECIMEN FROM RECTUM / Unknown Stool Collect / Unknown 06/26/2021 5:30 EST 06/27/2021 16:44 EST us Provider Outr Resulting Lab MICROBIOLOGY - GENER AL ORDERABLES Final Result [facility] [address] [place] [address] documented in this encounter Visit Diagnoses Not on filedocumented in this encounter Care Teams Activities Director Scouting Relationship Specialty Start Date End Date Zoila Gerard NP [address] [place] [address] PCP - General 01/05/21 documented as of this encounter
[2024-08-07 09:15] LABS: Abs Immature Grans 0.05 10^3/uL (0.0-0.06); Absolute Basophil Count 0.12 10^3/uL (0.0-0.2); Absolute Eosinophil Count 0.36 10^3/uL (0.0-0.7); Absolute Lymphocyte Count 2.94 10^3/uL (1.2-3.4); Absolute Monocyte Count 0.56 10^3/uL (0.1-0.8); Basophils % 1.1 %; Eosinophils % 3.2 %; HCT 44.6 % (36.0-46.0); HGB 14.5 g/dL (11.2-15.7); Immature Grans % 0.4 %; Lymphocytes % 26.4 %; MCH 29.7 pg (27.0-33.0); MCHC 32.5 % (32.0-36.0); MCV 91 fL (80-95); MPV 10.2 fL (8.0-11.0); Neutrophils % 63.9 %; Platelet Count 302 10^3/uL (130-400); RBC 4.89 10^6/uL (3.93-5.22); RDW 13.2 % (11.7-14.6); RDW-SD 44.1 fL; WBC 11.13 10^3/uL (4.4-10.8)
[2024-08-07 09:16] LABS: Absolute Neutrophil Count 7.11 10^3/uL (1.2-6.7)
--- NOTE | 2024-08-07 09:20 | ED.GENADUL_ITS ---
Discharge Plan Disposition Patient Disposition: Home Condition: Good Discharge Details Clinical Impression: Constipation Primary Care Provider: JONNY HUNTER ED Provider: Arcadio Leigh Home Meds and New Rx's Prescriptions: No Action buspirone 5 mg tablet 5 mg PO BID CPAP 1 device miscellaneous HS Stiolto Respimat 2.5-2.5 mcg/actuation mist 2 puff inhalation DAILY Qty: 4 12RF sennosides [Natural Senna Laxative] 8.6 mg tablet 8.6 mg PO DAILY Qty: 30 12RF pantoprazole [Protonix] 40 mg tablet,delayed release (DR/EC) 40 mg PO BID Qty: 60 7RF Ozempic 2 mg/dose (8 mg/3 mL) pen injector 2 mg subcut QWEEK Patient Comments: states she takes 0.5mg weekly now albuterol sulfate 2.5 mg /3 mL (0.083 %) solution for nebulization 2.5 mg inhalation Q6H PRN atorvastatin 40 mg tablet 40 mg PO QHS dapagliflozin propanediol [Farxiga] 10 mg tablet 10 mg PO DAILY levothyroxine 137 mcg capsule 137 mcg PO DAILY PRN pramipexole [Mirapex] 0.5 mg Tablet 0.5 mg PO BID PRN polyethylene glycol 3350 [Miralax] 17 gram Powder In Packet 17 g PO DAILY Probiotic 10 billion cell capsule 100 mmu cells PO DAILY Discharge Instructions Instructions: Polyethylene Glycol-Electrolyte Solution, Constipation, Adult ED Additional Instructions: At this time your CT imaging results and your laboratory workup does not show any evidence of significant abnormality. Please take the GoLytely as directed. There will be significant cramping with these bowel movements. Drink plenty of fluids and stay well-hydrated. Please take electrolyte solutions to maintain your normal electrolyte status. Please follow-up closely with your surgeon for reassessment and further discussion of EGD and colonoscopy. At home please continue a high-fiber diet with your stool softener regiment and plenty of daily fluid. If you notice any worsening of your symptoms, or any new symptoms such as vomiting, diarrhea, fever, chills, shortness of breath, chest pain, numbness, weakness, or fainting , please return immediately to the emergency department for reevaluation. Please follow up with your primary care provider as soon as possible for reassessment and reevaluation. As always, it was a pleasure participating in your medical care today. Referrals: JONNY HUNTER NP [Primary Care Provider] - Kelli Matt DO [OSTEOPATHIC DOCTOR] - [facility] General Date/Time Provider Initiated Documentation: 08/07/24 08:56 . HPI Narrative: 59-year-old female with a past medical history of GERD, cholecystectomy, hypertension, fibromyalgia high cholesterol, reactive airway disease, gout, restless leg syndrome, obstructive sleep apnea, presents today for evaluation of constipation. Patient states that she is chronically constipated and this has been an issue her whole life. She regularly takes MiraLAX to help keep her stools soft. However she states that about 2 months ago she got a notable illness with some vomiting and borderline pneumonia. Since then she has been significantly more constipated than normal. Over the last week or 2 this is significantly progressed and she has about 1 bowel movement per week at best. She states that usually starts out as a few hard small circular bony poop like bowel movements, and then will be soft stool after that plug is able to be defecated. However over the last 2 days she has developed moderate pelvic and left-sided abdominal pain and discomfort which is atypical. She denies fever or chills. She denies vomiting. She denies any blood per rectum or poor oral. She does admit to bloating in the abdomen. For the past week she has been taking MiraLAX and Senokot multiple times per day to help motivate a bowel movement. She has also been performing enemas without any significant results. She presents today for further evaluation. She denies any history of colon cancer. She denies any recent weight loss. Related Data Home Medications ?Medication ?Instructions ?Recorded ?Confirmed pramipexole 0.5 mg tablet (Mirapex) 0.5 mg PO BID PRN 05/11/19 08/07/24 CPAP 1 device miscellaneous HS 10/08/19 08/07/24 polyethylene glycol 3350 17 gram 17 g PO DAILY 12/10/20 08/07/24 oral powder packet (Miralax) tiotropium 2.5 mcg-olodaterol 2.5 2 puff inhalation DAILY #4 grams 07/14/21 08/07/24 mcg/actuation mist for inhalation (Stiolto Respimat) pantoprazole 40 mg tablet,delayed 40 mg PO BID #60 tabs 01/17/22 08/07/24 release (Protonix) buspirone 5 mg tablet 5 mg PO BID 05/30/24 08/07/24 albuterol sulfate 2.5 mg/3 mL 2.5 mg inhalation Q6H PRN 07/01/24 08/07/24 (0.083 %) solution for nebulization atorvastatin 40 mg tablet 40 mg PO QHS 07/01/24 08/07/24 dapagliflozin propanediol 10 mg 10 mg PO DAILY 07/01/24 08/07/24 tablet (Farxiga) levothyroxine 137 mcg capsule 137 mcg PO DAILY PRN 07/01/24 08/07/24 semaglutide 2 mg/dose (8 mg/3 mL) 2 mg subcut QWEEK 07/01/24 08/07/24 subcutaneous pen injector (Ozempic) sennosides 8.6 mg tablet (Natural 8.6 mg PO DAILY #30 tabs 07/18/24 08/07/24 Senna Laxative) Lactobacillus acidophilus 10 100 mmu cells PO DAILY 08/07/24 08/07/24 billion cell capsule (Probiotic) Previous Rx's ?Medication ?Instructions ?Recorded tiotropium 2.5 mcg-olodaterol 2.5 2 puff inhalation DAILY #4 grams 07/14/21 mcg/actuation mist for inhalation (Stiolto Respimat) pantoprazole 40 mg tablet,delayed 40 mg PO BID #60 tabs 01/17/22 release (Protonix) sennosides 8.6 mg tablet (Natural 8.6 mg PO DAILY #30 tabs 07/18/24 Senna Laxative) Allergies Allergy/AdvReac Type Severity Reaction Status Date / Time propranolol Allergy Mild Topical Verified 08/07/24 08:58 Irritation lurasidone (From Latuda) AdvReac Agitation Verified 08/07/24 08:58 sertraline (From Zoloft) AdvReac Psychosis Verified 08/07/24 08:58 General Stated Complaint: Abd Prob REBECA: 3 Exam Narrative Exam Narrative: 1.Const: Well-nourished, Well-developed, appearing stated age 2.Eyes: PERRL, no conjunctival injection, and symmetrical lids. 3.ENT: Atraumatic external nose and ears. Moist MM. Neck: Symmetric, trachea midline, No thyromegaly. 4.CVS: +S1/S2, Peripheral pulses 2+ and equal in all extremities. Brisk capillary refill in all extremities. 5.RESP: Unlabored respiratory effort. Clear to auscultation bilaterally. No wheezes rales or rhonchi 6.GI: Soft, mildly distended, mild tenderness in the pelvic region and left lower abdominal quadrant. Rectal exam was performed with female nurse Anaya at bedside, no significant stool is noted in the rectal vault. No mass. 7.MSK: Normocephalic/Atraumatic, Extremities w/o deformity or ttp No cyanosis or clubbing, Normal movement of all extremities 8.Skin: Warm, Dry. No rashes or lesions. 9.Neuro: die lay out worker II-XII grossly intact. Sensation grossly intact, no focal neurologic deficits. 10.Psych: (AAO) x3. Appropriate mood and affect Course Vital Signs Vital signs: Vital Signs Temperature 36.6 C 08/07/24 08:56 Pulse 94 H 08/07/24 08:56 Respiratory Rate 20 08/07/24 08:56 Blood Pressure 151/59 H 08/07/24 08:56 Pulse Oximetry 99 08/07/24 08:56 Temperature 36.6 C 08/07/24 08:56 Temperature Source Temporal Artery Scan 08/07/24 08:56 Pulse 94 H 08/07/24 08:56 Respiratory Rate 20 08/07/24 08:56 Blood Pressure 151/59 H 08/07/24 08:56 Blood Pressure Position Sitting 08/07/24 08:56 Pulse Oximetry 99 08/07/24 08:56 Oxygen Delivery Method Room Air 08/07/24 08:56 Oxygen Flow Rate 0 08/07/24 08:56 Pain Level 7 08/07/24 08:56 Lab/Test Results Lab/Test Results: Laboratory Tests Range/Units 08/07/24 09:07 WBC (4.4-10.8) 10^3/uL 11.13 H RBC (3.93-5.22) 10^6/uL 4.89 Hgb (11.2-15.7) g/dL 14.5 Hct (36.0-46.0) % 44.6 MCV (80-95) fL 91 MCH (27.0-33.0) pg 29.7 MCHC (32.0-36.0) % 32.5 RDW (11.7-14.6) % 13.2 Plt Count (130-400) 10^3/uL 302 MPV (8.0-11.0) fL 10.2 Immature Gran % % 0.4 Neutrophils % % 63.9 Lymphocytes % % 26.4 Monocytes % % 5.0 Eosinophils % % 3.2 Basophils % % 1.1 Nucleated RBC % (0.0-0.3) % 0.0 Absolute Neutrophils (1.2-6.7) 10^3/uL 7.11 H Absolute Lymphocytes (1.2-3.4) 10^3/uL 2.94 Absolute Monocytes (0.1-0.8) 10^3/uL 0.56 Absolute Eosinophils (0.0-0.7) 10^3/uL 0.36 Absolute Basophils (0.0-0.2) 10^3/uL 0.12 Medical Decision Making 59-year-old female with a past medical history of GERD, cholecystectomy, hypertension, fibromyalgia high cholesterol, reactive airway disease, gout, restless leg syndrome, obstructive sleep apnea, presents today for evaluation of constipation. Patient states that she is chronically constipated and this has been an issue her whole life. She regularly takes MiraLAX to help keep her stools soft. However she states that about 2 months ago she got a notable illness with some vomiting and borderline pneumonia. Since then she has been significantly more constipated than normal. Over the last week or 2 this is significantly progressed and she has about 1 bowel movement per week at best. She states that usually starts out as a few hard small circular bony poop like bowel movements, and then will be soft stool after that plug is able to be defecated. However over the last 2 days she has developed moderate pelvic and left-sided abdominal pain and discomfort which is atypical. She denies fever or chills. She denies vomiting. She denies any blood per rectum or poor oral. She does admit to bloating in the abdomen. For the past week she has been taking MiraLAX and Senokot multiple times per day to help motivate a bowel movement. She has also been performing enemas without any significant results. She presents today for further evaluation. She denies any history of colon cancer. She denies any recent weight loss. Additionally the patient drinks around 10 to 12 cups of water per day. She is also taking a probiotic. Physical exam demonstrates mild abdominal distention, mild lower abdominal left lower quadrant abdominal pain. No significant stool in the rectal vault. Concern for more proximal constipation. However differential also includes mass, less likely obstruction. Diverticulitis on the differential but less likely. Will get basic screening labs, perform CT scan for further evaluation. If this is unremarkable she would be a good candidate for mag citrate or GoLytely. 11:[address] scan results have returned, no evidence of acute process, diverticulitis, obstruction or other life-threatening etiology. There is a fair amount of stool. Patient's pain is controlled. As she is not responsive to her current medical regiment which is certainly reasonable, I do feel that the neck step is a notable colon cleansing with GoLytely. Will give her this for home use. Recommend continued significant fluids, continued stool softeners and high-fiber diet. Will place surgical referral for outpatient scheduling of colonoscopy and EGD. Long-term may require motility studies but no emergent indication for this at this time. Patient understands plan. Discussed red flags which return. I have extensively reviewed the treatment plan and discharge instructions with the patient. I have addressed all patient concerns at this time. The patient was made aware of what symptoms to monitor for that would warrant a return to the emergency department. Discussed the plan with the patient, they demonstrate verbal understanding and agreement with our assessment and plan at this time. The documentation in this chart was dictated using [employer] dictation software. Please excuse any dictation errors. FINDINGS: VISUALIZED LUNG BASES: No nodules nor pleural effusions evident. Small hiatal hernia noted. ABDOMEN: There is no ascites. GI: There is some mural hyperdensity or enhancement in the the mid aspect of the stomach posterior wall. There is a possibility that this is related to ingested material or remnant oral contrast from prior CT scan of 07/16/2024. However, there is no other remnant oral contrast in the entire alimentary tract. There is interposition of right-sided large bowel between the right hepatic lobe and the abdominal wall again noted, but without evidence of obstruction at this level. There is a moderate amount of fecal material in the colon. No gross distention. No fecal impaction in the rectum. Mild diverticulosis in the sigmoid. No evidence of acute diverticulitis. Appendix is difficult to identify but there is no evidence of acute appendicitis. LIVER: Liver is mildly hypodense implying steatosis. There no discrete focal hepatic lesions evident. There are no dilated intrahepatic ducts. GALLBLADDER/BILIARY: Is surgically absent. There is no significant dilatation of the biliary tree, both intra and extrahepatic. PANCREAS: No evidence of pancreatic mass nor dilatation of the pancreatic duct. SPLEEN: Spleen is not enlarged. No obvious intrasplenic lesions. Splenic and portal veins are patent. ADRENALS: There are no significant adrenal masses. KIDNEYS:No cysts evident. No solid renal masses. No calculi nor hydronephrosis.. ABDOMINAL AORTA: Abdominal aorta is moderately atherosclerotic but not enlarged. The common iliac arteries also exhibit calcified mural plaque but no aneurysms. LYMPH NODES:There is no retroperitoneal nor paraaortic adenopathy. ABDOMINAL WALL: No evidence of significant anterior abdominal wall nor inguinal hernia. GI: There is no evidence of bowel obstruction, free air, nor abscess. PELVIS: LYMPH NODES: There is no intrapelvic nor inguinal adenopathy. REPRODUCTIVE: Uterus size normal. There are no abnormal adnexal masses. Ovaries appear unremarkable. No extraovarian adnexal masses and no free fluid in the pelvis. URINARY BLADDER: No calculi nor obvious masses evident OSSEOUS: No fractures and no significant osseous lesions. IMPRESSION: 1. No acute findings in the abdomen and pelvis. 2. Some hyperdense material is noted along the greater curvature of the stomach which is possibly related to ingested medication or less likely remnant oral contrast from the enteric contrast administered for CT scan of 07/16/2024. Another possibility is that this may represent abnormal mural enhancement at this level. There is no mass evident at this level on the CT scan of 07/16/2024. Small hiatal hernia is again noted. 3. Gallbladder is again noted to be surgically absent. The biliary tree is not dilated. 4. Moderate amount of fecal material noted throughout the colon. Also again noted is interposition of the hepatic flexure of the colon and part of the ascending colon between the right hepatic lobe and the right abdominal wall, similar to the previous study. This is variant of normal and there is no evidence of obstruction at this level. Report called by myself to ER physician 08/07/2024 at 11:10 a.m. Quality:SDOH Health Related Social Needs: No Data to Display PFSH All Active Problems (Updated 08/07/24 @ 11:19 by Arcadio Leigh DO) Constipation (Acute) Hematemesis (Acute) Chronic GERD (Acute) Indigestion (Acute) Epigastric pain (Acute) Ganglion cyst of volar aspect of right wrist (Acute) Mass of right parotid gland (Acute) Chronic maxillary sinusitis (Acute) Pulmonary nodules (Acute) Nicotine dependence, cigarettes, uncomplicated (Acute) Aspiration into airway (Acute) Restrictive lung disease (Acute) Dehydration (Acute) Colon polyp, hyperplastic (Acute ~01/2021) Tubular adenoma (Acute ~01/2021) Repeat colonoscopy in 2027 Hx of adenomatous colonic polyps (Acute) Vertigo (Acute) Prolonged P-R interval (Acute) GERD (gastroesophageal reflux disease) (Chronic) Hiatal hernia (Chronic) Chest pain (Acute) Diabetes (Chronic) Encounter for screening for other viral diseases (Acute) Difficult airway for intubation (Acute) [place] difficult airway 7 yrs ago in [place] requiring fiberoptic intubation with difficulty. No other history available. Abnormal auditory perception of both ears (Acute) Hoarseness of voice (Acute) Bloating (Acute) Early satiety (Acute) Screening for colon cancer (Acute) Abdominal pain (Acute) Abdominal bloating with cramps (Acute) Guillen cyst (Acute) removed from behind right knee X2. Difficult intubation (Acute) Hyperlipidemia (Chronic) HTN (hypertension) (Chronic) Heart murmur (Chronic) Medical History Hearing loss Vitamin D deficiency Vitamin B 12 deficiency Iron deficiency anemia Post-nasal drip Environmental allergies Carpal tunnel syndrome, right Ganglion cyst of volar aspect of left wrist De Quervain's tenosynovitis, right (~12/2019) Restless leg syndrome Gout Hypothyroidism Non-insulin dependent type 2 diabetes mellitus Depression Anxiety Bipolar 1 disorder COPD (chronic obstructive pulmonary disease) Dysuria Fibromyalgia SOB (shortness of breath) Bilateral lower extremity edema JADON (obstructive sleep apnea) Oral lesion Dental caries Right lateral epicondylitis Surgical History History of esophagogastroduodenoscopy (EGD) (~01/2021) History of colonoscopy (~01/2021) Hx of tonsillectomy S/P cholecystectomy Family History Father Heart disease Maternal Grandmother Heart disease Social History Smoking/Tobacco Use Status: Current every day Tobacco Type: cigarettes Years smoked: 40 Smoking risk assessment performed?: Yes Alcohol Intake: current Alcohol Intake frequency: a few times a month Alcohol type: beer Drug use: Never Substance use type: does not use Housing: house Current gender identity: female What type of physical activity do you participate in: none Do you feel safe at home: Yes Do you feel safe in your relationship?: Yes Additional Social history: Lives with sister.
[2024-08-07] MEDS: Omnipaque 350 MG/ML 100 ML BTL IJ (09:23)
[2024-08-07] MEDS: Normal Saline - Diluent 50 ML VIAL IV (09:24)
[2024-08-07 09:31] LABS: ALT 17 U/L (14-59); AST 8 U/L (15-37); Albumin 3.5 g/dL (3.4-5.0); Alkaline Phosphatase 104 U/L (46-116); Anion Gap 8.2 mmol/L (3-11); BUN 9 mg/dL (7-18); CO2 26.8 mmol/L (21.0-32.0); CREATININE 1.1 mg/dL (0.55-1.02); Chloride 106 mmol/L (98-107); Estimated GFR 58.24 (mL/min/1.73m2); Glucose 167 mg/dL (74-106); Potassium 3.9 mmol/L (3.5-5.1); Sodium 141 mmol/L (136-145); Total Protein 7.6 g/dL (6.4-8.2)
[2024-08-07 09:40] VITALS: BP 125/56; PULSE 95; RESP 14; O2SAT 97
[2024-08-07 10:44] VITALS: BP 135/74; PULSE 91; RESP 16; O2SAT 100
[2024-08-07 11:27] VITALS: BP 125/59; PULSE 88; RESP 16; O2SAT 100
--- NOTE | 2024-08-07 12:26 | DI.VRAD_ITS ---
PROCEDURE INFORMATION: Exam: CT Abdomen And Pelvis With Contrast Exam date and time: 08/07/2024 9:22 AM Age: 59 years old Clinical indication: Constipation; Prior surgery; Surgery date: 6+ months; Surgery type: Cholecystectomy TECHNIQUE: Imaging protocol: Computed tomography of the abdomen and pelvis with contrast. Contrast material: OMNIPAQUE 350; Contrast volume: 100 ml; Contrast route: INTRAVENOUS (IV); COMPARISON: CT ABDOMEN PELVIS W 07/16/2024 2:10 PM (images only, no report) FINDINGS: Lungs: Linear atelectasis and/or scarring within the lung bases. Heart: Small pericardial effusion, similar to prior. Diaphragm: Small hiatal hernia. Liver: There is a diffuse decrease in hepatic parenchymal density, suggestive of fatty infiltration. Gallbladder and biliary ducts: The gallbladder is surgically absent. Pancreas: Fatty atrophy of the pancreas. Spleen: Normal. No splenomegaly. Adrenal glands: Normal. No mass. Kidneys and ureters: Normal. No hydronephrosis. Stomach and bowel: The stomach is underdistended. Normal caliber small bowel. [id number] colonic stool burden. Colonic diverticulosis without findings of acute diverticulitis. Appendix: No evidence of appendicitis. Intraperitoneal space: No free air. No significant fluid collection. Vasculature: Moderate atherosclerotic disease of the abdominal aorta. Lymph nodes: Mild central mesenteric fat stranding with associated prominent mesenteric nodes, similar to prior. Urinary bladder: Unremarkable as visualized. Reproductive: Unremarkable as visualized. Bones/joints: Mild degenerative changes of the spine. Chronic angular deformity of the distal sacrum. Soft tissues: Small fat containing umbilical hernia. IMPRESSION: 1. No acute findings. 2. Mild to moderate stool burden. Dictated and Authenticated by: Joni Escalante MD. Ordering:BRITTANY Ervin MD
== END 2024-08-07 11:36 | disposition home or self-care (01) ==
PROVIDERS: Emergency Provider Student in an Organized Health Care Education/Training Program; PCP Nurse Practitioner Family
DX: K59.00 Constipation, unspecified (principal)
CPT/HCPCS: 36415; 80053; 99285; 74177; 85025; 99284; J3490

== ENCOUNTER 2024-08-15 13:17 | Day surgery (SDC) | payer BC, SELFPAY ==
--- NOTE | 2024-08-15 10:57 | ANES.PREOP_ITS ---
General Info Date of Service Date Performed: 08/15/24 Height: 5 ft 9 in Weight: 100.698 kg Body Mass Index (BMI): 32.8 Surgical Procedure: Operation Date: 08/15/24 15:10 Proposed Procedure Side Surgeon p Wrist Cyst Excision Right Dell Kimball MD Meds Allergies and Home Medications Allergies Allergy/AdvReac Type Severity Reaction Status Date / Time propranolol Allergy Mild Topical Verified 08/15/24 13:45 Irritation lurasidone (From Latuda) AdvReac Agitation Verified 08/15/24 13:45 sertraline (From Zoloft) AdvReac Psychosis Verified 08/15/24 13:45 Home Medication ?Medication ?Instructions ?Recorded pramipexole 0.5 mg tablet (Mirapex) 0.5 mg PO BID PRN 05/11/19 CPAP 1 device miscellaneous HS 10/08/19 polyethylene glycol 3350 17 gram 17 g PO DAILY 12/10/20 oral powder packet (Miralax) pantoprazole 40 mg tablet,delayed 40 mg PO BID #60 tabs 01/17/22 release (Protonix) buspirone 5 mg tablet 5 mg PO BID 05/30/24 albuterol sulfate 2.5 mg/3 mL 2.5 mg inhalation Q6H PRN 07/01/24 (0.083 %) solution for nebulization atorvastatin 40 mg tablet 40 mg PO QHS 07/01/24 dapagliflozin propanediol 10 mg 10 mg PO DAILY 07/01/24 tablet (Farxiga) levothyroxine 137 mcg capsule 137 mcg PO DAILY PRN 07/01/24 semaglutide 2 mg/dose (8 mg/3 mL) 0.5 mg subcut QWEEK 07/01/24 subcutaneous pen injector (Ozempic) sennosides 8.6 mg tablet (Natural 8.6 mg PO DAILY #30 tabs 07/18/24 Senna Laxative) Lactobacillus acidophilus 10 100 mmu cells PO DAILY 08/07/24 billion cell capsule (Probiotic) loratadine 10 mg tablet (Allergy 10 mg PO DAILY 08/15/24 Relief (loratadine)) Current Visit Medications: Current Medications Generic Name Dose Route Start Last Admin Trade Name Freq PRN Reason Stop Dose Admin Acetaminophen 1,000 mg 08/15/24 06:00 Acetaminophen 500 Mg Tab PO 08/15/24 23:59 PREOP DAMIAN Celecoxib 400 mg 08/15/24 06:00 Celecoxib 200 Mg Cap PO 08/15/24 23:59 PREOP DAMIAN Ringer's Solution 1,000 mls @ 80 mls/hr 08/15/24 06:00 IV 08/15/24 23:59 INFUSION DAMIAN Cefazolin Sodium/Dextrose 2 gm in 50 mls @ 100 mls/hr 08/15/24 06:00 Ancef Duplex IVPB 08/15/24 23:59 PREOP DAMIAN IV Miscellaneous Supplies 1 each 08/15/24 06:00 Iv Access IV 08/15/24 23:59 DIRECTED DAMIAN Sodium Chloride 0 ml 08/15/24 06:00 Normal Saline Flush 10 Ml Syr IV 08/15/24 23:59 PRN PRN Sodium Chloride 0 ml 08/15/24 06:00 Normal Saline 10 Ml Vial IJ 08/15/24 23:59 DIRECTED PRN Sterile Water 0 ml 08/15/24 06:00 Water,Injection,Sterile 10 Ml Vial IJ 08/15/24 23:59 DIRECTED PRN PFSH Active Problems Active Problems: Problem Status Onset Code Constipation Acute K59.00 Hematemesis Acute K92.0 Chronic GERD Acute K21.9 Indigestion Acute K30 Epigastric pain Acute R10.13 Ganglion cyst of volar aspect of right wrist Acute M67.431 Mass of right parotid gland Acute K11.8 Chronic maxillary sinusitis Acute J32.0 Pulmonary nodules Acute R91.8 Nicotine dependence, cigarettes, uncomplicated Acute F17.210 Aspiration into airway Acute T17.908A Restrictive lung disease Acute J98.4 Dehydration Acute E86.0 Colon polyp, hyperplastic Acute ~01/2021 K63.5 Tubular adenoma Acute ~01/2021 D36.9 Hx of adenomatous colonic polyps Acute Z86.010 Vertigo Acute R42 Prolonged P-R interval Acute I44.0 GERD (gastroesophageal reflux disease) Chronic K21.9 Hiatal hernia Chronic K44.9 Chest pain Acute R07.9 Diabetes Chronic E11.9 Encounter for screening for other viral diseases Acute Z11.59 Difficult airway for intubation Acute T88.4XXA Abnormal auditory perception of both ears Acute H93.293 Hoarseness of voice Acute R49.0 Bloating Acute R14.0 Early satiety Acute R68.81 Screening for colon cancer Acute Z12.11 Abdominal pain Acute R10.9 Abdominal bloating with cramps Acute R14.0, R10.9 Guillen cyst Acute M71.20 Difficult intubation Acute T88.4XXA Hyperlipidemia Chronic E78.5 HTN (hypertension) Chronic I10 Heart murmur Chronic R01.1 Medical History Medical History Hearing loss Vitamin D deficiency Vitamin B 12 deficiency Iron deficiency anemia Post-nasal drip Environmental allergies Carpal tunnel syndrome, right Ganglion cyst of volar aspect of left wrist De Quervain's tenosynovitis, right (~12/2019) Restless leg syndrome Gout Hypothyroidism Non-insulin dependent type 2 diabetes mellitus Depression Anxiety Bipolar 1 disorder COPD (chronic obstructive pulmonary disease) Dysuria Fibromyalgia SOB (shortness of breath) Bilateral lower extremity edema JADON (obstructive sleep apnea) Oral lesion Dental caries Right lateral epicondylitis Surgical History Surgical History (Updated 08/15/24 @ 13:48 by Andreina Marcus) Hx of removal of cyst back of L knee x 2 History of esophagogastroduodenoscopy (EGD) (~01/2021) History of colonoscopy (~01/2021) Hx of tonsillectomy S/P cholecystectomy Tobacco Smoking/Tobacco Use Status: Current every day Tobacco Type: cigarettes Smoking cigarettes per day: 8 Years smoked: 40 Smoking pack-years: 16.00 Alcohol Alcohol Intake: current Alcohol intake frequency: a few times a month Alcohol type: beer Substance Use Substance use: Never Substance use type: does not use Vital Signs and Lab Results Lab Results Blood Type / Crossmatch: No Data to Display Complete Blood Count: White Blood Count 11.13 10^3/uL (4.4-10.8) H 08/07/24 09:07 Red Blood Count 4.89 10^6/uL (3.93-5.22) 08/07/24 09:07 Hemoglobin 14.5 g/dL (11.2-15.7) 08/07/24 09:07 Hematocrit 44.6 % (36.0-46.0) 08/07/24 09:07 Platelet Count 302 10^3/uL (130-400) 08/07/24 09:07 Complete Metabolic Panel: Sodium 141 mmol/L (136-145) 08/07/24 09:07 Potassium 3.9 mmol/L (3.5-5.1) 08/07/24 09:07 Chloride 106 mmol/L (98-107) 08/07/24 09:07 Carbon Dioxide 26.8 mmol/L (21.0-32.0) 08/07/24 09:07 BUN 9 mg/dL (7-18) 08/07/24 09:07 Creatinine 1.1 mg/dL (0.55-1.02) H 08/07/24 09:07 Est GFR (CKD-EPI 2020) 58.24 (mL/min/1.73m2) 08/07/24 09:07 Calcium 9.0 mg/dL (8.5-10.1) 08/07/24 09:07 Albumin 3.5 g/dL (3.4-5.0) 08/07/24 09:07 Glucose 167 mg/dL (74-106) H 08/07/24 09:07 Liver Function Panel: Alanine Aminotransferase (ALT/SGPT) 17 U/L (14-59) 08/07/24 09: 07 Aspartate Amino Transf (AST/SGOT) 8 U/L (15-37) L 08/07/24 09:0 7 Coagulation Panel: No Data to Display Cardiac Panel: No Data to Display Arterial Blood Gas: No Data to Display Venous Blood Gas: No Data to Display Pancreas Panel: No Data to Display Thyroid Panel: No Data to Display Infectious Disease: No Data to Display Blood Cultures: No Data to Display Toxicology Panel: No Data to Display Anesthesia Assessment and Plan Anesthesia History Personal History: Other Family History: No Family History of Anesthesia Complications Exercise Tolerance Exercise Tolerance: Metabolic Equivalents<4 Cardiac & Pulmonary Exam Cardiac Exam: Normal S1/S2 Heart Sounds Pulmonary Exam: Clear Bilateral Breath Sounds Implantable Cardiac Device Does patient have a Pacemaker or an ICD?: No Airway Exam Known Difficult Airway: Yes Mallampati Class: 3 Mouth Opening: Narrow (< 3cm) Thyromental Distance: Less than 3 cm Neck Range of Motion: Limited ROM Neck Circumference: Thick Teeth Condition: Edentulous ASA Classification ASA Score: ASA 3 Emergency Case?: No NPO Status NPO Status: NPO Clears >2 hours, Solids >8 hours Anesthesia Plan Resuscitation Status: Full Code Anesthesia Technique: MAC Anesthesia Airway Planned: Natural Airway Monitors Used: Standard Monitors Preoperative Comments:: 59 yo female for wrist excision. Sig PMHx: HTN, JADON (CPAP. recent sleep study and her setting increased, able to sleep flat now), COPD (albuterol, breathing feels good today), RLD, GERD (pantoprazole. feels that she is much better controlled than previously), smoker, RLS, hypothyroid (levothyroxine), DM2 (semaglutide) EKG: sinus long NE. ECHO (2019): LVEF 45-49%, moderate MR, mild TR. - knows she needs to have a new echo for any larger procedure with us. Stress: iRBBB, no ECG changes. no evidence of sig ischemia or infarction. PFTs: mild restrictive lung dz. Previous Anes: - EGD/colo, prop/lido topical, no issues. - Airway eval in [facility], 4% lidocaine, glide 3, 5-10% of glottic opening seen - wi th out sedation minimal pressure. - [facility] gallbladder, attempted intubation -> glidescope ->mac 4 -> (?) araya -> fiberoptic bronchoscope
[2024-08-15 13:52] VITALS: BP 142/78; PULSE 92; RESP 20; TEMP 36.3; O2SAT 97
[2024-08-15] MEDS: Celecoxib 200 MG CAP 400 MG PO (14:04)
[2024-08-15] MEDS: Acetaminophen 500 MG TAB 1000 MG PO (14:04)
[2024-08-15 14:05] VITALS: BMI 32.8
[2024-08-15] MEDS: Lactated Ringers 1,000 ML 80 ML IV (14:10)
--- NOTE | 2024-08-15 14:36 | HPE_ITS ---
Assessment and Plan Assessment and plan (1) Ganglion cyst of volar aspect of right wrist: Status: Acute Assessment and plan: Elise is a 59-year-old female who has a cyst about the volar aspect of her right wrist. She like to have it removed. She has no changes to her medical history. I reviewed the technical details of the surgery. I reviewed the risk to include bleeding, infection, pain, stiffness, damage nerves and vessels including the radial artery, recurrence. Despite these risk, she elects to proceed. History of Present Illness Narrative: Elise is a 59-year-old female who I saw previously in the office for a volar wrist cyst on the right side. Please see the previous office note for complete detailed history. She has continued pain from the cyst. She would like to have it removed. She does have diabetes, GERD, obstructive sleep apnea. No significant change in her medical history at this point. No chest pain or shortness of breath. She also does have a history of a difficult airway from some years ago. Review of Systems All systems reviewed & are unremarkable except as noted in HPI and below PFSH All Active Problems Constipation (Acute) Hematemesis (Acute) Chronic GERD (Acute) Indigestion (Acute) Epigastric pain (Acute) Ganglion cyst of volar aspect of right wrist (Acute) Mass of right parotid gland (Acute) Chronic maxillary sinusitis (Acute) Pulmonary nodules (Acute) Nicotine dependence, cigarettes, uncomplicated (Acute) Aspiration into airway (Acute) Restrictive lung disease (Acute) Dehydration (Acute) Colon polyp, hyperplastic (Acute ~01/2021) Tubular adenoma (Acute ~01/2021) Repeat colonoscopy in 2027 Hx of adenomatous colonic polyps (Acute) Vertigo (Acute) Prolonged P-R interval (Acute) GERD (gastroesophageal reflux disease) (Chronic) Hiatal hernia (Chronic) Chest pain (Acute) Diabetes (Chronic) Encounter for screening for other viral diseases (Acute) Difficult airway for intubation (Acute) [place] difficult airway 7 yrs ago in [place] requiring fiberoptic intubation with difficulty. No other history available. Abnormal auditory perception of both ears (Acute) Hoarseness of voice (Acute) Bloating (Acute) Early satiety (Acute) Screening for colon cancer (Acute) Abdominal pain (Acute) Abdominal bloating with cramps (Acute) Guillen cyst (Acute) removed from behind right knee X2. Difficult intubation (Acute) Hyperlipidemia (Chronic) HTN (hypertension) (Chronic) Heart murmur (Chronic) Medical History Hearing loss Vitamin D deficiency Vitamin B 12 deficiency Iron deficiency anemia Post-nasal drip Environmental allergies Carpal tunnel syndrome, right Ganglion cyst of volar aspect of left wrist De Quervain's tenosynovitis, right (~12/2019) Restless leg syndrome Gout Hypothyroidism Non-insulin dependent type 2 diabetes mellitus Depression Anxiety Bipolar 1 disorder COPD (chronic obstructive pulmonary disease) Dysuria Fibromyalgia SOB (shortness of breath) Bilateral lower extremity edema JADON (obstructive sleep apnea) Oral lesion Dental caries Right lateral epicondylitis Surgical History Hx of removal of cyst back of L knee x 2 History of esophagogastroduodenoscopy (EGD) (~01/2021) History of colonoscopy (~01/2021) Hx of tonsillectomy S/P cholecystectomy Family History Father Heart disease Maternal Grandmother Heart disease Social History Smoking/Tobacco Use Status: Current every day Tobacco Type: cigarettes Years smoked: 40 Smoking risk assessment performed?: Yes Alcohol Intake: current Alcohol Intake frequency: a few times a month Alcohol type: beer Drug use: Never Substance use type: does not use Details: alcohol: t-14, one beer Housing: house Current gender identity: female What type of physical activity do you participate in: none Do you feel safe at home: Yes Do you feel safe in your relationship?: Yes Additional Social history: Lives with sister. Meds Allergies and Home Medications Allergies Allergy/AdvReac Type Severity Reaction Status Date / Time propranolol Allergy Mild Topical Verified 08/15/24 13:45 Irritation lurasidone (From Latuda) AdvReac Agitation Verified 08/15/24 13:45 sertraline (From Zoloft) AdvReac Psychosis Verified 08/15/24 13:45 Home Medications ?Medication ?Instructions ?Recorded ?Confirmed ?Type pramipexole 0.5 mg tablet (Mirapex) 0.5 mg PO BID PRN 05/11/19 08/15/24 History CPAP 1 device miscellaneous HS 10/08/19 08/15/24 History polyethylene glycol 3350 17 gram 17 g PO DAILY 12/10/20 08/15/24 History oral powder packet (Miralax) pantoprazole 40 mg tablet,delayed 40 mg PO BID #60 tabs 01/17/22 08/08/24 Rx release (Protonix) buspirone 5 mg tablet 5 mg PO BID 05/30/24 08/15/24 History albuterol sulfate 2.5 mg/3 mL 2.5 mg inhalation Q6H PRN 07/01/24 08/15/24 History (0.083 %) solution for nebulization atorvastatin 40 mg tablet 40 mg PO QHS 07/01/24 08/15/24 History dapagliflozin propanediol 10 mg 10 mg PO DAILY 07/01/24 08/13/24 History tablet (Farxiga) levothyroxine 137 mcg capsule 137 mcg PO DAILY PRN 07/01/24 08/15/24 History semaglutide 2 mg/dose (8 mg/3 mL) 0.5 mg subcut QWEEK 07/01/24 08/08/24 History subcutaneous pen injector (Ozempic) sennosides 8.6 mg tablet (Natural 8.6 mg PO DAILY #30 tabs 07/18/24 08/15/24 Rx Senna Laxative) Lactobacillus acidophilus 10 100 mmu cells PO DAILY 08/07/24 08/15/24 History billion cell capsule (Probiotic) loratadine 10 mg tablet (Allergy 10 mg PO DAILY 08/15/24 08/15/24 History Relief (loratadine)) Exam Const General: cooperative, healthy appearing, comfortable and no acute distress Orientation: alert, awake and oriented x3 Resp Effort & Inspection: normal respiratory effort Auscultation: clear to auscultation bilaterally Cardio Rate: regular rate Rhythm: regular rhythm Results Last Vital Signs Temp 36.3 C L 08/15/24 13:52 Pulse 92 H 08/15/24 13:52 Resp 20 08/15/24 13:52 BP 142/78 H 08/15/24 13:52 Pulse Ox 97 08/15/24 13:52
[2024-08-15] MEDS: ceFAZolin 2 GM/50 ML BAG IVPB (14:48)
[2024-08-15] MEDS: Lidocaine 1% Multi-Dose W/EPI 1/100,000 50 ML VIAL (14:51)
[2024-08-15] MEDS: Sodium Bicarbonate 50 MEQ/50 ML VIAL (14:51)
[2024-08-15 15:20] VITALS: BP 123/62; PULSE 87; RESP 20; TEMP 36.5; O2SAT 99
[2024-08-15 15:46] VITALS: BP 122/65; PULSE 85; RESP 18; TEMP 36.6; O2SAT 96
--- NOTE | 2024-08-15 16:02 | PDOC.DSDIS_ITS ---
Date of service: 08/15/24 Discharge Plan Disposition Patient Disposition: Home Discharge Details Reason For Visit: Right Volar Wrist Cyst Attending Provider: Dell Kimball Primary Care Provider: JONNY HUNTER Home Meds and New Rx's Prescriptions: New acetaminophen 500 mg tablet 500 mg PO Q6H PRN PRN (Reason: pain) Qty: 60 3RF hydrocodone-acetaminophen 5-325 mg tablet 1 tab PO Q6H PRN (Reason: pain) Qty: 6 0RF ibuprofen 600 mg tablet 600 mg PO TID PRN (Reason: pain) Qty: 30 3RF Continued buspirone 5 mg tablet 5 mg PO BID CPAP 1 device miscellaneous HS sennosides [Natural Senna Laxative] 8.6 mg tablet 8.6 mg PO DAILY Qty: 30 12RF pantoprazole [Protonix] 40 mg tablet,delayed release (DR/EC) 40 mg PO BID Qty: 60 7RF Ozempic 2 mg/dose (8 mg/3 mL) pen injector 0.5 mg subcut QWEEK Patient Comments: states she takes 0.5mg weekly now albuterol sulfate 2.5 mg /3 mL (0.083 %) solution for nebulization 2.5 mg inhalation Q6H PRN atorvastatin 40 mg tablet 40 mg PO QHS dapagliflozin propanediol [Farxiga] 10 mg tablet 10 mg PO DAILY levothyroxine 137 mcg capsule 137 mcg PO DAILY PRN pramipexole [Mirapex] 0.5 mg Tablet 0.5 mg PO BID PRN polyethylene glycol 3350 [Miralax] 17 gram Powder In Packet 17 g PO DAILY loratadine [Allergy Relief (loratadine)] 10 mg tablet 10 mg PO DAILY Probiotic 10 billion cell capsule 100 mmu cells PO DAILY Discharge Instructions Additional Instructions: Wrist Cyst Discharge Instructions Activity: You should keep the hand/wrist elevated as much as possible for the first few days. You may use the other fingers as tolerated but avoid trying to do too much too soon. You may perform light activities with the splint in place. Dressing/Cast: Your splint should stay in place most of the time. You may remove it for comfort and to move the wrist gently. You should sleep in it. The initial dressing may be removed after 48-72 hours and you can cover with a bandaid. You may get the wound wet after 72 hours. Medications: - You should take Tylenol and Ibuprofen for baseline pain control. - You have been prescribed a stronger pain medication, Hydrocodone, for breakthrough pain. - You may apply ice over the wrist, just double bag so it doesn't get wet. Follow-up: 10-14 days Stand Alone Forms: Anesthesia Discharge Inst., Christine Almodovar ([facility]) Referrals: Dell Kimball MD [ [facility] STAFF PHYSICIAN] - 08/23/24 8:15 am (w/ortho PA) Equipment/Supplies: Splint Activity:: Activity as Tolerated Remove Dressings/Wound Care:: 72 hours Shower/Bathe:: 72 hours Diet:: As Tolerated Discharge Orders Discharge Orders: Discharge Order (Routine); Ordered 08/15/24 Ordered By: Dell Kimball DS: Diagnosis Discharge Diagnosis (1) Ganglion cyst of volar aspect of right wrist: Status: Acute
--- NOTE | 2024-08-15 17:16 | ROE_ITS ---
Operative Note Operative Note PRE-OP DIAGNOSIS: Right Volar Wrist Cyst POST-OP DIAGNOSIS: same PROCEDURE: Excision of volar wrist ganglion cyst - RIGHT wrist SURGEON: Dell Kimball ANESTHESIA TYPE: MAC Refer to Anesthesia Record ESTIMATED BLOOD LOSS: 5 PATHOLOGY: none sent TOURNIQUET TIME: 10 COMPLICATIONS: None Patient was transported to: PACU Patient's condition: stable Indications: Jagruti is a 59 year old female who I have seen for a volar wrist ganglion cyst. It has continued to be bothersome despite some conservative options. Its size and interference with activities continues to cause problems. Therefore, I offered excision of the volar wrist cyst. I discussed the risks to include bleeding, infection, pain, stiffness, damage to nerve and vessels, recurrence. Despite these risks, she elects to proceed. Procedure Description: Jagruti was greeted in the preoperative holding area. Identity was confirmed and the correct site was identified and marked. Consent was reviewed the patient and signed. History and physical was updated. The patient to take not to the operating room placed in supine position. All bony prominences were well- padded. A nonsterile tourniquet was placed high up onto the right arm. The arms and prepped with ChloraPrep and draped in a standard fashion. The surgical site was marked on the skin and injected with 1% lidocaine with epinephrine buffered with sodium bicarbonate. The limb was exsanguinated and the tourniquet was inflated to 250 mmHg where it stayed for 10 minutes. The skin was incised sharply. Deeper dissection was carried out with tenotomy scissors and careful attention to vascular branches in this area. The mass was identified and protected with dissection carried around. Once was fully identified it was deflated and the cyst stalk was followed down to the carpus. The majority of the cyst was actually superficial and the structure diminished as it went through the volar fascia. The cyst structure was resected and its origin from the carpus was opened with tenotomy scissors and rongeur. The wound was then thoroughly irrigated. The tourniquet was deflated. There is no major arterial bleeding. The wound was dry. The deep layer was reapproximated with a 3-0 Vicryl. The skin was closed with a running 4-0 Monocryl followed by Xeroform, gauze, and Jose A wrap. The wrist was placed into a removable wrist brace. At the end the case all counts were correct. The patient was awakened from anesthesia and taken to the PACU in stable condition. There were no noted complications. Date of Procedure: 08/15/24
--- NOTE | 2024-08-19 07:53 | W.ANESPOSTOP ---
Postoperative Evaluation Date, Time and Location Date Performed: 08/19/24 Time Performed: 07:53 Patient Location: Day Surgery Unit Vital Signs Most Recent Imported Vital Signs: Most Recent Vital Signs Temp Pulse Resp BP Pulse Ox 36.6 C 85 18 122/65 96 08/15/24 15:46 08/15/24 15:46 08/15/24 15:46 08/15/24 15:46 08/15/24 15:46 Pain Score Most Recent Pain Score: Most Recent Pain Score Pain Level 0 08/15/24 15:46 Assessment Mental Status: Awake (Alert & Oriented to Patient Baseline) Airway and Respiratory Function: Patent airway with normal (patient baseline) respiratory exam Cardiovascular Function: Hemodynamically Stable Hydration Status: Adequately Hydrated Nausea & Vomiting: No Nausea or Vomiting Pain: Pt. Denies Any Pain Peripheral Nerve Block: Patient did not receive a nerve block Postoperative Comments:: patient was seen on 08/15/24 at 1550. postop not entered in error.
== END 2024-08-15 16:21 | disposition home or self-care (01) ==
PROVIDERS: PCP Nurse Practitioner Family; Visit Provider Student in an Organized Health Care Education/Training Program
PROC: (CPT 25111; principal; 2024-08-15 15:00)
DX: M67.431 Ganglion, right wrist (principal); E11.9 Type 2 diabetes mellitus without complications; I10 Essential (primary) hypertension; K21.9 Gastro-esophageal reflux disease without esophagitis; F17.210 Nicotine dependence, cigarettes, uncomplicated; M79.7 Fibromyalgia
CPT/HCPCS: 25111; J0690; J2004; J2250; J2704; J3010

== ENCOUNTER 2024-10-24 01:11 | Outpatient (CLI) | payer BC, SELFPAY ==
--- NOTE | 2024-10-24 07:30 | DI.US_ITS ---
APPROVED REPORT EXAM: Comprehensive 2D, Doppler, and color-flow Echocardiogram Patient Location: Out-Patient Packer Fuser: Bharat Lin RDCS (AE) Indications: Murmur, family history of prolapsed valve, smoker, JADON Other Information Study Quality: Adequate. Technically limited study due to body habitus. Conclusion Normal left ventricular wall thickness and chamber size. Ejection fraction is 60%. Wall motion is n ormal Normal right ventricular size and function Both atria are normal in size There is no structural or hemodynamically significant valvular disease Wall motion Left Ventricle The left ventricle is normal size. The left ventricular systolic function is normal. The left ventric ular ejection fraction is within the normal range. There is normal left ventricular wall thickness. T here is normal LV segmental wall motion. There is no ventricular septal defect visualized. LVEF is 60 %. Right Ventricle The right ventricle is normal size. The right ventricular systolic function is normal. Atria The left atrium size is normal. The right atrium size is normal. The interatrial septum is intact wit h no evidence for an atrial septal defect. Aortic Valve The aortic valve is normal in structure. Aortic valve is trileaflet. There is no aortic valvular sten osis. No aortic regurgitation is present. Mitral Valve The mitral valve is normal in structure. No evidence of mitral valve stenosis. Trace mitral regurgita tion. Tricuspid Valve The tricuspid valve is normal in structure. There is no tricuspid valve stenosis. Trace tricuspid reg urgitation. Pulmonic Valve The pulmonary valve is normal in structure. There is no pulmonic valvular stenosis. There is no pulmo kamilah valvular regurgitation. Great Vessels The aortic root is normal in size. The ascending aorta is normal in size. Aortic arch is normal in ca liber. IVC is normal in size and collapses >50% with inspiration. Pericardium There is no pericardial effusion. 2D Dimensions IVSD d PLAX 1.00 cm F: 0.6-1.0 Ao Root d 2.39 cm F: 2.7 - 3.3 LVPW d PLAX 0.98 cm F: 0.6 - 1.0 Ao Asc Diam d 2.63 cm F: 2.3 - 3.1 LVID d PLAX 5.63 cm F: 3.8 - 5.2 LVDs 3.80 cm F: 2.2 - 3.5 LV EF Teichholz 60.3 % FS 32.57 % LV EDV (Teich) 155.6 mL LV ESV (Teich) 61.8 mL Stroke Vol Index (Teich) 47.59 M-Mode TAPSE 1.55 cm (M/F) >1.7 LV Volumes - Method of Disks (Helm's) Single Plane 2D LV Volumes Biplane 2D LV Volumes LV EDV A4C 105.8 mL LV EDV BP 75.43 mL F: 46 - 106 LV ESV A4C 43.3 mL LV ESV BP 31.5 mL LVEF(%) A4C 59.1 % LVEF(%) BP 58.22 % F: 54 - 74 LV EDV A2C 45.7 mL LV EDV BP Index 38.28 mL/m2 F: 29 - 61 LV ESV A2C 20.8 mL SV BP LVEF(%) A2C 54.4 % SV Index LA Volume LA Length A4C 4.6 cm LA Length A2C LA Area A4C s 13.12 cm2 LA Area A2C s LA Vol A4C A-L 31.96 mL LA Vol A2C A-L LA Vol Biplane A-L LA Vol A4C MOD 30.0 mL LA Vol A2C MOD LA Vol BP MOD RA Volume RA Area A4C 8.4 cm2 RA ESV A4C (A-L) 15.8mL RA Vol/BSA A4C A-L RA Length A4C 3.8 cm RA ESV A4C (MOD) 15.1mL LV Diastology MV E' lateral 0.133 (>0.1 m/s) MV E Vmax 1.50 (0.4-1.3 m/s) Aortic Valve AoV Vmax 1.41 m/s LVOT Vmax 0.86 m/s AoV Peak Grad 7.9 mmHg LVOT Peak Grad 2.9 mmHg AoV Area (Vmax) 1.63 cm2 LVOT VTI 0.184 m AoV VTI 0.323 m LVOT Mean Grad 2.0 mmHg AoV Mean [place]. 1.05 m/s LVOT SV 49.10 mL AoV Mean Grad 4.9 mmHg LVOT Diam s 1.80 cm AoV Area (VTI) 1.52 cm2 AV Regurg Peak Gr. 7.90 mmHg Velocity Ratio 0.61 Mitral Valve MV Vmax TIPS 1.45 m/s MV Mean Grad 3.8 (<2mmHg) MV VTI 0.285 m Pulmonary Valve RVOT Vmax 0.81 m/s RVOT Peak Gr. 2.6 mmHg RVOT VTI 0.168 m RVOT Mean Gr. 1.4 mmHg Tricuspid Valve TV S' 0.12 m/s
== END 2024-10-24 01:31 ==
LOC: DI 01:11
PROVIDERS: PCP Nurse Practitioner Family; Visit Provider Internal Medicine Cardiovascular Disease
DX: R01.1 Cardiac murmur, unspecified (principal)
CPT/HCPCS: 93306

== ENCOUNTER 2025-02-12 21:48 | Outpatient (REF) | payer MEDICAID, SELFPAY ==
[2025-02-12 21:33] LABS: RBC Negative HPF (0-2)
== END 2025-02-12 21:49 | disposition home or self-care (01) ==
LOC: LBN 21:48
PROVIDERS: PCP Nurse Practitioner Family; Visit Provider Physician Assistant Medical
DX: R30.0 Dysuria (principal); B96.1 Klebsiella pneumoniae [K. pneumoniae] as the cause of diseases classified elsewhere; R82.89 Other abnormal findings on cytological and histological examination of urine
CPT/HCPCS: 87077; 81015; 87086; 87186

== ENCOUNTER 2025-02-20 21:39 | Outpatient (REF) | payer MEDICAID, SELFPAY ==
[2025-02-20 21:42] LABS: ALT 21 U/L (14-59); AST 15 U/L (15-37); Albumin 3.6 g/dL (3.4-5.0); Alkaline Phosphatase 111 U/L (46-116); Anion Gap 11.3 mmol/L (3-11); BUN 13 mg/dL (7-18); Bilirubin, Total 0.3 mg/dL (0.2-1.0); CO2 24.7 mmol/L (21.0-32.0); Calcium 9.5 mg/dL (8.5-10.1); Chloride 105 mmol/L (98-107); Estimated GFR 65.30 (mL/min/1.73m2); Glucose 205 mg/dL (74-106); Potassium 3.8 mmol/L (3.5-5.1); Sodium 141 mmol/L (136-145); TSH (W/Ref FT4) 0.36 uIU/mL (0.36-3.74); Total Protein 7.4 g/dL (6.4-8.2)
== END 2025-02-20 21:40 | disposition home or self-care (01) ==
LOC: NCHCN 21:39
PROVIDERS: PCP Nurse Practitioner Family; Visit Provider Nurse Practitioner Family
DX: E11.9 Type 2 diabetes mellitus without complications (principal); E03.9 Hypothyroidism, unspecified
CPT/HCPCS: 80053; 84443

== ENCOUNTER 2025-03-17 18:49 | Outpatient (REF) | payer MEDICAID, SELFPAY ==
[2025-03-17 15:33] LABS: Glucose Negative (Negative)
== END 2025-03-17 18:50 | disposition home or self-care (01) ==
LOC: NCHCN 18:49
PROVIDERS: PCP Nurse Practitioner Family; Visit Provider Nurse Practitioner Family
DX: R30.0 Dysuria (principal)
CPT/HCPCS: 81003

== ENCOUNTER 2025-05-01 11:07 | Emergency (ER) | payer BC, SELFPAY ==
[2025-05-01 11:18] VITALS: BP 129/77; PULSE 92; RESP 20; TEMP 36.7; O2SAT 95
[2025-05-01 11:22] VITALS: BP 129/77; PULSE 92; RESP 20; TEMP 36.7; O2SAT 95
--- NOTE | 2025-05-01 11:45 | DI.CT_ITS ---
Exam(s) CT ABDOMEN PELVIS WO EXAM: CT ABDOMEN PELVIS WO CLINICAL HISTORY: nausea, vomiting, epigastric pain. TECHNIQUE: Imaging Protocol: Axial computed tomography images with coronal and sagittal reformatted images were created and reviewed. Oral: no COMPARISON: CT CT ABDOMEN PELVIS W from 08/07/2024 FINDINGS: Lung Bases: No acute findings. Liver: Mild hepatic steatosis. No suspicious mass. Gallbladder and biliary tract: Cholecystectomy. No biliary dilation. Pancreas: Normal density. No abnormal calcifications or inflammatory process. Spleen: Normal. Kidneys: Normal size, contour and axis. No radiodense stones. No obstructive uropathy. No suspicious masses seen. Adrenal glands: No masses seen. Lymph nodes: Within normal limits. Vasculature: Abdominal aorta non-dilated. Soft tissues: Unremarkable. Bladder: Nearly empty but unremarkable. Bowel: No obstruction or bowel wall thickening. Some fluid in distal small bowel and in ascending colon which could be related to diarrheal illness. The descending colon is collapsed. The appendix is not seen. Peritoneal cavity: No ascites. No focal collection. No mesenteric inflammatory response. Reproductive organs: Unremarkable. Bones: Unremarkable for age. IMPRESSION: Mildly fluid-filled loops of distal small bowel and right colon could secondary to a diarrheal illness or enteritis. RADIATION DOSE DELIVERED: 725.35mGy.cm Total DLP DATA REPOSITORY: All CT scans at this facility are submitted to the National Radiology Data Registry (NRDR) Dose Index Registry (DIR) with the [employer] ([employer]). RADIATION OPTIMIZATION: All CT scans at this facility use at least one of these dose optimization techniques: automated exposure control; mA and/or kV adjustment per patient size (includes targeted exams where dose is matched to clinical indication); or iterative reconstruction.
--- NOTE | 2025-05-01 12:05 | W.ED.GENAD ---
Discharge Plan Disposition Patient Disposition: Home Condition: Good Discharge Details Clinical Impression: Abdominal discomfort Primary Care Provider: JONNY HUNTER ED Provider: Arcadio Leigh Home Meds and New Rx's Prescriptions: No Action buspirone 5 mg tablet 5 mg PO BID CPAP 1 device miscellaneous HS ipratropium-albuterol 0.5 mg-3 mg(2.5 mg base)/3 mL solution for nebulization 3 ml inhalation Q4H PRN albuterol sulfate 90 mcg/actuation HFA aerosol inhaler 2 puff inhalation Q6H PRN Breztri Aerosphere 160-9-4.8 mcg/actuation HFA aerosol inhaler 2 inh inhalation BID Qty: 10.7 6RF pantoprazole [Protonix] 40 mg tablet,delayed release (DR/EC) 40 mg PO BID Qty: 60 7RF albuterol sulfate 2.5 mg /3 mL (0.083 %) solution for nebulization 2.5 mg inhalation Q6H PRN atorvastatin 40 mg tablet 40 mg PO QHS levothyroxine 137 mcg capsule 137 mcg PO DAILY pramipexole [Mirapex] 0.5 mg Tablet 0.5 mg PO BID PRN polyethylene glycol 3350 [Miralax] 17 gram Powder In Packet 17 g PO DAILY loratadine [Allergy Relief (loratadine)] 10 mg tablet 10 mg PO DAILY acetaminophen 500 mg tablet 500 mg PO Q6H PRN PRN (Reason: pain) Qty: 60 3RF ibuprofen 600 mg tablet 600 mg PO TID PRN (Reason: pain) Qty: 30 3RF Probiotic 10 billion cell capsule 100 mmu cells PO DAILY insulin glargine U-300 conc [Toujeo SoloStar U-300 Insulin] 300 unit/mL (1.5 mL) insulin pen 22 unit SUBCUT QHS Mounjaro 2.5 mg/0.5 mL pen injector 2.5 mg subcut QWEEK Rx Instructions: for 4 weeks Discharge Instructions Instructions: Abdominal pain Additional Instructions: At this time your workup has returned reassuring. There is some evidence of stool and liquid stool in your colon. To completely cleanse your colon, please take the GoLytely formulation as mixed. Please stay well-hydrated. Please take a probiotic and a daily stool softener to keep your stool soft. If you do notice worsening or return of your symptoms, would recommend returning immediately for reassessment. Please take Zofran only as needed for nausea. If you notice any worsening of your symptoms, or any new symptoms such as vomiting, diarrhea, fever, chills, shortness of breath, chest pain, numbness, weakness, or fainting , please return immediately to the emergency department for reevaluation. Please follow up with your primary care provider as soon as possible for reassessment and reevaluation. As always, it was a pleasure participating in your medical care today. Referrals: JONNY HUNTER NP [Primary Care Provider, Medicine] HPI General Date/Time Provider Initiated Documentation: 05/01/25 11:24. HPI Narrative: 59-year-old female with a past medical history of GERD, cholecystectomy, hypertension, fibromyalgia high cholesterol, reactive airway disease, gout, restless leg syndrome, obstructive sleep apnea, presents today for evaluation of constipation, nausea, vomiting and epigastric pain. Patient has a known history of constipation for which she regularly uses magnesium citrate, MiraLAX, and fiber supplements. For the last week she has had increased constipation whenever she is trying to have a bowel movement. She has small hard round stool balls that occasionally will come out, but nothing else of significance. For the last 3 days though she has had a worsening of her symptoms, including notable epigastric cramps pain and discomfort, yesterday she had 1 episode of vomiting and today she has had 3 episodes of vomiting. She has been nauseous. No blood in her stool. She did take three quarters of a bottle of magnesium citrate yesterday, and did have a small amount of liquid stool today but no other bowel movement. She denies any other complaints at this time. She states that this feels different than her normal constipation. Related Data Home Medications ?Medication ?Instructions ?Recorded ?Confirmed pramipexole 0.5 mg tablet (Mirapex) 0.5 mg PO BID PRN 05/11/19 05/01/25 CPAP 1 device miscellaneous HS 10/08/19 05/01/25 polyethylene glycol 3350 17 gram 17 g PO DAILY 12/10/20 05/01/25 oral powder packet (Miralax) pantoprazole 40 mg tablet,delayed 40 mg PO BID #60 tabs 01/17/22 05/01/25 release (Protonix) buspirone 5 mg tablet 5 mg PO BID 05/30/24 05/01/25 albuterol sulfate 2.5 mg/3 mL 2.5 mg inhalation Q6H PRN 07/01/24 05/01/25 (0.083 %) solution for nebulization atorvastatin 40 mg tablet 40 mg PO QHS 07/01/24 05/01/25 levothyroxine 137 mcg capsule 137 mcg PO DAILY 07/01/24 05/01/25 Lactobacillus acidophilus 10 100 mmu cells PO DAILY 08/07/24 05/01/25 billion cell capsule (Probiotic) acetaminophen 500 mg tablet 500 mg PO Q6H PRN PRN pain #60 tabs 08/15/24 05/01/25 ibuprofen 600 mg tablet 600 mg PO TID PRN pain #30 tabs 08/15/24 05/01/25 loratadine 10 mg tablet (Allergy 10 mg PO DAILY 08/15/24 05/01/25 Relief (loratadine)) albuterol sulfate 90 mcg/actuation 2 puff inhalation Q6H PRN 12/11/24 05/01/25 aerosol inhaler budesonide 160 mcg-glycopyr 9 2 inh inhalation BID #10.7 grams 12/11/24 05/01/25 mcg-formot 4.8 mcg/actuation HFA inhaler (Breztri Aerosphere) ipratropium 0.5 mg-albuterol 3 mg 3 ml inhalation Q4H PRN 12/11/24 05/01/25 (2.5 mg base)/3 mL nebulization soln insulin glargine U-300 conc 300 22 unit subcut QHS 05/01/25 05/01/25 unit/mL (1.5 mL) subcutaneous pen (Toujeo SoloStar U-300 Insulin) tirzepatide 2.5 mg/0.5 mL 2.5 mg subcut QWEEK 05/01/25 05/01/25 subcutaneous pen injector (Martha) Previous Rx's ?Medication ?Instructions ?Recorded pantoprazole 40 mg tablet,delayed 40 mg PO BID #60 tabs 01/17/22 release (Protonix) acetaminophen 500 mg tablet 500 mg PO Q6H PRN PRN pain #60 tabs 08/15/24 ibuprofen 600 mg tablet 600 mg PO TID PRN pain #30 tabs 08/15/24 budesonide 160 mcg-glycopyr 9 2 inh inhalation BID #10.7 grams 12/11/24 mcg-formot 4.8 mcg/actuation HFA inhaler (Breztri Aerosphere) Allergies Allergy/AdvReac Type Severity Reaction Status Date / Time propranolol Allergy Mild Topical Verified 05/01/25 11:24 Irritation lurasidone (From Latuda) AdvReac Agitation Verified 05/01/25 11:24 sertraline (From Zoloft) AdvReac Psychosis Verified 05/01/25 11:24 General Stated Complaint: Abd Prob REBECA: 3 Exam Narrative Exam Narrative: 1.Const: Well-nourished, Well-developed, appearing stated age 2.Eyes: PERRL, no conjunctival injection, and symmetrical lids. 3.ENT: Atraumatic external nose and ears. Moist MM. Neck: Symmetric, trachea midline, No thyromegaly. 4.CVS: +S1/S2, Peripheral pulses 2+ and equal in all extremities. Brisk capillary refill in all extremities. 5.RESP: Unlabored respiratory effort. Clear to auscultation bilaterally. No wheezes rales or rhonchi 6.GI: Soft, mild bloating, mild epigastric tenderness on palpation. No guarding or rebound. No pain in the lower abdomen. Bowel sounds intact Rectal exam was performed with female nurse at bedside, no palpable stool ball present in rectum. 7.MSK: Normocephalic/Atraumatic, Extremities w/o deformity or ttp No cyanosis or clubbing, Normal movement of all extremities 8.Skin: Warm, Dry. No rashes or lesions. 9.Neuro: punchboard stuffer II-XII grossly intact. Sensation grossly intact, no focal neurologic deficits. 10.Psych: (AAO) x3. Appropriate mood and affect Course Vital Signs Vital signs: Vital Signs Temperature 36.7 C 05/01/25 11:18 Pulse 92 H 05/01/25 11:18 Respiratory Rate 20 05/01/25 11:18 Blood Pressure 129/77 05/01/25 11:18 Pulse Oximetry 95 05/01/25 11:18 Temperature 36.7 C 05/01/25 11:22 Temperature Source Oral 05/01/25 11:22 Pulse 92 H 05/01/25 11:22 Respiratory Rate 20 05/01/25 11:22 Blood Pressure 129/77 05/01/25 11:22 Blood Pressure Position Sitting 05/01/25 11:22 Pulse Oximetry 95 05/01/25 11:22 Oxygen Delivery Method Room Air 05/01/25 11:22 Oxygen Flow Rate 0 05/01/25 11:22 Pain Level 8 05/01/25 11:22 Medical Decision Making 59-year-old female with a past medical history of GERD, cholecystectomy, hypertension, fibromyalgia high cholesterol, reactive airway disease, gout, restless leg syndrome, obstructive sleep apnea, presents today for evaluation of constipation, nausea, vomiting and epigastric pain. Patient has a known history of constipation for which she regularly uses magnesium citrate, MiraLAX, and fiber supplements. For the last week she has had increased constipation whenever she is trying to have a bowel movement. She has small hard round stool balls that occasionally will come out, but nothing else of significance. For the last 3 days though she has had a worsening of her symptoms, including notable epigastric cramps pain and discomfort, yesterday she had 1 episode of vomiting and today she has had 3 episodes of vomiting. She has been nauseous. No blood in her stool. She did take three quarters of a bottle of magnesium citrate yesterday, and did have a small amount of liquid stool today but no other bowel movement. She denies any other complaints at this time. She states that this feels different than her normal constipation. Exam demonstrates mild epigastric discomfort and tenderness on palpation, mildly distended abdomen, no lower abdominal tenderness. Vital signs otherwise stable. Exam otherwise unremarkable. Differential includes constipation, pancreatitis, less likely obstruction, potentially an ileus as well. Will evaluate for these etiologies with CT imaging, will give Zofran, gently rehydrate, monitor closely and reassess. Rectal exam showed no stool in the rectal vault. No current stool ball that is able to be digitally extracted. 4:31 PM Patient's laboratory workup has returned, no significant abnormality, white count bandemia or left shift. Electrolytes stable, troponin normal. Lipase normal. CT scan shows fluid-filled loops of bowel, some gas, and some hard stool as well. Patient feels much better after antiemetics. She has been able to tolerate p.o. well without any difficulty. No vomiting here. We will give Zofran for home. Patient has elected to go home and try GoLytely again which was notably helped to her in the past. I did discuss with her the potential for ileus and how this can transition to obstruction although she shows no evidence of obstruction whatsoever at this time. Patient will go home and trial GoLytely. Discussed red flags which to return. Otherwise no other evidence of acute life-threatening or surgical etiology at time of disposition. I have extensively reviewed the treatment plan and discharge instructions with the patient. I have addressed all patient concerns at this time. The patient was made aware of what symptoms to monitor for that would warrant a return to the emergency department. Discussed the plan with the patient, they demonstrate verbal understanding and agreement with our assessment and plan at this time. The documentation in this chart was dictated using [employer] dictation software. Please excuse any dictation errors. FINDINGS: Lung Bases: No acute findings. Liver: Mild hepatic steatosis. No suspicious mass. Gallbladder and biliary tract: Cholecystectomy. No biliary dilation. Pancreas: Normal density. No abnormal calcifications or inflammatory process. Spleen: Normal. Kidneys: Normal size, contour and axis. No radiodense stones. No obstructive uropathy. No suspicious masses seen. Adrenal glands: No masses seen. Lymph nodes: Within normal limits. Vasculature: Abdominal aorta non-dilated. Soft tissues: Unremarkable. Bladder: Nearly empty but unremarkable. Bowel: No obstruction or bowel wall thickening. Some fluid in distal small bowel and in ascending colon which could be related to diarrheal illness. The descending colon is collapsed. The appendix is not seen. Peritoneal cavity: No ascites. No focal collection. No mesenteric inflammatory response. Reproductive organs: Unremarkable. Bones: Unremarkable for age. IMPRESSION: Mildly fluid-filled loops of distal small bowel and right colon could secondary to a diarrheal illness or enteritis. PFSH All Active Problems (Updated 05/01/25 @ 14:15 by Arcadio Leigh DO) Abdominal discomfort (Acute) Hematemesis (Acute) Chronic GERD (Acute) Indigestion (Acute) Epigastric pain (Acute) Mass of right parotid gland (Acute) Chronic maxillary sinusitis (Acute) Pulmonary nodules (Acute) Nicotine dependence, cigarettes, uncomplicated (Acute) Aspiration into airway (Acute) Restrictive lung disease (Acute) Dehydration (Acute) Colon polyp, hyperplastic (Acute ~01/2021) Tubular adenoma (Acute ~01/2021) Repeat colonoscopy in 2028 Hx of adenomatous colonic polyps (Acute) Vertigo (Acute) Prolonged P-R interval (Acute) GERD (gastroesophageal reflux disease) (Chronic) Hiatal hernia (Chronic) Chest pain (Acute) Diabetes (Chronic) Encounter for screening for other viral diseases (Acute) Difficult airway for intubation (Acute) [place] difficult airway 7 yrs ago in [place] requiring fiberoptic intubation with difficulty. No other history available. Abnormal auditory perception of both ears (Acute) Hoarseness of voice (Acute) Bloating (Acute) Early satiety (Acute) Screening for colon cancer (Acute) Abdominal pain (Acute) Abdominal bloating with cramps (Acute) Guillen cyst (Acute) removed from behind right knee X2. Difficult intubation (Acute) Hyperlipidemia (Chronic) HTN (hypertension) (Chronic) Heart murmur (Chronic) Medical History (Updated 05/01/25 @ 14:15 by Arcadio Leigh DO) Hearing loss Vitamin D deficiency Vitamin B 12 deficiency Iron deficiency anemia Post-nasal drip Environmental allergies Carpal tunnel syndrome, right Ganglion cyst of volar aspect of left wrist De Quervain's tenosynovitis, right (~12/2019) Restless leg syndrome Gout Hypothyroidism Non-insulin dependent type 2 diabetes mellitus Depression Anxiety Bipolar 1 disorder COPD (chronic obstructive pulmonary disease) Dysuria Fibromyalgia SOB (shortness of breath) Bilateral lower extremity edema JADON (obstructive sleep apnea) Oral lesion Dental caries Right lateral epicondylitis Surgical History (Updated 08/23/24 @ 08:26 by SERVANDO Woody) Ganglion cyst of volar aspect of right wrist s/p excision: 08/15/2024 Hx of removal of cyst back of L knee x 2 History of esophagogastroduodenoscopy (EGD) (~01/2021) History of colonoscopy (~01/2021) Hx of tonsillectomy S/P cholecystectomy Family History Father Heart disease Maternal Grandmother Heart disease Social History Smoking/Tobacco Use Status: Current every day Tobacco Type: cigarettes Years smoked: 40 Smoking risk assessment performed?: Yes Alcohol Intake: current Alcohol Intake frequency: a few times a month Alcohol type: beer Drug use: Never Substance use type: does not use Details: alcohol: t-14, one beer Housing: house Current gender identity: female What type of physical activity do you participate in: none Do you feel safe at home: Yes Do you feel safe in your relationship?: Yes Additional Social history: Lives with sister.
[2025-05-01 12:11] LABS: Abs Immature Grans 0.04 10^3/uL (0.0-0.06); HCT 47.0 % (36.0-46.0); HGB 14.8 g/dL (11.2-15.7); Immature Grans % 0.4 %; MCH 28.2 pg (27.0-33.0); MCHC 31.5 % (32.0-36.0); MCV 90 fL (80-95); MPV 10.4 fL (8.0-11.0); Platelet Count 270 10^3/uL (130-400); RBC 5.24 10^6/uL (3.93-5.22); RDW 13.4 % (11.7-14.6); RDW-SD 44.4 fL; WBC 9.97 10^3/uL (4.4-10.8)
[2025-05-01] MEDS: Normal Saline 500 ML IV (12:13)
[2025-05-01] MEDS: Ondansetron 4 MG/2 ML VIAL IVP ×2 (12:14→13:14)
[2025-05-01 12:27] LABS: ALT 20 U/L (14-59); AST 12 U/L (15-37); Albumin 3.7 g/dL (3.4-5.0); Alkaline Phosphatase 118 U/L (46-116); Anion Gap 5.5 mmol/L (3-11); BUN 10 mg/dL (7-18); Bilirubin, Total 0.5 mg/dL (0.2-1.0); CO2 28.5 mmol/L (21.0-32.0); Calcium 8.9 mg/dL (8.5-10.1); Chloride 105 mmol/L (98-107); Estimated GFR 74.10 (mL/min/1.73m2); Glucose 148 mg/dL (74-106); Lipase 28 U/L (<78); Potassium 4.0 mmol/L (3.5-5.1); Sodium 139 mmol/L (136-145); Total Protein 7.7 g/dL (6.4-8.2)
--- NOTE | 2025-05-01 13:00 | RT.EKG_ITS ---
APPROVED REPORT Exam: Resting ECG Reason for Exam: epigastric pain Patient Location: E HR:67 bpm ECG Measurements Heart Rate 67 AXIS SC 214 P 58 QRSd 126 QRS 92 QT 454 T 79 QTc 481 Conclusion Sinus rhythm...normal P axis, V-rate 60- 99 Prolonged SC interval...SC >210, V-rate 50- 90 Nonspecific intraventricular conduction delay...QRSd >115mS, not LBBB/RBBB Physician: No STEMI
[2025-05-01] MEDS: Metoclopramide 10 MG/2 ML VIAL IVP (13:14)
[2025-05-01] MEDS: Normal Saline Flush 10 ML SYR IVP (13:15)
[2025-05-01 13:48] VITALS: BP 156/67; PULSE 72; O2SAT 96
[2025-05-01 14:10] LABS: Troponin I 6 ng/L (<or=51)
[2025-05-01] MEDS: Ondansetron O.D.T. 4 MG TABEF, 3 TABS/BTL PO (14:20)
== END 2025-05-01 14:21 | disposition home or self-care (01) ==
LOC: ER 14:25
PROVIDERS: Emergency Provider Student in an Organized Health Care Education/Training Program; PCP Nurse Practitioner Family
DX: K59.00 Constipation, unspecified (principal); R10.9 Unspecified abdominal pain; J21.9 Acute bronchiolitis, unspecified; I10 Essential (primary) hypertension
CPT/HCPCS: 99285; 99284; 36415; 96374; 96375; 96376; 80053; 83690; 93005; 96361; 74176; 84484; 85025; 93010; J2405; J2765

== ENCOUNTER 2025-05-05 02:50 | Outpatient (CLI) | payer BC, SELFPAY ==
--- NOTE | 2025-05-05 14:42 | DI.MAMMO_ITS ---
Exam(s) MAMMO SCREENING EXAM: MAMMO SCREENING CLINICAL HISTORY: SCREENING MAMMO Z12.31. TECHNIQUE: Bilateral full field digital CC and MLO mammographic images were obtained with 3D tomosynthesis and utilizing computer aided detection (CAD). COMPARISON: Prior mammograms were reviewed. Prior ultrasound of December 2021 was also reviewed. FINDINGS: No new right breast findings. The left breast there is a new small microcalcification group posteriorly, medial of center approximately 10 cm in from the nipple. Spot Mag views recommended. There are no new spiculated masses. There is no significant architectural distortion nor skin thickening-retraction. IMPRESSION: Microcalcification group posteromedially in the left breast. 2D Spot Mag views recommended. BI-RADS Category 0 - Incomplete: Need additional imaging evaluation Breast Density - Category B - There are scattered areas of fibroglandular density. Breast density Category C or D implies that the patient has dense breast tissue. Dense breast tissue can make it harder to find cancer on a mammogram. Dense breast tissue is also associated with an increased risk of breast cancer. This information about the result of the mammogram report was provided to the patient to raise their awareness. Use this report when you speak with the patient about their risks for breast cancer, which includes their family history. At that time, you may recommend additional screening tests (Ultrasound or MRI) as these tests may add significant information. A negative radiographic report should not delay biopsy if a dominant or clinically suspicious mass is present. Up to ten percent of cancers are not identified on mammography. A negative report may reinforce clinical impression. Adenosis and dense breasts may obscure an underlying neoplasm. False positive reports average 6 to 10%. Patient will receive a letter notifying them of these results.
== END 2025-05-05 03:10 ==
LOC: DI 02:51
PROVIDERS: PCP Nurse Practitioner Family; Visit Provider Nurse Practitioner Family
DX: Z12.31 Encounter for screening mammogram for malignant neoplasm of breast (principal)
CPT/HCPCS: 77063; 77067

== ENCOUNTER 2025-05-12 02:22 | Outpatient (CLI) | payer BC, SELFPAY ==
--- NOTE | 2025-05-12 | DI.MAMMO_ITS ---
Exam(s) MG MAMMO SCREEN CALL BACK UNI EXAM: MAMMO SCREEN CALL BACK UNI CLINICAL HISTORY: F/U ABNL MAMMO, MICROCALCIFICATION GROUP POSTEROMEDIALLY LT BREAST. TECHNIQUE: Craniocaudal and mediolateral oblique magnification mammography views of the left breast with Computer Aided Diagnosis. COMPARISON: No exams were available for comparison FINDINGS: Mammography/Tomosynthesis: Masses/Architectural Distortion: There are no suspicious masses or areas of architectural distortion. Microcalcifictions: No suspicious pleomorphic-type are seen. There is a new coarse calcification in the upper inner quadrant of the left breast. Skin Thickening/Nipple Retraction: None. IMPRESSION: 1. No evidence of malignancy is noted. 2. A six-month follow-up left mammogram is requested for re-evaluation. 3. The findings were discussed with the patient on the date of the examination. BI-RADS Category 3 - 6 month - Probably Benign Finding: Recommend follow-up imaging in 6 months Breast Density - Category B - There are scattered areas of fibroglandular density. Breast density Category C or D implies that the patient has dense breast tissue. Dense breast tissue can make it harder to find cancer on a mammogram. Dense breast tissue is also associated with an increased risk of breast cancer. This information about the result of the mammogram report was provided to the patient to raise their awareness. Use this report when you speak with the patient about their risks for breast cancer, which includes their family history. At that time, you may recommend additional screening tests (Ultrasound or MRI) as these tests may add significant information. A negative radiographic report should not delay biopsy if a dominant or clinically suspicious mass is present. Up to ten percent of cancers are not identified on mammography. A negative report may reinforce clinical impression. Adenosis and dense breasts may obscure an underlying neoplasm. False positive reports average 6 to 10%. Patient will receive a letter notifying them of these results.
== END 2025-05-12 02:42 ==
LOC: DI 02:22
PROVIDERS: PCP Nurse Practitioner Family; Visit Provider Nurse Practitioner Family
DX: Z12.31 Encounter for screening mammogram for malignant neoplasm of breast (principal)
CPT/HCPCS: 77063; 77067